=== PATIENT | female | born 1945 | race Caucasian/White ===

== ENCOUNTER 2023-07-06 17:01 | Emergency (ER) | payer MEDICARE, SELFPAY ==
[2023-07-06 17:06] VITALS: BP 182/101; PULSE 67; RESP 18; TEMP 36.8; O2SAT 97; BMI 26.5
--- NOTE | 2023-07-06 17:17 | XR_ITS ---
[address] [address] Patient Name: RADHA MILNER MRN: [id number] date: 1945 Sex: F Assigned Patient Location: ER Current Patient Location: ER Accession/Order Number: [id number] Exam Date: 07/06/2023 17:28 Report Date: 07/06/2023 18:30 At the request of: ELLEN PLUNKETT Procedure: XR sacrum coccyx min 2V IMAGES REVIEWED: XR sacrum coccyx min 2V COMPARISON: None available. CLINICAL INDICATION: injury FINDINGS/IMPRESSION: No radiographic evidence of acute osseous abnormality of the sacrum/coccyx. Degenerative grade 1 anterolisthesis of L3 on L4 due to severe multilevel lumbar facet arthropathy. Severe degenerative disc disease L4-L5. Moderate degenerative disc disease L2-L3. Electronically authenticated by: SKYLER BAKER Date: 07/06/2023 18:30
--- NOTE | 2023-07-06 17:54 | CT_ITS ---
The [address] [address] Patient Name: RADHA MILNER MRN: [id number] date: 1945 Sex: F Assigned Patient Location: ER Current Patient Location: Accession/Order Number: [id number] Exam Date: 07/06/2023 18:07 Report Date: 07/06/2023 18:38 At the request of: ELLEN PLUNKETT Procedure: CT pelvis wo con EXAM: CT pelvis wo con COMPARISON: None available. CLINICAL INDICATION: fall TECHNIQUE: Multiplanar CT images of the pelvis without contrast. Dose reduction techniques were achieved by using automated exposure control and/or adjustment of mA and/or kV according to patient size and/or use of iterative reconstruction technique. FINDINGS: No CT evidence of acute osseous abnormality. Osteopenia. Trace presacral/precoccygeal edema is nonspecific. No significant presacral/precoccygeal hematoma. Severe osteoarthritis left hip and mild osteoarthritis right hip. No acute intrapelvic abnormality. Degenerative trace anterolisthesis of L3 on L4 due to severe facet arthropathy. Severe degenerative disc disease L4-L5 and milder degenerative disc disease at L3-L4. Foraminal narrowing appears most severe on the right L4-L5. Moderate-severe spinal canal narrowing at L3-L4. CT/CT pelvis wo con IMPRESSION: No CT evidence of acute osseous abnormality. Osteopenia. MRI is the optimal modality for evaluating sacral insufficiency fractures. Severe osteoarthritis left hip. Severe degenerative changes lumbar spine. Electronically authenticated by: SKYLER BAKER Date: 07/06/2023 18:38
[2023-07-06] MEDS: ACETAMINOPHEN 500 MG TABLET PO (18:19)
[2023-07-06 19:21] VITALS: BP 204/102; PULSE 80; O2SAT 100
--- NOTE | 2023-07-06 21:08 | ED.GENADUL1 ---
HPI - General Adult General Chief complaint: Extremity Injury, Lower Stated complaint: fall around xmas, tailbone pain Time Seen by Provider: 07/06/23 17:45 Source: patient Mode of arrival: walk-in History of Present Illness HPI narrative: Patient is a 78-year-old female who has slipped and fallen Down 3 steps with a mechanical fall on June 27. Patient's bbeen having tailbone pain since. Patient does not have much body mass, patient alsso takes Eliquis. Patient has no ecchymosis, no palpable hematoma or mass to her tailbone her buttocks. Patient's been having pain since with walking, and relating or sitting. Patient says that her PCP sent her to the Emergency Room to get x-rays. Patient's had no urinary or bowel incontinence. No abdominal pain, nausea or vomiting. No other acute complaints. Patient did not hit her head. She has no headache or neck pain. She has no other acute injuries. . All systems are negative except as noted/marked. All systems reviewed and otherwise negative. . Nurses note and vital signs reviewed and patient is not hypoxic. General: The patient appears well and in no apparent distress. Patient is resting comfortably on cart. Patient is not toxic, lethargic, or listless Skin: Warm, dry, no pallor noted. There is no rash noted. No petechiae, purpura. Head: Normocephalic, atraumatic, Patient has no midline oor paracervical tenderness to palpation. Full range of motion of cervical spinal no difficulty. Eye: Normal conjunctiva, no drainage, EOMI. PERRL Ears, Nose, Mouth, and Throat: oral mucosa is moist. Nares patent. Mouth without vesicles. Cardiovascular: Regular Rate and Rhythm, no murmur, gallop, rub Respiratory: Patient is in no distress, no accessory muscle use, lungs are clear to auscultation, no wheezing, rales or rhonchi Back: Paloma Banegas RN was at bedside dduring exam. Patient has moderate to severe midline lower sacrum and coccyx tenderness to palpation, no step-offs, patient has no ecchymosis along her lower lumbar area, sacrum or coccyx. Patient has no ecchymosis to her buttocks, no palpable hematoma. Patient has no saddle anesthesia or cauda equina. Patient has pinpoint midline pain to her lower coccyx. Otherwise non-tender, no CVA tenderness bilaterally to percussion. No CT LS midline pain Besides mentioned GI: soft, no tenderness to palpation, no masses appreciated. No rebound, guarding, or rigidity noted. No flank pain bilateral, No distention Musculoskeletal: Patient has full range of motion of all of the extremities, no motor, sensory, or focal neurological deficits Neurological: A&O x3, normal speech Psychiatric: Cooperative Related Data Home Medications Medication Instructions Recorded Confirmed apixaban 5 mg tablet (Eliquis) 5 mg PO Q12H 07/06/23 07/06/23 atorvastatin 40 mg tablet 40 mg PO .every night 07/06/23 07/06/23 cyclobenzaprine 10 mg tablet 10 mg PO Q12H 07/06/23 07/06/23 gabapentin 600 mg tablet 600 mg PO Q12H 07/06/23 07/06/23 hydrochlorothiazide 25 mg tablet 25 mg PO .every night 07/06/23 07/06/23 metoprolol tartrate 25 mg tablet 25 mg PO Q12H 07/06/23 07/06/23 tramadol 50 mg tablet 50 mg PO Q12H 07/06/23 07/06/23 valsartan 160 mg tablet 160 mg PO DAILY 07/06/23 07/06/23 Previous Rx's Medication Instructions Recorded tramadol 50 mg tablet 50 mg PO Q8H PRN pain #14 tabs 07/06/23 Allergies Allergy/AdvReac Type Severity Reaction Status Date / Time No Known Drug Allergies Allergy Verified 07/06/23 17:06 Exam Constitutional Vital Signs, click to edit/add: Last Vital Signs Temp 98.2 F 07/06/23 17:06 Pulse 80 07/06/23 19:21 Resp 18 07/06/23 17:06 BP 204/102 H 07/06/23 19:21 Pulse Ox 100 07/06/23 19:21 O2 Del Method Room Air 07/06/23 17:06 Course Vital Signs Vital signs: Vital Signs Temperature 98.2 F 07/06/23 17:06 Pulse Rate 67 07/06/23 17:06 Respiratory Rate 18 07/06/23 17:06 Blood Pressure 182/101 H 07/06/23 17:06 Pulse Oximetry 97 07/06/23 17:06 Oxygen Delivery Method Room Air 07/06/23 17:06 Temperature 98.2 F 07/06/23 17:06 Pulse Rate 80 07/06/23 19:21 Respiratory Rate 18 07/06/23 17:06 Blood Pressure 204/102 H 07/06/23 19:21 Pulse Oximetry 100 07/06/23 19:21 Oxygen Delivery Method Room Air 07/06/23 17:06 Medical Decision Making MDM Narrative Medical decision making narrative: Secondary to patient's age, being on liquids, fall, and continuing to have severe pain a week after injury, initially x-rays weere ordered bbutt then a CT of the pelvis was ordered for further evaluation to make sure there is no small subbtle fractures to patient's sacrum or coccyx that would cause any type of nerve injury. X-rays and CT of the pelvis show arthritic changes, no other acute changes. Patient will continue using ice, Tylenol and tramadol at home. Additional prescription of Tyylenol was given to the patient. Patient was educated using ice, a donut pad or pillow if needed when sitting. Patient will follow-up with Dr. del toro. Patient is given copies of her x-ray and CT reports and is aware of the multiple arthritic changes. No questions at discharge. Discharge Plan Discharge Chief Complaint: Extremity Injury, Lower Clinical Impression: Coccyx contusion Patient Disposition: Home, Self-Care Time of Disposition Decision: 18:51 Condition: Fair Prescriptions / Home Meds: New tramadol 50 mg tablet 50 mg PO Q8H PRN (Reason: pain) Qty: 14 0RF No Action Eliquis 5 mg tablet 5 mg PO Q12H atorvastatin 40 mg tablet 40 mg PO .every night cyclobenzaprine 10 mg tablet 10 mg PO Q12H gabapentin 600 mg tablet 600 mg PO Q12H hydrochlorothiazide 25 mg tablet 25 mg PO .every night metoprolol tartrate 25 mg tablet 25 mg PO Q12H tramadol 50 mg tablet 50 mg PO Q12H valsartan 160 mg tablet 160 mg PO DAILY Instructions: Contusion in Adults (ED), Ice Pack Application (ED) Additional Instructions: Use ice 20 minutes on, 20 minutes off. Use pain medication as needed You can use pain medication With ice and Tylenol. He is a pillow or a donut pad as discussed when sitting Follow-up with PCP in 5-7 days if no improvement. Stand Alone Forms: Portal Instructions Referrals: ANNA DEL TORO [Primary Care Provider] - 1 week Discharge Date/Time: 07/06/23 19:23
== END 2023-07-06 19:23 | disposition home or self-care (01) ==
PROVIDERS: Emergency Provider Emergency Medicine; PCP Family Medicine
DX: S30.0XXA Contusion of lower back and pelvis, initial encounter (principal); W10.9XXA Fall (on) (from) unspecified stairs and steps, initial encounter; Z79.01 Long term (current) use of anticoagulants; Z79.899 Other long term (current) drug therapy
CPT/HCPCS: 72192; 72220; 99284

== ENCOUNTER 2023-08-20 19:56 | Emergency (ER) | payer MEDICARE, SELFPAY ==
[2023-08-20 20:02] VITALS: BP 176/108; PULSE 123; RESP 16; TEMP 37.1; O2SAT 97; BMI 21.5
--- OUTSIDE RECORDS SUMMARY | 2023-08-20 20:05 | XMS_ITS | CCD ---
Author Name Unknown Address [address] [place] [address] Organization [facility] Care Team Providers Care Hand Patcher Name Role Phone UNKNOWN, PROVIDER Attending Unavailable MOI FU Primary Care Unavailable UNKNOWN, PROVIDER Attending Unavailable OMI FU Primary Care Unavailable UNKNOWN, PROVIDER Attending Unavailable MOI FU Primary Care Unavailable UNKNOWN, PROVIDER Attending Unavailable NO FAMILY DOCTOR, NO FAMILY DOCTOR Primary Care Unavailable JOAQUINA BRIONES Admitting Unavailable JOAQUINA BRIONES Attending Unavailable KIP ESPINOZA Primary Care Unavailable LAMONTE NUR Consulting Unavailable JOAQUINA BRIONES Consulting Unavailable KIP ESPINOZA Primary Care Unavailable STRUS, ENEIDA Admitting Unavailable STRUS, ENEIDA Attending Unavailable STRUS, ENEIDA Consulting Unavailable ALEXIS, KIP Primary Care Unavailable ALLA, MISTY Admitting Unavailable ALLA, MISTY Attending Unavailable AMARI CONNORS Consulting Unavailable ALLA, MISTY Consulting Unavailable ALEXIS, KIP Primary Care Unavailable HAY, MISTY Admitting Unavailable ALLA, MISTY Attending Unavailable LAMONTE NUR Consulting Unavailable ALLA, MISTY Consulting Unavailable Kip Espinoza Unavailable Unavailable Unavailable Alli Nicholas Unavailable Maude Trotter Unavailable Marilin Resendez Unavailable DO Kip Espinoza Primary Care Provider [phone] DO Alli Nicholas Attending Provider [phone] DO Moises Alberto Emergency Provider DO Kip Espinoza Primary Care Provider DO Alli Nicholas Attending Provider [phone] Dr. Esau Aceves Attending Aliciama mame Espinoza, Dr. Kip Sullivan Primary Care Gian Aceves, Dr. Esau Gee Referring Gian Espinoza, Dr. Kip Sullivan Primary Care Gian Connors, JAMAICA Cook Referring Unavailable JAMAICA Connors Attending Unavailable DO Kip Espinoza Primary Care Provider [phone] DO Citlalli palumbo Emergency Provider [phone] Unavailable Primary Care Provider UnavailESAU Chavarria Attending Unavailable ESAU ACEVES Referring Unavailable KIP ESPINOZA Primary Care Unavailab EVELIA Batista Emergency Provider [phone] [place] Primary Care Provider [place], DO Lito T Admit Provider [phone] [place], Lito T Attending Provider Citlalli Tenorio Attending Unavailable Kip Espinoza Primary Care Unavailable Citlalli Tenorio Admitting Unavailable KevinLito watkins Attending Unavailable Kip Espinoza [facility] Care Unavailable SweetwaterLito Admitting Unavailable Andrea ARIAS, Jose Douglass Attending Unavailable Andrea ARIAS, Jose Douglass Attending Unavailable Jose Mendez MD Attending Unavailable KIP ESPINOZA Primary Care Unavailable Allergies Allergy Classification Reported Allergen(s) Allergy Type Date of Onset Reaction(s) Facility (1 source) amLODIPine / valsartan Drug Allergy 015 [facility] Repository (1 source) hydroCHLOROthiazide / Lisinopril Drug Allergy 015 [facility] Repository (1 source) irbesartan Drug Allergy 015 [facility] Repository (20 sources) levoFLOXacin Drug Allergy 015 Unknown [facility] Repository (20 sources) Verapamil Drug Allergy 015 Unknown [facility] Repository (14 sources) Angiotensin Converting Enzyme (Deyanira) Inhibitors; Translations: [DEYANIRA Inhibitors] Allergy to drug (finding) 023 [facility] 3 Repository (15 sources) Lisinopril; Translations: [lisinopril] Drug Allergy 023 Other, Cough, Headache -[facility] DO Work Phone: (20 sources) amLODIPine / valsartan Drug Allergy Unknown DIY Other (20 sources) hydroCHLOROthiazide / Lisinopril Drug Allergy Unknown DIY Other (20 sources) irbesartan Drug Allergy Unknown DIY Other (1 source) Angiotensin-convertin g enzyme inhibitor agent Drug Intolerance 023 Other, Cough, Headache [facility] Medications Current Medications Medication Drug Class(es) Dates Sig (Normalized) Sig (Original) ACETAMINOPHEN EXTRA STRENGTH ORAL (1 source) take 2 capsules by mouth four times daily ACETAMINOPHEN EXTRA STRENGTH ORAL Take 2 capsules by mouth 4 times a day. 0 Active apixaban 5 mg oral tablet (20 sources) Factor Xa Inhibitor Start: 04-10-2023 take 1 tablet by mouth twice daily apixaban (Eliquis) 5 mg tablet Indications: Chronic atrial fibrillation (CMS/HCC) Take 1 tablet (5 mg) by mouth 2 times a day. 90 tablet 3 04/10/2023 Active Start: 07-27-2017 take 1 tablet by yao th every twelve hours Apixaban (Eliquis) 5 mg Tablet Active 5 MG PO Q12H July 27, 2017 12:00am Start: 07-25-2017 End: 04-10-2023 take 1 tablet by mouth every twelve hours Eliquis 5 MG 1 tablet Orally bid Jul, Active Aspir-81 81 MG (20 sources) Aspir-81 81 MG O rally Once a day every other day Active aspirin 81 mg delayed release oral tablet (20 sources) Platelet Aggregation Inhibitor, Nonsteroidal Anti-inflammatory Drug Start: 06-08-2021 take 1 tablet by mouth every twelve hours Aspirin 81 MG 1 tablet Orally BID for 35 days do not fill until 1 day prior to surgery Jun, Active Start: 07-10-2017 End: 07-09-2023 take 81 mg by mouth once daily Aspirin Discontinued 81 MG PO Daily July 10, 2017 12:00am July 09, 2023 2:10pm Every other day. atorvastatin 40 mg oral tablet (20 sources) HMG-CoA Reductase Inhibitor Start: 04-10-2023 take 1 tablet by mouth once daily at bedtime atorvastatin (Lipitor) 40 mg tablet Indications: Hyperlipidemia, unspecified hyperlipidemia type Take 1 tablet (40 mg) by mouth once daily at bedtime. 90 tablet 3 04/10/2023 Active Start: 05-27-2021 End: 04-10-2023 take 40 mg by mouth once daily at bedtime Atorvastatin Active 40 MG PO Daily at bedtime May 27, 2021 12:00am Start: 07-10-2017 End: 05-27-2021 take 40 mg by mouth once daily Atorvastatin Discontinu ed 40 MG PO daily July 10, 2017 12:00am May 27, 2021 4:21pm cyclobenzaprine hydrochloride 10 mg oral tablet (20 sources) Muscle Relaxant Start: 07-09-2023 take 10 mg by mouth once daily Cyclobenzaprine Active 10 MG PO Daily July 09, 2023 12:00am Start: 04-04-2022 take 1 tablet by yao th three times daily as needed cyclobenzaprine (Flexeril) 10 mg tablet Take 1 tablet (10 mg) by mouth 3 times a day as needed. 0 04/04/2022 Active Start: 08-02-2021 End: 01-19-2022 take 10 mg by mouth every eight hours Cyclobenzaprine Discontinued 10 MG PO Q8H August 02, 2021 12:00am January 19, 2022 5:06pm Start: 06-08-2021 End: 01-19-2022 take 10 mg by mouth three times daily Cyclobenzaprine Discontinued 10 MG PO Three times daily August 02, 2021 12:00am January 19, 2022 5:06pm Start: 07-10-2017 End: 01-10-2019 take 10 mg by mouth once daily at bedtime Cyclobenzaprine Discontinued 10 MG PO Daily at bedtime July 10, 2017 12:00am January 10, 2019 11:56am docusate sodium 100 mg oral capsule (20 sources) Start: 06-08-2021 take 1 capsule by mouth every twelve hours Colace 100 MG 1 capsule as needed Orally BID for 14 days Jun, Active gabapentin 300 mg oral capsule (20 sources) Anti-epileptic Agent Start: 04-10-2022 gabapentin (Neurontin) 300 mg capsule Take 1 capsule (300 mg) by mouth. 2 - 3 TIMES DAILY NEEDED 0 04/10/2022 Active Start: 07-10-2017 take 1 capsule by [facility] every eight hours Neurontin 300 MG 1 capsule Orally tid PRN Aug, Active hydroCHLOROthiazide 25 mg oral tablet (3 sources) Thiazide Diuretic Start: 07-11-2023 take 37.5 mg by mouth once daily Hydrochlorothiazide Active 37.5 MG PO Daily July 11, 2023 12:00am Start: 04-10-2023 End: 04-09-2024 take 25 mg by mouth once daily Hydrochlorothiazide Discontinued 25 MG PO Daily July 09, 2023 12:00am July 11, 2023 10:26am latanoprost 0.05 mg/ml ophthalmic solution (13 sources) Prostaglandin Analog Start: 03-07-[address] (Xalatan) 0.005 % ophthalmic solution Administer into both eyes once daily at bedtime. 0 03/07/2022 Active Start: 03-07-2022 take 1 drop(s) into the eye(s) at bedtime Latanoprost 0.005 % Ophthalmic Solution INSTILL 1 DROP IN BOTH EYES AT BEDTIME. Quantity: 0 Refills: 0 Ordered: 07-Mar-2022 DO Start : 07-Mar-2022 Active Start: 01-10-2019 take 1 drop(s) into the eye(s) once daily at bedtime Latanoprost (Xalatan) 0.005 % drops Active 1 DROPS EYE-BOTH Bedtime January 09, 2019 11:00pm Instill one drop into affected eye once daily as directed. metoprolol tartrate 25 mg oral tablet (20 sources) beta-Adrenergic [place] Start: 04-10-2023 take 2 tablets by mouth twice daily metoprolol tartrate (Lopressor) 25 mg tablet Indications: Essential hypertension, benign Take 2 tablets (50 mg) by mouth 2 times a day. 90 tablet 3 04/10/2023 Active Start: 11-21-2021 End: 04-10-2023 take 2 tablets by mouth twice daily metoprolol tartrate (Lopressor) 25 mg tablet Take 2 tablets (50 mg) by mouth 2 times a day. 0 11/21/2021 04/10/2023 Discontinued (Reorder) Start: 07-27-2017 take 50 mg by mouth twice darshan y Metoprolol Tartrate Active 50 MG PO Twice daily July 27, 2017 12:00am take 1 tablet by yao th every twelve hours Metoprolol Tartrate 25 MG 1 tablet with food Orally Twice a day Active take 2 tablets by mo uth twice daily Metoprolol Tartrate 25 MG Oral Tablet TAKE 2 TABLET Twice daily Quantity: 0 Refills: 0 Ordered: 12-Apr-2021 DO Active nitroglycerin 0.4 mg sublingual tablet (20 sources) Nitrate Vasodilator Start: 01-10-2019 Nitroglyce rin (Nitrostat) 0.4 mg tablet, sublingual Active 0.4 MG SUBLINGUAL EVERY 3-5 MINUTES January 09, 2019 11:00pm Start: 02-11-2015 Nitrostat 0.4 MG 1 tablet Sublingual q5 min x3 if no relief call 911 prn Jan, Active omeprazole 20 mg delayed release oral capsule (14 sources) Proton Pump Inhibitor End: 04-10-2023 take 1 capsule by mouth once daily before mealtime omeprazole (PriLOSEC) [address] capsule Take 1 capsule (20 mg) by mouth once daily in the morning. Take before meals. 0 04/10/2023 Discontinued (Therapy completed) oxyCODONE hydrochloride 5 mg oral tablet (15 sources) Opioid Agonist Start: 06-08-2021 take 1 tablet by mouth every four hours oxyCODONE HCl 5 MG 1 tablet as needed Orally every 4 hrs for 7 days do not fill until 1 day prior to surgery Jun, Active Start: 07-10-2017 End: 01-10-2019 take 10 mg by mouth every six hours Oxycodone Discontinued 10 MG PO Q6H July 10, 2017 12:00am January 10, 2019 11:56am potassium chloride 10 meq extended release oral tablet (1 source) Start: 04-10-2023 End: 04-09-2024 take 1 tablet by mouth twice daily potassium chloride CR (Klor-Con) 10 mEq ER tablet Indications: Essential hypertension, benign , History of PTCA Take 1 tablet (10 mEq) by mouth 2 times a day. Do not crush, chew, or split. 60 tablet 11 04/10/2023 04/09/2024 Active Timolol Maleate (1 source) beta-Adrenergi c [place] Start: 07-09-2023 take 1 drop(s) into the eye(s) twice daily Timolol Maleate Active 1 DROPS EYE-BOTH Twice daily July 09, 2023 12:00am traMADol hydrochloride 50 mg oral tablet (20 sources) Opioid Agonist Start: 07-09-2023 take 1 mg by mouth once daily Tramadol Active 1 MG PO Daily July 09, 2023 12:00am Start: 05-04-2021 End: 01-19-2022 take 50 mg by mouth every four hours Tramadol Discontinued 50 MG PO Q4H 42 7 August 02, 2021 12:00am January 19, 2022 5:06pm valsartan 320 mg oral tablet (10 sources) Angiotensin 2 Receptor [place] Start: 04-10-2023 End: 04-09-2024 take 320 mg by mouth once daily Valsartan Active 320 MG PO Daily July 09, 2023 12:00am Start: 04-13-2022 End: 04-10-2023 take 1 tablet by mouth once daily valsartan (Diovan) 160 mg tablet Take 1 tablet (160 mg) by mouth once daily. 0 04/13/2022 04/10/2023 Discontinued (Ineffective) Completed/Discontinued Medications Medication Drug Class(es) Dates Sig (Normalized) Sig (Original) acetaminophen 500 mg oral tablet (20 sources) Start: 06-08-2021 End: 01-19-2022 take 2 tablets by mouth every eight hours Acetaminophen (Tylenol Extra Strength) 500 mg tablet Discontinued 1000 MG PO Every 8 hours 60 August 02, 2021 12:00am January 19, 2022 5:06pm Start: 06-08-2021 take 2 tablets by mouth every eight hours Tylenol 1 tab Or al Active Acetaminophen Extra Strength CAPS (13 sources) Acetaminophen Ex tra Strength CAPS TAKE 2 CAPSULES 4 TIMES DAILY. Quantity: 0 Refills: 0 Ordered: 12-Apr-2021 DO Active amiodarone hydrochloride 200 mg oral tablet (2 sources) Antiarrhythmic Start: 2 take 2 tablets by mouth twice daily Amiodarone HCl - 200 MG Oral Tablet TAKE 2 TABLET Twice daily Quantity: 28 Refills: 0 Ordered: 13-Apr-2022 Esau Aceves DO Start : 13-Apr-2022 Active New start- Take 400 MG BID for 1 week ascorbic acid 500 mg oral tablet (5 sources) Vitamin C Start: End: 2 take 1 tablet by mouth once daily Ascorbic Acid (Vitamin C) (Vitamin C) 500 mg Tablet Discontinued 500 MG PO Daily May 27, 2021 12:00am Taylor 21st, 2022 5:06pm [id number] Calcium-B6 (5 sources) Start: 8 End: 9 take 1 tablet by mouth once daily [id number] Calcium-B6 Discontinued 1 TAB PO Daily August 21, 2017 12:00am January 10, 2019 11:56am Start: 08-21-2017 End: 01-10-2019 take 1 tablet by mouth once daily [id number] Calcium-B6 Discontinued 1 TAB PO Daily August 21, 2017 1:00am January 10, 2019 12:56pm busPIRone hydrochloride 15 mg oral tablet (20 sources) Start: 05-27-2021 End: 07-09-2023 take 5 mg by mouth once daily at bedtime Buspirone Discontinued 5 MG PO Daily at bedtime May 27, 2021 12:00am July 09, 2023 2:07pm Start: 03-22-2021 End: 07-09-2023 take 1 tablet by mouth once daily in the morning Buspirone Discontinued 10 MG PO Every morning March 21, 2021 11:00pm July 09, 2023 2:07pm Takes 10mg in AM, 5mg at night. Uses one 15mg tablet and breaks it. Start: 01-10-2019 End: 03-22-2021 take 7.5 mg by mouth twice daily Buspirone Discontinued 7.5 MG PO Twice daily January 09, 2019 11:00pm March 21, 2021 11:50pm Start: 11-15-2017 take 2 tablets by mo ut in the morning, then take 1 tablet by mouth in the evening busPIRone HCl 5 MG 2 tablets in the AM Orally and 1 tablet in the PM October, Active Start: 11-15-2017 End: 04-10-2023 busPIRone (Buspar) 15 mg tab let Take by mouth once daily as needed. 0 04/10/2023 Discontinued (Therapy completed) cholecalciferol 0.05 mg oral capsule (5 sources) Vitamin D Start: 07-27-2017 End: 01-10-2019 take 1 capsule by mouth once Cholecalciferol (Vitamin D3) (Vitamin D3) 2,000 unit Capsule Discontinued 2000 UNIT PO Once July 27, 2017 12:00am January 10, 2019 11:56am clopidogrel 75 mg oral tablet (5 sources) [id number] Platelet Inhibitor Start: 07-10-2017 End: 07-27-2017 take 75 mg by mouth once daily Clopidogrel Discontinued 75 MG PO daily July 10, 2017 12:00am July 27, 2017 9:07am Durolane (20 sources) Start: 02-16-2020 Durolane Jan, 60 mg ferrous sulfate 325 mg oral tablet (5 sources) Start: 06-15-2021 End: 08-02-2021 take 1 tablet by mouth twice daily Ferrous Sulfate (Iron) 325 mg (65 mg iron) tablet Discontinued 325 MG PO Twice daily 60 June 15, 2021 12:00am August 02, 2021 1:32pm Fish Oil & Vitamin D3 (5 sources) Start: 05-27-2021 End: 08-02-2021 take 1 capsule by mouth once daily Fish Oil & Vitamin D3 Discontinued 1 CAP PO Daily May 27, 2021 12:00am August 02, 2021 1:32pm Start: 05-27-2021 End: 08-02-2021 take 1 capsule by mouth once daily Fish Oil & Vitamin D3 Discontinued 1 CAP PO Daily May 27, 2021 1:00am August 02, 2021 2:32pm hydrOXYzine pamoate 50 mg oral capsule (5 sources) Antihistamine Start: 06-16-2021 End: 08-02-2021 take 50 mg by mouth every six hours Hydroxyzine Pamoate Discontinued 50 MG PO Q6H 60 June 16, 2021 12:00am August 02, 2021 1:32pm LORazepam 0.5 mg oral tablet (5 sources) Benzodiazepine Start: 06-16-2021 End: 08-02-2021 take 1 tablet by mouth twice daily Lorazepam (Ativan) 0.5 mg tablet Discontinued 0.5 MG PO Twice daily 14 June 16, 2021 12:00am August 02, 2021 1:33pm losartan potassium 100 mg oral tablet (20 sources) Angiotensin 2 Receptor [place] Start: 07-10-2017 End: 07-09-2023 take 100 mg by mouth once daily in the morning Losartan Discontinued 100 MG PO Every morning July 10, 2017 12:00am July 09, 2023 2:12pm meclizine hydrochloride 25 mg oral tablet (5 sources) Antiemetic Start: 01-10-2019 End: 03-22-2021 take 25 mg by mouth once daily Meclizine Discontinued 25 MG PO Daily January 09, 2019 11:00pm March 21, 2021 11:50pm raNITIdine 150 mg oral tablet (10 sources) Histamine-2 Receptor Antagonist Start: 07-27-2017 End: 01-10-2019 take 150 mg by mouth once daily at bedtime Ranitidine Hcl Discontinued 150 MG PO Daily at bedtime July 27, 2017 12:00am January 10, 2019 11:56am Start: 07-10-2017 End: 01-10-2019 take 150 mg by mouth once daily at bedtime Ranitidine Hcl Discontinued 150 MG PO Daily at bedtime July 27, 2017 12:00am January 10, 2019 11:56am triamcinolone acetonide 40 mg/ml injectable suspension (20 sources) Corticosteroid Start: 01-11-2022 Kenalog-40 Nov, 20 mg Start: 02-09-2021 Kenalog -40 mg Jan, 40 mg Start: 02-04-2020 Kenalog -40 mg Jan, 40 mg Start: 02-04-2020 KENALOG - 10 m g Jan, 40 mg Start: 03-11-2019 Kenalog -40 mg Mar, 40 mg Start: 11-14-2017 Kenalog -40 mg October, 10 mg Start: 08-09-2016 Kenalog -40 mg Aug, 40 mg Start: 03-07-2012 KENALOG - 10 m g Mar, 1.5 cc Problems Active Problems Problem Classification Problem Date Documented Da te Episodic/Chronic Acute myocardial infarction (5 sources) Acute non-ST segment elevation myocardial infarction; Translations: [Non-ST elevation (NSTEMI) myocardial infarction] 03-21-2021 Chronic Anxiety disorders (20 sources) Anxiety; Translations: [Anxiety disorder, unspecified] Chronic Cardiac dysrhythmias (20 sources) Chronic atrial fibrillation; Translations: [Unspecified atrial fibrillation] Onset: 07-09-2018 03-22-2021 Chronic Cardiac dysrhythmias (14 sources) Palpitations; Translations: [Palpitations] Onset: 03-05-2023 03-05-2023 Episodic Complication of device; implant or graft (5 sources) Arthropathy of knee joint; Translations: [Fibrosis due to internal orthopedic prosthetic devices, implants and grafts, initial encounter] 08-02-2021 Episodic Coronary atherosclerosis and other heart disease (20 sources) Ischemic cardiomyopathy; Translations: [Atherosclerotic heart disease of [place] coronary artery without angina pectoris] Onset: 07-09-2018 05-27-2021 Chronic Coronary atherosclerosis and other heart disease (2 sources) Coronary angioplasty status; Translations: [Coronary angioplasty status] Onset: 03-05-2023 Episodic Deficiency and other anemia (20 sources) Thalassemia; Translations: [Thalassemia, unspecified] 09-12-2017 Chronic Deficiency and other anemia (1 source) Thalassemia, unspecified; Translations: [Thalassemia] Chronic Deficiency and other anemia (5 sources) Anemia; Translations: [Anemia, unspecified] 09-12-2017 Episodic Diabetes mellitus without complication (20 sources) Hyperglycemia; Translations: [Hyperglycemia, unspecified] Episodic Diseases of mouth; excluding dental (1 source) Cellulitis and abscess of mouth; Translations: [CELLULITIS AND ABSCESS OF MOUTH] Onset: 08-20-2018 Diseases of white blood cells (20 sources) Leukopenia; Translations: [Decreased white blood cell count, unspecified] Chronic Disorders of lipid metabolism (20 sources) Hyperlipidemia, unspecified; Translations: [Hyperlipidemia] Onset: 07-09-2018 04-10-2023 Chronic Essential hypertension (20 sources) Essential (primary) hypertension; Translations: [Benign essential hypertension] Onset: 09-17-2017 04-10-2023 Chronic External cause codes: Struck by; against (1 source) Walked into furniture, initial encounter; Translations: [WALKED INTO FURNITURE INITIAL ENC] Onset: 05-19-2019 Fluid and electrolyte disorders (20 sources) Hypokalemia; Translations: [Hypokalemia] Episodic Genitourinary symptoms and ill-defined conditions (20 sources) Blood in urine; Translations: [Hematuria] Episodic Headache; including migraine (1 source) Headache; Translations: [HEADACHE] Onset: 05-02-2019 Episodic Hypertension with complications and secondary hypertension (3 sources) Hypertensive urgency ; Translations: [Hypertensive urgency] Onset: 07-09-2023 07-09-2023 Chronic Malaise and fatigue (5 sources) Fatigue; Translations: [Other fatigue] 09-12-2017 Episodic Menopausal disorders (20 sources) Menopause present; Translations: [Menopausal and female climacteric states] Chronic Nonspecific chest pain (6 sources) Chest pain, unspecified; Translations: [Chest pain, unspecified] Onset: 01-01-2018 Episodic Nutritional deficiencies (20 sources) Vitamin D deficiency; Translations: [Vitamin D deficiency, unspecified] Chronic Osteoarthritis (20 sources) Osteoarthritis of knee; Translations: [Osteoarthritis of knee, unspecified] Onset: 05-04-2021 Resolved: 03-16-2022 Chronic Osteoporosis (20 sources) Osteoporosis; Translations: [Osteoporosis] Chronic Other aftercare (1 source) detention (current) use of anticoagulants; Translations: [HALFWAY CURRNT USE ANTICOAGULANTS] Onset: 05-19-2019 Episodic Other aftercare (20 sources) Drug therapy finding; Translations: [Long-term (current) use of anticoagulants] Onset: 03-05-2023 03-05-2023 Episodic Other aftercare (2 sources) Taking high risk medication; Translations: [Other nursing home (current) drug therapy] Onset: 03-05-2023 04-10-2023 Episodic Other aftercare (2 sources) Other supervisor intermediates (current) drug therapy; Translations: [Other supervisor intermediates (current) drug therapy] Onset: 03-05-2023 Episodic Other connective tissue disease (20 sources) History of total knee arthroplasty; Translations: [Presence of left artificial knee joint] 06-15-2021 Chronic Other connective tissue disease (7 sources) Presence of left artificial knee joint Onset: 06-27-2021 Resolved: 12-14-2021 Chronic Other connective tissue disease (3 sources) Trigger finger, right middle finger Onset: 01-11-2022 Resolved: 01-11-2022 Episodic Other connective tissue disease (3 sources) Pain in right hand Onset: 01-11-2022 Resolved: 01-11-2022 Episodic Other connective tissue disease (2 sources) Trigger finger, right index finger Episodic Other lower respiratory disease (15 sources) Dyspnea on exertion; Translations: [Shortness of breath] Onset: 03-05-2023 04-10-2023 Episodic Other lower respiratory disease (5 sources) Dyspnea; Translations: [Dyspnea, unspecified] 09-12-2017 Episodic Other lower respiratory disease (2 sources) Other forms of dyspnea; Translations: [Other forms of dyspnea] Onset: 04-10-2023 Episodic Other non-traumatic joint disorders (20 sources) Arthralgia of the lower leg; Translations: [Knee pain, right] Episodic Other non-traumatic joint disorders (4 sources) Stiffness of left knee, not elsewhere classified Onset: 07-25-2021 Resolved: 12-14-2021 Episodic Other screening for suspected conditions (not mental disorders or infectious disease) (2 sources) Raised cardiac enzyme or marker; Translations: [Other specified abnormal findings of blood chemistry] 07-09-2023 Episodic Other upper respiratory infections (5 sources) Upper respiratory infection; Translations: [Acute upper respiratory infection, unspecified] 01-19-2022 Episodic Residual codes; unclassified (13 sources) Body mass index 20-24 - normal; Translations: [Body Mass Index between 19-24, adult] Episodic Residual codes; unclassified (5 sources) Other specified postprocedural states Episodic Superficial injury; contusion (1 source) Contusion of left front wall of thorax, initial encounter; Translations: [CONTUS LT FRONT WALL THORAX INITIAL] Onset: 05-19-2019 Episodic Syncope (3 sources) Near syncope; Translations: [Syncope and collapse] Onset: 07-09-2023 07-09-2023 Episodic Unclassified (1 source) Other nursing home (current) drug therapy Onset: 07-09-2018 Unclassified (2 sources) Chronic atrial fibrillation, unspecified; Translations: [Chronic atrial fibrillation, unspecified] Onset: 03-05-2023 Viral infection (5 sources) Viral disease; Translations: [Viral infection, unspecified] 01-19-2022 Episodic Past or Other Problems Problem Classification Problem Date Documented Da te Episodic/Chronic Conditions associated with dizziness or vertigo (5 sources) Dizziness and giddiness; Translations: [Dizziness and giddiness] Onset: 07-30-2018 Episodic Disorders of teeth and jaw (1 source) Dental caries, unspecified; Translations: [DENTAL CARIES UNSPECIFIED] Onset: 08-20-2018 Episodic Other non-traumatic joint disorders (4 sources) Pain in left knee Onset: 05-04-2021 Resolved: 07-25-2021 Episodic Other skin disorders (3 sources) Localized swelling, mass and lump, head; Translations: [LOCALIZED SWELLING MASS AND LUMP HEAD] Onset: 08-18-2018 Episodic Unclassified (13 sources) Never smoked tobacco; Translations: [Never a smoker] Unclassified (1 source) Onset: 04-10-2023 04-10-2023 Results Test Name Value Interpretation Reference Range Facility Patient Letteron 07-17-2023 Patient Letter [id number] IFF Normal [facility] Outside Recordson 07-12-2023 Outside Records [id number] IFF Normal [facility] Acanthocytes [Presence] in B lood by Light microscopyOrdered By: Kristyn Morrison on 07-10-2023 Acanthocytes LM Ql (Bld) Moderate [facility] Anisocytosis LM Ql (Bld)Orde red By: Kristyn Morrison on 07-10-2023 Anisocytosis Ql (Bld) Moderate [facility] Basic Metabolic Panelon Anion gap [Moles/Vol] 10.5 mmol/L Normal 6.0-15.0 [facility] Comment on above: Performed By: #### C MP, MG #### [facility] [address] Calcium [Mass/Vol] 9.0 mg/dL Normal 8.6-10.3 [facility] Comment on above: Performed By: #### C MP, MG #### [facility] [address] [place] [address] Chloride [Moles/Vol] 106 mmol/L Normal 98-107 [facility] Comment on above: Performed By: #### C MP, MG #### [facility] [address] [place] [id number] [facility] CO2 [Moles/Vol] 26.1 mmol/L Normal 21.0-31.0 [facility] Comment on above: Performed By: #### C MP, MG #### [facility] [address] [place] [id number] [place] Creatinine [Mass/Vol] 0.94 mg/dL Normal 0.60-1.20 [facility] Comment on above: Performed By: #### C MP, MG #### [facility] [address] [place] [id number] [place] Creatinine Clr Calc Pharmacy 43.67 [facility] Comment on above: Result Comment: PERF ORMED BY: [place] [address] PATHOLOGIST [employer] ACCOUNTANT STACY ROJAS M.D. Performed By: #### C MP, MG #### [place] [address] [place] GFR/1.73 sq M.predicted MDRD (S/P/Bld) [Vol rate/Area] mL/min/{1.73_m2} [facility] Comment on above: Performed By: #### C MP, MG #### [address] Glucose [Mass/Vol] 90 mg/dL Normal 70-100 [facility] Comment on above: Result Comment: [place] Glucose Reference Range is dependent on time and content of last meal. Glucose of more than 200 mg/dL in a nonstressed, ambulatory subject supports the diagnosis of Diabetes Mellitus. ADA recommended reference range Performed By: #### C MP, MG #### [address] Potassium [Moles/Vol] 3.6 mmol/L Normal 3.5-5.1 [facility] Comment on above: Performed By: #### C MP, MG #### [address] Sodium [Moles/Vol] 139 mmol/L Normal 136-145 [facility] Comment on above: Performed By: #### C MP, MG #### [place] [address] [place] Urea nitrogen [Mass/Vol] 11 mg/dL Normal 7-25 [facility] Comment on above: Performed By: #### C MP, MG #### [place] [address] [place] Basophils Auto (Bld) [#/Vol] Ordered By: Kristyn Morrison on 07-10-2023 Basophils (Bld) [#/Vol] 0.1 10*3/uL 0.0-0.2 [facility] Basophils/100 WBC Auto (Bld) Ordered By: Kristyn Morrison on 07-10-2023 Basophils/100 WBC (Bld) 0.9 % . [facility] [place] cells [Presence] in Blo od by Light microscopyOrdered By: Kristyn Morrison on 07-10-2023 [place] cells LM Ql (Bld) Moderate Fi [facility] Calcium [Mass/volume] in Ser um or PlasmaOrdered By: Kristyn Morrison on 07-10-2023 Calcium [Mass/Vol] 9.0 mg/dL 8.6-10.3 [facility] Carbon dioxide, total [Moles /volume] in Serum or PlasmaOrdered By: Kristyn Morrison on 07-10-2023 CO2 [Moles/Vol] 26.1 mmol/L 21.0-31.0 [facility] Chloride [Moles/volume] in S amador or PlasmaOrdered By: Kristyn Morrison on 07-10-2023 Chloride [Moles/Vol] 106 mmol/L 98-107 [facility] Creatinine [Mass/volume] in Serum or PlasmaOrdered By: Kristyn Morrison on 07-10-2023 Creatinine [Mass/Vol] 0.94 mg/dL 0.60-1.20 [facility] ECH echo transthoracicon ECH echo transthoracic [facility] [place] [address] Echocardiogram Signed Patient: Radha Butt MR#: [id number] : 1945 Acct:[id number] Age/Sex: 78 / F ADM Date: 07/09/23 Loc: Room: [address] [place] [address] Type: ADM INOo Attending Dr: Lito Kevin DO Ordering Provider: Kristyn Morrison APRN Date of Service: 07/10/2303/25/1130 ECH/ECH echo transthoracic: Presyncope-will discharge today Copies to: MD Kristyn Crespo, E[employer]MENT [employer] TECH BSA: 1.7 m2 BP: 172/104 mmHg HR: 65 Reason For Study: Presyncope History: A-Fib., CAD, HLD, HTN, Stents Interpretation Summary Left ventricular systolic function is normal. Ejection Fraction = 55-60%. Mild concentric left ventricular hypertrophy. The left ventricular wall motion is normal. The left atrium appears severely dilated. There is mild tricuspid regurgitation. There is trace mitral regurgitation. Procedure/Quality: A two-dimensional transthoracic echocardiogram with color flow and Doppler was performed. The study was technically good in quality. Left Ventricle: Mild concentric left ventricular hypertrophy. Left ventricular systolic function is normal. Ejection Fraction = 55-60%. A variety of Doppler measurements indicate normal left ventricular diastolic function. The left ventricular wall motion is normal. Left Atrium: The left atrium appears severely dilated. Right Atrium: The right atrium appears normal in size. Right Ventricle: The right ventricular size, thickness and function are normal. Aortic Valve: The aortic valve is mildly sclerotic. The aortic valve is trileaflet. No hemodynamically significant valvular aortic stenosis. No aortic regurgitation is present. Mitral Valve: The mitral valve is mildly sclerotic. There is no mitral valve stenosis. There is trace mitral regurgitation. Tricuspid Valve: The tricuspid valve is normal. There is mild tricuspid regurgitation. Pulmonic Valve: The pulmonic valve is not well seen, but is grossly normal. Mild pulmonic valvular regurgitation. Arteries: The aortic root is normal size. Pericardium/Pleura: No pericardial effusion seen. IVC/Hepatic Viens: The inferior vena cava is normal in size, with a normal collapsibility index. Miscellaneous: No thrombus, vegetation or mass is seen. Measurements with Normals IVSd: 1.2 cm (0.7-1.1 cm)LVIDd: 4.5 cm (3.7-5.4 cm) LVPWd: 1.2 cm (0.7-1.1 cm)LVIDs: 2.9 cm (2.3-3.6 cm) LA dimension: 4.8 cm (2.3-4.0 cm)Ao root diam: 3.3 cm(2.0-3.6 cm) asc Aorta Diam: 4.0 cm(2.1-3.4cm) Doppler with Normals RVSP(TR): 38.8 mmHg (18-35mmHg) LV V1 max: 109.1 cm/sec(0.7-1.7m/s)MV E max diana: 114.0 cm/sec(0.8-1.3m/s) MMode/2D Measurements Calculations RVDd: 3.5 cm FS: 36.2 % Ao root area: LVOT diam: 2.1 cm TAPSE: 2.2 cm EDV(Teich): 91.1 ml 8.8 cm2 LVOT area: 3.4 cm2 RV S Diana: ESV(Teich): 30.9 ml 12.1 cm/sec EF(Teich): 66.0 % __ LVLd ap4: 7.0 cm SV(MOD-sp4): 44.6 ml LAV(MOD-sp4): LA A2 area: EDV(MOD-sp4): 106.0 ml 29.0 cm2 80.7 ml LAV(MOD-sp2): LA A4 area: LVLs ap4: 5.6 cm 93.5 ml ESV(MOD-sp4): 31.6 cm2 36.1 ml LA length (vol): EF(MOD-sp4): 7.5 cm 55.3 % LA vol: 104.1 ml LA vol index: 62.0 ml/m2 __ RA Volume: 45.4 mlRA Volume Index: 27.0 ml/m2 Doppler Measurements Calculations MV dec time: E/E' lat: 11.8 MV dec slope: Ao V2 max: 0.21 sec E/E' med: 15.0 154.2 cm/sec 544.1 cm/sec2 Ao max P.5 mmHg Ao mean P.9 mmHg Ao V2 mean: 117.5 cm/sec Ao V2 VTI: 31.3 cm BRENDON(I,D): 2.3 cm2 BRENDON(V,D): 2.4 cm2 __ LV V1 max PG: TV max PG: TR max diana: 4.8 mmHg 34.0 mmHg 290.5 cm/sec LV V1 mean PG: TR max P.8 mmHg 2.6 mmHg RAP systole: 5.0 mmHg LV V1 mean: 77.6 cm/sec LV V1 VTI: 21.7 cm ___ Transcribed By: REBECCA Performed At: 07/10/23 1255 Signed By: José Manuel Coon MD 07/10/23 1804 Normal [facility] Eosinophils Auto (Bld) [#/Vo l]Ordered By: Kristyn Morrison on 07-10-2023 Eosinophils (Bld) [#/Vol] 0.0 10*3/uL 0.0-0.45 [facility] Eosinophils/100 WBC Auto (Bl d)Ordered By: Kristyn Morrison on 07-10-2023 Eosinophils/100 WBC (Bld) 0.3 % . [facility] Erythrocyte distribution wid th Auto (RBC) [Ratio]Ordered By: Kristyn Morrison on 07-10-2023 Erythrocyte distribution width (RBC) [Ratio] 16.3 % 11.9-15.3 [facility] Glucose [Mass/volume] in Ser um or PlasmaOrdered By: Kristyn Morrison on 07-10-2023 Glucose [Mass/Vol] 90 mg/dL 70-100 [facility] Comment on above: ADA recommended refe rence rangeRandom Glucose Reference Range is dependent on time and content of last meal. Glucose of more than 200 mg/dL in a nonstressed, ambulatory subject supports the diagnosis of Diabetes Mellitus. Hematocrit Auto (Bld) [Volum e fraction]Ordered By: Kristyn Morrison on 07-10-2023 Hematocrit (Bld) [Volume fraction] 29.4 % 34.0-46.4 [facility] Hemoglobin [Mass/volume] in BloodOrdered By: Kristyn Morrison on 07-10-2023 Hemoglobin (Bld) [Mass/Vol] 9.3 g/dL 11.8-15.4 [facility] Hypochromia LM Ql (Bld)Order ed By: Kristyn Morrison on 07-10-2023 Hypochromia Ql (Bld) Moderate [facility] INR in Platelet poor plasma by Coagulation assayOrdered By: Kristyn Morrison on 07-10-2023 INR Coag (PPP) [Relative time] 1.7 {INR} [facility] Comment on above: INR Therapeutic Rang e A) Pre- and Peroperative OAT started two weeks before surgery. NOT HIP SURGERY: 1.5 - 2.5 HIP SURGERY: 2 - 3B) Primary and secondary prevention of venous THROMBOSIS: 2 - 3C) Active venous thrombosis, pulmonary embolismand prevention of recurrent venous thrombosis: 2 - 3D) Prevention of arterial thromboembolismincluding patients with mechanical heart valves: 3 - 4.5 Hernandez 07-10-2023 L ----- Specimen: [id number] Received: 07/10/23 Status: MANNY Ulloa Num: [id number] Spec Type: Impression Subm Dr: Lito Kevin DO Tissues: PATHPER Procedures: PATHREVIEW Age/ Patient Sex Location Account Attending Physician Radha Butt 78/F 3T [id number] Lito Kevin DO SPEC NUM: [id number] RECD: 07/10/23 STATUS: MANNY KWABENA NUM: [id number] JOSE DE JESUS: 07/10/23-3 [facility] DR: Lito Kevin DO ENTERED: 07/10/[address]: SPEC TYPE: Impression DEPT: CO ORDERED: PATHREVIEW ORDERED: PATHREVIEW Pathologist Review Abnormal CBC for peripheral blood smear review per clinician's request: - Mild anemia with severe microcytic type, including mild anisocytosis and poikilocytosis with moderate hypochromasia, moderate microcytosis, few ovalocytes, occasional target cells, occasional crenated and spur cells and the related schistocytes, and rare teardrop cells and at least rare polychromatophils - No obvious morphological abnormality of the leukocyte population - Occasional large platelets Comment -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 -There is interval mild drop of the hemoglobin level since last path review at P20?125 -Continuous routine laboratory follow-up is also suggested CPT: 13417 Specimen: [id number] Received: 07/10/23 Status: MANNY Ulloa Num: [id number] Spec Type: Impression Subm Dr: Lito Kevin DO Tissues: PATHPER Procedures: PATHREVIEW Patient: Radha Butt [id number] (Continued) Signed (signature on file) Sonido Aguilar MD 07/11/23 0859 Normal [facility] Leukocytes [#/volume] correc berny for nucleated erythrocytes in Blood by Automated counOrdered By: Kristyn Morrison on 07-10-2023 WBC corrected for nucl RBC Auto (Bld) [#/Vol] 6.5 10*3/uL 3.8-11.6 [facility] Lymphocytes Auto (Bld) [#/Vo l]Ordered By: Kristyn Morrison on 07-10-2023 Lymphocytes (Bld) [#/Vol] 1.5 10*3/uL 1.00-4.8 [facility] Lymphocytes/100 WBC Auto (Bl d)Ordered By: Kristyn Morrison on 07-10-2023 Lymphocytes/100 WBC (Bld) 23.1 % . [facility] MCH Auto (RBC) [Entitic mass ]Ordered By: Kristyn Morrison on 07-10-2023 MCH (RBC) [Entitic mass] 20.9 pg 24.7-34.3 [facility] MCHC Auto (RBC) [Mass/Vol]Or dered By: Kristyn Morrison on 07-10-2023 MCHC (RBC) [Mass/Vol] 31.7 g/dL 32.0-35.0 [facility] MCV Auto (RBC) [Entitic vol] Ordered By: Kristyn Morrison on 07-10-2023 MCV (RBC) [Entitic vol] 66.1 fL 80-100 [facility] Microcytes LM Ql (Bld)Ordere d By: Kristyn Morrison on 07-10-2023 Microcytes Ql (Bld) Marked [facility] [place] [facility] Monocytes Auto (Bld) [#/Vol] Ordered By: Kristyn Morrison on 07-10-2023 Monocytes (Bld) [#/Vol] 0.5 10*3/uL 0.0-0.8 [facility] Monocytes/100 WBC Auto (Bld) Ordered By: Kristyn Morrison on 07-10-2023 Monocytes/100 WBC (Bld) 7.6 % . [facility] Neutrophils Auto (Bld) [#/Vo l]Ordered By: Kristyn Morrison on 07-10-2023 Neutrophils (Bld) [#/Vol] 4.4 10*3/uL 1.8-7.7 [facility] Neutrophils/100 WBC Auto (Bl d)Ordered By: Kristyn Morrison on 07-10-2023 Neutrophils/100 WBC (Bld) 68.1 % . [facility] No Panel InformationOrdered By: Kristyn Morrison on 07-10-2023 Estimated GFR (CKD-EPI) > 60.0 mL/Min [facility] Creatinine Clearance (Chem 43.67 [facility] Slides for Pathologist Review N/A [facility] Nucleated erythrocytes [Pres ence] in Blood by Automated countOrdered By: Kristyn Morrison on 07-10-2023 Nucleated RBC Auto Ql (Bld) 0.1 /100{WBC} 0-0.5 [facility] Ovalocyte detectionOrdered B y: Kristyn Morrison on 07-10-2023 Ovalocytes LM Ql (Bld) Moderate Fi [facility] Platelet adequacy [Presence] in Blood by Light microscopyOrdered By: Kristyn Morrison on 07-10-2023 Platelets LM Ql (Bld) Normal Normal [facility] Platelet mean volume Auto (B ld) [Entitic vol]Ordered By: Kristyn Morrison on 07-10-2023 Platelet mean volume (Bld) [Entitic vol] 7.9 fL 6.3-10.7 [facility] Platelet morphology finding [Identifier] in BloodOrdered By: Kristyn Morrison on 07-10-2023 Platelet morphology finding Nom (Bld) Normal Normal [facility] Platelets Auto (Bld) [#/Vol] Ordered By: Kristyn Morrison on 07-10-2023 Platelets (Bld) [#/Vol] 291 10*3/uL 150-450 [facility] Poikilocytosis [Presence] in Blood by Light microscopyOrdered By: Kristyn Morrison on 07-10-2023 Poikilocytosis LM Ql (Bld) Moderate [facility] Polychromasia [Presence] in Blood by Light microscopyOrdered By: Kristyn Morrison on 07-10-2023 Polychromasia LM Ql (Bld) Marked [facility] Potassium [Moles/volume] in Serum or PlasmaOrdered By: Kristyn Morrison on 07-10-2023 Potassium [Moles/Vol] 3.6 mmol/L 3.5-5.1 [facility] Prothrombin Time INRon 07-10 INR Coag (PPP) [Relative time] 1.7 {INR} Normal [facility] Comment on above: Result Comment: INR Therapeutic Range A) Pre- and Peroperative OAT started two weeks before surgery. NOT HIP SURGERY: 1.5 - 2.5 HIP SURGERY: 2 - 3 B) Primary and secondary prevention of venous THROMBOSIS: 2 - 3 C) Active venous thrombosis, pulmonary embolism and prevention of recurrent venous thrombosis: 2 - 3 D) Prevention of arterial thromboembolism including patients with mechanical heart valves: 3 - 4.5 PERFORMED BY: [place] [address] PATHOLOGIST [employer] ACCOUNTANT STACY ROJAS M.D. Performed By: #### C MP, MG #### [address] PT Coag (PPP) [Time] 19.5 s High 9.0-12.9 [facility] Comment on above: Result Comment: A he matocrit value greater than 55% may lead to inaccurate results in coagulation testing. Patients having hematocrit values >55% require a special collection tube for coagulation studies. Please contact the laboratory at [phone] for redraw instructions. Performed By: #### C MP, MG #### [facility] [address] Prothrombin time (PT)Ordered By: Kristyn Morrison on 07-10-2023 PT Coag (PPP) [Time] 19.5 s 9.0-12.9 [facility] Comment on above: A hematocrit value g reater than 55% may lead to inaccurate results in coagulation testing. Patients having hematocrit values >55% require a special collection tube for coagulation studies. Please contact the laboratory at [phone] for redraw instructions. RBC Auto (Bld) [#/Vol]Ordere d By: Kristyn Morrison on 07-10-2023 RBC (Bld) [#/Vol] 4.45 10*6/uL 3.60-5.00 [facility] [place] [facility] RBC morphologyOrdered By: Ellie Morrison on 07-10-2023 RBC morphology finding Nom (Bld) N/A [facility] Scan and CBCon 07-10-2023 Acanthocytes Moderate Normal [facility] Comment on above: Performed By: #### C MP, MG #### [facility] [address] Anisocytosis Ql (Bld) Moderate Normal [facility] Comment on above: Performed By: #### C MP, MG #### [facility] [address] [place] [id number] [place] Basophils (Bld) [#/Vol] 0.1 10*3/uL Normal 0.0-0.2 [facility] Comment on above: Performed By: #### C MP, MG #### [facility] [address] [place] [id number] [place] Basophils/100 WBC (Bld) 0.9 % Normal . [facility] Comment on above: Performed By: #### C MP, MG #### [address] Crenated RBC Moderate Normal [facility] Comment on above: Performed By: #### C MP, MG #### [address] Eosinophils (Bld) [#/Vol] 0.0 10*3/uL Normal 0.0-0.45 [facility] Comment on above: Performed By: #### C MP, MG #### [address] Eosinophils/100 WBC (Bld) 0.3 % Normal . [facility] Comment on above: Performed By: #### C MP, MG #### [address] Erythrocyte distribution width (RBC) [Ratio] 16.3 % High 11.9-15.3 [facility] Comment on above: Performed By: #### C MP, MG #### [address] Hematocrit (Bld) [Volume fraction] 29.4 % Low 34.0-46.4 [facility] Comment on above: Performed By: #### C MP, MG #### [address] Hemoglobin (Bld) [Mass/Vol] 9.3 g/dL Low 11.8-15.4 [facility] Comment on above: Performed By: #### C MP, MG #### [address] Hypochromasia Moderate Normal [facility] Comment on above: Performed By: #### C MP, MG #### [address] Lymphocytes (Bld) [#/Vol] 1.5 10*3/uL Normal 1.00-4.8 [facility] Comment on above: Performed By: #### C MP, MG #### [address] Lymphocytes/100 WBC (Bld) 23.1 % Normal . [facility] Comment on above: Performed By: #### C MP, MG #### [address] MCH (RBC) [Entitic mass] 20.9 pg Low 24.7-34.3 [facility] Comment on above: Performed By: #### C MP, MG #### [facility] [address] [place] [address] MCV (RBC) [Entitic vol] 66.1 fL Low 80-100 [facility] Comment on above: Performed By: #### C MP, MG #### [address] Mean Corpuscular HGB Conc 31.7 g/dL Low 32.0-35.0 [facility] Comment on above: Performed By: #### C MP, MG #### [address] Microcytosis Marked Normal [facility] Comment on above: Performed By: #### C MP, MG #### [address] Monocytes (Bld) [#/Vol] 0.5 10*3/uL Normal 0.0-0.8 [facility] Comment on above: Performed By: #### C MP, MG #### [address] Monocytes/100 WBC (Bld) 7.6 % Normal . [facility] Comment on above: Performed By: #### C MP, MG #### [address] Neutrophils (Bld) [#/Vol] 4.4 10*3/uL Normal 1.8-7.7 [facility] Comment on above: Performed By: #### C MP, MG #### [address] Neutrophils/100 WBC (Bld) 68.1 % Normal . [facility] Comment on above: Performed By: #### C MP, MG #### [address] NRBC% 0.1 /100{WBC} Normal 0-0.5 [facility] Comment on above: Performed By: #### C MP, MG #### [address] Ovalocytes Moderate Normal [facility] Comment on above: Performed By: #### C MP, MG #### [address] Platelet Estimate Normal Normal Normal [facility] Comment on above: Performed By: #### C MP, MG #### [address] Platelet mean volume (Bld) [Entitic vol] 7.9 fL Normal 6.3-10.7 [facility] Comment on above: Performed By: #### C MP, MG #### [address] Platelet Morphology Normal Normal Normal [facility] [place] [facility] Comment on above: Result Comment: PERF ORMED BY: [place] [address] PATHOLOGIST [employer] ACCOUNTANT STACY ROJAS M.D. Performed By: #### C MP, MG #### [address] Platelets (Bld) [#/Vol] 291 10*3/uL Normal 150-450 [facility] Comment on above: Performed By: #### C MP, MG #### [address] Poikilocytosis Moderate Normal [facility] Comment on above: Performed By: #### C MP, MG #### [address] Polychromasia Marked Normal [facility] Comment on above: Performed By: #### C MP, MG #### [address] RBC (Bld) [#/Vol] 4.45 10*6/uL Normal 3.60-5.00 [facility] Comment on above: Performed By: #### C MP, MG #### [facility] [address] [place] [address] [place] Schistocytes Slight Normal [facility] Comment on above: Performed By: #### C MP, MG #### [facility] [address] [place] [address] Target Cells Slight Normal [facility] Comment on above: Performed By: #### C MP, MG #### [facility] [address] [place] [address] WBC (Bld) [#/Vol] 6.5 10*3/uL Normal 3.8-11.6 [facility] Comment on above: Performed By: #### C MP, MG #### [address] Schistocytes [Presence] in B lood by Light microscopyOrdered By: Kristyn Morrison on 07-10-2023 Schistocytes LM Ql (Bld) [facility] Serum or plasma anion gap de terminationOrdered By: Kristyn Morrison on 07-10-2023 Anion gap [Moles/Vol] 10.5 mmol/L 6.0-15.0 [facility] Sodium [Moles/volume] in Ser um or PlasmaOrdered By: Kristyn Morrison on 07-10-2023 Sodium [Moles/Vol] 139 mmol/L 136-145 [facility] Target cellsOrdered By: Hansel Morrison on 07-10-2023 Target cells LM Ql (Bld) [facility] Troponin I High Sensitivityo n 07-10-2023 Troponin I High Sensitivity 29.2 pg/mL High 0.0-15.0 [facility] Comment on above: Order Comment: Comme nt Add on Result Comment: PERF ORMED BY: [place] [address] PATHOLOGIST [employer] ACCOUNTANT STACY ROJAS M.D. Performed By: #### C MP, MG #### [address] Troponin I.cardiac [Mass/vol ume] in Serum or Plasma by Detection limit <= 0.01 ng/Ordered By: Kristyn Morrison on 07-10-2023 Troponin I.cardiac DL <= 0.01 ng/mL [Mass/Vol] 29.2 pg/mL 0.0-15.0 [facility] Urea nitrogen [Mass/volume] in Serum or PlasmaOrdered By: Kristyn Morrison on 07-10-2023 Urea nitrogen [Mass/Vol] 11 mg/dL 7-25 [facility] WBC Auto (Bld) [#/Vol]Ordere d By: Kristyn Morrison on 07-10-2023 WBC (Bld) [#/Vol] 6.5 10*3/uL 3.8-11.6 [facility] Activated partial thrombopla stin time (aPTT) in platelet poor plasma by coagulation aOrdered By: Maya Wynn on 07-09-2023 aPTT Coag (PPP) [Time] 29.3 s 25.1-36.5 [facility] Comment on above: A hematocrit value g reater than 55% may lead to inaccurate results in coagulation testing. Patients having hematocrit values >55% require a special collection tube for coagulation studies. Please contact the laboratory at [phone] for redraw instructions. Alanine aminotransferase [En zymatic activity/volume] in Serum or PlasmaOrdered By: Maya Wynn on 07-09-2023 ALT [Catalytic activity/Vol] 17 U/L 7-52 [facility] Albumin [Mass/volume] in Ser um or Plasma by Bromocresol green (BCG) dye binding methoOrdered By: Maya Wynn on 07-09-2023 Albumin BCG dye [Mass/Vol] 4.2 g/dL 3.5-5.7 [facility] Alkaline phosphatase [Enzyma tic activity/volume] in Serum or PlasmaOrdered By: Maya Wynn on 07-09-2023 ALP [Catalytic activity/Vol] 58 U/L 34-104 [facility] Aspartate aminotransferase [ Enzymatic activity/volume] in Serum or PlasmaOrdered By: Maya Wynn on 07-09-2023 AST [Catalytic activity/Vol] 23 U/L 13-39 [facility] Automated erythrocytes count in urine sediment (number/area)Ordered By: Maya Wynn on 07-09-2023 RBC Auto (Urine sed) [#/Area] 0-1 [HPF] 0-4 [facility] Automated leukocytes count i n urine sediment (number/area)Ordered By: Maya Wynn on 07-09-2023 WBC Auto (Urine sed) [#/Area] 0-1 [HPF] 0-4 [facility] B-Type Natriuretic Peptideon 07-09-2023 Natriuretic peptide B (Bld) [Mass/Vol] 353.0 pg/mL High 5-100 [facility] Comment on above: Result Comment: PERF ORMED BY: [place] [address] PATHOLOGIST [employer] ACCOUNTANT STACY ROJAS M.D. Performed By: #### P TT, BNP, SCAN CBC, HS TROP, PT #### [facility] [address] Bilirubin Test strip Ql (U)O rdered By: Maya Wynn on 07-09-2023 Bilirubin Ql (U) Negative Negative [facility] Bilirubin.total [Mass/volume ] in Serum or PlasmaOrdered By: Maya Wynn on 07-09-2023 Bilirubin [Mass/Vol] 1.0 mg/dL 0.3-1.0 [facility] CT head/brain wo conon 07-09 CT head/brain wo con [facility] [place] [address] [place] [address] CT Scan Report Signed Patient: Radha Butt MR#: [id number] 839 : 1945 Acct:[id number] Age/Sex: 78 / F ADM Date: 07/09/23 Loc: ER Room: Type: [facility] ER Attending Dr: Copies to: Maya Wynn APRN Ordering Provider: Maya Wynn APRN Date of Service: 07/09/23 CT/CT head/brain wo con: lightheaded CT BRAIN WITHOUT CONTRAST: CLINICAL HISTORY: Dizziness lightheadedness dry heaves COMPARISON: None TECHNIQUE: Contiguous axial unenhanced images were obtained through the brain. This CT exam was performed using one or more following dose reduction techniques: Automated exposure control, adjustment of the mA and/or kV according to patient size, or use of iterative reconstruction technique. FINDINGS: There is no evidence of midline shift, intra or extra-axial fluid collection, hemorrhage or CT evidence of stroke. Cortical atrophy with chronic microvascular ischemic changes. 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 Visualized intraorbital contents demonstrate no acute findings. Visualized paranasal sinuses are clear. The surrounding soft tissues are normal. CT/CT head/brain wo con IMPRESSION: NO ACUTE INTRACRANIAL ABNORMALITY. Impression dictated by: Kelvin Murray Jr., D.O.07/09/2023 2:13 PM Dictation Location: [place] [address] Transcribed By: [facility] 07/09/23 1413 Dictated By: Kelvin Murray Jr, DO 07/09/23 1409 Signed By: 07/09/23 1413 Normal [facility] Color Auto (U)Ordered By: Boris Wynn on 07-09-2023 Color (U) Yellow Yellow [facility] Comprehensive Metabolic Pane hernandez 07-09-2023 Albumin [Mass/Vol] 4.2 g/dL Normal 3.5-5.7 [facility] Comment on above: Performed By: #### C LIMA, MG #### [facility] [address] [place] [address] Albumin/Globulin [Mass ratio] 1.8 {ratio} Normal [facility] Comment on above: Performed By: #### C MP, MG #### [facility] [address] [place] [id number] [place] ALP [Catalytic activity/Vol] 58 U/L Normal 34-104 [facility] Comment on above: Performed By: #### C MP, MG #### [facility] [address] [place] [id number] [place] ALT [Catalytic activity/Vol] 17 U/L Normal 7-52 [facility] Comment on above: Performed By: #### C MP, MG #### [facility] [address] [place] [address] [place] Anion gap [Moles/Vol] 9.8 mmol/L Normal 6.0-15.0 [facility] Comment on above: Performed By: #### C MP, MG #### [address] AST [Catalytic activity/Vol] 23 U/L Normal 13-39 [facility] Comment on above: Performed By: #### C MP, MG #### [facility] [address] [place] [address] Bilirubin [Mass/Vol] 1.0 mg/dL Normal 0.3-1.0 [facility] Comment on above: Performed By: #### C MP, MG #### [address] Calcium [Mass/Vol] 9.0 mg/dL Normal 8.6-10.3 [facility] Comment on above: Performed By: #### C MP, MG #### [address] Chloride [Moles/Vol] 106 mmol/L Normal 98-107 [facility] Comment on above: Performed By: #### C MP, MG #### [facility] [address] [place] [address] CO2 [Moles/Vol] 28.0 mmol/L Normal 21.0-31.0 [facility] Comment on above: Performed By: #### C MP, MG #### [facility] [address] [place] [address] Creatinine [Mass/Vol] 1.01 mg/dL Normal 0.60-1.20 [facility] Comment on above: Performed By: #### C MP, MG #### [facility] [address] [place] [address] [place] Creatinine Clr Calc Pharmacy 40.64 Normal [facility] Comment on above: Performed By: #### C MP, MG #### [place] [address] [place] GFR/1.73 sq M.predicted MDRD (S/P/Bld) [Vol rate/Area] 56.627 mL/min/{1.73_m2} Normal [facility] Comment on above: Performed By: #### C MP, MG #### [facility] [address] Globulin (S) [Mass/Vol] 2.4 g/dL [facility] Comment on above: Performed By: #### C MP, MG #### [facility] [address] Glucose [Mass/Vol] 108 mg/dL High 70-100 [facility] Comment on above: Result Comment: [facility] Glucose Reference Range is dependent on time and content of last meal. Glucose of more than 200 mg/dL in a nonstressed, ambulatory subject supports the diagnosis of Diabetes Mellitus. ADA recommended reference range Performed By: #### C MP, MG #### [facility] [address] Potassium [Moles/Vol] 3.8 mmol/L Normal 3.5-5.1 [facility] Comment on above: Performed By: #### C MP, MG #### [facility] [address] [place] [address] [place] Protein [Mass/Vol] 6.6 g/dL Normal 6.4-8.9 [facility] Comment on above: Performed By: #### C MP, MG #### [place] [address] [place] Sodium [Moles/Vol] 140 mmol/L Normal 136-145 [facility] Comment on above: Performed By: #### C MP, MG #### [place] [address] [place] Urea nitrogen [Mass/Vol] 13 mg/dL Normal 7-25 [facility] Comment on above: Performed By: #### C MP, MG #### [place] [address] [place] Dipstick and Microscopicon 0 07-09-2023 Bacteria,Urine None Seen Normal None Seen [facility] Comment on above: Order Comment: Name Collection Type:: Clean-Voided Midstream Performed By: #### C MP, MG #### [address] Hyaline Casts,Urine None Seen Normal 0-8 [facility] [place] [facility] Comment on above: Order Comment: Name Collection Type:: Clean-Voided Midstream Result Comment: PERF ORMED BY: [place] [address] PATHOLOGIST [employer] ACC[employer]ANT STACY ROJAS M.D. Performed By: #### C MP, MG #### [address] RBC LM.HPF (Urine sed) [#/Area] 0 /[HPF] Normal 0-4 [facility] Comment on above: Order Comment: Name Collection Type:: Clean-Voided Midstream Performed By: #### C MP, MG #### [address] Squamous Epithelial Cell,Urine None Seen Normal 0-2 [facility] Comment on above: Order Comment: Name Collection Type:: Clean-Voided Midstream Performed By: #### C MP, MG #### [address] WBC LM.HPF (Urine sed) [#/Area] 0 /[HPF] Normal 0-4 [facility] Comment on above: Order Comment: Name Collection Type:: Clean-Voided Midstream Performed By: #### C MP, MG #### [address] ECG 12 lead ECGon 07-09-2023 ECG 12 lead ECG [facility] Main [place] [address] [place] [address] Electrocardiograph Report Signed Patient: Radha Butt MR#: [id number] 839 : 1945 Acct:[id number] Age/Sex: 78 / F ADM Date: 07/09/23 Loc: Room: [address] [place] [address] Type: ADM INOo Attending Dr: Lito Kevin DO Ordering Provider: Maya Wynn APRN Date of Service: 0102/22/1105 ECG/ECG 12 lead ECG: Dizziness Copies to: Test Reason : Blood Pressure : 174/084 mmHG Vent. Rate : 059 BPM Atrial Rate : 187 BPM P-R Int : 000 ms QRS Dur : 074 ms QT Int : 440 ms P-R-T Axes : 000 055 040 degrees QTc Int : 435 ms Atrial fibrillation with slow ventricular response with a competing junctional pacemaker Septal infarct (cited on or before 22-MAR-2021) Abnormal ECG When compared with ECG of 29-DEC-2022 18:20, Nonspecific T wave abnormality no longer evident in Lateral leads Confirmed by Ezra Thomas DO ([id number]) on 07/09/2023 3:57:01 PM Referred By: Electronically Signed By:Ezra Thomas DO Transcribed By: MUS Signed By Ezra Thomas DO 4 1557 Normal [facility] Globulin Calc (S) [Mass/Vol] Ordered By: Maya Wynn on 07-09-2023 Globulin (S) [Mass/Vol] 2.4 g/dL [facility] Ketones Auto test strip (U) [Mass/Vol]Ordered By: Maya Wynn on 07-09-2023 Ketones (U) [Mass/Vol] Negative Negative [facility] - UrinalysisOrder ed By: Maya Wynn on 07-09-2023 Hyaline casts LM Ql (Urine sed) None seen [LPF] 0-8 [facility] Magnesiumon 07-09-2023 Magnesium [Mass/Vol] 2.0 mg/dL Normal 1.9-2.7 [facility] Comment on above: Result Comment: PERF ORMED BY: [place] [address] PATHOLOGIST [employer] ACCOUNTANT STACY ROJAS M.D. Performed By: #### C MP MG #### [address] Magnesium [Mass/volume] in S amador or PlasmaOrdered By: Maya Wynn on 07-09-2023 Magnesium [Mass/Vol] 2.0 mg/dL 1.9-2.7 [facility] Monocyte distribution width [Entitic volume] in Blood by AutomatedOrdered By: Maya Wynn on 07-09-2023 Monocyte distribution width Auto (Bld) [Entitic vol] 18.46 % 0.00-20.00 [facility] Natriuretic peptide B [Mass/ Vol]Ordered By: Maya Wynn on 07-09-2023 Natriuretic peptide B (Bld) [Mass/Vol] 353.0 pg/mL 5-100 [facility] Nitrite Test strip Ql (U)Ord ered By: Maya Wynn on 07-09-2023 Nitrite Ql (U) Negative Negative [facility] Partial Thromboplastin Timeo n 07-09-2023 aPTT Coag (Bld) [Time] 29.3 s Normal 25.1-36.5 [facility] Comment on above: Result Comment: A he matocrit value greater than 55% may lead to inaccurate results in coagulation testing. Patients having hematocrit values >55% require a special collection tube for coagulation studies. Please contact the laboratory at [phone] for redraw instructions. PERFORMED BY: [place] [address] PATHOLOGIST [employer] ACCOUNTANT STACY ROJAS M.D. Performed By: #### P TT, BNP, SCAN CBC, HS TROP, PT #### [address] Protein Auto test strip (U) [Mass/Vol]Ordered By: Maya Wynn on 07-09-2023 Protein (U) [Mass/Vol] Trace mg/dL Negative F [facility] Protein [Mass/volume] in Ser um or PlasmaOrdered By: Maya Wynn on 07-09-2023 Protein [Mass/Vol] 6.6 g/dL 6.4-8.9 [facility] Prothrombin Time INRon 07-09 INR Coag (PPP) [Relative time] 1.1 {INR} Normal [facility] Comment on above: Result Comment: INR Therapeutic Range A) Pre- and Peroperative OAT started two weeks before surgery. NOT HIP SURGERY: 1.5 - 2.5 HIP SURGERY: 2 - 3 B) Primary and secondary prevention of venous THROMBOSIS: 2 - 3 C) Active venous thrombosis, pulmonary embolism and prevention of recurrent venous thrombosis: 2 - 3 D) Prevention of arterial thromboembolism including patients with mechanical heart valves: 3 - 4.5 Performed By: #### P TT, BNP, SCAN CBC, HS TROP, PT #### [facility] [address] PT Coag (PPP) [Time] 12.3 s Normal 9.0-12.9 [facility] Comment on above: Result Comment: A he matocrit value greater than 55% may lead to inaccurate results in coagulation testing. Patients having hematocrit values >55% require a special collection tube for coagulation studies. Please contact the laboratory at [phone] for redraw instructions. Performed By: #### P TT, BNP, SCAN CBC, HS TROP, PT #### [address] Scan and CBCon 07-09-2023 Anisocytosis Ql (Bld) Slight Normal [facility] Comment on above: Performed By: #### P TT, BNP, SCAN CBC, HS TROP, PT #### [facility] [address] Basophils (Bld) [#/Vol] 0.1 10*3/uL Normal 0.0-0.2 [facility] Comment on above: Performed By: #### P TT, BNP, SCAN CBC, HS TROP, PT #### [address] Basophils/100 WBC (Bld) 1.2 % Normal . [facility] Comment on above: Performed By: #### P TT, BNP, SCAN CBC, HS TROP, PT #### [facility] [address] [place] [address] [place] Eosinophils (Bld) [#/Vol] 0.1 10*3/uL Normal 0.0-0.45 [facility] Comment on above: Performed By: #### P TT, BNP, SCAN CBC, HS TROP, PT #### [place] [address] [place] Eosinophils/100 WBC (Bld) 2.0 % Normal . [facility] Comment on above: Performed By: #### P TT, BNP, SCAN CBC, HS TROP, PT #### [address] Erythrocyte distribution width (RBC) [Ratio] 16.4 % High 11.9-15.3 [facility] Comment on above: Performed By: #### P TT, BNP, SCAN CBC, HS TROP, PT #### [address] Hematocrit (Bld) [Volume fraction] 29.0 % Low 34.0-46.4 [facility] Comment on above: Performed By: #### P TT, BNP, SCAN CBC, HS TROP, PT #### [address] Hemoglobin (Bld) [Mass/Vol] 9.1 g/dL Low 11.8-15.4 [facility] Comment on above: Performed By: #### P TT, BNP, SCAN CBC, HS TROP, PT #### [address] Hypochromasia Moderate Normal [facility] Comment on above: Performed By: #### P TT, BNP, SCAN CBC, HS TROP, PT #### [address] Lymphocytes (Bld) [#/Vol] 1.0 10*3/uL Normal 1.00-4.8 [facility] Comment on above: Performed By: #### P TT, BNP, SCAN CBC, HS TROP, PT #### [address] Lymphocytes/100 WBC (Bld) 23.1 % Normal . [facility] Comment on above: Performed By: #### P TT, BNP, SCAN CBC, HS TROP, PT #### [address] MCH (RBC) [Entitic mass] 20.8 pg Low 24.7-34.3 [facility] Comment on above: Performed By: #### P TT, BNP, SCAN CBC, HS TROP, PT #### [facility] [address] [place] [address] MCV (RBC) [Entitic vol] 66.5 fL Low 80-100 [facility] Comment on above: Performed By: #### P TT, BNP, SCAN CBC, HS TROP, PT #### [address] Mean Corpuscular HGB Conc 31.3 g/dL Low 32.0-35.0 [facility] Comment on above: Performed By: #### P TT, BNP, SCAN CBC, HS TROP, PT #### [address] Microcytosis Moderate Normal [facility] Comment on above: Performed By: #### P TT, BNP, SCAN CBC, HS TROP, PT #### [address] Monocytes (Bld) [#/Vol] 0.3 10*3/uL Normal 0.0-0.8 [facility] Comment on above: Performed By: #### P TT, BNP, SCAN CBC, HS TROP, PT #### [place] [address] [place] Monocytes/100 WBC (Bld) 18.46 % Normal 0.00-20.00 [facility] Comment on above: Performed By: #### P TT, BNP, SCAN CBC, HS TROP, PT #### [place] [address] [place] Monocytes/100 WBC (Bld) 7.5 % Normal . [facility] Comment on above: Performed By: #### P TT, BNP, SCAN CBC, HS TROP, PT #### [place] [address] [place] Neutrophils (Bld) [#/Vol] 3.0 10*3/uL Normal 1.8-7.7 [facility] Comment on above: Performed By: #### P TT, BNP, SCAN CBC, HS TROP, PT #### [place] [address] [place] Neutrophils/100 WBC (Bld) 66.2 % Normal . [facility] Comment on above: Performed By: #### P TT, BNP, SCAN CBC, HS TROP, PT #### [address] NRBC% 0.1 /100{WBC} Normal 0-0.5 [facility] Comment on above: Performed By: #### P TT, BNP, SCAN CBC, HS TROP, PT #### [address] Ovalocytes Moderate Normal [facility] Comment on above: Performed By: #### P TT, BNP, SCAN CBC, HS TROP, PT #### [address] Platelet Estimate Normal Normal Normal [facility] Comment on above: Performed By: #### P TT, BNP, SCAN CBC, HS TROP, PT #### [address] Platelet mean volume (Bld) [Entitic vol] 7.7 fL Normal 6.3-10.7 [facility] Comment on above: Performed By: #### P TT, BNP, SCAN CBC, HS TROP, PT #### [address] Platelet Morphology Normal Normal Normal [facility] Comment on above: Result Comment: PERF ORMED BY: [place] [address] PATHOLOGIST [employer] ACCOUNTANT STACY ROJAS M.D. Performed By: #### P TT, BNP, SCAN CBC, HS TROP, PT #### [address] Platelets (Bld) [#/Vol] 299 10*3/uL Normal 150-450 [facility] Comment on above: Performed By: #### P TT, BNP, SCAN CBC, HS TROP, PT #### [address] Polychromasia Slight Normal [facility] Comment on above: Performed By: #### P TT, BNP, SCAN CBC, HS TROP, PT #### [facility] [address] RBC (Bld) [#/Vol] 4.37 10*6/uL Normal 3.60-5.00 [facility] Comment on above: Performed By: #### P TT, BNP, SCAN CBC, HS TROP, PT #### [facility] [address] Schistocytes Moderate Normal [facility] Comment on above: Performed By: #### P TT, BNP, SCAN CBC, HS TROP, PT #### [facility] [address] WBC (Bld) [#/Vol] 4.5 10*3/uL Normal 3.8-11.6 [facility] Comment on above: Performed By: #### P TT, BNP, SCAN CBC, HS TROP, PT #### [address] Serum or plasma albumin/glob ulin mass ratioOrdered By: Maya Wynn on 07-09-2023 Albumin/Globulin [Mass ratio] 1.8 {ratio} [facility] Specific gravity Auto test s trip (U) [Rel density]Ordered By: Maya Wynn on 07-09-2023 Specific gravity (U) [Rel density] 1.007 1.001-1.03 0 [facility] Squamous epithelial cells de tection in urine sediment by light microscopyOrdered By: Maya Wynn on 07-09-2023 Epithelial cells.squamous LM Ql (Urine sed) None seen [HPF] 0-2 [facility] Troponin I High Sensitivityo n 07-09-2023 Troponin I High Sensitivity 30.7 pg/mL High 0.0-15.0 [facility] Comment on above: Order Comment: GETTI NG READY TO MOVE TO FLOOR 1559 PSW Result Comment: PERF ORMED BY: [place] [address] PATHOLOGIST [employer] ACCOUNTANT STACY ROJAS M.D. Performed By: #### H S TROP #### [address] Troponin I High Sensitivity 29.3 pg/mL High 0.0-15.0 [facility] Comment on above: Result Comment: PERF ORMED BY: [place] [address] PATHOLOGIST [employer] ACCOUNTANT STACY ROJAS M.D. Performed By: #### P TT, BNP, SCAN CBC, HS TROP, PT #### [address] Urinalysison 07-09-2023 Appearance (U) Clear Normal Clear [facility] Comment on above: Order Comment: Name Collection Type:: Clean-Voided Midstream Performed By: #### C MP, MG #### [address] Bilirubin,Urine Negative Normal Negative [facility] Comment on above: Order Comment: Name Collection Type:: Clean-Voided Midstream Performed By: #### C MP, MG #### [address] Color (U) Yellow Normal Yellow [facility] Comment on above: Order Comment: Name Collection Type:: Clean-Voided Midstream Performed By: #### C MP, MG #### [address] Glucose Ql (U) Normal Normal Normal [facility] Comment on above: Order Comment: Name Collection Type:: Clean-Voided Midstream Performed By: #### C MP, MG #### [address] Ketones Ql (U) Negative Normal Negative [facility] Comment on above: Order Comment: Name Collection Type:: Clean-Voided Midstream Performed By: #### C MP, MG #### [address] Leukocyte esterase Test strip Ql (U) 1+ High Negative [facility] Comment on above: Order Comment: Name Collection Type:: Clean-Voided Midstream Performed By: #### C MP, MG #### [facility] [address] [place] [address] [place] Nitrite,Urine Negative Normal Negative [facility] Comment on above: Order Comment: Name Collection Type:: Clean-Voided Midstream Performed By: #### C MP, MG #### [address] Occult Blood,Urine Negative Normal Negative [facility] Comment on above: Order Comment: Name Collection Type:: Clean-Voided Midstream Result Comment: PERF ORMED BY: [place] [address] PATHOLOGIST [employer] ACCOUNTANT STACY ROJAS M.D. Performed By: #### C MP, MG #### [address] pH (U) 7.0 [pH] Normal 5.0-9.0 [facility] Comment on above: Order Comment: Name Collection Type:: Clean-Voided Midstream Performed By: #### C MP, MG #### [place] [address] [place] Protein,Urine Trace High Negative [facility] Comment on above: Order Comment: Name Collection Type:: Clean-Voided Midstream Performed By: #### C MP, MG #### [address] Specificy Penrose,Urine 1.007 Normal 1.001-1.03 0 [facility] Comment on above: Order Comment: Name Collection Type:: Clean-Voided Midstream Performed By: #### C MP, MG #### [place] [address] [place] Urobilinogen,Urine Normal Normal Normal [facility] Comment on above: Order Comment: Name Collection Type:: Clean-Voided Midstream Performed By: #### C MP, MG #### [address] Urine bacteria detection by automated methodOrdered By: Maya Wynn on 07-09-2023 Bacteria Auto Ql (U) None seen None Seen [facility] Urine clarity by refractomet ry automatedOrdered By: Maya Wynn on 07-09-2023 Clarity Refractometry automated (U) Clear Clear [facility] Urine glucose measurement by automated test strip (mass/volume)Ordered By: Maya Wynn on 07-09-2023 Glucose Auto test strip (U) [Mass/Vol] Normal mg/dL Normal [facility] Urine hemoglobin detection b y automated test stripOrdered By: Maya Wynn on 07-09-2023 Hemoglobin Auto test strip Ql (U) Negative Negative [facility] Urine leukocyte esterase det ection by automated test stripOrdered By: Maya Wynn on 07-09-2023 Leukocyte esterase Auto test strip Ql (U) 1+ Negative [facility] Urobilinogen Auto test strip (U) [Mass/Vol]Ordered By: Maya Wynn on 07-09-2023 Urobilinogen (U) [Mass/Vol] Normal mg/dL Normal [facility] XR chest 2V*on 07-09-2023 XR chest 2V* [facility] [place] [address] XRay Report Signed Patient: Radha Butt MR#: [id number] 839 : 1945 Acct:[id number] Age/Sex: 78 / F ADM Date: 07/09/23 Loc: ER Room: Type: [facility] ER Attending Dr: Copies to: Maya Wynn APRN Ordering Provider: Maya Wynn APRN Date of Service: 07/09/23 XR/XR chest 2V*: Dizziness XR chest 2V* 07/09/2023 11:05 AM SIGNS AND SYMPTOMS: Dizziness, dry heaves, sweats PROTOCOL: Frontal and lateral radiographs of the chest COMPARISON: 01/19/2022 FINDINGS: The trachea is midline. The heart and mediastinal structures are within normal limits. The lung parenchyma is clear. The bony thorax is intact.. Degenerative changes are noted in the thoracic spine and shoulders. XR/XR chest 2V* IMPRESSION: No acute cardiopulmonary pathology. Impression dictated by: Amari Beckett M.D.07/09/2023 12:07 PM Dictation Location: [place] [address] Transcribed By: PWS 07/09/231206 Dictated By: Amari Beckett II, MD 07/09/231205 Signed By: 07/09/231206 [facility] pH Auto test strip (U)Ordere d By: Maya Wynn on 07-09-2023 pH (U) 7.0 [pH] 5.0-9.0 [facility] Patient Provided Health Data on 06-19-2023 Patient Provided Health Data [id number] IFF [facility] Patient Handouton 06-12-2023 Patient Handout [id number]#[id number] TIFF [facility] ECG 12 lead ECGon 12-29-2022 ECG 12 lead ECG [facility] [place] [address] Electrocardiograph Report Signed Patient: Radha Butt MR#: [id number] 839 : 1945 Acct:[id number] Age/Sex: 77 / F ADM Date: 12/29/22 Loc: ER Room: Type: [facility] ER Attending Dr: Ordering Provider: Citlalli Tenorio DO Date of Service: 12/29/22 ECG/ECG 12 lead ECG: Headache Copies to: Test Reason : Blood Pressure : 184/109 mmHG Vent. Rate : 068 BPM Atrial Rate : 076 BPM P-R Int : 000 ms QRS Dur : 080 ms QT Int : 406 ms P-R-T Axes : 000 062 004 degrees QTc Int : 431 ms Atrial fibrillation Septal infarct (cited on or before 22-MAR-2021) Abnormal ECG When compared with ECG of 19-JAN-2022 17:03, Vent. rate has decreased BY 48 BPM Confirmed by CITLALLI TENORIO DO ([id number]) on 12/30/2022 7:23:19 PM Referred By: Electronically Signed By:CITLALLI TENORIO DO Transcribed By: MUS Signed By Citlalli Tenorio DO 1922 [facility] XR knee LT 2Von 06-14-2022 XR knee LT 2V [facility] [employer] Other XR knee LT 2V [facility] [employer] Other XR knee LT 2V [address] [facility] [employer] Other XR knee [place] 2[place] [address] [facility] [employer] Other XR knee LT 2V [facility] Other X[facility] knee LT 2V Signed [employer] Other XR knee LT 2V Patient: Ta Butt MR#: [id number] [facility] [employer] Other XR knee LT 2V 839 [employer] Other XR knee LT 2V : 1945 Acct:[id number] [facility] [employer] Other XR knee LT 2V Age/Sex: 77 / F ADM Date: 06/14/22 [place] [employer] Other XR knee LT 2V Loc: SOXD Room: Type : [facility] [place] [facility] [employer] Other XR knee LT 2V Attending Dr: Alli Nicholas DO [employer] Other XR knee LT 2V Copies to: Alli Nicholas, DO [employer] Other XR knee LT 2V Ordering Provider: George Nicholas DO [employer] Other XR knee LT 2V Date of Service: 06/14/22 [employer] Other XR knee LT 2V XR/XR knee LT 2V: Primary osteoarthritis of left knee [employer] Other XR knee LT 2V LEFT KNEE - 2 views No rt [employer] Other XR knee LT 2V COMPARISON: 12/12/2021 [employer] Other XR knee LT 2V CLINICAL DATA: Follo w-up knee replacement. Decreased mobility. [employer] Other XR knee LT 2V AP and lateral weightbearing views were obtained. A knee prosthesis is again visualized. The [employer] Other XR knee LT 2V hardware appears int act and unchanged from prior. There is no developing fracture or dislocation. A DIY Other XR knee LT 2V large amount of join t fluid is again noted. DIY Other XR knee LT 2V X R/XR knee LT 2V DIY Other XR knee LT 2V IMPRESSION: [employer] Other XR knee LT 2V STABLE KNEE REPLACEMENT. DIY Other XR knee LT 2V PERSISTENT KNEE EFFUSION. DIY Other XR knee LT 2V Impression dictated by: Silvia Garcia M.D.06/14/2022 4:12 PM DIY Other XR knee LT 2V Dictation Location: [place] [address] DIY Other XR knee LT 2V Transcribed By: BARBRA 06/14/22 [facility] DIY Other XR knee LT 2V Dictated By: Silvia Garcia MD 06/14/22 [facility] DIY Other XR knee LT 2V Signed By: DIY Other XR knee LT 2V 06/14/22 [facility] [employer] Other Office Visit (Cardiology)on 05-17-2022 Follow-up visit Diagnoses/Problems Assessed Essential hypertension, benign (401.1) (I10) Chronic atrial fibrillation (427.31) (I48.20) Anticoagulated (V58.61) (Z79.01) Patient Instructions Please bring all medicines, vitamins, and herbal supplements with you when you come to the office. Prescriptions will not be filled unless you are compliant with your follow up appointments or have a follow up appointment scheduled as per instruction of your physician. Refills should be requested at the time of your visit. Fall Prevention Education Given PLAN: Through informed decision making process incorporating patients unique circumstances, the following treatment plan will be initiated: 1. Prescription drug management of cardiovascular medication for efficacy, adherence to treatment, side effect assessment and polypharmacy. Current treatment clinically warranted and to continue with following modifications: - Stop amiodarone 2. Please check your blood pressure daily 2 hours after medications and call me with average. Goal is top number below 140. 3. Return for follow-up; in the interim, contact the office if new symptoms arise. Dr. Aceves as scheduled Chief Complaint Medication changes: 'doing fine' RADHA BUTT is being seen for a 4 week follow-up of atrial fibrillation and hypertension. Patient presents to the office today ambulatory with steady gait. Last evaluated Dr. Aceves April 2022. At that time antihypertensives were changed to valsartan and she was initiated on amiodarone 400 mg twice daily. She was unable to tolerate that dosing and has been taking 200 mg daily. I believe plans were for cardioversion to attempt yarsanism of normal sinus rhythm. On record review, in 2018 patient was tried on amiodarone but was discontinued due to GI distress. At that time treatment strategy was changed to rate control and she had been maintained chronic atrial fibrillation with controlled ventricular rate on metoprolol. In atrial fibrillation, she denies palpitations, no dyspnea on exertion, no change in exercise capacity or functional tolerance. Today we discussed purpose of amiodarone and eventual need for cardioversion. She is very reluctant to proceed. In light of intolerance to amiodarone, reluctance to proceed with cardioversion and asymptomatic atrial fibrillation with optimal rate control feel in her best interest to continue with treatment strategy of rate control and anticoagulation. Patient is in agreement. Daily activity includes ADLs, housework, she is able to go to the grocery store. She ambulated in from the parking lot without any symptoms. There have been no utilization of nitroglycerin. 2019 LVEF 60 to 65%, mild LVH, left atrium severely dilated. Currently does not exhibit any symptoms concerning for decompensated heart failure. Otherwise, blood pressure remains suboptimal here in the office. She did not take her blood pressure medications prior to coming into the office today. Otherwise, she denies any change in overall cardiovascular status since last evaluation with Dr. Aceves. History of Present Illness The patient presents with permanent atrial fibrillation. The treatment strategy for this patient is rate control. She states her atrial fibrillation has been well controlled since the last visit. Symptoms: denies palpitations, denies chest pain, denies exercise intolerance, denies dyspnea on exertion and denies dizziness. Associated symptoms include no syncope. Risks: no increased risk for falling. Medications: the patient is adherent with her medication regimen. She denies medication side effects. Surgical History Problems History of Complete colonoscopy Managed By: Moi Fish DO History of Eye surgery lower pressure History of Knee replacement History of Percutaneous transluminal coronary angioplasty Current Meds Medication NameInstruction Acetaminophen Extra Strength CAPSTAKE 2 CAPSULES 4 TIMES DAILY. Amiodarone HCl - 200 MG Oral TabletTAKE 2 TABLET Daily Aspirin EC 81 MG Oral Tablet Delayed ReleaseTAKE 1 TABLET DAILY DIRECTED. Atorvastatin Calcium 40 MG Oral Tablettake 1 tablet by mouth at bedtime BuSpar 15 MG TABSTAKE 1 TABLET Daily prn Cyclobenzaprine HCl - 10 MG Oral TabletTAKE 1 TABLET BY MOUTH NEEDED THREE TIMES DAILY Eliquis 5 MG Oral TabletTAKE 1 TABLET BY MOUTH TWICE DAILY Gabapentin 300 MG Oral CapsuleTAKE 1 CAPSULE 2 - 3 TIMES DAILY NEEDED Latanoprost 0.005 % Ophthalmic SolutionINSTILL 1 DROP IN BOTH EYES AT BEDTIME. Metoprolol Tartrate 25 MG Oral Tablettake 2 tablets by mouth twice daily Omeprazole 20 MG Oral Capsule Delayed ReleaseTAKE 1 CAPSULE DAILY EVERY MORNING BEFORE BREAKFAST. Valsartan 160 MG Oral TabletTAKE 1 TABLET BY MOUTH EVERY DAY Allergies Medication lisinopril Adverse Reaction; Chest Pain; Cough; Headache; Recorded By: Janell Gambino; 03/15/2021 2:48:50 PM DEYANIRA Inhibitors Adverse Reaction; Cough; Recorded By: Janell Gambino; 03/15/2021 2:48:50 PM (more content not included)... Normal [employer] Tobacco Screening.on 022 Fall risk assessment b) One or more fall s in the last year [facility] [employer] DO Work Phone: Tobacco use status [facility] b) No [facility] 600 DO Work Phone: Office Visit (Cardiology)on 04-13-2022 Follow-up visit Diagnoses/Problems Assessed Chronic atrial fibrillation (427.31) (I48.20) Atherosclerosis of [place] coronary artery of [place] heart without angina pectoris (414.01) (I25.10) Essential hypertension, benign (401.1) (I10) History of acute inferior wall CA (412) (I25.2) History of PTCA (V45.82) (Z98.61) Hyperlipidemia (272.4) (E78.5) Ischemic cardiomyopathy (414.8) (I25.5) Non-sustained ventricular tachycardia (427.1) (I47.29) High risk medication use (V58.69) (Z79.899) Body mass index (BMI) of 21.0 to 21.9 in adult (V85.1) (Z68.21) Never a smoker Anticoagulated (V58.61) (Z79.01) *Orders Chronic atrial fibrillation Start: Amiodarone HCl - 200 MG Oral Tablet; TAKE 2 TABLET Daily IO EKG Electrocardiogram- 12 Lead; Status:Complete; Done: 13Apr2022 Start: Amiodarone HCl - 200 MG Oral Tablet; TAKE 2 TABLET Twice daily IO EKG Electrocardiogram- 12 Lead; Status:Complete; Done: 13Apr2022 Essential hypertension, benign Start: Valsartan 160 MG Oral Tablet; TAKE 1 TABLET BY MOUTH EVERY DAY SocHx: Never a smoker Tobacco Use Screening; Status:Complete; Done: 13Apr2022 Aspirin EC 81 MG Oral Tablet Delayed Release; TAKE 1 TABLET DAILY DIRECTED; Last Rx:13Apr2022; Status: ACTIVE Ordered Rx By: Esau Aceves; Dispense: 90 Days ; #:90 Tablet; Refill: 3; For: Atherosclerosis of [place] coronary artery of [place] heart without angina pectoris, Hyperlipidemia; RASHAWN = N; Print Rx; Last Updated By: Joyce Silva; 04/13/2022 4:09:58 PM Atorvastatin Calcium 40 MG Oral Tablet; take 1 tablet by mouth at bedtime; Therapy: 21Dec2021 to (Evaluate:08Apr2023) Requested for: 13Apr2022; Last Rx:13Apr2022; Status: ACTIVE Ordered Rx By: Esau Aceves; Dispense: 90 Days ; #:90 Tablet; Refill: 3; For: Hyperlipidemia; RASHAWN = N; Print Rx; Last Updated By: Joyce Silva; 04/13/2022 4:09:58 PM Patient Instructions Please bring all medicines, vitamins, and herbal supplements with you when you come to the office. Prescriptions will not be filled unless you are compliant with your follow up appointments or have a follow up appointment scheduled as per instruction of your physician. Refills should be requested at the time of your visit. Follow up in 1 year. Bp check with Joyce Zeng NP in 4 weeks EKG in 4 weeks Chief Complaint RADHA BUTT is being seen for an annual follow-up of. 77-year-old female who returns for follow-up and she is doing well she denies any cardiovascular complaints or shortness of breath or angina recurrent nitrate usage or hospitalizations. She has a known history of previous inferior CA with revascularization of the RCA in 2014. In 2019 she underwent repeat catheterization for angina pectoris that revealed normal coronary arteries and widely patent RCA stent and normal left ventricular function. She developed paroxysmal atrial fibrillation afterwards, she has been on Eliquis and metoprolol. Today she presents with an irregularly irregular rhythm and confirmed with atrial fibrillation with good rate control. She is also hypertensive today on current therapies Recommendations: Discontinue losartan initiate valsartan 160, initiate amiodarone 400 twice daily for 7 days then 400 daily with follow-up ECG in 4 weeks with possible cardioversion thereafterwards. Risk benefits alternatives and informed decision-making process discussed with patient extensively in regards to amiodarone therapy, routine laboratory and chest x-ray and pulmonary function test surveillance, and consideration for possible atrial ablation in the future if this does not work. Surgical History Problems History of Complete colonoscopy Managed By: Moi Fish DO History of Knee replacement History of Percutaneous transluminal coronary angioplasty Current Meds Medication NameInstruction Acetaminophen Extra Strength CAPSTAKE 2 CAPSULES 4 TIMES DAILY. Aspirin EC 81 MG Oral Tablet Delayed ReleaseTAKE 1 TABLET DAILY DIRECTED. Atorvastatin Calcium 40 MG Oral Tablettake 1 tablet by mouth at bedtime BuSpar 15 MG TABSTAKE 1 TABLET Daily prn Cyclobenzaprine HCl - 10 MG Oral TabletTAKE 1 TABLET BY MOUTH NEEDED THREE TIMES DAILY Eliquis 5 MG Oral TabletTAKE 1 TABLET BY MOUTH TWICE DAILY Gabapentin 300 MG Oral CapsuleTAKE 1 CAPSULE 2 - 3 TIMES DAILY NEEDED Latanoprost 0.005 % Ophthalmic SolutionINSTILL 1 DROP IN BOTH EYES AT BEDTIME. Losartan Potassium 100 MG Oral Tablettake 1 tablet by mouth once daily Metoprolol Tartrate 25 MG Oral Tablettake 2 tablets by mouth twice daily Omeprazole 20 MG Oral Capsule Delayed ReleaseTAKE 1 CAPSULE DAILY EVERY MORNING BEFORE BREAKFAST. Allergies Medication lisinopril Adverse Reaction; Chest Pain; Cough; Headache; Recorded By: Janell Gambino; 03/15/2021 2:48:50 PM DEYANIRA Inhibitors Adverse Reaction; Cough; Recorded By: Janell Gambino; 03/15/2021 2:48:50 PM Social History Problems Caffeine use (V49.89) (Z78.9) 1-2 cups coffee daily, not too much soda Consumes alcohol (V49 (more content not included)... Normal [facility] Tobacco Screening.on 022 Adult depression screening assessment No [facility] DO Work Phone: Fall risk assessment a) No falls within the last year [facility] DO Work Phone: Tobacco use status [facility] b) No [facility] DO Work Phone: Activated partial thrombopla stin time (aPTT) in platelet poor plasma by coagulation aOrdered By: Moises Alberto on 01-19-2022 aPTT Coag (PPP) [Time] 30.0 s 25.1-36.5 [facility] Albumin [Mass/volume] in Ser um or PlasmaOrdered By: Moises Alberto on 01-19-2022 Albumin [Mass/Vol] 3.8 g/dL 3.2-5.5 [facility] Basophils Auto (Bld) [#/Vol] Ordered By: Moises Alberto on 01-19-2022 Basophils (Bld) [#/Vol] 0.0 10*3/uL 0.0-0.2 [facility] Basophils/100 WBC Auto (Bld) Ordered By: Moises Alberto on 01-19-2022 Basophils/100 WBC (Bld) 0.5 % . [facility] Blood anisocytosis detection Ordered By: Moises Alberto on 01-19-2022 Anisocytosis Ql (Bld) Moderate [facility] Blood hemoglobin measurement (mass/volume)Ordered By: Moises Alberto on 01-19-2022 Hemoglobin (Bld) [Mass/Vol] 10.2 g/dL 11.8-15.4 [facility] Blood leukocytes automated c ount (number/volume)Ordered By: Moises Alberto on 01-19-2022 WBC (Bld) [#/Vol] 7.3 10*3/uL 4.5-11.0 [facility] COVID-19 SOFIAOrdered By: Abraham Alberto on 01-19-2022 SARS-CoV+SARS-CoV-2 (COVID-19) Ag IA.rapid Ql (Resp) Negative Negative [facility] Comment on above: This is a duplicate Larissa SARS Antigen (SHAMEKA) result to be used for statistical tracking purpose only. Creatinine and Glomerular fi ltration rate.predicted panel (S/P/Bld)Ordered By: Moises Alberto on 01-19-2022 Creatinine [Mass/Vol] 0.91 mg/dL 0.44-1.03 [facility] Direct bilirubin measurement Ordered By: Moises Alberto on 01-19-2022 Bilirubin.direct [Mass/Vol] 0.3 mg/dL 0.0-0.4 [facility] Eosinophils Auto (Bld) [#/Vo l]Ordered By: Moises Alberto on 01-19-2022 Eosinophils (Bld) [#/Vol] 0.0 10*3/uL 0.0-0.45 [facility] Eosinophils/100 WBC Auto (Bl d)Ordered By: Moises Alberto on 01-19-2022 Eosinophils/100 WBC (Bld) 0.3 % . [facility] Erythrocyte distribution wid th Auto (RBC) [Ratio]Ordered By: Moises Alberto on 01-19-2022 Erythrocyte distribution width (RBC) [Ratio] 15.8 % 11.9-15.3 [facility] Estimated glomerular filtrat ion rate (GFR) non- AmericanOrdered By: Moises Alberto on 01-19-2022 GFR/1.73 sq M.predicted among non-blacks MDRD (S/P/Bld) [Vol rate/Area] 60 mL/Min [facility] Globulin Calc (S) [Mass/Vol] Ordered By: Moises Alberto on 01-19-2022 Globulin (S) [Mass/Vol] 2.8 g/dL [facility] Helmet cell detectionOrdered By: Moises Alberto on 01-19-2022 Helmet cells LM Ql (Bld) Slight [facility] Hematocrit Auto (Bld) [Volum e fraction]Ordered By: Moises Alberto on 01-19-2022 Hematocrit (Bld) [Volume fraction] 32.8 % 34.0-46.4 [facility] Laboratory - Chemistry and C hemistry - challengeOrdered By: Moises Alberto on 01-19-2022 Lipase [Catalytic activity/Vol] 26.0 U/L 22-51 [facility] Natriuretic peptide B (Bld) [Mass/Vol] 577.0 pg/mL 5-100 [facility] Laboratory - CoagulationOrde red By: Moises Alberto on 01-19-2022 PT Coag (PPP) [Time] 15.4 s 9.0-12.9 [facility] Laboratory - Hematology and Cell countsOrdered By: Moises Alberto on 01-19-2022 Nucleated RBC/100 WBC (Bld) [Ratio] 0.0 % 0-0.5 [facility] Lymphocytes Auto (Bld) [#/Vo l]Ordered By: Moises Alberto on 01-19-2022 Lymphocytes (Bld) [#/Vol] 0.4 10*3/uL 1.00-4.8 [facility] Lymphocytes/100 WBC Auto (Bl d)Ordered By: Moises Alberto on 01-19-2022 Lymphocytes/100 WBC (Bld) 5.7 % . [facility] MCH Auto (RBC) [Entitic mass ]Ordered By: Moises Alberto on 01-19-2022 MCH (RBC) [Entitic mass] 20.9 pg 24.7-34.3 [facility] MCHC Auto (RBC) [Mass/Vol]Or dered By: Moises Alberto on 01-19-2022 MCHC (RBC) [Mass/Vol] 31.3 g/dL 32.0-35.0 [facility] MCV Auto (RBC) [Entitic vol] Ordered By: Moises Alberto on 01-19-2022 MCV (RBC) [Entitic vol] 66.7 fL 80-100 [facility] Monocytes Auto (Bld) [#/Vol] Ordered By: Moises Alberto on 01-19-2022 Monocytes (Bld) [#/Vol] 0.6 10*3/uL 0.0-0.8 [facility] Monocytes/100 WBC Auto (Bld) Ordered By: Moises Alberto on 01-19-2022 Monocytes/100 WBC (Bld) 7.9 % . [facility] Neutrophils Auto (Bld) [#/Vo l]Ordered By: Moises Alberto on 01-19-2022 Neutrophils (Bld) [#/Vol] 6.3 10*3/uL 1.8-7.7 [facility] Neutrophils/100 WBC Auto (Bl d)Ordered By: Moises Alberto on 01-19-2022 Neutrophils/100 WBC (Bld) 85.6 % . [facility] No Panel InformationOrdered By: Moises Alberto on 01-19-2022 Estimated GFR () > 60 mL/Min [facility] Comment on above: GFR estimated refere nce range: According to KDOQI guidelines, <60 ml/min/1.73m2 is sufficient to diagnose a patient with chronic kidney disease. Large Platelets Slight [facility] Creatinine Clearance (Chem 43.43 [facility] Platelet Estimate Normal Normal [facility] Platelet Morphology Comment N/A [facility] Poikilocytosis Moderate [facility] Schistocytes Slight [facility] SARS Antigen (LFIA) [facility] Platelet mean volume Auto (B ld) [Entitic vol]Ordered By: Moises Alberto on 01-19-2022 Platelet mean volume (Bld) [Entitic vol] 8.2 fL 6.3-10.7 [facility] Platelet poor plasma interna tional normalized ratio (INR) by coagulation assay (relatOrdered By: Moises Alberto on 01-19-2022 INR Coag (PPP) [Relative time] 1.4 {INR} [facility] Comment on above: INR Therapeutic Rang e A) Pre- and Peroperative OAT started two weeks before surgery. NOT HIP SURGERY: 1.5 - 2.5 HIP SURGERY: 2 - 3 B) Primary and secondary prevention of venous THROMBOSIS: 2 - 3 C) Active venous thrombosis, pulmonary embolism and prevention of recurrent venous thrombosis: 2 - 3 D) Prevention of arterial thromboembolism including patients with mechanical heart valves: 3 - 4.5 Platelets Auto (Bld) [#/Vol] Ordered By: Moises Alberto on 01-19-2022 Platelets (Bld) [#/Vol] 230 10*3/uL 150-450 [facility] Protein [Mass/volume] in Ser um or PlasmaOrdered By: Moises Alberto on 01-19-2022 Protein [Mass/Vol] 6.6 g/dL 6.1-7.9 [facility] RBC Auto (Bld) [#/Vol]Ordere d By: Moises Alberto on 01-19-2022 RBC (Bld) [#/Vol] 4.91 10*6/uL 3.60-5.00 [facility] RBC morphologyOrdered By: Abraham Alberto on 01-19-2022 RBC morphology finding Nom (Bld) N/A [facility] Serum or plasma alanine valenzuela otransferase measurement without P-5'-P (enzymatic activiOrdered By: Moises Alberto on 01-19-2022 ALT No additional P-5'-P [Catalytic activity/Vol] 23 U/L 10-60 [facility] Serum or plasma albumin/glob ulin mass ratioOrdered By: Moises Alberto on 01-19-2022 Albumin/Globulin [Mass ratio] 1.4 {ratio} [facility] Serum or plasma alkaline sallie sphatase measurement (enzymatic activity/volume)Ordered By: Moises Alberto on 01-19-2022 ALP [Catalytic activity/Vol] 50 U/L 32-92 [facility] Serum or plasma aspartate am inotransferase measurement (enzymatic activity/volume)Ordered By: Moises Alberto on 01-19-2022 AST [Catalytic activity/Vol] 24 U/L 10-42 [facility] Serum or plasma calcium leo urement (mass/volume)Ordered By: Moises Alberto on 01-19-2022 Calcium [Mass/Vol] 9.0 mg/dL 8.2-10.2 [facility] Serum or plasma chloride sandro surement (moles/volume)Ordered By: Moises Alberto on 01-19-2022 Chloride [Moles/Vol] 101 mmol/L 95-114 [facility] Serum or plasma glucose leo urement (mass/volume)Ordered By: Moises Alberto on 01-19-2022 Glucose [Mass/Vol] 113 mg/dL 70-100 [facility] Comment on above: ADA recommended refe rence range Random Glucose Reference Range is dependent on time and content of last meal. Glucose of more than 200 mg/dL in a nonstressed, ambulatory subject supports the diagnosis of Diabetes Mellitus. Serum or plasma non-glucuron idated bilirubin measurement (mass/volume)Ordered By: Moises lAberto on 01-19-2022 Bilirubin.indirect [Mass/Vol] 1.0 mg/dL [facility] Serum or plasma potassium me asurement (moles/volume)Ordered By: Moises Alberto on 01-19-2022 Potassium [Moles/Vol] 3.8 mmol/L 3.5-5.1 [facility] Serum or plasma sodium measu rement (moles/volume)Ordered By: Moises Alberto on 01-19-2022 Sodium [Moles/Vol] 135 mmol/L 136-146 [facility] Serum or plasma total biliru bin measurement (mass/volume)Ordered By: Moises Alberto on 01-19-2022 Bilirubin [Mass/Vol] 1.3 mg/dL 0.3-1.2 [facility] Comment on above: Samples from patient s who have taken Naproxen have shown spurious elevation in Total Bilirubin levels. A metabolite of Naproxen, O-desmethylnaproxen, has been shown to interfere with the Pallavi method for measuring Total Bilirubin. Serum or plasma total carbon dioxide measurement (moles/volume)Ordered By: Moises Alberto on 01-19-2022 CO2 [Moles/Vol] 24.1 mmol/L 22.0-30.0 [facility] Serum or plasma urea nitroge n measurement (mass/volume)Ordered By: Moises Alberto on 01-19-2022 Urea nitrogen [Mass/Vol] 11 mg/dL 9- [facility] Teardrop cell detectionOrder ed By: Moises Alberto on 01-19-2022 Dacrocytes LM Ql (Bld) Slight [facility] Troponin I.cardiac [Mass/vol ume] in Serum or Plasma by High sensitivity methodOrdered By: Moises Alberto on 01-19-2022 Troponin I.cardiac High sensitivity method [Mass/Vol] 10 pg/mL 0- [facility] XR knee LT 2Von 12-14-2021 XR knee LT 2V [facility] [employer] Other XR knee LT 2V [facility] Main [facility] [employer] Other XR knee LT 2V [address] [place] [address] [employer] Other XR knee LT 2V [place] [id number] [facility] [employer] Other XR knee LT 2V XRay Report [place] [employer] Other XR knee LT 2V Signed [employer] Other XR knee LT 2V Patient: Ta Butt MR#: [id number] [employer] Other XR knee LT 2V 839 DIY Other XR knee LT 2V : 1945 Acct:[id number] [employer] Other XR knee LT 2V Age/Sex: 76 / F ADM Date: 12/14/21 DIY Other XR knee LT 2V Loc: SOXD Room: Type : REG CLI [employer] Other XR knee LT 2V Attending Dr: Alli Nicholas DO DIY Other XR knee LT 2V Copies to: Alli Nicholas, DO [employer] Other XR knee LT 2V Ordering Provider: George Nicholas DO DIY Other XR knee LT 2V Date of Service: 12/14/21 DIY Other XR knee LT 2V XR/XR knee LT 2V: Primary osteoarthritis of left knee DIY Other XR knee LT 2V LEFT KNEE - 2 views No rt [employer] Other XR knee LT 2V CLINICAL HISTORY: St atus post manipulation left total knee arthroplasty. DIY Other XR knee LT 2V COMPARISON: Left kne e series 07/25/2021 DIY Other XR knee LT 2V FINDINGS: DIY Other XR knee LT 2V Moderate size joint effusion is noted. No acute bony process. No evidence of hardware DIY Other XR knee LT 2V complication. [facility] [employer] Other XR knee LT 2V X R/XR knee LT 2V DIY Other XR knee LT 2V IMPRESSION: [employer] [facility] [employer] Other XR knee LT 2V MODERATE JOINT EFFUS ION. NO RADIOGRAPHIC HARDWARE COMPLICATION. DIY Other XR knee LT 2V Impression dictated by: Kelvin Murray Jr., D.OДмитрий12/14/2021 3:56 PM DIY Other XR knee LT 2V Dictation Location: [place] [address] DIY Other XR knee LT 2V Transcribed By: BARBRA 12/14/21 [facility] DIY Other XR knee LT 2V Dictated By: Kelvin Murray Jr, DO 12/14/21 [facility] DIY Other XR knee LT 2V Signed By: DIY Other XR knee LT 2V 12/14/21 1556 [facility] [employer] Other XR knee LT 3Von 05-04-2021 XR knee LT 3V [facility] [employer] Other XR knee LT 3V [facility] Main [facility] [employer] Other XR knee LT 3V [address] [facility] [employer] Other XR knee LT [address] [address] [facility] [employer] Other XR knee LT 3V [facility] Other XR knee LT 3V Signed DIY Other XR knee LT 3V Patient: Ta Butt MR#: [id number] [place] [employer] Other XR knee LT 3V 839 DIY Other XR knee LT 3V : 1945 Acct:[id number] DIY Other XR knee LT 3V Age/Sex: 76 / F ADM Date: 05/04/21 DIY Other XR knee LT 3V Loc: SOXD Room: Type : [facility] DIY Other XR knee LT 3V Attending Dr: Alli Nicholas DO DIY Other XR knee LT 3V Ordering Provider: George Nicholas DO DIY Other XR knee LT 3V Date of Service: 05/04/21 DIY Other XR knee LT 3V XR/XR knee LT 3V - NOT FOR ER USE: Pain in left knee DIY Other XR knee LT 3V Copies to: Alli Nicholas DO DIY Other XR knee LT 3V Left knee 05/04/2021. N [employer] Other XR knee LT 3V CLINICAL DATA: Long history of left knee pain. DIY Other XR knee LT 3V FINDINGS: Standing frontal and lateral views of the left knee were obtained along with a sunrise DIY Other XR knee LT 3V view of both patellas. DIY Other XR knee LT 3V Osteopenia is noted. No acute fracture or dislocation is identified. There is joint space narrowing DIY Other XR knee LT 3V in the medial femorotibial compartment. Marginal osteophyte formation is seen in this location and DIY Other XR knee LT 3V in the patellofemora l compartment. No bony erosion or destruction is visualized. There is a small DIY Other XR knee LT 3V suprapatellar effusion. DIY Other XR knee LT 3V X R/XR knee LT 3V - NOT FOR ER USE DIY Other XR knee LT 3V IMPRESSION: Osteopen ia. Degenerative changes and small effusion. DIY Other XR knee LT 3V Impression dictated by: Sergio Mccarty Jr., M.D.05/04/2021 3:05 PM DIY Other XR knee LT 3V Dictation Location: [place] [address] DIY Other XR knee LT 3V Transcribed By: BARBRA 05/04/21 1505 DIY Other XR knee LT 3V Dictated By: Sergio Mccarty Jr, MD 05/04/21 1502 DIY Other XR knee LT 3V Signed By: DIY Other XR knee LT 3V 05/04/21 1500 [employer] Other Tobacco Screening.on 021 Fall risk assessment b) One or more fall s in the last year [facility] DO Work Phone: Tobacco use status CPHS b) No -[facility] 250 DO Work Phone: CNPNon 01-17-2021 CNPN Telephone (OPHTLN) ----- RADHA BUTT ([id number]) 1945 F Date Time Provider Department 01/17/21 SERENA FUNES During your visit today, we recorded the following information about you: Héctor Rob [facility] 01/17/2021 11:16 AM Signed Called patient to reschedule her appointment with Dr. Funes, for glaucoma. Héctor Rob [facility] 01/18/2021 2:19 PM Signed Called patient to schedule with Dr. Funes, since per Dr. Nation he doesn't do MIGS. Héctor Rob [facility] 01/18/2021 2:33 PM Signed Patient is rescheduled. Allergies As of Date: 01/17/2021 (No Known Allergies) Date Reviewed: 02/16/2015 Reviewed by: Roxy Bell - Fully Assessed Reason for Visit: Appointment [186] Prescriptions as of 01/18/2021 - amiodarone (PACERONE) 200 mg tablet - atorvastatin (LIPITOR) 80 mg tablet - carvedilol (COREG) 6.25 mg tablet - clopidogrel (PLAVIX) 75 mg tablet - latanoprost (XALATAN) 0.005 % ophthalmic solution - lisinopril (ZESTRIL, PRINIVIL) 5 mg tablet - NITROSTAT 0.4 mg SL tablet - spironolactone (ALDACTONE) 25 mg tablet - warfarin (COUMADIN) 2 mg tablet - warfarin (JANTOVEN) 4 mg tablet Take 4 mg by mouth daily as directed. - aspirin, enteric coated (ASPIRIN, ENTERIC COATED) 81 mg EC tablet Take 81 mg by mouth once daily. - cyclobenzaprine (FLEXERIL) 10 mg tablet Take 10 mg by mouth twice daily as needed. - lansoprazole (PREVACID) 15 mg capsule Take 15 mg by mouth once daily. - metoprolol succinate ER (TOPROL XL) 100 mg Tb24 Take 100 mg by mouth. - gabapentin (NEURONTIN) 300 mg capsule Take 300 mg by mouth three times daily. - Hydrochlorothiazide 12.5 mg capsule Take 12.5 mg by mouth once daily. - famotidine (PEPCID) 20 mg tablet Take 20 mg by mouth once daily. - CALCIUM CARBONATE/VITAMIN D3 (CALCIUM 500 + D ORAL) Take by mouth. Problem List As Of Date 01/17/2021 Noted Resolved Primary osteoarthritis of both knees [M17.0] 02/16/2015 Encounter Status:Closed by HÉCTOR MOREAU on 01/18/21 Normal [facility] XR RIBS LT PA Shane 9 XR RIBS LT PA Patient: OZZIE BUTT Exam Date: 05/04/2019 : 1945 Gender:F Ordering : DR MISTY GOLD . Admission #: [id number] Family : Order #: [id number] CLICK HERE TO VIEW EXAM RADIOLOGY REPORT PROCEDURE: RADIOGRAPH RIBS LEFT PA CHEST COMPARISON: XR CHEST 2 V, 12/17/2014. INDICATIONS: Acute left anterior chest pain after injury FINDINGS: LUNGS: No significant pulmonary parenchymal abnormalities. PLEURA: No pneumothorax, effusion, or pleural thickening. MEDIASTINUM: No visible mass or adenopathy. CARDIAC: No cardiomegaly or cardiac silhouette abnormality. RIBS: No fracture or visible bone lesion. OTHER: Moderate scoliosis of the thoracic spine. CONCLUSION: 1. No acute cardiopulmonary process. 2. No visible rib fracture. Dictated by: Lamonte Nur M.D. on 05/04/2019 at 13:32 Approved by: Lamonte Nur M.D. on 05/04/2019 at 13:36 Normal [facility] CBC AUTO DIFFon 10-30-2019 Basophils (Bld) [#/Vol] 0.0 103/ul Normal 0.0-0.1 [facility] [place] [facility] Comment on above: Performed By: #### C BC #### [facility] [address] [place], [place] [id number] Michael Silvia Basophils/100 WBC (Bld) 0.5 % Normal 0.2-2.0 [facility] [place] [facility] Comment on above: Performed By: #### C BC #### [facility] [address] [place] [address] Michael Silvia Eosinophils (Bld) [#/Vol] 0.3 103/ul Normal 0.0-0.7 [facility] [place] [facility] Comment on above: Performed By: #### C BC #### [facility] [address] [place] [address] Michael Silvia Eosinophils/100 WBC (Bld) 5.0 % Normal 0.9-7.0 [facility] [place] [facility] Comment on above: Performed By: #### C BC #### [facility] [address] [place] [address] Michael Silvia Erythrocyte distribution width (RBC) [Ratio] 15.9 % Critically high 11.0-15.0 [facility] [place] [facility] Comment on above: Performed By: #### C BC #### [facility] [address] [place] [address] Michael Silvia Hematocrit (Bld) [Volume fraction] 37.3 % Normal 36.0-48.0 [facility] [place] [facility] Comment on above: Performed By: #### C BC #### [facility] [address] [place] [address] Michael Silvia Hemoglobin (Bld) [Mass/Vol] 11.4 g/dL Critically low 12.0-16.0 [facility] [place] [facility] Comment on above: Performed By: #### C BC #### [facility] [address] [place] [address] Michael Silvia IG # 0.02 10e3/ul Normal 0.00-0.03 [facility] [place] [facility] Comment on above: Performed By: #### C BC #### [facility] [address] [id number] Michael Silvia IG % 0.3 % Normal 0.0-0.5 [facility] Comment on above: Performed By: #### C BC #### [facility] [address] [id number] Michael Silvia Lymphocytes (Bld) [#/Vol] 1.3 103/ul Normal 1.2-3.8 [facility] Comment on above: Performed By: #### C BC #### [facility] [address] [id number] Michael Silvia Lymphocytes/100 WBC (Bld) 22.3 % Normal 20.5-60.0 [facility] Comment on above: Performed By: #### C BC #### [place] [facility] [address] [place], [place] [address] Michael Silvia MANUAL DIFF REQ NO Normal [facility] Comment on above: Performed By: #### C BC #### [facility] [address] [place], [place] [address] Michael Silvia MCH (RBC) [Entitic mass] 21.2 pg Critically low 26.7-34.0 [facility] Comment on above: Performed By: #### C BC #### [facility] [address] [place], [place] [address] Michael Silvia MCHC (RBC) [Mass/Vol] 30.6 g/dL Normal 29.9-35.2 [facility] [place] [facility] Comment on above: Performed By: #### C BC #### [facility] [address] [place], [place] [address] Michael Silvia MCV (RBC) [Entitic vol] 69.2 fL Critically low 81.0-99.0 [facility] Comment on above: Performed By: #### C BC #### [facility] [address] [place], [place] [address] Michael Silvia Monocytes (Bld) [#/Vol] 0.6 103/ul Normal 0.3-0.8 [facility] [place] [facility] Comment on above: Performed By: #### C BC #### [facility] [address] [place] [address] Michael Silvia Monocytes/100 WBC (Bld) 9.5 % Normal 1.7-12.0 [facility] Comment on above: Performed By: #### C BC #### [facility] [address] [place], [place] [address] Michael Silvia Neutrophils (Bld) [#/Vol] 3.7 103/ul Normal 1.4-6.5 [facility] Comment on above: Performed By: #### C BC #### [facility] [address] [place], [place] [address] Michael Silvia Neutrophils/100 WBC (Bld) 62.4 % Normal 43.0-75.0 [facility] Comment on above: Performed By: #### C BC #### [facility] [address] [place] [address] Michael Silvia Platelet mean volume (Bld) [Entitic vol] 10.0 fL Normal 9.5-13.5 [facility] Comment on above: Performed By: #### C BC #### [facility] [address] [place], [place] [address] Michael Silvia Platelets (Bld) [#/Vol] 244 103/ul Normal 150-450 [facility] Comment on above: Performed By: #### C BC #### [facility] [address] [place], [place] [address] Michael Silvia RBC (Bld) [#/Vol] 5.39 106/ul Normal 4.20-5.40 [facility] Comment on above: Performed By: #### C BC #### [facility] [address] [place], [place] [address] Michael Silvia WBC (Bld) [#/Vol] 6.0 103/ul Normal 4.0-11.0 [facility] Comment on above: Performed By: #### C BC #### [facility] [address] [place], [place] [address] Michaelmaci Morelosen PROF CHEM 8 (BAS METB)on Anion gap [Moles/Vol] 8.7 mmol/L Normal [facility] Comment on above: Performed By: #### B MP ####[facility] [address] [place], [place] [address]Rqulin Silvia Calcium [Mass/Vol] 9.1 mg/dL Normal 8.4-10.2 [facility] Comment on above: Performed By: #### B MP ####[facility] [address] [place], [place] [address]Omuwgy Silvia Chloride [Moles/Vol] 104 mmol/L Normal 98-107 [facility] [place] [facility] Comment on above: Performed By: #### B MP ####[facility] [address] [place], [place] [address]Nicllz Silvia CO2 [Moles/Vol] 30.8 mmol/L Critically high 22.0-30.0 [facility] Comment on above: Performed By: #### B MP ####[facility] [address] [place], [place] [address]Hezeyf Silvia Creatinine [Mass/Vol] 1.03 mg/dL Normal 0.52-1.04 [facility] Comment on above: Performed By: #### B MP ####[facility] [address] [place], [place] [address]Kgqixf Silvia EGFR-AF KAZAKH >60 Normal >=60 [facility] Comment on above: Performed By: #### B MP ####[facility] [address] [place], [place] [address]Lklhbh Silvia EGFR-NON AF KAZAKH 52 mL/min/1.73m2 Critically low >=60 [facility] [place] [facility] Comment on above: Performed By: #### B MP ####[facility] [address] [place], [place] [address]Cavuip Silvia Glucose [Mass/Vol] 118 mg/dL Critically high 74-106 [facility] Comment on above: Performed By: #### B MP ####[facility] [address] [place], [place] [address]Yabghn Silvia Potassium [Moles/Vol] 3.5 mmol/L Normal 3.4-5.0 [facility] [place] [facility] Comment on above: Performed By: #### B MP ####[facility] [address] [place], [place] [address]Hvuepo Silvia Sodium [Moles/Vol] 140 mmol/L Normal 137-145 [facility] Comment on above: Performed By: #### B MP ####[facility] [address] [place], [place] [address]Lfwznf Silvia Urea nitrogen [Mass/Vol] 14.0 mg/dL Normal 7.0-17.0 [facility] Comment on above: Performed By: #### B MP ####[facility] [address] [place], [place] [address]Mxznsb Silvia Urea nitrogen/Creatinine [Mass ratio] 13.6 mg/mg Normal [facility] Comment on above: Performed By: #### B MP ####[facility] [address] [place], [place] [address]Ogrrwz Silvia CBC AUTO DIFFon 08-18-2018 Basophils (Bld) [#/Vol] 0.0 103/ul Normal 0.0-0.1 [facility] Comment on above: Performed By: #### C BC #### [facility] [address] [place], [place] [address] Michael Silvia Basophils/100 WBC (Bld) 0.6 % Normal 0.2-2.0 [facility] Comment on above: Performed By: #### C BC #### [facility] [address] [place], [place] [address] Michael Silvia Eosinophils (Bld) [#/Vol] 0.2 103/ul Normal 0.0-0.7 [facility] Comment on above: Performed By: #### C BC #### [facility] [address] [place], [place] [address] Michael Silvia Eosinophils/100 WBC (Bld) 2.5 % Normal 0.9-7.0 [facility] Comment on above: Performed By: #### C BC #### [facility] [address] [place], [place] [address] Michael Silvia Erythrocyte distribution width (RBC) [Ratio] 15.9 % Critically high 11.0-15.0 [facility] Comment on above: Performed By: #### C BC #### [facility] [address] [address] Michael Silvia Hematocrit (Bld) [Volume fraction] 33.4 % Critically low 36.0-48.0 [facility] Comment on above: Performed By: #### C BC #### [facility] [address] [address] Michael Silvia Hemoglobin (Bld) [Mass/Vol] 10.1 g/dL Critically low 12.0-16.0 [facility] Comment on above: Performed By: #### C BC #### [facility] [address] [address] Michael Silvia IG # 0.01 10e3/ul Normal 0.00-0.03 [facility] Comment on above: Performed By: #### C BC #### [facility] [address] [place] [address] Michael Silvia IG % 0.1 % Normal 0.0-0.5 [facility] Comment on above: Performed By: #### C BC #### [facility] [address] [place] [address] Michael Silvia Lymphocytes (Bld) [#/Vol] 1.3 103/ul Normal 1.2-3.8 [facility] Comment on above: Performed By: #### C BC #### [facility] [address] [place], [place] [address] Michael Silvia Lymphocytes/100 WBC (Bld) 18.1 % Critically low 20.5-60.0 [facility] Comment on above: Performed By: #### C BC #### [facility] [address] [place], [place] [address] Michael Silvia MANUAL DIFF REQ NO Normal [facility] Comment on above: Performed By: #### C BC #### [facility] [address] [place], [place] [address] Michael Silvia MCH (RBC) [Entitic mass] 20.6 pg Critically low 26.7-34.0 [facility] Comment on above: Performed By: #### C BC #### [facility] [address] [place], [place] [address] Michael Silvia MCHC (RBC) [Mass/Vol] 30.2 g/dL Normal 29.9-35.2 [facility] Comment on above: Performed By: #### C BC #### [facility] [address] [place], [place] [address] Michael Silvia MCV (RBC) [Entitic vol] 68.0 fL Critically low 81.0-99.0 [facility] Comment on above: Performed By: #### C BC #### [facility] [address] [place] [address] Michael Silvia Monocytes (Bld) [#/Vol] 0.6 103/ul Normal 0.3-0.8 [facility] Comment on above: Performed By: #### C BC #### [facility] [address] [place], [place] [address] Michael Silvia Monocytes/100 WBC (Bld) 8.3 % Normal 1.7-12.0 [facility] Comment on above: Performed By: #### C BC #### [facility] [address] [place] [address] Michael Silvia Neutrophils (Bld) [#/Vol] 5.1 103/ul Normal 1.4-6.5 [facility] Comment on above: Performed By: #### C BC #### [facility] [address] [place] [address] Michael Silvia Neutrophils/100 WBC (Bld) 70.4 % Normal 43.0-75.0 [facility] Comment on above: Performed By: #### C BC #### [facility] [address] [place] [address] Michael Silvia Platelet mean volume (Bld) [Entitic vol] 10.4 fL Normal 9.5-13.5 [facility] Comment on above: Performed By: #### C BC #### [facility] [address] [place] [address] Michael Silvia Platelets (Bld) [#/Vol] 279 103/ul Normal 150-450 [facility] Comment on above: Performed By: #### C BC #### [facility] [address] [place], [place] [address] Michael Vega RBC (Bld) [#/Vol] 4.91 106/ul Normal 4.20-5.40 [facility] Comment on above: Performed By: #### C BC #### [facility] [address] [place], [place] [address] Michael Vega WBC (Bld) [#/Vol] 7.2 103/ul Normal 4.0-11.0 [facility] Comment on above: Performed By: #### C BC #### [facility] [address] [place], [place] [address] FACIAL BONES W CONon 08-02 CT FACIAL BONES W CON [address] [place] [id number] Patient: RADHA BUTT Exam Date: 08/18/2018 : 1945 Gender:F Ordering : DR. ENEIDA COWAN M.D. Admission #: [id number] Family : Order #: [id number] CLICK HERE TO VIEW EXAM RADIOLOGY REPORT CT OF THE FACIAL BONES WITH IV CONTRAST 08-18-18: Sagittal and coronal reconstruction images performed. HISTORY: Acute left side facial pain and swelling for three days. FINDINGS: Mild to moderate stranding identified in the mid to lower left anterolateral face on the left side most consistent with edema and/or cellulitis. No abscess seen. No hematoma. Minimal mucosal thickening in the ethmoid air cells. No fracture or foreign body. No air in the soft tissues. IMPRESSION: 1. MILD TO MODERATE STRANDING AND SOFT TISSUE SWELLING NOTED ALONG THE MID TO LOWER LEFT ANTEROLATERAL FACE MOST CONSISTENT WITH EDEMA AND/OR CELLULITIS. 2. NO ABSCESS OR HEMATOMA. 3. NO ACUTE SINUSITIS. 4. NO FRACTURE OR FOREIGN BODY. Dictated by: Rose Tejeda BN on 08/18/2018 at 05:36 Transcribed by: Trevon on 08/27/2018 at 12:54 Approved by: David Frank M.D. on 08/28/2018 at 04:09 Normal [facility] PROF CHEM 8 (BAS METB)on Anion gap [Moles/Vol] 12.2 mmol/L Normal [facility] Comment on above: Performed By: #### B MP #### [facility] [address] [address] Michael Silvia Calcium [Mass/Vol] 9.3 mg/dL Normal 8.4-10.2 [facility] Comment on above: Performed By: #### B MP #### [facility] [address] [address] Michael Silvia Chloride [Moles/Vol] 106 mmol/L Normal 98-107 [facility] Comment on above: Performed By: #### B MP #### [facility] [address] [place] [address] Michael Silvia CO2 [Moles/Vol] 25.7 mmol/L Normal 22.0-30.0 [facility] Comment on above: Performed By: #### B MP #### [facility] [address] [address] Michael Silvia Creatinine [Mass/Vol] 1.01 mg/dL Normal 0.52-1.04 [facility] Comment on above: Performed By: #### B MP #### [facility] [address] [place] [address] Michael Silvia EGFR-AF KAZAKH >60 Normal >=60 [facility] Comment on above: Performed By: #### B MP #### [facility] [address] [address] Michael Silvia EGFR-NON AF KAZAKH 54 mL/min/1.73m2 Critically low >=60 [facility] Comment on above: Performed By: #### B MP #### [facility] [address] [address] Michael Silvia Glucose [Mass/Vol] 105 mg/dL Normal 74-106 [facility] Comment on above: Performed By: #### B MP #### [facility] [address] [place] [address] Michael Silvia Potassium [Moles/Vol] 3.9 mmol/L Normal 3.4-5.0 [facility] Comment on above: Performed By: #### B LIMA #### [facility] [address] [place], [place] [address] Michael Silvia Sodium [Moles/Vol] 140 mmol/L Normal 137-145 [facility] Comment on above: Performed By: #### B LIMA #### [facility] [address] [place], [place] [address] Michael Silvia Urea nitrogen [Mass/Vol] 11.0 mg/dL Normal 7.0-17.0 [facility] Comment on above: Performed By: #### B LIMA #### [facility] [address] [id number] Michael Silvia Urea nitrogen/Creatinine [Mass ratio] 10.9 mg/mg Normal [facility] Comment on above: Performed By: #### B LIMA #### [facility] [address] [place], [place] [address] Michael Silvia CARDIAC AMARI ADMITon 019 CK [Catalytic activity/Vol] 99 U/L Normal 30-135 [facility] Comment on above: Performed By: #### B THANH AMATO #### [facility] [address] [id number] Michael Silvia CK.MB [Mass/Vol] 1.29 ng/mL Normal <=2.37 [facility] Comment on above: Performed By: #### B LIMA, THANH #### [facility] [address] [id number] Michael Silvia INR Coag (Bld) [Relative time] SEE BELOW Normal [facility] Comment on above: Result Comment: <0.0 34 ng/ml NEGATIVE 0.034-0.119 INDETERMINATE 0.120 AMI CUT OFF Performed By: #### B THANH AMATO #### [facility] [address] [place], [place] [address] Michael Silvia GUY 65.0 ng/mL Critically high <=61.5 [facility] Comment on above: Performed By: #### B LIMA, THANH #### [facility] [address] [id number] Michael Silvia TROP <0.017 Normal <=0.034 [facility] Comment on above: Performed By: #### B MP, CMADM #### [facility] [address] [place], [place] [address] Michael Silvia CBC AUTO DIFFon 07-30-2018 Basophils (Bld) [#/Vol] 0.0 103/ul Normal 0.0-0.1 [facility] Comment on above: Performed By: #### C BC #### [facility] [address] [place] [address] Michael Silvia Basophils/100 WBC (Bld) 1.0 % Normal 0.2-2.0 [facility] Comment on above: Performed By: #### C BC #### [facility] [address] [place] [address] Michael Silvia Eosinophils (Bld) [#/Vol] 0.1 103/ul Normal 0.0-0.7 [facility] Comment on above: Performed By: #### C BC #### [facility] [address] [place] [address] Michael Silvia Eosinophils/100 WBC (Bld) 3.4 % Normal 0.9-7.0 [facility] Comment on above: Performed By: #### C BC #### [facility] [address] [place] [address] Michael Silvia Erythrocyte distribution width (RBC) [Ratio] 15.2 % Critically high 11.0-15.0 [facility] Comment on above: Performed By: #### C BC #### [facility] [address] [place] [address] Michael Silvia Hematocrit (Bld) [Volume fraction] 33.2 % Critically low 36.0-48.0 [facility] Comment on above: Performed By: #### C BC #### [facility] [address] [place], [place] [address] Michael Silvia Hemoglobin (Bld) [Mass/Vol] 10.1 g/dL Critically low 12.0-16.0 [facility] Comment on above: Performed By: #### C BC #### [facility] [address] [place] [address] Michael Silvia IG # 0.00 10e3/ul Normal 0.00-0.03 [facility] Comment on above: Performed By: #### C BC #### [facility] [address] [place], [place] [address] Michael Silvia IG % 0.0 % Normal 0.0-0.5 [facility] Comment on above: Performed By: #### C BC #### [facility] [address] [place] [address] Michael Silvia Lymphocytes (Bld) [#/Vol] 1.1 103/ul Critically low 1.2-3.8 [facility] Comment on above: Performed By: #### C BC #### [facility] [address] [place] [address] Michael Silvia Lymphocytes/100 WBC (Bld) 29.1 % Normal 20.5-60.0 [facility] Comment on above: Performed By: #### C BC #### [facility] [address] [place] [address] Michael Silvia MANUAL DIFF REQ NO Normal [facility] Comment on above: Performed By: #### C BC #### [facility] [address] [place], [place] [address] Michael Silvia MCH (RBC) [Entitic mass] 20.7 pg Critically low 26.7-34.0 [facility] Comment on above: Performed By: #### C BC #### [facility] [address] [place] [address] Michael Silvia MCHC (RBC) [Mass/Vol] 30.4 g/dL Normal 29.9-35.2 [facility] Comment on above: Performed By: #### C BC #### [facility] [address] [place], [place] [address] Michael Silvia MCV (RBC) [Entitic vol] 68.0 fL Critically low 81.0-99.0 [facility] Comment on above: Performed By: #### C BC #### [facility] [address] [place], [place] [address] Michael Silvia Monocytes (Bld) [#/Vol] 0.4 103/ul Normal 0.3-0.8 [facility] Comment on above: Performed By: #### C BC #### [facility] [address] [place], [place] [id number] Michael Silvia Monocytes/100 WBC (Bld) 10.8 % Normal 1.7-12.0 [facility] Comment on above: Performed By: #### C BC #### [facility] [address] [place], [place] [id number] Michael Silvia Neutrophils (Bld) [#/Vol] 2.1 103/ul Normal 1.4-6.5 [facility] Comment on above: Performed By: #### C BC #### [facility] [address] [place] [address] Michael Silvia Neutrophils/100 WBC (Bld) 55.7 % Normal 43.0-75.0 [facility] Comment on above: Performed By: #### C BC #### [facility] [address] [place] [address] Michael Silvia Platelet mean volume (Bld) [Entitic vol] 10.3 fL Normal 9.5-13.5 [facility] Comment on above: Performed By: #### C BC #### [facility] [address] [place], [place] [id number] Michael Silvia Platelets (Bld) [#/Vol] 225 103/ul Normal 150-450 [facility] Comment on above: Performed By: #### C BC #### [facility] [address] [place], [place] [id number] Michael Silvia RBC (Bld) [#/Vol] 4.88 106/ul Normal 4.20-5.40 [facility] Comment on above: Performed By: #### C BC #### [facility] [address] [place], [place] [id number] Michael Silvia WBC (Bld) [#/Vol] 3.8 103/ul Critically low 4.0-11.0 [facility] Comment on above: Performed By: #### C BC #### [facility] [address] HEAD WO CONon 07-30-2018 CT HEAD WO CON [address] [place] [address] Patient: RADHA BUTT Exam Date: 07/30/2018 : 1945 Gender:F Ordering : JOAQUINA BRIONES Admission #: [id number] Family : DR KIP Rai ALEXIS Order #: [id number] CLICK HERE TO VIEW EXAM RADIOLOGY REPORT PROCEDURE: CT HEAD WITHOUT CONTRAST COMPARISON: None. INDICATIONS: Ear infection and vertigo for past two weeks TECHNIQUE: Axial CT images were obtained without IV contrast. DOSE: 941mGycm FINDINGS: BRAIN: No edema, hemorrhage, mass, acute infarction, or inappropriate atrophy. CSF SPACES: No hydrocephalus, subarachnoid hemorrhage, or mass. Appropriate for age. SKULL: No fracture, mass, or other significant visible lesion. SINUSES: No significant mucosal thickening or fluid on the limited views. ORBITS: No appreciable abnormality on the limited views. OTHER: No fluid within the middle year or mastoid air cells bilaterally. No soft tissue mass within the external auditory canal or abnormal widening of the internal auditory canal. CONCLUSION: 1. Normal examination. No suspicious findings to account for the patient's symptoms. Dictated by: Lamonte Nur M.D. on 07/30/2018 at 12:01 Approved by: Lamonte Nur M.D. on 07/30/2018 at 12:07 Normal [facility] PROF CHEM 8 (BAS METB)on Anion gap [Moles/Vol] 12.7 mmol/L Normal [facility] Comment on above: Performed By: #### B THANH AMATO #### [facility] [address] [place], [place] [address] Michael Silvia Calcium [Mass/Vol] 8.9 mg/dL Normal 8.4-10.2 [facility] Comment on above: Performed By: #### B THANH AMATO #### [facility] [address] [place], [place] [address] Michael Vega Chloride [Moles/Vol] 108 mmol/L Critically high 98-107 [facility] Comment on above: Performed By: #### B LIMA, CMADM #### [facility] [address] [id number] Michael Silvia CO2 [Moles/Vol] 26.1 mmol/L Normal 22.0-30.0 [facility] Comment on above: Performed By: #### B LIMA, CMADM #### [facility] [address] [address] Michael Silvia Creatinine [Mass/Vol] 1.07 mg/dL Critically high 0.52-1.04 [facility] Comment on above: Performed By: #### B LIMA, CMADM #### [facility] [address] [id number] Michael Silvia EGFR-AF KAZAKH >60 Normal >=60 [facility] Comment on above: Performed By: #### B LIMA, CMADM #### [facility] [address] [address] Michael Silvia EGFR-NON AF KAZAKH 50 mL/min/1.73m2 Critically low >=60 [facility] Comment on above: Performed By: #### B LIMA, CMADM #### [facility] [address] [id number] Michael Silvia Glucose [Mass/Vol] 92 mg/dL Normal 74-106 [facility] Comment on above: Performed By: #### B LIMA, CMADM #### [facility] [address] [address] Michael Silvia Potassium [Moles/Vol] 3.8 mmol/L Normal 3.4-5.0 [facility] Comment on above: Performed By: #### B LIMA, CMADM #### [facility] [address] [id number] Michael Silvia Sodium [Moles/Vol] 143 mmol/L Normal 137-145 [facility] Comment on above: Performed By: #### B LIMA, CMADM #### [facility] [address] [id number] Michael Silvia Urea nitrogen [Mass/Vol] 14.0 mg/dL Normal 7.0-17.0 [facility] Comment on above: Performed By: #### B THANH AMATO #### [facility] [address] [place], [place] [address] Michael Vega Urea nitrogen/Creatinine [Mass ratio] 13.1 mg/mg Normal [facility] Comment on above: Performed By: #### B THANH AMATO #### [facility] [address] [place], [place] [address] Michael Vega ALT (SGPT)on 07-09-2018 ALT enzyme act/vol 18 U/L Normal 7-45 [facility] Comment on above: Performed By: #### 1 [id number] #### [facility] [address] [place] [address] AST (SGOT)on 07-09-2018 AST enzyme act/vol 23 U/L Normal 13-39 [facility] Comment on above: Performed By: #### 1 [id number] #### [facility] [address] [place] [address] Creatinineon 07-09-2018 Creatinine mass conc 1.03 mg/dL Normal 0.50-1.05 [facility] Comment on above: Performed By: #### 1 [id number] #### [facility] [address] [place] [address] GFR/1.73 sq M.predicted MDRD vol rate/area 52 mL/min/{1.73_m2} Normal [facility] Comment on above: Result Comment: Inte rpretation for Chronic Kidney Disease: Stages 1&2 >60 Healthy or potential kidney damage. Mild decrease of GFR. Stage 3 30-59 Moderate decrease of GFR. Stage 4 15-29 Severe decrease of GFR. Stage 5 <15 Kidney failure or on dialysis. Performed By: #### 1 [id number] #### [facility] [address] [place] [address] Electrolyte Panelon 07-09-19 19 Anion gap molar conc 13 mmol/L Normal 10-20 [facility] Comment on above: Performed By: #### 1 [id number] #### [facility] [address] [place] [address] Chloride molar conc 104 mmol/L Normal 98-107 [facility] Comment on above: Performed By: #### 1 [id number] #### [facility] [address] [place] [address] HCO3 molar conc (Bld) 27 mmol/L Normal 21-32 [facility] Comment on above: Performed By: #### 1 [id number] #### [facility] [address] [place] [address] Potassium molar conc 3.8 mmol/L Normal 3.5-5.1 [facility] Comment on above: Performed By: #### 1 [id number] #### [facility] [address] [place] [address] Sodium molar conc 140 mmol/L Normal 136-145 [facility] Comment on above: Performed By: #### 1 [id number] #### [facility] [address] [place] [address] Lipid Panelon 07-09-2018 Cholesterol in HDL mass conc 50 mg/dL Normal [facility] Comment on above: Result Comment: Age Normal Mod Risk High Risk 5-9 >46 38-46 <38 10-14 >44 40-44 <40 15-19 >42 38-42 <38 Adult >49 Performed By: #### 1 [id number] #### [facility] [address] [place] [address] Cholesterol in LDL mass conc 60 mg/dL Normal <130 [facility] Comment on above: Performed By: #### 1 [id number] #### [facility] [address] [place] [address] Cholesterol in VLDL mass conc 15 mg/dL Normal <30 [facility] Comment on above: Performed By: #### 1 [id number] #### [facility] [address] [place] [address] Cholesterol mass conc 125 mg/dL Normal <200 [facility] Comment on above: Performed By: #### 1 [id number] #### [facility] [address] [place] [address] Cholesterol.total/Chol esterol in HDL mass ratio 2.5 {ratio} Normal [facility] Comment on above: Performed By: #### 1 [id number] #### [facility] [address] [place] [address] Triglyceride mass conc 77 mg/dL Normal <150 [facility] Comment on above: Result Comment: 150- 199 Borderline High 200-499 High >500 Very High Performed By: #### 1 [id number] #### [facility] [address] [place] [address] Urea Nitrogenon 07-09-2018 Urea nitrogen mass conc 17 mg/dL Normal 6-23 [facility] Comment on above: Performed By: #### 1 [id number] #### [facility] [address] [place] [address] Creatinineon 09-17-2017 Creatinine mass conc 0.88 mg/dL Normal 0.50-1.05 [facility] Comment on above: Performed By: #### 1 [id number] #### [facility] [address] [place] [address] GFR/1.73 sq M.predicted MDRD vol rate/area mL/min/{1.73_m2} Normal [facility] Comment on above: Result Comment: Inte rpretation for Chronic Kidney Disease: Stages 1&2 >60 Healthy or potential kidney damage. Mild decrease of GFR. Stage 3 30-59 Moderate decrease of GFR. Stage 4 15-29 Severe decrease of GFR. Stage 5 <15 Kidney failure or on dialysis. Performed By: #### 1 [id number] #### [facility] [address] [place] [address] Electrolyte Panelon 09-18-19 18 Anion gap molar conc 12 mmol/L Normal 10-20 [facility] Comment on above: Performed By: #### 1 [id number] #### [facility] [address] [place] [address] Chloride molar conc 104 mmol/L Normal 98-107 [facility] Comment on above: Performed By: #### 1 [id number] #### [facility] [address] [place] [address] HCO3 molar conc (Bld) 28 mmol/L Normal 21-32 [facility] Comment on above: Performed By: #### 1 [id number] #### [facility] [address] [place] [address] Potassium molar conc 3.8 mmol/L Normal 3.5-5.1 [facility] Comment on above: Performed By: #### 1 [id number] #### [facility] [address] [place] [address] Sodium molar conc 140 mmol/L Normal 136-145 [facility] Comment on above: Performed By: #### 1 [id number] #### [facility] [address] [place] [address] Urea Nitrogenon 09-17-2017 Urea nitrogen mass conc 13 mg/dL Normal 6-23 [facility] Comment on above: Performed By: #### 1 [id number] #### [facility] [address] [place] [address] Vital Signs Date Time Vital Sign Value Performing Clinician Facility 07-11-2023 08:00-0500 Body temperature 97.9 [degF] EQUIPMENT MAINT TECH Maya independenceITfle Work Phone: [facility] 07-11-2023 08:00-0500 Diastolic blood pressure 70 mm[Hg] EQUIPMENT MAINT TECH Maya [employer] Work Phone: [facility] 07-11-2023 08:00-0500 Heart rate 66 /min EQUIPMENT MAINT TECH Maya Saffle Work Phone: [facility] 07-11-2023 08:00-0500 Respiratory rate 16 /min EQUIPMENT MAINT TECH Maya Saffle Work Phone: [facility] 07-11-2023 08:00-0500 SaO2% (BldA) [Mass fraction] 99 % EQUIPMENT MAINT TECH Maya Saffle Work Phone: [facility] 07-11-2023 08:00-0500 Systolic blood pressure 166 mm[Hg] EQUIPMENT MAINT TECH Maya Saffle Work Phone: [facility] 07-11-2023 06:00-0500 Body weight 56.8 kg EQUIPMENT MAINT TECH Maya Saffle Work Phone: [facility] 07-09-2023 15:44-0500 Body height 165.1 cm EVELIA Wynn Work Phone: [facility] 04-10-2023 11:00-0400 Diastolic blood pressure 100 mm[Hg] Esau Aceves DO Work Phone: [facility] 04-10-2023 11:00-0400 Systolic blood pressure 200 mm[Hg] Esau Aceves DO Work Phone: [facility] 04-10-2023 10:31-0400 Body height 165.1 cm Esau Aceves DO Work Phone: [facility] 04-10-2023 10:31-0400 Body mass index (BMI) [Ratio] 20.47 kg/m2 Esau Aecves DO Work Phone: [facility] 04-10-2023 10:31-0400 Body weight 55.79 kg Esau Aceves DO Work Phone: [facility] 04-10-2023 10:31-0400 Heart rate 66 /min Esau Aceves DO Work Phone: [facility] 12-29-2022 18:41-0400 Heart rate 68 /min DO Kip House Work Phone: [facility] 12-29-2022 18:17-0400 Body height 165.1 cm DO Kip House Work Phone: [facility] 12-29-2022 18:17-0400 Body temperature 97.4 [degF] DO Kip House Work Phone: [facility] 12-29-2022 18:17-0400 Body weight 55.6 kg DO Kip House Work Phone: [facility] 12-29-2022 18:17-0400 Diastolic blood pressure 106 mm[Hg] DO Kip House Work Phone: [facility] 12-29-2022 18:17-0400 Respiratory rate 14 /min DO Kip House Work Phone: [facility] 12-29-2022 18:17-0400 SaO2% (BldA) [Mass fraction] 99 % DO Kip House Work Phone: [facility] 12-29-2022 18:17-0400 Systolic blood pressure 184 mm[Hg] DO Kip House Work Phone: [facility] 06-14-2022 13:15-0500 Body height 162.56 cm Alli Yu Other [employer] [facility] [employer] Other 06-14-2022 13:15-0500 Body mass index (BMI) [Ratio] 21.45 kg/m2 Alli Yu Other [employer] Other 06-14-2022 13:15-0500 Body weight 56.7 kg Alli Yu Other [facility] Other 05-17-2022 11:12-0500 Diastolic blood pressure 80 mm[Hg] Kip P [employer] Work Phone: [employer] [facility] [employer] 600 DO Work Phone: 05-17-2022 11:12-0500 Systolic blood pressure 140 mm[Hg] Kip P House Work Phone: [facility] 600 DO Work Phone: 05-17-2022 10:57-0500 Body height 162.56 cm Kip P House Work Phone: [facility] 600 DO Work Phone: 05-17-2022 10:57-0500 Body mass index (BMI) [Ratio] 21.28 kg/m2 Kip P House Work Phone: [facility] 600 DO Work Phone: 05-17-2022 10:57-0500 Body surface area Derived from formula 1.6 m2 Kip P House Work Phone: [facility] 600 DO Work Phone: 05-17-2022 10:57-0500 Body weight 56.25 kg Kip P House Work Phone: [facility] 600 DO Work Phone: 05-17-2022 10:57-0500 Diastolic blood pressure 96 mm[Hg] Kip P House Work Phone: [facility] 600 DO Work Phone: 05-17-2022 10:57-0500 Heart rate 75 /min Kip P House Work Phone: [facility] 600 DO Work Phone: 05-17-2022 10:57-0500 Systolic blood pressure 152 mm[Hg] Kip P House Work Phone: [facility] 600 DO Work Phone: 04-13-2022 11:07-0400 Body height 162.56 cm Kip P House Work Phone: [facility] 250 DO Work Phone: 04-13-2022 11:07-0400 Body mass index (BMI) [Ratio] 21.46 kg/m2 Kip P House Work Phone: [facility] 250 DO Work Phone: 04-13-2022 11:07-0400 Body surface area Derived from formula 1.6 m2 Kip P House Work Phone: [facility] 250 DO Work Phone: 04-13-2022 11:07-0400 Body weight 56.7 kg Kip P House Work Phone: [facility] 250 DO Work Phone: 04-13-2022 11:07-0400 Diastolic blood pressure 104 mm[Hg] Kip P House Work Phone: [facility] 250 DO Work Phone: 04-13-2022 11:07-0400 Heart rate 98 /min Kip P House Work Phone: [facility] 250 DO Work Phone: 04-13-2022 11:07-0400 Systolic blood pressure 168 mm[Hg] Kip P House Work Phone: [facility] 250 DO Work Phone: 01-19-2022 20:31-0400 Diastolic blood pressure 96 mm[Hg] DO Kip House Work Phone: [facility] 01-19-2022 20:31-0400 Heart rate 82 /min DO Kip House Work Phone: [facility] 01-19-2022 20:31-0400 Respiratory rate 18 /min DO Kip House Work Phone: [facility] 01-19-2022 20:31-0400 SaO2% (BldA) [Mass fraction] 100 % DO Kip House Work Phone: [facility] 01-19-2022 20:31-0400 Systolic blood pressure 197 mm[Hg] DO Kip House Work Phone: [facility] 01-19-2022 16:43-0400 Body height 162.56 cm DO Kip House Work Phone: [facility] 01-19-2022 16:43-0400 Body temperature 98.6 [degF] DO Kip House Work Phone: [facility] 01-19-2022 16:43-0400 Body weight 54 kg DO Kip House Work Phone: [facility] 12-14-2021 12:00-0400 Body height 162.56 cm Alli Nicholas Other [employer] Other 12-14-2021 12:00-0400 Body mass index (BMI) [Ratio] 18.88 kg/m2 Alli Yu Other [facility] Other 12-14-2021 12:00-0400 Body weight 49.9 kg Alli Yu Other [facility] Other 09-28-2021 12:00-0400 Body height 162.56 cm Alli Yu Other [facility] Other 09-28-2021 12:00-0400 Body mass index (BMI) [Ratio] 18.88 kg/m2 Alli Yu Other [facility] Other 09-28-2021 12:00-0400 Body weight 49.9 kg Alli Yu Other [facility] Other 07-25-2021 11:00-0500 Body height 162.56 cm Alli Yu Other [facility] Other 07-25-2021 11:00-0500 Body mass index (BMI) [Ratio] 19.39 kg/m2 Alli Yu Other [facility] Other 07-25-2021 11:00-0500 Body weight 51.26 kg Alli Yu Other [facility] Other 06-27-2021 15:45-0500 Body height 162.56 cm Alli Yu Other [facility] Other 06-27-2021 15:45-0500 Body mass index (BMI) [Ratio] 20.94 kg/m2 Alli Yu Other [facility] Other 06-27-2021 15:45-0500 Body weight 55.34 kg Alli Nicholas Other [facility] Other 05-04-2021 12:30-0400 Body height 162.56 cm Alli Nicholas Other [facility] Other 05-04-2021 12:30-0400 Body mass index (BMI) [Ratio] 21.45 kg/m2 Alli Nicholas Other [facility] Other 05-04-2021 12:30-0400 Body weight 56.7 kg Alli Nicholas Other [facility] Other 04-12-2021 11:38-0400 Body height 165.1 cm [email or web address] Work Phone: [facility] [employer] 250 DO Work Phone: 04-12-2021 11:38-0400 Body mass index (BMI) [Ratio] 21.63 kg/m2 Kip P [employer] Work Phone: [facility] [employer] 250 DO Work Phone: 04-12-2021 11:38-0400 Body surface area Derived from formula 1.65 m2 Kip P House Work Phone: [facility] 250 DO Work Phone: 04-12-2021 11:38-0400 Body weight 58.97 kg Kip P House Work Phone: [facility] 250 DO Work Phone: 04-12-2021 11:38-0400 Diastolic blood pressure 70 mm[Hg] Kip P House Work Phone: [facility] 250 DO Work Phone: 04-12-2021 11:38-0400 Heart rate 56 /min Kip P House Work Phone: [facility] 250 DO Work Phone: 04-12-2021 11:38-0400 Systolic blood pressure 122 mm[Hg] Kip P House Work Phone: [facility] 250 DO Work Phone: 03-21-2021 00:00-0400 65 1 Kip P House Work Phone: [facility] 250 DO Work Phone: Comment on above: [id number] Encounters Encounter Date Encounter Type Care Provider Facility Start: 08-13-2023 End: 08-13-2023 ambulatory Alli Nicholas Other [facility] Other Start: 08-13-2023 Telephone encounter [facility] Start: 07-23-2023 End: 07-23-2023 ambulatory Alli Nicholas Other [facility] Other Start: 07-23-2023 Telephone encounter [facility] Start: 07-16-2023 End: 07-17-2023 ambulatory Jose Mendez MD Facility:[facility] Start: 07-09-2023 End: 07-11-2023 ambulatory Lito Kevin Facility:[facility] Start: 07-09-2023 End: 07-11-2023 Evaluation and management of inpatient EQUIPMENT MAINT TECHNick Karimie Work Phone: [facility] Work Phone: Start: 07-09-2023 End: 07-11-2023 observation encounter EVELIA Wynn Work Phone: [facility] Work Phone: Start: 07-03-2023 End: 07-03-2023 ambulatory Alli Nicholas Other [facility] Other Start: 07-03-2023 Telephone encounter Alli [facility] Start: 06-18-2023 End: 06-19-2023 ambulatory Jose Mendez MD Facility:[facility] Start: 06-12-2023 ambulatory Jose Mendez MD Fac ility:[facility] Start: 06-05-2023 End: 06-05-2023 ambulatory [facility] Start: 05-31-2023 End: 05-31-2023 ambulatory Alli Nicholas Other [facility] Other Start: 05-31-2023 Telephone encounter Alli [facility] Start: 05-02-2023 End: 05-02-2023 ambulatory Alli Nicholas Other [facility] Other Start: 05-02-2023 Telephone encounter Alli Douglass [facility] Start: 04-10-2023 End: 04-10-2023 ambulatory [facility] Start: 04-10-2023 End: 04-10-2023 Office outpatient visit 25 minutes [facility] DO Work Phone: [facility] Comment on above: Atherosclerosis of n ative coronary artery of [place] heart without angina pectoris; Chronic atrial fibrillation (CMS/HCC); Essential hypertension, benign; GARCIA (dyspnea on exertion); History of PTCA; High risk medication use; Hyperlipidemia, unspecified hyperlipidemia type Start: 03-30-2023 End: 03-30-2023 ambulatory Alli Nicholas Other [facility] Other Start: 03-30-2023 Telephone encounter Alli [facility] Start: 02-05-2023 Rx Renewal Kip P H[employer] Work Phone: [facility] DO Work Phone: Start: 01-30-2023 Rx Renewal [facility] [employer] Work Phone: [facility] DO Work Phone: Start: 01-24-2023 End: 01-24-2023 ambulatory Marilin Floresvita Other [facility] Other Start: 01-24-2023 Office outpatient vi sit 10 minutes Marilin Mal [facility] Start: 01-19-2023 End: 01-19-2023 ambulatory Alli Nicholas Other [facility] Other Start: 01-19-2023 Telephone encounter Alli PEGUERO [facility] Start: 12-29-2022 End: 12-29-2022 Emergency department patient visit Citlalli Trinidad Tenorio Facility:[facility] Start: 12-29-2022 End: 12-29-2022 Emergency department patient visit DO Kip House Work Phone: [facility] Work Phone: Start: 12-29-2022 End: 12-29-2022 ambulatory Alli Nicholas Other [facility] Other Start: 12-29-2022 Telephone encounter Alli PEGUERO [facility] Start: 12-29-2022 Rx Renewal K[employer] P [employer] Work Phone: [facility] DO Work Phone: Start: 12-12-2022 End: 12-12-2022 ambulatory Alli Nicholas Other [facility] Other Start: 12-12-2022 Telephone encounter Alli PEGUERO [facility] Start: 12-01-2022 End: 12-01-2022 ambulatory Marilin Resendez Other [facility] Other Start: 12-01-2022 Office outpatient vi sit 15 minutes Marilin Floresvita CONTR[facility] Start: 11-10-2022 End: 11-10-2022 ambulatory Alli Nicholas Other [facility] Other Start: 11-10-2022 Telephone encounter Alli Nicholas SUDHIR [facility] Start: 10-30-2022 End: 10-30-2022 ambulatory Alli Nicholas Other [facility] Other Start: 10-30-2022 Telephone encounter Alli Nicholas SUDHIR [facility] Start: 10-26-2022 End: 10-26-2022 ambulatory Alli Nicholas Other [facility] Other Start: 10-26-2022 Telephone encounter Alli Nicholas SUDHIR [facility] Start: 10-17-2022 End: 10-17-2022 ambulatory Alli Nicholas Other [facility] Other Start: 10-17-2022 Telephone encounter Alli Nicholas SUDHIR [facility] Start: 10-06-2022 End: 10-06-2022 ambulatory Alli Nicholas Other [facility] Other Start: 10-06-2022 Telephone encounter Alli Nicholas SUDHIR [facility] Start: 09-20-2022 End: 09-20-2022 ambulatory Alli Nicholas Other [facility] Other Start: 09-20-2022 Telephone encounter Alli Nicholas SUDHIR [facility] Start: 09-07-2022 End: 09-07-2022 ambulatory Alli Nicholas Other [facility] Other Start: 09-07-2022 Telephone encounter Alli Nicholas SUDHIR [facility] Start: 08-11-2022 End: 08-11-2022 ambulatory Alli Nicholas Other [facility] Other Start: 08-11-2022 Telephone encounter Alli PEGUERO [facility] Start: 07-13-2022 End: 07-13-2022 ambulatory Alli Nicholas Other [facility] Other Start: 07-13-2022 Telephone encounter Alli PEGUERO [facility] Start: 07-06-2022 End: 07-06-2022 ambulatory Alli Nicholas Other [facility] Other Start: 07-06-2022 Telephone encounter Alli PEGUERO [facility] Start: 06-20-2022 End: 06-20-2022 ambulatory Alli Nicholas Other [facility] Other Start: 06-20-2022 Telephone encounter Alli PEGUERO [facility] Start: 06-14-2022 Office outpatient vi sit 15 minutes Alli Nicholas [facility] Start: 06-14-2022 End: 06-14-2022 ambulatory DO Kip House Work Phone: [facility] Work Phone: Start: 06-14-2022 End: 06-14-2022 Patient encounter procedure DO Kip House Work Phone: [facility] Start: 06-08-2022 End: 06-08-2022 ambulatory Alli Nicholas Other DIY Other Start: 06-08-2022 Telephone encounter Alli PEGUERO [facility] Start: 05-24-2022 End: 05-24-2022 ambulatory Alli Nicholas Other DIY Other Start: 05-24-2022 Telephone encounter Alli PEGUERO [facility] Start: 05-17-2022 Office outpatient vi sit 25 minutes Kip P [facility] Work Phone: [facility] 600 DO Work Phone: Start: 05-17-[address] Kip Espinoza Facility: Start: 05-16-2022 End: 05-16-2022 ambulatory Alli Nicholas Other DIY Other Start: 05-16-2022 Telephone encounter Alli Nicholas SUDHIR [facility] Start: 05-10-2022 End: 05-10-2022 ambulatory Alli Nicholas Other DIY Other Start: 05-10-2022 Telephone encounter Alli Nicholas SUDHIR [facility] Start: 05-02-2022 End: 05-02-2022 ambulatory lAli Nicholas Other DIY Other Start: 05-02-2022 Telephone encounter Alli Nicholas SUDHIR [facility] Start: 04-25-2022 End: 04-25-2022 ambulatory Alli Nicholas Other DIY Other Start: 04-25-2022 Telephone encounter Alli Nicholas SUDHIR [facility] Start: 04-17-2022 End: 04-17-2022 ambulatory Alli Nicholas Other DIY Other Start: 04-17-2022 Telephone encounter Alli Nicholas SUDHIR [facility] Start: 04-13-2022 Office outpatient vi sit 40 minutes Kip [facility] Work Phone: [facility] 250 DO Work Phone: Start: 04-13-[address] Esau Aceves Facility: Start: 03-27-2022 End: 03-27-2022 ambulatory Alli Nicholas Other DIY Other Start: 03-27-2022 Telephone encounter Alli PEGUERO [facility] Start: 03-16-2022 End: 03-16-2022 ambulatory Alli Nicholas Other DIY Other Start: 03-16-2022 Telephone encounter Alli PEGUERO [facility] Start: 02-28-2022 End: 02-28-2022 ambulatory Alli Nicholas Other DIY Other Start: 02-28-2022 Telephone encounter Alli PEGUERO [facility] Start: 02-13-2022 End: 02-13-2022 ambulatory Alli Nicholas Other DIY Other Start: 02-13-2022 Telephone encounter Alli PEGUERO [facility] Start: 02-08-2022 End: 02-08-2022 ambulatory Alli Nicholas Other DIY Other Start: 02-08-2022 Telephone encounter Alli PEGUERO [facility] Start: 02-02-2022 Rx Renewal Kip P [facility] Work Phone: [facility] 250 DO Work Phone: Start: 01-30-2022 End: 01-30-2022 ambulatory Alli Nicholas Other [facility] Other Start: 01-30-2022 Telephone encounter Alli PEGUERO [facility] Start: 01-19-2022 End: 01-19-2022 Emergency department patient visit DO Kip House Work Phone: [facility] Start: 01-19-2022 End: 01-19-2022 ambulatory Alli Nicholas Other [facility] Other Start: 01-19-2022 Telephone encounter Alli PEGUERO [facility] Start: 01-12-2022 End: 01-12-2022 ambulatory Alli Nicholas Other DIY Other Start: 01-12-2022 Telephone encounter Alli PEGUERO [facility] Start: 01-12-2022 End: 01-12-2022 Discharged Recurring DO Kip House Work Phone: [facility] [place] Start: 01-11-2022 End: 01-11-2022 ambulatory Marilin Resendez Other DIY Other Start: 01-11-2022 Office outpatient vi sit 15 minutes Marilin Resendez [facility] Start: 01-05-2022 End: 01-05-2022 ambulatory Alli Nicholas Other DIY Other Start: 01-05-2022 Telephone encounter Alli PEGUERO [facility] Start: 12-30-2021 End: 12-30-2021 ambulatory Maude Trotter Other DIY Other Start: 12-30-2021 Telephone encounter Maude Trotter [facility] Start: 12-28-2021 End: 12-28-2021 ambulatory Maude Trotter Other DIY Other Start: 12-28-2021 Telephone encounter Maude Trotter [facility] Start: 12-21-2021 End: 12-21-2021 ambulatory Alli Nicholas Other DIY Other Start: 12-21-2021 Telephone encounter Alli PEGUERO [facility] Start: 12-21-2021 Rx Renewal Kip guthrie Work Phone: [facility] DO Work Phone: Start: 12-14-2021 End: 12-14-2021 ambulatory Alli Nicholas Other DIY Other Start: 12-14-2021 Office outpatient vi sit 15 minutes Alli Nicholas [facility] Start: 12-14-2021 End: 12-14-2021 Patient encounter procedure DO Kip House Work Phone: [facility] Start: 12-07-2021 End: 12-07-2021 ambulatory Alli Nicholas Other DIY Other Start: 12-07-2021 Telephone encounter Alli PEGUERO [facility] Start: 11-29-2021 End: 11-29-2021 ambulatory Alli Nicholas Other DIY Other Start: 11-29-2021 Telephone encounter Alli PEGUERO [facility] Start: 11-25-2021 End: 11-25-2021 ambulatory Alli Nicholas Other DIY Other Start: 11-25-2021 Telephone encounter Alli PEGUERO [facility] Start: 11-21-2021 Rx Renewal Kip P [facility] Work Phone: [facility] 250 DO Work Phone: Start: 11-14-2021 End: 11-14-2021 ambulatory Alli Nicholas Other DIY Other Start: 11-14-2021 Telephone encounter Alli PEGUERO [facility] Start: 10-27-2021 End: 10-27-2021 ambulatory Alli Nicholas Other DIY Other Start: 10-27-2021 Telephone encounter Alli Nicholas SUDHIR [facility] Start: 10-20-2021 End: 10-20-2021 ambulatory Alli Nicholas Other DIY Other Start: 10-20-2021 Telephone encounter Alli Yu SUDHIR [facility] Start: 10-13-2021 End: 10-13-2021 ambulatory Alli Nicholas Other DIY Other Start: 10-13-2021 Telephone encounter Alli Nicholas SUDHIR [facility] Start: 09-28-2021 End: 09-28-2021 ambulatory Alli Nicholas Other DIY Other Start: 09-28-2021 Office outpatient ne w 30 minutes Alli Nicholas [facility] Start: 09-26-2021 End: 09-26-2021 ambulatory Alli Nicholas Other DIY Other Start: 09-26-2021 Telephone encounter Alli Nicholas SUDHIR [facility] Start: 08-15-2021 End: 08-15-2021 ambulatory Maude Trotter Other DIY Other Start: 08-15-2021 Telephone encounter Maude Trotter [facility] Start: 08-01-2021 End: 08-01-2021 ambulatory Alli Nicholas Other DIY Other Start: 08-01-2021 Telephone encounter Alli Nicholas [facility] Start: 07-25-2021 End: 07-25-2021 ambulatory Alli Nicholas Other DIY Other Start: 07-25-2021 Encounter for other preprocedural examination Alli Nicholas [facility] Start: 07-25-2021 Postop follow up vis it related to original px Alli Nicholas [facility] Start: 07-21-2021 End: 07-21-2021 ambulatory Alli Nicholas Other DIY Other Start: 07-21-2021 Telephone encounter Alli Nicholas SUD[facility]IR [facility] Start: 07-20-2021 End: 07-20-2021 ambulatory Alli Nicholas Other DIY Other Start: 07-20-2021 Telephone encounter Alli Nicholas FP [facility] Start: 07-04-2021 End: 07-04-2021 ambulatory Alli Nicholas Other DIY Other Start: 07-04-2021 Telephone encounter Alli Nicholas FP [facility] Start: 06-28-2021 End: 06-28-2021 ambulatory Alli Nicholas Other DIY Other Start: 06-28-2021 Telephone encounter Alli Nicholas SUDHIR [facility] Start: 06-27-2021 End: 06-27-2021 ambulatory Alli Nicholas Other DIY Other Start: 06-27-2021 Postop follow up vis it related to original px Alli Nicholas [facility] Start: 06-08-2021 End: 06-08-2021 ambulatory Alli Nicholas Other DIY Other Start: 06-08-2021 Office outpatient vi sit 25 minutes Alli Nicholas [facility] Start: 05-16-2021 End: 05-16-2021 ambulatory Alli Nicholas Other DIY Other Start: 05-16-2021 Telephone encounter Alli Nicholas FP [facility] Start: 05-04-2021 End: 05-04-2021 ambulatory Alli Nicholas Other [facility] [employer] Other Start: 05-04-2021 Office outpatient ne w 45 minutes Alli Nicholas [facility] Start: 04-12-2021 Office outpatient vi sit 15 minutes Kip [facility] Work Phone: [facility] 250 DO Work Phone: Start: 05-04-2019 End: 05-04-2019 Patient encounter procedure KIP HAMILTON Facility:[facility] Start: 04-30-2019 End: 04-30-2019 Patient encounter procedure KIP HAMILTON Facility:[facility] Start: 08-18-2018 End: 08-18-2018 Patient encounter procedure KIP HAMILTON Facility:[facility] Start: 07-30-2018 End: 07-30-2018 Patient encounter procedure JOAQUINA BRIONES Facility:[facility]1 Start: 07-09-2018 Patient encounter procedure PROVIDER UNKNOWN Facility:[id number] Start: 01-01-2018 Patient encounter procedure PROVIDER UNKNOWN Facility:[id number] Start: 09-17-2017 Patient encounter procedure PROVIDER UNKNOWN Facility:[id number] Start: 09-10-2017 Patient encounter procedure PROVIDER UNKNOWN Facility:[id number] Procedures Date Procedure Procedure Detail Performing Clinician Start: 07-09-2023 CT of head without contrast [employer]MENT [employer] TECHNick Wynn Work Phone: Start: 07-09-2023 Plain chest X-ray EVELIA Wynn Work Phone: Start: 06-05-2023 FOLLOW UP IN CARDIOLOGY ESAU ACEVES Start: 03-05-2023 History of percutane ous transluminal coronary angioplasty History of PTCA Esau Aceves DO Work Phone: Start: 06-14-2022 X-ray of left knee DO C harles House Work Phone: Start: 01-19-2022 Plain chest X-ray DO Ch emre House Work Phone: Start: 12-14-2021 X-ray of left knee DO C [facility] Work Phone: Start: 01-13-2020 Lipid 1996 panel - S amador or Plasma Esau Aceves DO Work Phone: Start: 08-18-2018 End: 08-18-2018 Microscopic examination of blood, culture JOAQUINA BRIONES Comment on above: Performed By: #### B LDCX2 #### [facility] [address], [place] [address] Michael Vega Performed By: #### B LDCX1 #### [facility] [address], [place] [address] Michael Vega Start: 12-21-2015 Total colonoscopy Charl es [facility] Work Phone: Arthroplasty of knee Kip [facility] Work Phone: History of percutane ous transluminal coronary angioplasty History of PTCA [facility]ip [facility] Work Phone: History of percutane ous transluminal coronary angioplasty History of PTCA Esau Aceves DO Work Phone: Percutaneous translu nickie coronary angioplasty [facility] Work Phone: SARS Antigen (LFIA) DO Your Last [facility] Work Phone: Surgical procedure o n eye proper [facility]ip [facility] Work Phone: Comment on above: lower pressure; Plan of Treatment Date Care Activity Detail Author Start: 01-12-2025 Lipid panel Lipid Panel [facility] Start: 07-11-2023 [facility] Start: 07-09-2023 Hospital admission [facility] Start: 07-09-2023 [facility] Start: 06-05-2023 End: 06-05-2023 Clinical Support 06/05/2023 9:30 AM EST Clinical Support [facility] [address] [address] [facility] Start: 04-10-2023 FUV, Provider: Esau Aceves, Status: Pen, Time: 10:10 AM FUV, Provider: Esau Aceves, Status: Pen, Time: 10:10 AM [facility] Work Phone: Start: 03-02-2023 Influenza vaccination Influenza Vaccine (#1) [facility] Start: 05-17-2022 FUV, Provider: Joyce Silva, Status: Pen, Time: 11:00 AM FUV, Provider: Joyce Silva, Status: Pen, Time: 11:00 AM [facility] 250 DO Work Phone: Start: 04-13-2022 FUV, Provider: Esau Aceves, Status: Pen, Time: 10:40 AM FUV, Provider: Esau Aceves, Status: Pen, Time: 10:40 AM [facility] 250 [facility] Work Phone: Start: 01-05-1994 Zoster Vaccines (1 of 2) Zoster Vaccines (1 of 2) [facility] Start: 01-05-1966 DTaP/Tdap/Td Vaccines (1 - Tdap) DTaP/Tdap/Td Vaccines (1 - Tdap) [facility] Start: 01-05-1962 Diabetes mellitus screening Diabetes Screening [facility] Start: 01-05-1962 Hepatitis C screening Hepatitis C Screening [facility] Start: 01-05-1950 Pneumococcal Vaccine: 65+ Years (1 - PCV) Pneumococcal Vaccine: 65+ Years (1 - PCV) [facility] Start: 1945 COVID-19 Vaccine (#1) COVID-19 Vaccine (#1) [facility] Start: 1945 Medicare Annual Wellness Visit Medicare Annual Wellness Visit (AWV) [facility] Start: 1945 Screening for osteoporosis Bone Density Scan [facility] Patient Education [facility] Work Phone: Patient referral [facility] Work Phone: Payers Date Payer Category Payer Self-pay [id number] 2022 Medicare [id number] 2018 Private Health Insurance [id number] 1959 Private Health Insurance [id number] 1944 Unknown [id number] 1944 Unknown [id number] [id number] 1944 Unknown [id number] 2.16.840.1.268562.3.579.2.355 1944 Unknown [id number] [id number] 1944 Unknown [id number] 2.16.840.1.652870.3.579.2.593 1944 Unknown [id number] 2.16.840.1.573598.3.579.2.593 1944 Unknown [id number] 2.16.840.1.992258.3.579.2.593 1944 Unknown [id number] 2.16.840.1.738606.3.579.2.593 1944 Unknown [id number] 2.16.840.1.412740.3.579.2.356 1944 Unknown [id number] 2.16.840.1.905295.3.579.2.356 1944 Unknown [id number] 2.16.840.1.379983.3.579.2.1244 1944 Unknown [id number] 2.16.840.1.994608.3.579.2.1244 1944 Unknown [id number] 2.16.840.1.068870.3.579.2.718 1944 Unknown [id number] 2.16.840.1.573750.3.579.2.718 1944 Unknown [id number] 2.16.840.1.199023.3.579.2.718 Medicare [id number] Private Health Insurance [id number] Private Health Insurance [facility] [id number] Unknown Unknown [id number] [id number] Unknown [id number] [id number] Social History Date Type Detail Facility Start: 04-10-2023 No alcohol use No alcohol use [facility] 250 DO Work Phone: Comment on above: Coffee 2 cups daily Pop every other day; 1-2 cups coffee darshan y, not too much soda; a little in the soda for flavor once in awhile; Maybe once weekly wi th a little soda for flavor; Start: 04-10-2023 Sex Assigned At N [employer] Other Start: 01-19-2022 End: 07-09-2023 Tobacco smoking status NHIS Never smoked tobacco (finding) [facility] Start: 1945 Sex Assigned At Female F [facility] Start: 04-10-2023 Tobacco use and exposure Smokeless tobacco non-user [facility] Work Phone: Start: 04-10-2023 Alcohol intake Current drinke r of alcohol (finding) [facility] Work Phone: Start: 04-10-20[address] Comment [address] [facility] Work Phone: Start: 1945 Sex Assigned At Not on file [facility] Work Phone: Start: 03-31-2023 End: 04-10-2023 Exposure to SARS-CoV-2 (event) Not sure [facility] Medical Equipment Procedure Code Equipment Code Equipment Origin al Text Equipment Identifier Dates Arthroplasty, knee, total, minimally invasive Orthopaedic cement, non-medicated [id number] FDA Start: 06-14-2021 Arthroplasty, knee, total, minimally invasive Uncoated knee femur prosthesis [id number] FDA Start: 06-14-2021 Arthroplasty, knee, total, minimally invasive Tibial insert [id number] FDA Start: 06-14-2021 Arthroplasty, knee, total, minimally invasive Uncoated knee tibia prosthesis, metallic ()[id number] FDA Start: 06-14-2021 Arthroplasty, knee, total, minimally invasive Polyethylene patella prosthesis ()[id number] FDA Start: 06-14-2021 Goals Date Patient Goal Desired Activity /State Functional Status Date Assessment Result Facility 07-11-2023 Functional status Patient at Baseline [facility] Work Phone: 07-09-2023 Functional status Disability Sta tus Patient is Progressing Toward Baseline [facility] Work Phone: Mental Status Date Assessment Result Facility 07-11-2023 Cognitive function Cognitive Sta tus Patient at Baseline [facility] Work Phone: Clinical Notes 12-21-2011 to 08-13-2023 Note Date & Type Note Facility 08-13-2023 Evaluation note Encounter Date Diagnosis Assessment Notes Aug, Other specified postprocedural states (ICD-10 - Z98.890) DIY Other 02-12-2024 Note From: KIP ESPINOZA DO To: [facility] Clinical Pool ([facility]); Sent: 08/13/2023 07:56:51 EST Subject: FW: Medication Management Due Date/Time: 08/13/2023 17:19:00 EST Caller Name: ALF RADHA Knott; Caller Number: H From: Margaret [facility] To: KIP ESPINOZA DO Sent: August 12, 2023 4:19:56 PM READING ASSISTANT Subject: Medication Management Due: August 13, 2023 12:32:35 AM READING ASSISTANT On Hold Pending Signature Dispensed Drug: gabapentin (gabapentin 600 mg oral tablet), TAKE 1 TABLET BY MOUTH THREE TIMES DAILY Quantity: 90 tab(s) Days Supply: 30 Refills: 0 Substitutions Allowed Notes from Pharmacy: From: Kierra Marin To: [place] [address] Sent: 08/13/2023 11:17:42 EST Subject: FW: Medication Management Not Approved: sent gabapentin (Gabapentin 600 MG Oral Tablet) TAKE 1 TABLET BY MOUTH THREE TIMES DAILY Qty: 90 tab(s) Days Supply: 30 Refills: 0 Substitutions Allowed Route To Pharmacy - [place] [id number] [facility] Evaluation note* Encounter Date Diagnosis Assessment Notes Treatment Notes Treatment Clinical Notes Jul, Other specified postprocedural states (ICD-10 - Z98.890) DIY Other 01-15-2024 Note From: KIP ESPINOZA DO To: [facility] Clinical Pool ([facility]); Sent: 07/16/2023 07:46:23 EST Subject: FW: Medication Management Due Date/Time: 07/16/2023 14:17:00 EST Caller Name: RADHA BUTT; Caller Number: H From: S [place] [facility] To: KIP ESPINOZA DO Sent: July 15, 2023 1:17:50 PM READING ASSISTANT Subject: Medication Management Due: July 16, 2023 12:23:23 AM READING ASSISTANT On Hold Pending Signature Dispensed Drug: gabapentin (gabapentin 600 mg oral tablet), TAKE 1 TABLET BY MOUTH THREE TIMES DAILY Quantity: 90 tab(s) Days Supply: 30 Refills: 0 Substitutions Allowed Notes from Pharmacy: From: JONATHON MONROE To: [facility] Sent: 07/16/2023 08:17:11 EST Subject: FW: Medication Management Not Approved: duplicate gabapentin (Gabapentin 600 MG Oral Tablet) TAKE 1 TABLET BY MOUTH THREE TIMES DAILY Qty: 90 tab(s) Days Supply: 30 Refills: 0 Substitutions Allowed Route To Pharmacy - [facility] Signed by JONATHON MONROE [facility]01-09-2024 Progress note Author Lito Kevin [facility] July 11, 2023 5:43pm Note Date/Time July 10, 2023 7: 14pm [facility] [address] [place] [address] Hospitalist Progress Note Signed Patient: Radha Butt MR#: [id number] : 1945 Acct:[id number] Age/Sex: 78 / F Adm Date: 4 Loc: Room: [address] [place] [address] Type: DIS INOo Attending Dr: Lito Kevin DO Copies to: ~ Date of Service: 07/10/2023 Subjective Subjective Narrative: Patient seen and evaluated at bedside, complain of nausea and dry heaving after getting hydralazine last evening. Denies any dizziness, headache, nausea or vomiting, blood pressure improved. Denies any chest pain, shortness of breath. Discussed plan to discharge patient later today. Exam Physical Exam Vital Signs: Temp Pulse Resp BP Pulse Ox O2 Del Method 98.1 F 64 16 174/98 H 98 Room Air 07/10/23 17:35 07/10/23 17:35 07/10/23 17:35 07/10/23 17:35 07/10/23 17:35 07/10/23 17:35 Narrative: CONST- Appears well -developed and well nourished , resting comfortably in bed CARDIAC-normal rate, regular rhythm, normal S1 & S2. PULM-CTA bilaterally, RA, no accessory muscle use or cough noted ABD - Soft. Bowel sounds are normal. No distention No tenderness EXTREM-no edema BLE calves nontender SKIN- W/D good turgor Objective Lab Results 07/10/23 06:06 07/10/23 06:06 Meds Allergies and Active Meds Allergies No Known Allergies Allergy (Verified 01/19/22 16:44) Active Meds: Active Medications Generic Name Dose Route Start Last Admin Trade Name Freq PRN Reason Stop Dose Admin Acetaminophen 1,000 mg 07/09/23 21:44 07/10/23 17:44 Acetaminophen 500 Mg Tablet PO 07/08/24 21:43 1,000 mg Q6H PRN Administration Fever or Pain Apixaban 5 mg 07/09/23 15:30 07/10/23 08:38 Apixaban 5 Mg Tablet PO 07/08/24 15:29 5 mg BID NATALYA Administration Atorvastatin Calcium 40 mg 07/09/23 22:00 07/09/23 22:16 Atorvastatin 40 Mg Tablet PO 07/08/24 21:59 40 mg QHS NATALYA Administration Hydrochlorothiazide 25 mg 07/10/23 10:10 07/10/23 11:09 Hydrochlorothiazide 25 Mg Tablet PO 07/09/24 10:09 25 mg DAILY NATALYA Administration Latanoprost 1 drops 07/09/23 22:00 07/09/23 22:15 Latanoprost 0.005% Op Soln 50 Drops/2.5 Ml Bottle EYE-BOTH 07/08/24 21:59 1drops HS NATALYA Administration Meclizine HCl 12.5 mg 07/09/23 14:53 Meclizine 12.5 Mg Tablet PO 07/08/24 14:52 BID PRN Vertigo Metoprolol Tartrate 50 mg 07/09/23 21:00 07/10/23 08:38 Metoprolol Tartrate 50 Mg Tablet PO 07/08/24 20:59 50 mg BID NATALYA Administration Ondansetron HCl 4 mg 07/09/23 22:33 Ondansetron 4 Mg/2 Ml Vial IV-PUSH 07/08/24 22:32 Q6H PRN Nausea And Vomiting Prochlorperazine Edisylate 10 mg 07/09/23 22:33 Prochlorperazine Edisylate 10 Mg/2 Ml Vial IV-PUSH 07/08/24 22:32 Q4H PRN Nausea And Vomiting Sodium Chloride 0 ml 07/09/23 11:01 Sodium Chloride 0.9 % 10 Ml Syringe IV-PUSH 07/08/24 11:00 PRN PRN Flush Timolol Maleate 1 drops 07/10/23 21:00 Timolol Mal 0.5% Op Soln 100 Drops/5 Ml Bottle EYE-BOTH 07/09/24 20:59 BID NATALYA Valsartan 320 mg 07/10/23 09:00 07/10/23 08:38 Valsartan 320 Mg Tablet PO 07/09/24 08:59 320 mg DAILY NATALYA Administration A&P - Hospitalist Assessment/Plan (1) Pre-syncope: (2) Hypertensive urgency: Plan Presyncope, unclear etiology, likely due to accelerated blood pressure, noncompliant with medications Hypertensive urgency?improved Denies any dizziness this morning, blood pressure improved however still not controlled. No chest pain or shortness of breath ?Orthostatic vitals negative ?Head CT did not show any acute intracranial pathology ? Troponin flat ?Echocardiogram with EF of 55-50%, mild tricuspid regurgitation, trace mitral regurgitation ?PT/OT to eval and treat ?Meclizine as needed Chronic conditions: Atrial fibrillation/HTN/HLD/chronic pain?resume home medications except for gabapentin and Flexeril CODE STATUS: Full code DVT prophylaxis: On Eliquis Discharge disposition: Medically stable to discharge home when ride is available I personally reviewed the relevant history, the mancilla elements of the physical exam, and discussed and formulated the plan of care with the nurse practitioner,and I confirm the nurse practitioner's documentation as written. Lito Kevin DO Internal Medicine Hospitalist Documented By: Kristyn Morrison APRN 07/10/231907 Signed By: <Electronically signed by EVELIA Morrison> 07/10/231913 <Electronically signed by Lito Kevin DO> 07/11/23 6828 [facility] Work Phone: 1(113) 877-999101-09-2024 History and physical note Author Lito Kevin [facility] July 10, 2023 3:53pm Note Date/Time July 09, 2023 3: 03pm [facility] [address] [place] [address] Hospitalist H&P Signed Patient: Radha Butt MR#: [id number] : 1945 Acct:[id number] Age/Sex: 78 / F Adm Date: 4 Loc: Room: [address] [place] [address] Type: ADM INOo Attending Dr: Lito Kevin DO Copies to: Kip Espinoza, DO Lito Kevin, DO Kristyn Morrison APRN~ HPI DATE OF EXAMINATION: 07/09/23 CHIEF COMPLAINT: Dizziness HISTORY OF PRESENT ILLNESS: Ms. Radha Butt is a 78-year-old female with a past medical history of atrial fibrillation on Eliquis, CAD x 1 stent (2014) hypertension, hyperlipidemia who presented to the emergency room with complaints of dizziness that started yesterday when she got up around 9 AM. She reports associated symptoms of dry heaves and diaphoresis. She states that she spent most of the day laying bed yesterday and when she got up this morning, she felt lightheaded and dizzy with slight confusion. She denies having headaches, earache, fever or chills. Currently laying comfortably in bed, does not have any dizziness at this time. Denies chest pain, shortness of breath, palpitations, abdominal pain, diarrhea, constipation, dysuria, frequency, urgency. Afebrile Upon arrival to the ER, EKG showed atrial fibrillation with slow ventricular response, heart rate [address] was negative for any acute intracranial pathology. Troponin 29.3. She was administered normal saline 500 cc bolus, shewill be admitted by the hospitalist team for further evaluation and management. Review of Systems Review of Systems Review of systems: 10 point review of systems obtained, negative unless noted in the HPI below PMFSH Source: Old Records Reviewed Medical History A-fib Arthritis Coronary artery disease x 1 stent 2014. Depression DJD (degenerative joint disease) Glaucoma Hx of gastroesophageal reflux (GERD) in past Hypercholesteremia Hyperlipidemia Hypertension Losing weight patient states not eating well-to talk to PCP about Thalassemia Surgical History History of cardiac catheterization Hx of cataract surgery both eyes Hx of laparoscopy Family History Mother Myocardial infarction Father COPD (chronic obstructive pulmonary disease) Brother Lung cancer Son Thalassemia Social History Smoking Status: Never smoker Substance Use Type: None Social History Comments: adult son Meds Medications and Allergies Allergies No Known Allergies Allergy (Verified 01/19/22 16:44) Home Medications gabapentin 300 mg capsule 300 mg PO TID 07/10/17 [History Confirmed 07/09/23] apixaban 5 mg tablet (Eliquis) 5 mg PO Q12H a-fib 07/27/17 [History Confirmed 07/09/23] metoprolol tartrate 25 mg tablet 50 mg PO BID 07/27/17 [History Confirmed 07/09/23] latanoprost 0.005 % eye drops (Xalatan) 1 drp Eye-Both HS glaucoma 01/10/19 [History Confirmed 07/09/23] nitroglycerin 0.4 mg sublingual tablet (Nitrostat) 0.4 mg sublingual Q3-5MIN PRNChest Pain 01/10/19 [History Confirmed 07/09/23] atorvastatin 40 mg tablet 40 mg PO QHS hyperlipidemia 05/27/21 [History Confirmed 07/09/23] cyclobenzaprine 10 mg tablet 10 mg PO DAILY PRN Pain 07/09/23 [History Confirmed 07/09/23] tramadol 50 mg tablet 1 mg PO DAILY PRN Pain 07/09/23 [History Confirmed 07/09/23] valsartan 320 mg tablet 320 mg PO DAILY 07/09/23 [History Confirmed 07/09/23] Exam Physical Exam Vital Signs: Temp Pulse Resp BP Pulse Ox O2 Del Method 97 F L 63 18 190/90 H 96 Room Air 07/09/23 11:06 07/09/23 14:16 07/09/23 14:16 07/09/23 14:16 07/09/23 14:16 07/09/23 14:16 Narrative: CONST- Appears well -developed and well nourished , resting comfortably in bed HEAD - Normocephalic and atraumatic EENT-Sclera nonicteric and conjunctive are nonerythemic, moist oral mucosa, pharynx clear NECK-Supple, no cervical lymphadenopathy CARDIAC-normal rate, regular rhythm, normal S1 & S2. PULM-CTA bilaterally, RA, no accessory muscle use or cough noted ABD - Soft. Bowel sounds are normal. No distention No tenderness EXTREM-no edema BLE calves nontender SKIN- W/D good turgor MS- MAEX4 spontaneously with equal with equal strength NEURO- A&Ox3 speech clear and tongue midline, equal facial symmetry no focal motor deficits PSYCH-Mood, affect and behavior appropriate Results Lab Results Labs: Laboratory Last Values Corrected WBC 4.5 X10E3/uL (3.8-11.6) 07/09/23 11:05 Uncorrected WBC Count 4.5 x10E3/uL (3.8-11.6) 07/09/23 11:05 RBC 4.37 X10E6/uL (3.60-5.00) 07/09/23 11:05 Hgb 9.1 g/dL (11.8-15.4) L 07/09/23 11:05 Hct 29.0 % (34.0-46.4) L 07/09/23 11:05 MCV 66.5 fl (80-100) L 07/09/23 11:05 MCH 20.8 pg (24.7-34.3) L 07/09/23 11:05 MCHC 31.3 g/dL (32.0-35.0) L 07/09/23 11:05 RDW 16.4 % (11.9-15.3) H 07/09/23 11:05 Plt Count 299 x10E3/uL (150-450) 07/09/23 11:05 MPV 7.7 fl (6.3-10.7) 07/09/23 11:05 Neut % (Auto) 66.2 % (.) 07/09/23 11:05 Lymph % (Auto) 23.1 % (.) 07/09/23 11:05 [place] % (Auto) 7.5 % (.) 07/09/23 11:05 Eos % (Auto) 2.0 % (.) 07/09/23 11:05 Baso % (Auto) 1.2 % (.) 07/09/23 11:05 Nucleat RBC Rel Count 0.1 /100 WBC (0-0.5) 07/09/23 11:05 Neut # (Auto) 3.0 x10E3/uL (1.8-7.7) 07/09/23 11:05 Lymph # (Auto) 1.0 x10E3/uL (1.00-4.8) 07/09/23 11:05 [place] # (Auto) 0.3 x10E3/uL (0.0-0.8) 07/09/23 11:05 Eos # (Auto) 0.1 x10E3/uL (0.0-0.45) 07/09/23 11:05 Baso # (Auto) 0.1 x10E3/uL (0.0-0.2) 07/09/23 11:05 Monocyte Dist Width 18.46 % (0.00-20.00) 07/09/23 11:05 Platelet Estimate Normal (Normal) 07/09/23 11:05 Plt Morphology Comment Normal (Normal) 07/09/23 11:05 RBC Morphology N/A 07/09/23 11:05 Polychromasia Slight 07/09/23 11:05 Hypochromasia Moderate 07/09/23 11:05 Anisocytosis Slight 07/09/23 11:05 Microcytosis Moderate 07/09/23 11:05 Ovalocytes Moderate 07/09/23 11:05 Schistocytes Moderate 07/09/23 11:05 PT 12.3 Seconds (9.0-12.9) 07/09/23 11:07 INR 1.1 07/09/23 11:07 APTT 29.3 Seconds (25.1-36.5) 07/09/23 11:07 PHA Creatinine Clear 40.64 07/09/23 11:04 Sodium 140 mmol/L (136-145) 07/09/23 11:04 Potassium 3.8 mmol/L (3.5-5.1) 07/09/23 11:04 Chloride 106 mmol/L (98-107) 07/09/23 11:04 Carbon Dioxide 28.0 mmol/L (21.0-31.0) 07/09/23 11:04 Anion Gap 9.8 mEq/L (6.0-15.0) 07/09/23 11:04 BUN 13 mg/dL (7-25) 07/09/23 11:04 Creatinine 1.01 mg/dL (0.60-1.20) 07/09/23 11:04 Est GFR (CKD-EPI) 56.627 mL/Min 07/09/23 11:04 Glucose 108 mg/dL (70-100) H 07/09/23 11:04 Calcium 9.0 mg/dL (8.6-10.3) 07/09/23 11:04 Magnesium 2.0 mg/dL (1.9-2.7) 07/09/23 11:04 Total Bilirubin 1.0 mg/dl (0.3-1.0) 07/09/23 11:04 AST 23 U/L (13-39) 07/09/23 11:04 ALT 17 U/L (7-52) 07/09/23 11:04 Alkaline Phosphatase 58 U/L (34-104) 07/09/23 11:04 Troponin I High Sens 29.3 pg/mL (0.0-15.0) H 07/09/23 11:05 B-Natriuretic Peptide 353.0 pg/mL (5-100) H 07/09/23 11:05 Total Protein 6.6 gm/dL (6.4-8.9) 07/09/23 11:04 Albumin 4.2 gm/dL (3.5-5.7) 07/09/23 11:04 Globulin 2.4 gm/dL 07/09/23 11:04 Albumin/Globulin Ratio 1.8 07/09/23 11:04 Urine Color Yellow (Yellow) 07/09/23 12:15 Urine Appearance Clear (Clear) 07/09/23 12:15 Urine pH 7.0 (5.0-9.0) 07/09/23 12:15 Ur Specific [place] 1.007 (1.001-1.030) 07/09/23 12:15 Urine Protein Trace mg/dL (Negative) H 07/09/23 12:15 Urine Glucose (UA) Normal mg/dL (Normal) 07/09/23 12:15 Urine Ketones Negative (Negative) 07/09/23 12:15 Urine Occult Blood Negative (Negative) 07/09/23 12:15 Urine Nitrite Negative (Negative) 07/09/23 12:15 Urine Bilirubin Negative (Negative) 07/09/23 12:15 Urine Urobilinogen Normal mg/dL (Normal) 07/09/23 12:15 Ur Leukocyte Esterase 1+ (Negative) H 07/09/23 12:15 Urine RBC 0-1 /HPF (0-4) 07/09/23 12:15 Urine WBC 0-1 /HPF (0-4) 07/09/23 12:15 Ur Squamous Epith Cells None seen /HPF (0-2) 07/09/23 12:15 Urine Bacteria None seen (None Seen) 07/09/23 12:15 Hyaline Casts None seen /LPF (0-8) 07/09/23 12:15 Slides for Path Review Cancelled 07/09/23 11:05 Assessment & Plan Assessment/Plan (1) Pre-syncope: (2) Hypertensive urgency: Plan Presyncope, unclear etiology Hypertensive urgency P/w with complaints of dizziness and lightheaded that started yesterday with associated symptoms of dry heaves and diaphoresis with slight confusion. Currently denies any dizziness ?Head CT did not show any acute intracranial pathology ?Initial troponin slightly elevated, denies chest pain or shortness of breath, will trend ?Administered 500 cc liters of normal saline, will gently hydrate ?Obtain orthostatic vitals ?PT/OT to eval and treat ?Meclizine as needed Chronic conditions: Atrial fibrillation/HTN/HLD/chronic pain?resume home medications except for gabapentin and Flexeril CODE STATUS: Full code DVT prophylaxis: On Eliquis IP vs OBS Justification Based on differential dx, clinical care plan, and risk of adverse events, if untreated, in my clinical judgement this patient requires an acute care setting as: OBSERVATION because of an expectation of an under 2 midnight stay. Estimated length of stay (# of days): 2 I personally saw this patient on the day of encounter, reviewed the relevant history, performed the [place] elements of the physical exam, and discussed and formulated the plan of care with the nurse practitioner, and I confirm the nursepractitioner's documentation as written. Lito Kevin DO Internal Medicine Hospitalist Documented By: Kristyn Morrison APRN 07/09/23 [id number] Signed By: <Electronically signed by EVELIA Morrison> 07/09/23 1527 <Electronically signed by Lito Kevin DO> 07/10/23 [id number] [facility] Work Phone: 1(926) 399-925201-02-2024 Evaluation note* Encounter Date Diagnosis Assessment Notes Treatment Notes Treatment Clinical Notes Jul, Other specified postprocedural states (ICD-10 - Z98.890) DIY Other 11-30-2023 Evaluation note* Encounter Date Diagnosis Assessment Notes Treatment Notes Treatment Clinical Notes May, Other specified postprocedural states (ICD-10 - Z98.890) DIY Other 11-01-2023 Evaluation note* Encounter Date Diagnosis Assessment Notes Treatment Notes Treatment Clinical Notes May, Other specified postprocedural states (ICD-10 - Z98.890) DIY Other 10-10-2023 History of Present illness Narrative* Esau Aceves, DO - 04/10/2023 10:10 AM EDT Subjective Radha Butt is a 78 y.o. female Chief Complaint Follow-up 78-year-old active female returns for follow-up and is doing well other than dyspnea on exertion which is likely related to chronic atrial fibrillation and a second accelerated hypertension. She has been relegated to rate control therapy at her own request, intolerant to amiodarone. Heart catheterization 2019 revealed normal coronary arteries with widely patent RCA stent and normal left ventricular function. She has had atrial fibrillation ever since 2019. She has accelerated hypertension todayat 200/100 on my exam on current therapies which we reviewed She has no angina or hospitalizations Recommendations: Escalate valsartan 320 daily, initiate hydrochlorothiazide 25 daily potassium 10 mEq daily, follow-up with blood pressure check in approximately 8 to 10 weeks, she can do this with nurse practitioner, I will see her again in 1 year, we counseled her on lifestyle choices, sodium restriction and dietary discretion. Review of Systems All other systems reviewed and are negative. Objective Physical Exam Visit Vitals BP (!) 200/98 (BP Location: Left arm, Patient Position: Sitting) Pulse 66 Ht 1.651 m (5' 5 ) Wt 55.8 kg (123 lb) BMI 20.47 kg/m Smoking Status Never BSA 1.6 m Assessment/Plan No diagnosis found. [facility] Work Phone: 1(597) 238-706610-10-2023 Instructions* Patient Instructions* Berta Martinez LPN - 04/10/2023 10:10 AM EDT Please bring all medicines, vitamins, and herbal supplements with you when you come to the office. Prescriptions will not be filled unless you are compliant with your follow up appointments or have a follow up appointment scheduled as per instruction of your physician. Refills should be requested at the time of your visit. 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 She is to use Voltaren Gel as needed for pain and or inflammation. Patient can f/u PRN. Dec, Trigger finger, righ t middle finger (ICD-10 - M65.331) Dec, Trigger finger, righ t index finger (ICD-10 - M65.321) Dec, Hand pain, right (ICD-10 - M79.641) DIY Other 07-21-2023 Evaluation note* Encounter Date Diagnosis Assessment Notes Treatment Notes Treatment Clinical Notes Dec, Primary osteoarthritis of both knees (ICD-10 - M17.0) Dec, Osteoarthritis of knee (ICD-10 - M17.9) DIY Other 06-30-2023 Evaluation note* Encounter Date Diagnosis Assessment Notes Treatment Notes Treatment Clinical Notes Nov, Osteoarthritis of knee (ICD-10 - M17.9) DIY Other 06-13-2023 Evaluation note* Encounter Date Diagnosis Assessment Notes Treatment Notes Treatment Clinical Notes Nov, Osteoarthritis of knee (ICD-10 - M17.9) Nov, Primary osteoarthritis of both knees (ICD-10 - M17.0) DIY Other 06-02-2023 Evaluation note* Encounter Date Diagnosis Assessment Notes Treatment Notes Treatment Clinical Notes Nov, Primary osteoarthritis of right hand (ICD-10 - M19.041) Nov, Trigger finger, righ t middle finger (ICD-10 - M65.331) We performed a kenalog cortisone injection into the palmar aspect of the right index and right middle fingers at the A1 brooks under sterile technique. The patient tolerated this well without complication. We discussed that the finger may feel numb and tingle for hours after this injection. Nov, Trigger finger, righ t index finger (ICD-10 - M65.321) Nov, Hand pain, right (ICD-10 - M79.641) DIY Other 05-12-2023 Evaluation note* Encounter Date Diagnosis Assessment Notes Treatment Notes Treatment Clinical Notes October, Osteoarthritis of knee (ICD-10 - M17.9) DIY Other 05-01-2023 Evaluation note* Encounter Date Diagnosis Assessment Notes Treatment Notes Treatment Clinical Notes October, Osteoarthritis of knee (ICD-10 - M17.9) DIY Other 04-27-2023 Evaluation note* Encounter Date Diagnosis Assessment Notes Treatment Notes Treatment Clinical Notes Sep, Primary osteoarthritis of both knees (ICD-10 - M17.0) DIY Other 04-18-2023 Evaluation note* Encounter Date Diagnosis Assessment Notes Treatment Notes Treatment Clinical Notes Sep, Osteoarthritis of knee (ICD-10 - M17.9) DIY Other 04-07-2023 Evaluation note* Encounter Date Diagnosis Assessment Notes Treatment Notes Treatment Clinical Notes Sep, Primary osteoarthritis of both knees (ICD-10 - M17.0) Sep, Osteoarthritis of knee (ICD-10 - M17.9) DIY Other 03-22-2023 Evaluation note* Encounter Date Diagnosis Assessment Notes Treatment Notes Treatment Clinical Notes Aug, Osteoarthritis of knee (ICD-10 - M17.9) DIY Other 03-09-2023 Evaluation note* Encounter Date Diagnosis Assessment Notes Treatment Notes Treatment Clinical Notes Aug, Primary osteoarthritis of both knees (ICD-10 - M17.0) DIY Other 02-10-2023 Evaluation note* Encounter Date Diagnosis Assessment Notes Treatment Notes Treatment Clinical Notes Aug, Osteoarthritis of knee (ICD-10 - M17.9) Aug, Primary osteoarthritis of both knees (ICD-10 - M17.0) DIY Other 01-12-2023 Evaluation note* Encounter Date Diagnosis Assessment Notes Treatment Notes Treatment Clinical Notes Jul, Primary osteoarthritis of both knees (ICD-10 - M17.0) DIY Other 01-05-2023 Evaluation note* Encounter Date Diagnosis Assessment Notes Treatment Notes Treatment Clinical Notes Jul, Primary osteoarthritis of both knees (ICD-10 - M17.0) Jul, Osteoarthritis of knee (ICD-10 - M17.9) DIY Other 12-20-2022 Evaluation note* Encounter Date Diagnosis Assessment Notes Treatment Notes Treatment Clinical Notes Jun, Primary osteoarthritis of both knees (ICD-10 - M17.0) Jun, Osteoarthritis of knee (ICD-10 - M17.9) DIY Other 12-14-2022 Evaluation note* Encounter Date Diagnosis Assessment Notes Treatment Notes Treatment Clinical Notes Jun, Primary osteoarthritis of left knee (ICD-10 - M17.12) She hasDOS: 06/14/2021 left TKA; 08/02/2021 DEXTER left TKA Radha is here today about 1 year s/p left TKA. Had issues with her left knee since her surgery. We also had a do a manipulation for her which obtained full flexion and extension intraoperatively but the patient failed to maintain this with therapy. When she initially presented to me she was in a wheelchair unable to ambulate secondary to knee pain and today she is walking although she has limited knee motion. Her exam shows he has more motion passively than what she actively performs. Overall subjectively she is unhappy with her knee although she has had improvement in ambulation objectively since she is no longer using wheelchair. At this point I would tell her to continue to use the knee to her happiness and abilities. She does take tramadol occasionally for pain which I do prescribe. She is having no adverse reaction with this. She tolerates the medication well. I would leave her follow-up open-ended at this point. She can return with any issues. Patient is progressing well. Continue physical therapy exercises and TKA precautions. Instructed patient to call with any questions or concerns. Jun, Status post total left knee replacement (ICD-10 - Z96.652) Jun, Stiffness of left knee (ICD-10 - M25.662) DIY Other 12-08-2022 Evaluation note* Encounter Date Diagnosis Assessment Notes Treatment Notes Treatment Clinical Notes Jun, Primary osteoarthritis of both knees (ICD-10 - M17.0) DIY Other 11-23-2022 Evaluation note* Encounter Date Diagnosis Assessment Notes Treatment Notes Treatment Clinical Notes May, Osteoarthritis of knee (ICD-10 - M17.9) May, Primary osteoarthritis of both knees (ICD-10 - M17.0) DIY Other 11-15-2022 Evaluation note* Encounter Date Diagnosis Assessment Notes Treatment Notes Treatment Clinical Notes May, Osteoarthritis of knee (ICD-10 - M17.9) May, Primary osteoarthritis of both knees (ICD-10 - M17.0) DIY Other 11-09-2022 Evaluation note* Encounter Date Diagnosis Assessment Notes Treatment Notes Treatment Clinical Notes May, Primary osteoarthritis of both knees (ICD-10 - M17.0) DIY Other 11-01-2022 Evaluation note* Encounter Date Diagnosis Assessment Notes Treatment Notes Treatment Clinical Notes May, Osteoarthritis of knee (ICD-10 - M17.9) DIY Other 10-25-2022 Evaluation note* Encounter Date Diagnosis Assessment Notes Treatment Notes Treatment Clinical Notes Apr, Osteoarthritis of knee (ICD-10 - M17.9) DIY Other 10-17-2022 Evaluation note* Encounter Date Diagnosis Assessment Notes Treatment Notes Treatment Clinical Notes Apr, Osteoarthritis of knee (ICD-10 - M17.9) DIY Other 09-26-2022 Evaluation note* Encounter Date Diagnosis Assessment Notes Treatment Notes Treatment Clinical Notes Mar, Osteoarthritis of knee (ICD-10 - M17.9) DIY Other 09-15-2022 Evaluation note* Encounter Date Diagnosis Assessment Notes Treatment Notes Treatment Clinical Notes Mar, Osteoarthritis of knee (ICD-10 - M17.9) DIY Other 08-30-2022 Evaluation note* Encounter Date Diagnosis Assessment Notes Treatment Notes Treatment Clinical Notes Jan, Osteoarthritis of knee (ICD-10 - M17.9) DIY Other 08-15-2022 Evaluation note* Encounter Date Diagnosis Assessment Notes Treatment Notes Treatment Clinical Notes Jan, Osteoarthritis of knee (ICD-10 - M17.9) DIY Other 08-10-2022 Evaluation note* Encounter Date Diagnosis Assessment Notes Treatment Notes Treatment Clinical Notes Jan, Osteoarthritis of knee (ICD-10 - M17.9) DIY Other 08-01-2022 Evaluation note* Encounter Date Diagnosis Assessment Notes Treatment Notes Treatment Clinical Notes Jan, Osteoarthritis of knee (ICD-10 - M17.9) DIY Other 07-21-2022 Evaluation note* Encounter Date Diagnosis Assessment Notes Treatment Notes Treatment Clinical Notes Dec, Primary osteoarthritis of left knee (ICD-10 - M17.12) DIY Other 07-14-2022 Evaluation note* Encounter Date Diagnosis Assessment Notes Treatment Notes Treatment Clinical Notes Dec, Primary osteoarthritis of left knee (ICD-10 - M17.12) DIY Other 07-13-2022 Evaluation note* Encounter Date Diagnosis Assessment Notes Treatment Notes Treatment Clinical Notes Dec, Primary osteoarthritis of right hand (ICD-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 Patient was prepped and cortisone injected into the right long PIP joint under sterile conditions. Patient tolerated well with no adverse reactions. Dec, Trigger finger, righ t middle finger (ICD-10 - M65.331) Based on exam, we will proceed with cortisone injection today to avoid development of obvious triggering. Patient was prepped and cortisone was injected into the right long finger tendon sheath under sterile conditions. Patient tolerated well with no adverse reactions. Activity as tolerated. Dec, Hand pain, right (ICD-10 - M79.641) DIY Other 07-07-2022 Evaluation note* Encounter Date Diagnosis Assessment Notes Treatment Notes Treatment Clinical Notes Dec, Primary osteoarthritis of left knee (ICD-10 - M17.12) DIY Other 07-01-2022 Evaluation note* Encounter Date Diagnosis Assessment Notes Treatment Notes Treatment Clinical Notes Dec, Primary osteoarthritis of left knee (ICD-10 - M17.12) DIY Other 06-29-2022 Evaluation note* Encounter Date Diagnosis Assessment Notes Treatment Notes Treatment Clinical Notes Nov, Primary osteoarthritis of left knee (ICD-10 - M17.12) DIY Other 06-22-2022 Evaluation note* Encounter Date Diagnosis Assessment Notes Treatment Notes Treatment Clinical Notes Nov, Primary osteoarthritis of left knee (ICD-10 - M17.12) DIY Other 06-15-2022 Evaluation note* Encounter Date Diagnosis Assessment Notes Treatment Notes Treatment Clinical Notes Nov, Primary osteoarthritis of left knee (ICD-10 - M17.12) DOS: 06/14/2021 left TKA; 08/02/2021 DEXTER left TKA Radha presents today s/p left total knee arthroplasty and subsequent left knee manipulation under anesthesia. She continues to do poorly and not move her knee. She continues to complain of pain. Overall we have had constant issues since the day of her initial surgery and has had poor effort throughout the process. She has had out of proportion pain throughout. Her therapy has progressed very slowly even after her manipulation got her a significant improvement motion. She isContinuing therapy. Tramadol for pain. Fu at one year Patient is progressing well. Continue physical therapy exercises and TKA precautions. Instructed patient to call with any questions or concerns. Patient given prescription for tramadol, prescription for cyclobenzaprine sent into patients pharmacy Nov, Status post total left knee replacement (ICD-10 - Z96.652) Nov, Stiffness of left knee (ICD-10 - M25.662) DIY Other 06-08-2022 Evaluation note* Encounter Date Diagnosis Assessment Notes Treatment Notes Treatment Clinical Notes Nov, Osteoarthritis of knee (ICD-10 - M17.9) DIY Other 05-31-2022 Evaluation note* Encounter Date Diagnosis Assessment Notes Treatment Notes Treatment Clinical Notes October, Osteoarthritis of knee (ICD-10 - M17.9) DIY Other 05-27-2022 Evaluation note* Encounter Date Diagnosis Assessment Notes Treatment Notes Treatment Clinical Notes October, Osteoarthritis of knee (ICD-10 - M17.9) DIY Other 05-16-2022 Evaluation note* Encounter Date Diagnosis Assessment Notes Treatment Notes Treatment Clinical Notes October, Osteoarthritis of knee (ICD-10 - M17.9) DIY Other 04-28-2022 Evaluation note* Encounter Date Diagnosis Assessment Notes Treatment Notes Treatment Clinical Notes Sep, Osteoarthritis of knee (ICD-10 - M17.9) DIY Other 04-21-2022 Evaluation note* Encounter Date Diagnosis Assessment Notes Treatment Notes Treatment Clinical Notes Sep, Status post total left knee replacement (ICD-10 - Z96.652) Sep, Primary osteoarthritis of left knee (ICD-10 - M17.12) DIY Other 04-14-2022 Evaluation note* Encounter Date Diagnosis Assessment Notes Treatment Notes Treatment Clinical Notes Sep, Status post total left knee replacement (ICD-10 - Z96.652) DIY Other 03-30-2022 Evaluation note* Encounter Date Diagnosis Assessment Notes Treatment Notes Treatment Clinical Notes Aug, Primary osteoarthritis of left knee (ICD-10 - M17.12) DOS: 06/14/2021 left TKA; 08/02/2021 DEXTER left TKA Radha presents today s/p left total knee arthroplasty and subsequent left knee manipulation under anesthesia. She continues to do poorly and not move her knee. She continues to complain of pain. Overall we have had constant issues since the day of her initial surgery. She has had out of proportion pain throughout. Her therapy has progressed very slowly even after her manipulation got her a significant improvement motion. She is only had 1 visit of aquatic therapy since her prior appointment unfortunately. I would continue therapy at this time. Follow-up in 2 months. Aug, Status post total left knee replacement (ICD-10 - Z96.652) Radha presents today 6 weeks s/p left total knee arthroplasty. They are doing well. Physical exam shows well-healed wound with worse range of motion none prior. Would recommend manipulation under anesthesia. We discussed and demonstrated motion exericses as well as quadriceps and hamstring strengthening exerices. Continue physical therapy Aug, Stiffness of left knee (ICD-10 - M25.662) DIY Other 02-14-2022 Evaluation note* Encounter Date Diagnosis Assessment Notes Treatment Notes Treatment Clinical Notes Aug, Primary osteoarthritis of left knee (ICD-10 - M17.12) DIY Other 01-31-2022 Evaluation note* Encounter Date Diagnosis Assessment Notes Treatment Notes Treatment Clinical Notes Jul, Primary osteoarthritis of left knee (ICD-10 - M17.12) [facility] Other 01-24-2022 Evaluation note* Encounter Date Diagnosis Assessment Notes Treatment Notes Treatment Clinical Notes Jul, Primary osteoarthritis of left knee (ICD-10 - M17.12) Radha is here now 6 weeks s/p left TKA. She continues to have issues with this and has not moving it. She now has significant stiffness in the knee. At this point I would recommend a manipulation under anesthesia. Patient agrees to this. At this juncture we have discussed the findings and diagnosis as well as reviewed appropriate imaging and performed interpretation of testing. Surgical intervention is recommended. Prior medical notes and history have been reviewed. Surgical versus non-operative management have been discussed in detail and non-operative management was given as an option. The risks of surgical intervention were given. Pre-operative optimization will be done prior to surgical procedure to limit kalie-operative risks. I have discussed the planned procedure, how and who performs the procedure, and the personnel involved. Cardiovascular, pulmonary, and other life threatening episodes can occur during surgery although there is a low risk of these happening. Surgical risks including bleeding, neurovascular injury, wound closure problems and infection were discussed. Kalie-operative risks including infection, bleeding, wound healing problems, and need for further surgery were discussed. It was discussed that there is a possibility of blood transfusion with any surgical procedure and the risks involved in receiving a blood transfusion. Possibility of, and need for, future bracing or DME use, physical or occupational therapy, mental therapy, rehabilitation, pain management and need for secondary procedures was discussed. I have warned against smoking and the use of tobacco products due to the risks associated with them, in particular, poor healing. I have advised against the nursing home use of narcotic pain medication. I have advised to follow all post-operative instructions in order to obtain the best outcome. Informed consent has been verbally affirmed and signed as indicated. Plan for left TKA manipulation under anesthesia, therapy to start day of or day after procedure Patient is progressing well from surgery. We discussed the importance of continuing to work on range of motion and strength exercise. Patient infored on massaging the leg. We discussed with patient she needs to start moving the knee when at home. Continue working with therapy at this time. Continue with use of cane as needed. Continue with medication regimen. Jul, Pain in left knee (ICD-10 - M25.562) Jul, Status post total left knee replacement (ICD-10 - Z96.652) Radha presents today 6 weeks s/p left total knee arthroplasty. They are doing well. Physical exam shows well-healed wound with worse range of motion none prior. Would recommend manipulation under anesthesia. Jul, Stiffness of left knee (ICD-10 - M25.662) All treatment options as well as risks of the proposed procedure were thoroughly discussed with the patient including bleeding, nerve and vessel injury, infection, persistent pain, stiffness, failure of procedure, mechanical failure, need for further surgery, DVT, as well as risks of anesthesia. Patient has admitted full understanding of these risks and would like to proceed with manipulation under anesthesia, patient voices understanding and agrees Jul, Pre-op examination (ICD-10 - Z01.818) [facility] Other 12-28-2021 Evaluation note* Encounter Date Diagnosis Assessment Notes Treatment Notes Treatment Clinical Notes Jun, Primary osteoarthritis of left knee (ICD-10 - M17.12) [facility] Other 12-27-2021 Evaluation note* Encounter Date Diagnosis Assessment Notes Treatment Notes Treatment Clinical Notes Jun, Pain in left knee (ICD-10 - M25.562) Jun, Primary osteoarthritis of left knee (ICD-10 - M17.12) S/p TKA left Patient is progressing well from surgery. We discussed the importance of continuing to work on range of motion and strength exercise. Patient infored on massaging the leg. We discussed with patient she needs to start moving the knee when at home. Continue working with therapy at this time. Continue with use of cane as needed. Continue with medication regimen. Jun, Status post total left knee replacement (ICD-10 - Z96.652) Radha presents today 2 weeks s/p left total knee arthroplasty. They are doing well. Physical exam is benign with a healthy appearing wound and range of motion of 5-90. They are still taking pain medication but we did discuss the weaning process today. They are anticoagulated appropriately without any signs of deep vein thrombosis. We have given an order for outpatient therapy today. I will see them back at the 6-week anniversary from their surgery for reevaluation. No x-rays are needed at that time. [facility] Other 12-08-2021 Evaluation note* Encounter Date Diagnosis Assessment Notes Treatment Notes Treatment Clinical Notes Jun, Pain in left knee (ICD-10 - M25.562) Jun, Primary osteoarthritis of left knee (ICD-10 - M17.12) Radha presents with end-stage left knee DJD. She is exhausted all conservative treatment options. At this juncture we have discussed the findings and diagnosis as well as personally reviewed appropriate imaging and performed interpretation of related testing and examination with the patient in office today. Prior medical notes from Dr. Hines and history have been reviewed. At this time I would recommend total knee arthroplasty. She has undergone conservative treatments including medications as well as injections with no relief. This limits her ability to perform simple activities of daily living and even walking. Ready to move forward with TKA At this juncture we have discussed the findings and diagnosis. Surgical intervention is recommended. Surgical versus non-operative management have been discussed in detail and non-operative management was given as an option and exhausted. The risks of surgical intervention were given. Pre-operative optimization will be done prior to surgical procedure to limit kalie-operative risks. I have discussed the planned procedure, how and who performs the procedure, and the personnel involved. Cardiovascular, pulmonary, and other life-threatening episodes can occur during surgery although there is a low risk of these happening. Surgical risks including bleeding, neurovascular injury, wound closure problems and infection were discussed. Kalie-operative risks including infection, bleeding, wound healing problems, and need for further surgery were discussed. It was discussed that there is a possibility of blood transfusion with any surgical procedure and the risks involved in receiving a blood transfusion. Possibility of, and need for, future bracing or DME use, physical or occupational therapy, mental therapy, rehabilitation, pain management and need for secondary procedures was discussed. There is possibility of component malfunction or wear and tear requiring future procedures. I have warned against smoking and the use of tobacco products due to the risks associated with them, in particular, poor healing. Obtaining or maintaining a healthy BMI was discussed. I have advised against the supervisor intermediates use of narcotic pain medication. I have advised to follow all post-operative instructions in order to obtain the best outcome. Informed consent has been verbally affirmed and signed as indicated. Today we discussed the process of the patient's left total knee arthroplasty including preoperative plan, the procedure itself and personnel involved, and hospitalization versus outpatient care. Patient will have home health set up and we will try for an outpatient management of this total knee arthroplasty. Patient does take Eliquis which we will resume postoperatively for anticoagulation. The patient has been involved in our cooperative treatment plan and agrees to move forward with treatment at this time. We will proceed with Left Total Knee Arthroplasty. Patient [facility] ben[facility]it from [facility]. [facility] Other 11-15-2021 Evaluation note* Encounter Date Diagnosis Assessment Notes Treatment Notes Treatment Clinical Notes May, Primary osteoarthritis of left knee (ICD-10 - M17.12) [facility] Other 11-03-2021 Evaluation note* Encounter Date Diagnosis Assessment Notes Treatment Notes Treatment Clinical Notes May, Pain in left knee (ICD-10 - M25.562) May, Primary osteoarthritis of left knee (ICD-10 - M17.12) Radha presents with end-stage left knee DJD. She is exhausted all conservative treatment options. At this juncture we have discussed the findings and diagnosis as well as personally reviewed appropriate imaging and performed interpretation of related testing and examination with the patient in office today. Prior medical notes from Dr. Hines and history have been reviewed. At this time I would recommend total knee arthroplasty. She has undergone conservative treatments including medications as well as injections with no relief. This limits her ability to perform simple activities of daily living and even walking. She will need preoperative clearance which we will work on. We will plan for follow-up preop H&P. The patient has been involved in our cooperative treatment plan and agrees to move forward with treatment at this time. We will proceed with Left Total Knee Arthroplasty [facility] Other 08-30-2021 NoteHNO ID: [id number] Author: Serena Funes MD Service: ? Author Type: Physician Type: Progress Notes Filed: 02/28/2021 11:54 AM Note Text: Treated for glaucoma since age 30s Tmax unknown, unknown Pachy 518, 517 +Family Hx: mother, blind in 50s Past Ocular Surgical/Laser History OD: CEIOL ~2003 OS: CEIOL ~2003 Medication Intolerance/Inefficacy/Barriers - Current Medications Xalatan (using >30 years) POAG OU HVF 01/2021 OD: IAD, first field OS: non-specific, full OCT RNFL 01/2021 OD superior, inferior thinning, first OS superior, inferior thinning, first Treated many years with Latan; unclear rate of progression and not previously followed with regular testing; patient to request records Follow up 4-5 months, VATA afternoon appointment Intraocular lens both eyes - Doing well I, Serena Funes MD, have confirmed and edited as necessary the relevant ophthalmic history, ROS, and the neuro exam findings as obtained by others. I have seen and examined Radha Butt. I have discussed the case and the management of this patient's care with the Resident/Fellow, if applicable. I also have reviewed and agree with the assessment and plan as stated above and agree with all of its relevant components. Serena Funes MD [facility] general Narrative - Reported* Type Description Date Medical History Bloodwork 12-21-11; u rinalysis, lipid panel, cmp, cbc, Vitamin d 25 hydroxy Medical History L-spine XR [facility] Medical History Not sure on stress test >23 year s Medical History 05-17-10 Refuses mammogram Medical History 06-21-10 Refused colonoscopy and rectal exam Medical History 06-21-10 Refuses mammogram Medical History MRI left knee 06-22-[address] [facility] Medical History XR right shoulder 01-13-[address] [facility] Medical History CT Scan Brain [facility] (no acute intracranial process) Medical History 06-21-11 Refuses colonoscopy and mammogram Medical History 12-29-11 Refuses colonoscopy, dara mogram, PAP/Pelvic Medical History Bloodwork 06-21-12; cmp, lipid panel with reflex, vitamin d Medical History 06-28-12 refuses colonoscopy, ma mmogram, PAP Medical History Bloodwork 12-24-12; c mp, lipid panel with reflex, cbc Medical History DEXA scan 12-01-10 Medical History Refuses Colonoscopy, PAP/Mammogr am 12-27-12 Medical History Bloodwork 06-18-13; LSCAN, , cmp, cbc, lipid panel with reflex, tsh, Medical History Refuses Colonoscopy 12-25-14 Medical History heart attack 02/08/2015 Medical History Refuses Colonoscopy 09-09-15 Surgical History Left Knee Surgery 20 years ago? Dr. Marie Surgical History stint (heart) 02/08/2015 Surgical History colonoscopy-normal but redundan t colon-Dr. Fish 12/03/2015 Surgical History CXR ER [facility] 07/10/17 Surgical History Holter Monitor - Dr Aceves 07/03 08/19 Surgical History bone marrow 09/12/[address] Resendez inj middle rt hand Surgical History Heart Cath 03/2019 Surgical History left TKA 06/14/2021 Surgical History left TKA with manipulation 07/2021 Hospitalization History chilbirth x2 Hospitalization History kidney stones [facility] Other 06-21-2012 History general Narrative - Reported* Type Description Date Medical History Bloodwork 12-21-11; u rinalysis, lipid panel, cmp, cbc, Vitamin d 25 hydroxy Medical History L-spine XR [facility] Medical History Not sure on stress test >23 year s Medical History 05-17-10 Refuses mammogram Medical History 06-21-10 Refused colonoscopy and rectal exam Medical History 06-21-10 Refuses mammogram Medical History MRI left knee 06-22-[address] [facility] Medical History XR right shoulder 01-13-[address] [facility] Medical History CT Scan Brain [facility] (no acute intracranial process) Medical History 06-21-11 Refuses colonoscopy and mammogram Medical History 12-29-11 Refuses colonoscopy, dara mogram, PAP/Pelvic Medical History Bloodwork 06-21-12; cmp, lipid panel with reflex, vitamin d Medical History 06-28-12 refuses colonoscopy, ma mmogram, PAP Medical History Bloodwork 12-24-12; c mp, lipid panel with reflex, cbc Medical History DEXA scan 12-01-10 Medical History Refuses Colonoscopy, PAP/Mammogr am 12-27-12 Medical History Bloodwork 06-18-13; LSCAN, , cmp, cbc, lipid panel with reflex, tsh, Medical History Refuses Colonoscopy 12-25-14 Medical History heart attack 02/08/2015 Medical History Refuses Colonoscopy 09-09-15 Surgical History Left Knee Surgery 20 years ago? Dr. Marie Surgical History stint (heart) 02/08/2015 Surgical History colonoscopy-normal but redundan t colon-Dr. Fish 12/03/2015 Surgical History CXR ER [facility] 07/10/17 Surgical History Holter Monitor - Dr Aceves 2 08/19 Surgical History bone marrow 09/12/[address] Resendez inj middle rt hand Surgical History Heart Cath 03/2019 Hospitalization History chilbirth x2 Hospitalization History kidney stones [facility] [employer] Other Evaluation noteNo InformationNort Swrve Other Evaluation noteNort Swrve Other Evaluation noteNo assessment information available [facility] Work Phone: Evaluation note* Diagnosis Atherosclerosis of [place] coronary artery of [place] heart without angina pectoris Chronic atrial fibrillation (CMS/HCC) Atrial fibrillation Essential hypertension, benign GARCIA (dyspnea on exertion) Other dyspnea and respiratory abnormality History of PTCA Postsurgical percutaneous transluminal coronary angioplasty status High risk medication use Hyperlipidemia, unspecified hyperlipidemia type documented in this encounter [facility] Work Phone: Evaluation note* Diagnosis Onset Date Resolution Status Elevated troponin acute Hypertensive urgency acute Pre-syncope acute [facility] Work Phone: History general N[facility]ative - [facility] [place] [facility] [employer] Other History of Present illness Narrative* The patient presents with permanent atrial fibrillation. The treatment strategy for this patient israte control. She states her atrial fibrillation has been well controlled since the last visit. * Symptoms: denies palpitations, denies chest pain, denies exercise intolerance, denies dyspnea on exertion and denies dizziness. Associated symptoms include no syncope. * Risks: no increased risk for falling. * Medications: the patient is adherent with her medication regimen. She denies medication side effects. -[facility] 600 DO Work Phone: Reason for referral (narrative)* Consultation (Routine) - Authorized Specialty Diagnoses / Procedures Referred By Contbrandi t Referred To Contact Cardiology Diagnoses Essential hypertension, benign Procedures Follow Up In Cardiology Esau Aceves DO [address] [facility] [address] [place] [address] Referral ID Status Reason Start Date Expiration Date V isits Requested Visits Authorized [id number] Authorized 04/10/2023 10/07/2023 1 1 * Consultation (Routine) - Authorized Specialty Diagnoses / Procedures Referred By Contac t Referred To Contact Cardiology Diagnoses Essential hypertension, benign Procedures Follow Up In Cardiology Esau Aceves DO [address] [facility] [address], [address] [address] Referral ID Status Reason Start Date Expiration Date V isits Requested Visits Authorized [id number] Authorized 04/10/2023 10/07/2023 1 1 [facility] Work Phone: Summary Purpose Family History Unknown Family Member Name Dates Details Family history of myocardial infarction: Mother, Father(V17.3, Z82.49) Status:Active Unknown Family Member Name Dates Details Family history of myocardial infarction: Mother, Father(V17.3, Z82.49) Status:Active Unknown Family Member Name Dates Details Family history of myocardial infarction: Mother, Father(V17.3, Z82.49) Status:Active Unknown Family Member Name Dates Details Family history of myocardial infarction: Mother, Father(V17.3, Z82.49) Status:Active Relationship Condition Age at Onset Recorded Date/T axel Not Specified Myocardial infarction Unknown father Chronic obstructive pulmonary disease Unk nown brother Malignant neoplasm of lung Unknown natural son Thalassemia Unknown Unknown Family Member Name Dates Details Family history of myocardial infarction: Mother, Father(V17.3, Z82.49) Status:Active Unknown Family Member Name Dates Details Family history of myocardial infarction: Mother, Father(V17.3, Z82.49) Status:Active Unknown Family Member Name Dates Details Family history of myocardial infarction: Mother, Father(V17.3, Z82.49) Status:Active Unknown Family Member Name Dates Details Family history of myocardial infarction: Mother, Father(V17.3, Z82.49) Status:Active Unknown Family Member Name Dates Details Family history of myocardial infarction: Mother, Father(V17.3, Z82.49) Status:Active Unknown Family Member Name Dates Details Family history of myocardial infarction: Mother, Father(V17.3, Z82.49) Status:Active Unknown Family Member Name Dates Details Family history of myocardial infarction: Mother, Father(V17.3, Z82.49) Status:Active Unknown Family Member Name Dates Details Family history of myocardial infarction: Mother, Father(V17.3, Z82.49) Status:Active Unknown Family Member Name Dates Details Family history of myocardial infarction: Mother, Father(V17.3, Z82.49) Status:Active Advance Directives Advance Directive Response Recorded Date/ Time Advance Directives No July 10, 2017 1:56pm Advance Directive Response Recorded Date/ Time Advance Directives No July 10, 2017 12:56pm Chief Complaint * RADHA BUTT is being seen for an annual follow-up of. * Patient is a 76-year-old female who returns for follow-up following recent chest pain/anginal eventwith associated palpitations and was hospitalized underwent catheterization, revealing widely patent RCA stents and otherwise normal coronary arteries. He has a history of remote inferior CA with PCIof the RCA in 2014. She has underlying paroxysmal A. fib currently on Eliquis. She has had no bleeding or thromboembolic events. She had no acute coronary syndrome this past hospitalization in March. * She is otherwise quite stable, asymptomatic. She can follow-up in 1 year * RADHA BUTT is being seen for an annual follow-up of. * 77-year-old female who returns for follow-up and she is doing well she denies any cardiovascular complaints or shortness of breath or angina recurrent nitrate usage or hospitalizations. She has a known history of previous inferior CA with revascularization of the RCA in 2014. In 2018 she underwent r epeat catheterization for angina pectoris that revealed normal coronary arteries and widely patent RCA stent and normal left ventricular function. She developed paroxysmal atrial fibrillation afterwards, she has been on Eliquis and metoprolol. * Today she presents with an irregularly irregular rhythm and confirmed with atrial fibrillation withgood rate control. * She is also hypertensive today on current therapies * Recommendations: Discontinue losartan initiate valsartan 160, initiate amiodarone 400 twice daily for 7 days then 400 daily with follow-up ECG in 4 weeks with possible cardioversion thereafterwards. Risk benefits alternatives and informed decision-making process discussed with patient extensively in regards to amiodarone therapy, routine laboratory and chest x-ray and pulmonary function test surveillance, and consideration for possible atrial ablation in the future if this does not work. * Medication changes: 'doing fine' * RADHA BUTT is being seen for a 4 week follow-up of atrial fibrillation and hypertension. * Patient presents to the office today ambulatory with steady gait. * Last evaluated Dr. Aceves April 2022. At that time antihypertensives were changed to valsartan and she was initiated on amiodarone 400 mg twice daily. She was unable to tolerate that dosing and has been taking 200 mg daily. I believe plans were for cardioversion to attempt yarsanism of normal sinus rhythm. * On record review, in 2018 patient was tried on amiodarone but was discontinued due to GI distress. At that time treatment strategy was changed to rate control and she had been maintained chronic atrial fibrillation with controlled ventricular rate on metoprolol. In atrial fibrillation, she denies palpitations, no dyspnea on exertion, no change in exercise capacity or functional tolerance. Today we discussed purpose of amiodarone and eventual need for cardioversion. She is very reluctant to proceed. In light of intolerance to amiodarone, reluctance to proceed with cardioversion and asymptomatic atrial fibrillation with optimal rate control feel in her best interest to continue with treatmentstrategy of rate control and anticoagulation. Patient is in agreement. * Daily activity includes ADLs, housework, she is able to go to the grocery store. She ambulated in from the parking lot without any symptoms. There have been no utilization of nitroglycerin. * 2019 LVEF 60 to 65%, mild LVH, left atrium severely dilated. Currently does not exhibit any symptoms concerning for decompensated heart failure. * Otherwise, blood pressure remains suboptimal here in the office. She did not take her blood pressure medications prior to coming into the office today. * Otherwise, she denies any change in overall cardiovascular status since last evaluation with Dr. Aceves. Chief Complaint and Reason for Visit Chief Complaint M17.12 MEDICARE/left TKA throwing up,cough,N/V Chief Complaint M17.12 Chief Complaint Dizzy Chief Complaint dizzy Reason for Visit Elevated troponin Hypertensive urgency Pre-syncope Additional Source Comments INFORMATION SOURCE (unrecogn ized section and content) DATE CREATED AUTHOR 07/19/2018 [facility] DATE CREATED AUTHOR AUTHOR'S ORGANIZ ATION 05/19/2019 [facility] DATE CREATED AUTHOR AUTHOR'S ORGANIZ ATION 08/22/2021 [facility] DATE CREATED AUTHOR AUTHOR'S ORGANIZ ATION 05/19/2022 [employer] DATE CREATED AUTHOR AUTHOR'S ORGANIZ ATION 06/22/2022 [facility] DATE CREATED AUTHOR AUTHOR'S ORGANIZ ATION 06/07/2023 [facility] DATE CREATED AUTHOR AUTHOR'S ORGANIZ ATION 07/12/2023 [facility] DATE CREATED AUTHOR AUTHOR'S ORGANIZ ATION 08/13/2023 [facility] REASON FOR VISIT (unrecogniz ed section and content) rx refill Reason Comments Follow-up 1 year Care Teams (unrecognized sec tion and content) Team Status: Inactive Member Role Status Dates Kip Espinoza , DO Primary Care Provider Active Alli Nicholas , DO Attending Provider Active Team Status: Inactive Member Role Status Dates Kip Espinoza , DO Primary Care Provider Active Moises Alberto , DO Emergency Provider Active Team Status: Active Member Role Status Dates Kip Espinoza , DO Primary Care Provider Active Team Status: Inactive Member Role Status Dates Kip Espinoza , DO Primary Care Provider Active Citlalli Tenorio , DO Emergency Provider Active Team Status: Inactive Member Role Status Dates Maya Wynn APRN Emergency Provider Active Kip Espinoza , DO Primary Care Provider Active Lito Kevin , DO Admit Provider, Attending Provid er Active Goals (unrecognized section and content) Goals may be documented in a n alternate section FOR RECORDS PERTAINING TO PATIENTS WHO ARE OR HAVE BEEN ENROLLED IN A CHEMICAL DEPENDENCY/SUBSTANCEABUSE PROGRAM, SOME INFORMATION MAY BE OMITTED. This clinical summary was aggregated from multiple sources. Caution should be exercised in using it in the provision of clinical care. This summary normalizes information from multiple sources, and as a consequence, information in this document may materially change the coding, format and clinical context of patient data. In addition, data may be omitted in some cases. CLINICAL DECISIONS SHOULD BE BASED ON THE PRIMARY CLINICAL RECORDS. [employer] provides no warranty or guarantee of the accuracy or completeness of information in this document.
--- NOTE | 2023-08-20 20:10 | ECG_ITS ---
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
--- NOTE | 2023-08-20 20:10 | XR_ITS ---
The [address] [address] Patient Name: RADHA MILNER MRN: [id number] date: 1945 Sex: F Assigned Patient Location: ER Current Patient Location: Accession/Order Number: [id number] Exam Date: 08/20/2023 20:10 Report Date: 08/20/2023 21:00 At the request of: PAWAN ZELAYA Procedure: XR chest 1V EXAM: XR chest 1V HISTORY: Weakness COMPARISON: None. TECHNIQUE: Single frontal view of the chest. Rightward rotation. FINDINGS: Tubes/lines/devices: None. Lungs: Adequate inflation. No evidence of pneumonia or pulmonary edema. Pleura: No pneumothorax. No pleural effusion. Heart and mediastinum: No enlargement of the cardiomediastinal silhouette. Apparent thickening of the right paratracheal stripe, likely artifactual given right rotation. Tortuous aorta. Bones/soft tissues: No acute osseous findings. Unremarkable soft tissues. Abdomen: Unremarkable. XR/XR chest 1V IMPRESSION: No acute pulmonary findings. Electronically authenticated by: JUAN JOSE MUELLER Date: 08/20/2023 21:00
--- NOTE | 2023-08-20 20:16 | ED_ITS ---
Documented by User: ALFONSO Herman 08/20/23 21:03 HPI - General Adult General Chief complaint: Nausea/Vomiting/Diarrhea Stated complaint: nausea Time Seen by Provider: 08/20/23 19:57 Source: patient Source information: States started yesterday not feeling well. Nausea and lightheaded. Overall pain. States B/P was high Mode of arrival: Wheelchair History of Present Illness HPI narrative: Patient is a 78-year-old female who presents to the emergency department for generally not feeling well since yesterday. She has had subjective fever and chills, generalized body aches, cough and nasal congestion. She denies chest pain, shortness of breath, abdominal pain. She has had nausea but no vomiting or diarrhea. Dates her son is also sick with a stuffy nose. She states she was lightheaded and her blood pressure was elevated today. She takes Eliquis for history of A-fib. Related Data Home Medications Medication Instructions Recorded Confirmed apixaban 5 mg tablet (Eliquis) 5 mg PO Q12H 07/06/23 08/20/23 atorvastatin 40 mg tablet 40 mg PO .every night 07/06/23 08/20/23 cyclobenzaprine 10 mg tablet 10 mg PO Q12H 07/06/23 08/20/23 gabapentin 600 mg tablet 600 mg PO Q12H 07/06/23 08/20/23 hydrochlorothiazide 25 mg tablet 25 mg PO .every night 07/06/23 08/20/23 metoprolol tartrate 25 mg tablet 25 mg PO Q12H 07/06/23 08/20/23 tramadol 50 mg tablet 50 mg PO Q12H 07/06/23 07/06/23 valsartan 160 mg tablet 160 mg PO DAILY 07/06/23 08/20/23 brimonidine 0.2 %-timolol 0.5 % 1 drp ophthalmic (eye) Q12H 08/20/23 08/20/23 eye drops (Combigan) latanoprost 0.005 % eye drops 1 drp ophthalmic (eye) DAILY 08/20/23 08/20/23 Previous Rx's Medication Instructions Recorded tramadol 50 mg tablet 50 mg PO Q8H PRN pain #14 tabs 07/06/23 azithromycin 250 mg tablet See Rx Instructions PO .COMPLEX #6 08/20/23 tabs ondansetron 4 mg disintegrating 4 mg PO Q6H PRN nausea and 08/20/23 tablet vomiting #14 tabs Allergies Allergy/AdvReac Type Severity Reaction Status Date / Time No Known Drug Allergies Allergy Verified 08/20/23 20:08 Review of Systems ROS Constitutional Reports: fever and chills Ears, nose, mouth, and throat Reports: nasal congestion; Denies: throat pain Cardiovascular Denies: chest pain Respiratory Reports: cough; Denies: shortness of breath Gastrointestinal Reports: nausea; Denies: abdominal pain, vomiting or diarrhea Musculoskeletal Denies: back pain or neck pain Integumentary/Breast Denies: rash Neurological Reports: dizziness; Denies: headache Hematologic/Lymphatic Reports: easy bruising and easy bleeding PFSH PFS Social History Smoking status: Never smoker Exam Narrative Exam Narrative: Gen.: Awake, alert, in no distress Head: Normocephalic, atraumatic ENT: Moist mucous membranes Respiratory: No respiratory distress, lungs clear bilaterally Cardio: Irregular, tachycardia Gastrointestinal: Abdomen is soft, nondistended and nontender to palpation Extremities: Moves extremities equally, no pedal edema Psych: Normal mood and affect Neuro: No focal neuro deficit Skin: Warm, dry, intact Constitutional Vital Signs, click to edit/add: Last Vital Signs Temp 100.2 F 08/20/23 21:24 Pulse 87 08/20/23 21:24 Resp 20 08/20/23 21:24 BP 170/100 H 08/20/23 21:24 Pulse Ox 98 08/20/23 21:24 O2 Del Method Room Air 08/20/23 21:24 Course Vital Signs Vital signs: Vital Signs Temperature 98.8 F 08/20/23 20:02 Pulse Rate 123 H 08/20/23 20:02 Respiratory Rate 16 08/20/23 20:02 Blood Pressure 176/108 H 08/20/23 20:02 Pulse Oximetry 97 08/20/23 20:02 Oxygen Delivery Method Room Air 08/20/23 20:02 Temperature 100.2 F 08/20/23 21:24 Pulse Rate 87 08/20/23 21:24 Respiratory Rate 20 08/20/23 21:24 Blood Pressure 170/100 H 08/20/23 21:24 Pulse Oximetry 98 08/20/23 21:24 Oxygen Delivery Method Room Air 08/20/23 21:24 Medical Decision Making MDM Narrative Medical decision making narrative: 2101: Patient was ordered to have IV fluids, Tylenol for fever. Septic workup was initiated including respiratory panel, urine specimen, chest x-ray. These results are pending at this time although the patient is noted to have mild leukocytosis. Case is turned over to attending physician, she is stable at time of care transfer. Medical Records Medical records reviewed: Yes I reviewed the patient's medical records Lab Data Lab results reviewed: Yes I reviewed the patient's lab results Labs: Lab Results 08/20/23 08/20/23 08/20/23 Range/Units 20:11 20:18 20:25 WBC 15.9 H (4.0-11.0) 10^3/uL RBC 5.01 (4.20-5.40) 10^6/uL Hgb 10.3 L (12.0-16.0) g/dL Hct 33.4 L (36.0-48.0) % MCV 66.7 L (81.0-99.0) fL MCH 20.6 L (26.7-34.0) pg MCHC 30.8 (29.9-35.2) g/dL RDW 15.4 H (11.0-15.0) % Plt Count 345 (150-450) 10^3/uL MPV 10.8 (9.5-13.5) fL Neut % (Auto) 83.9 H (43.0-75.0) % Lymph % (Auto) 8.1 L (20.5-60.0) % [place] % (Auto) 7.0 (1.7-12.0) % Eos % (Auto) 0.4 L (0.9-7.0) % Baso % (Auto) 0.3 (0.2-2.0) % Neut # (Auto) 13.4 H (1.4-6.5) 10^3/uL Lymph # (Auto) 1.3 (1.2-3.8) 10^3/uL [place] # (Auto) 1.1 H (0.3-0.8) 10^3/uL Eos # (Auto) 0.1 (0.0-0.7) 10^3/uL Baso # (Auto) 0.1 (0.0-0.1) 10^3/uL Abs Immat Gran (auto) 0.04 H (0.00-0.03) 10^3/uL Imm/Tot Granulo (auto) 0.3 (0.0-0.5) % PT 11.0 (9.0-11.6) sec INR 1.04 VBG pH 7.464 H (7.330-7.430) VBG pCO2 38.4 L (40.0-52.0) mmHg Sodium 138 (136-145) mmol/L Potassium 3.6 (3.5-5.1) mmol/L Chloride 100 (98-107) mmol/L Carbon Dioxide 27.6 (21.0-32.0) mmol/L Anion Gap 14.0 BUN 22.0 H (7.0-18.0) mg/dL Creatinine 1.14 H (0.55-1.02) mg/dL Est GFR ( Amer) 56 L (>=60) Est GFR (Non-Af Amer) 46 L (>=60) BUN/Creatinine Ratio 19.3 Glucose 109 H (74-106) mg/dL Lactate 0.9 (0.4-2.0) mmol/L Calcium 8.6 (8.5-10.1) mg/dL Total Bilirubin 1.6 H (0.2-1.0) mg/dL AST 19 (15-37) U/L ALT 16 (14-59) U/L Alkaline Phosphatase 61 (46-116) U/L Troponin I High Sens 15.5 (4.0-51.3) pg/mL NT-Pro-B Natriuret Pep 2329.0 H* (<=1800.0) pg/mL Total Protein 7.0 (6.4-8.2) g/dL Albumin 3.5 (3.4-5.0) g/dL Globulin 3.5 g/dL Albumin/Globulin Ratio 1.0 Procalcitonin <0.05 (0.00-0.50) ng/mL Urine Color (YELLOW) Urine Clarity (CLEAR) Urine pH (5.0-9.0) Ur Specific [place] (1.005-1.025) Urine Protein (NEG/TRACE) mg/dL Urine Glucose (UA) (NEGATIVE) mg/dL Urine Ketones (NEGATIVE) mg/dL Urine Occult Blood (NEGATIVE) Urine Nitrite (NEGATIVE) Urine Bilirubin (NEGATIVE) Urine Urobilinogen (0.2-1.0) EU/dL Ur Leukocyte Esterase (NEGATIVE) Urine RBC (0-2) #/HPF Urine WBC (NONE SEEN) #/HPF Ur Squamous Epith Cells (NONE/RARE) #/LPF Urine Crystals (None Seen) #/HPF Urine Bacteria (NONE SEEN) #/HPF Urine Casts (NONE SEEN) #/LPF Urine Mucus (NONE SEEN) Ur Culture Indicated? Adenovirus (PCR) Not detected (NOT DETECTE) C. pneumoniae DNA (PCR) Not detected (NOT DETECTE) Coronavirus Type OC43 Not detected (NOT DETECTE) Coronavirus Type HKU1 Not detected (NOT DETECTE) Coronavirus Type 229E Not detected (NOT DETECTE) Coronavirus Type NL63 Not detected (NOT DETECTE) Human Metapneumovir PCR Not detected (NOT DETECTE) M. pneumoniae (PCR) Not detected (NOT DETECTE) Parainfluenza PCR Not detected (NOT DETECTE) Parainfluenza 2 (PCR) Not detected (NOT DETECTE) Parainfluenza 3 (PCR) Not detected (NOT DETECTE) Parainfluenza 4 (PCR) Not detected (NOT DETECTE) RSV (RT-PCR) Not detected (NOT DETECTE) Entero/Rhino (PCR) Not detected (NOT DETECTE) SARS-CoV-2 (PCR) Not detected (NOT DETECTE) Bordetella pertussis (PCR) Not detected (NOT DETECTE) B parapertussis DNA PCR Not detected (NOT DETECTE) Influenza Type A (PCR) Not detected (NOT DETECTE) Influenza Type B (PCR) Not detected (NOT DETECTE) 08/20/23 Range/Units 21:36 WBC (4.0-11.0) 10^3/uL RBC (4.20-5.40) 10^6/uL Hgb (12.0-16.0) g/dL Hct (36.0-48.0) % MCV (81.0-99.0) fL MCH (26.7-34.0) pg MCHC (29.9-35.2) g/dL RDW (11.0-15.0) % Plt Count (150-450) 10^3/uL MPV (9.5-13.5) fL Neut % (Auto) (43.0-75.0) % Lymph % (Auto) (20.5-60.0) % [place] % (Auto) (1.7-12.0) % Eos % (Auto) (0.9-7.0) % Baso % (Auto) (0.2-2.0) % Neut # (Auto) (1.4-6.5) 10^3/uL Lymph # (Auto) (1.2-3.8) 10^3/uL [place] # (Auto) (0.3-0.8) 10^3/uL Eos # (Auto) (0.0-0.7) 10^3/uL Baso # (Auto) (0.0-0.1) 10^3/uL Abs Immat Gran (auto) (0.00-0.03) 10^3/uL Imm/Tot Granulo (auto) (0.0-0.5) % PT (9.0-11.6) sec INR VBG pH (7.330-7.430) VBG pCO2 (40.0-52.0) mmHg Sodium (136-145) mmol/L Potassium (3.5-5.1) mmol/L Chloride (98-107) mmol/L Carbon Dioxide (21.0-32.0) mmol/L Anion Gap BUN (7.0-18.0) mg/dL Creatinine (0.55-1.02) mg/dL Est GFR ( Amer) (>=60) Est GFR (Non-Af Amer) (>=60) BUN/Creatinine Ratio Glucose (74-106) mg/dL Lactate (0.4-2.0) mmol/L Calcium (8.5-10.1) mg/dL Total Bilirubin (0.2-1.0) mg/dL AST (15-37) U/L ALT (14-59) U/L Alkaline Phosphatase (46-116) U/L Troponin I High Sens (4.0-51.3) pg/mL NT-Pro-B Natriuret Pep (<=1800.0) pg/mL Total Protein (6.4-8.2) g/dL Albumin (3.4-5.0) g/dL Globulin g/dL Albumin/Globulin Ratio Procalcitonin (0.00-0.50) ng/mL Urine Color Lt. yellow (YELLOW) Urine Clarity Clear (CLEAR) Urine pH 7.0 (5.0-9.0) Ur Specific [place] 1.020 (1.005-1.025) Urine Protein 30 A (NEG/TRACE) mg/dL Urine Glucose (UA) Negative (NEGATIVE) mg/dL Urine Ketones Negative (NEGATIVE) mg/dL Urine Occult Blood Trace-i (NEGATIVE) Urine Nitrite Negative (NEGATIVE) Urine Bilirubin Negative (NEGATIVE) Urine Urobilinogen 4.0 A (0.2-1.0) EU/dL Ur Leukocyte Esterase Trace A (NEGATIVE) Urine RBC 0-2 (0-2) #/HPF Urine WBC 0-2 A (NONE SEEN) #/HPF Ur Squamous Epith Cells Rare (NONE/RARE) #/LPF Urine Crystals None seen (None Seen) #/HPF Urine Bacteria None seen (NONE SEEN) #/HPF Urine Casts None seen (NONE SEEN) #/LPF Urine Mucus None seen (NONE SEEN) Ur Culture Indicated? No Adenovirus (PCR) (NOT DETECTE) C. pneumoniae DNA (PCR) (NOT DETECTE) Coronavirus Type OC43 (NOT DETECTE) Coronavirus Type HKU1 (NOT DETECTE) Coronavirus Type 229E (NOT DETECTE) Coronavirus Type NL63 (NOT DETECTE) Human Metapneumovir PCR (NOT DETECTE) M. pneumoniae (PCR) (NOT DETECTE) Parainfluenza PCR (NOT DETECTE) Parainfluenza 2 (PCR) (NOT DETECTE) Parainfluenza 3 (PCR) (NOT DETECTE) Parainfluenza 4 (PCR) (NOT DETECTE) RSV (RT-PCR) (NOT DETECTE) Entero/Rhino (PCR) (NOT DETECTE) SARS-CoV-2 (PCR) (NOT DETECTE) Bordetella pertussis (PCR) (NOT DETECTE) B parapertussis DNA PCR (NOT DETECTE) Influenza Type A (PCR) (NOT DETECTE) Influenza Type B (PCR) (NOT DETECTE) Imaging Data Chest x-ray: Attestation: I have reviewed the pertinent imaging results. Radiologist's impression: ITS Impressions Chest X-Ray 08/20/23 20:10 IMPRESSION: No acute pulmonary findings. Electronically authenticated by: JUAN JOSE MUELLER Date: 08/20/2023 21:00 Procedure: XR chest 1V EXAM: XR chest 1V HISTORY: Weakness COMPARISON: None. TECHNIQUE: Single frontal view of the chest. Rightward rotation. FINDINGS: Tubes/lines/devices: None. Lungs: Adequate inflation. No evidence of pneumonia or pulmonary edema. Pleura: No pneumothorax. No pleural effusion. Heart and mediastinum: No enlargement of the cardiomediastinal silhouette. Apparent thickening of the right paratracheal stripe, likely artifactual given right rotation. Tortuous aorta. Bones/soft tissues: No acute osseous findings. Unremarkable soft tissues. Abdomen: Unremarkable. IMPRESSION: No acute pulmonary findings. ECG Data Attestation: I personally reviewed and interpreted this ECG as follows: (Atrial fibrillation with rapid ventricular response at a rate of 105, no acute ST elevation or ectopy. EKG reviewed by attending physician) Discharge Plan Discharge Chief Complaint: Nausea/Vomiting/Diarrhea Clinical Impression: Upper respiratory infection, Fever, HTN (hypertension) Patient Disposition: Home, Self-Care Time of Disposition Decision: 22:07 Prescriptions / Home Meds: New azithromycin 250 mg tablet See Rx Instructions .ROUTE .COMPLEX Qty: 6 0RF Rx Instructions: For 250 mg dose pack: take 500 mg today (day 1), then 250 mg for 4 days (days 2-5) ondansetron 4 mg tablet,disintegrating 4 mg PO Q6H PRN (Reason: nausea and vomiting) Qty: 14 0RF No Action Eliquis 5 mg tablet 5 mg PO Q12H atorvastatin 40 mg tablet 40 mg PO .every night cyclobenzaprine 10 mg tablet 10 mg PO Q12H gabapentin 600 mg tablet 600 mg PO Q12H hydrochlorothiazide 25 mg tablet 25 mg PO .every night metoprolol tartrate 25 mg tablet 25 mg PO Q12H tramadol 50 mg tablet 50 mg PO Q12H valsartan 160 mg tablet 160 mg PO DAILY tramadol 50 mg tablet 50 mg PO Q8H PRN (Reason: pain) Qty: 14 0RF brimonidine-timolol [Combigan] 0.2-0.5 % drops 1 drp OPHTHALMIC (EYE) Q12H Rx Instructions: Both eyes latanoprost 0.005 % drops 1 drp OPHTHALMIC (EYE) DAILY Rx Instructions: PM Instructions: Fever in Adults (ED), Upper Respiratory Infection (ED), Hypertension (ED) Stand Alone Forms: Portal Instructions Referrals: ANNA ESPINOZA [Primary Care Provider] - 1 week Documented by User: Bayron Azam 08/20/23 22:10 HPI - General Adult General Chief complaint: Nausea/Vomiting/Diarrhea Stated complaint: nausea Time Seen by Provider: 08/20/23 19:57 Related Data Home Medications Medication Instructions Recorded Confirmed apixaban 5 mg tablet (Eliquis) 5 mg PO Q12H 07/06/23 08/20/23 atorvastatin 40 mg tablet 40 mg PO .every night 07/06/23 08/20/23 cyclobenzaprine 10 mg tablet 10 mg PO Q12H 07/06/23 08/20/23 gabapentin 600 mg tablet 600 mg PO Q12H 07/06/23 08/20/23 hydrochlorothiazide 25 mg tablet 25 mg PO .every night 07/06/23 08/20/23 metoprolol tartrate 25 mg tablet 25 mg PO Q12H 07/06/23 08/20/23 tramadol 50 mg tablet 50 mg PO Q12H 07/06/23 07/06/23 valsartan 160 mg tablet 160 mg PO DAILY 07/06/23 08/20/23 brimonidine 0.2 %-timolol 0.5 % 1 drp ophthalmic (eye) Q12H 08/20/23 08/20/23 eye drops (Combigan) latanoprost 0.005 % eye drops 1 drp ophthalmic (eye) DAILY 08/20/23 08/20/23 Previous Rx's Medication Instructions Recorded tramadol 50 mg tablet 50 mg PO Q8H PRN pain #14 tabs 07/06/23 azithromycin 250 mg tablet See Rx Instructions PO .COMPLEX #6 08/20/23 tabs ondansetron 4 mg disintegrating 4 mg PO Q6H PRN nausea and 08/20/23 tablet vomiting #14 tabs Allergies Allergy/AdvReac Type Severity Reaction Status Date / Time No Known Drug Allergies Allergy Verified 08/20/23 20:08 [facility] Social History Smoking status: Never smoker Exam Constitutional Vital Signs, click to edit/add: Last Vital Signs Temp 100.2 F 08/20/23 21:24 Pulse 87 08/20/23 21:24 Resp 20 08/20/23 21:24 BP 170/100 H 08/20/23 21:24 Pulse Ox 98 08/20/23 21:24 O2 Del Method Room Air 08/20/23 21:24 Course Vital Signs Vital signs: Vital Signs Temperature 98.8 F 08/20/23 20:02 Pulse Rate 123 H 08/20/23 20:02 Respiratory Rate 16 08/20/23 20:02 Blood Pressure 176/108 H 08/20/23 20:02 Pulse Oximetry 97 08/20/23 20:02 Oxygen Delivery Method Room Air 08/20/23 20:02 Temperature 100.2 F 08/20/23 21:24 Pulse Rate 87 08/20/23 21:24 Respiratory Rate 20 08/20/23 21:24 Blood Pressure 170/100 H 08/20/23 21:24 Pulse Oximetry 98 08/20/23 21:24 Oxygen Delivery Method Room Air 08/20/23 21:24 Medical Decision Making [facility] Narrative Medical decision making narrative: 2101: Patient was ordered to have IV fluids, Tylenol for fever. Septic workup was initiated including respiratory panel, urine specimen, chest x-ray. These results are pending at this time although the patient is noted to have mild leukocytosis. Case is turned over to attending physician, she is stable at time of care transfer. Attending physician note -I saw and examined the patient I talked to her about her complaint. BNP elevated but she has no central or peripheral sign of failu re on examination. Her nausea is resolved after ED treatment and she feels better overall after receiving normal saline IV fluid. WBC elevated at 15k but normal lactate, negative UA, negative CXR and negative respiratory panel. Her blood pressure is still elevated here in the emergency department - 170/100. I ordered her to receive IV Labetalol before discharge. She said that she will take her BP meds as prescribed, which included metoprolol. This should help with rate control for her Afib. For this patient encounter I reviewed the mid-level provider?s documentation, medical decision-making and treatment plan, and I personally spent time with this patient. Shared APC visit, physician attestation: [id number]: This visit was performed by both a physician and an APC. I personally evaluated and examined the patient. I performed all aspects of MDM as documented. - DO Eusebia Lab Data Labs: Lab Results 08/20/23 08/20/23 08/20/23 Range/Units 20:11 20:18 20:25 WBC 15.9 H (4.0-11.0) 10^3/uL RBC 5.01 (4.20-5.40) 10^6/uL Hgb 10.3 L (12.0-16.0) g/dL Hct 33.4 L (36.0-48.0) % MCV 66.7 L (81.0-99.0) fL MCH 20.6 L (26.7-34.0) pg MCHC 30.8 (29.9-35.2) g/dL RDW 15.4 H (11.0-15.0) % Plt Count 345 (150-450) 10^3/uL MPV 10.8 (9.5-13.5) fL Neut % (Auto) 83.9 H (43.0-75.0) % Lymph % (Auto) 8.1 L (20.5-60.0) % [place] % (Auto) 7.0 (1.7-12.0) % Eos % (Auto) 0.4 L (0.9-7.0) % Baso % (Auto) 0.3 (0.2-2.0) % Neut # (Auto) 13.4 H (1.4-6.5) 10^3/uL Lymph # (Auto) 1.3 (1.2-3.8) 10^3/uL [place] # (Auto) 1.1 H (0.3-0.8) 10^3/uL Eos # (Auto) 0.1 (0.0-0.7) 10^3/uL Baso # (Auto) 0.1 (0.0-0.1) 10^3/uL Abs Immat Gran (auto) 0.04 H (0.00-0.03) 10^3/uL Imm/Tot Granulo (auto) 0.3 (0.0-0.5) % PT 11.0 (9.0-11.6) sec INR 1.04 VBG pH 7.464 H (7.330-7.430) VBG pCO2 38.4 L (40.0-52.0) mmHg Sodium 138 (136-145) mmol/L Potassium 3.6 (3.5-5.1) mmol/L Chloride 100 (98-107) mmol/L Carbon Dioxide 27.6 (21.0-32.0) mmol/L Anion Gap 14.0 BUN 22.0 H (7.0-18.0) mg/dL Creatinine 1.14 H (0.55-1.02) mg/dL Est GFR ( Amer) 56 L (>=60) Est GFR (Non-Af Amer) 46 L (>=60) BUN/Creatinine Ratio 19.3 Glucose 109 H (74-106) mg/dL Lactate 0.9 (0.4-2.0) mmol/L Calcium 8.6 (8.5-10.1) mg/dL Total Bilirubin 1.6 H (0.2-1.0) mg/dL AST 19 (15-37) U/L ALT 16 (14-59) U/L Alkaline Phosphatase 61 (46-116) U/L Troponin I High Sens 15.5 (4.0-51.3) pg/mL NT-Pro-B Natriuret Pep 2329.0 H* (<=1800.0) pg/mL Total Protein 7.0 (6.4-8.2) g/dL Albumin 3.5 (3.4-5.0) g/dL Globulin 3.5 g/dL Albumin/Globulin Ratio 1.0 Procalcitonin <0.05 (0.00-0.50) ng/mL Urine Color (YELLOW) Urine Clarity (CLEAR) Urine pH (5.0-9.0) Ur Specific [place] (1.005-1.025) Urine Protein (NEG/TRACE) mg/dL Urine Glucose (UA) (NEGATIVE) mg/dL Urine Ketones (NEGATIVE) mg/dL Urine Occult Blood (NEGATIVE) Urine Nitrite (NEGATIVE) Urine Bilirubin (NEGATIVE) Urine Urobilinogen (0.2-1.0) EU/dL Ur Leukocyte Esterase (NEGATIVE) Urine RBC (0-2) #/HPF Urine WBC (NONE SEEN) #/HPF Ur Squamous Epith Cells (NONE/RARE) #/LPF Urine Crystals (None Seen) #/HPF Urine Bacteria (NONE SEEN) #/HPF Urine Casts (NONE SEEN) #/LPF Urine Mucus (NONE SEEN) Ur Culture Indicated? Adenovirus (PCR) Not detected (NOT DETECTE) C. pneumoniae DNA (PCR) Not detected (NOT DETECTE) Coronavirus Type OC43 Not detected (NOT DETECTE) Coronavirus Type HKU1 Not detected (NOT DETECTE) Coronavirus Type 229E Not detected (NOT DETECTE) Coronavirus Type NL63 Not detected (NOT DETECTE) Human Metapneumovir PCR Not detected (NOT DETECTE) M. pneumoniae (PCR) Not detected (NOT DETECTE) Parainfluenza PCR Not detected (NOT DETECTE) Parainfluenza 2 (PCR) Not detected (NOT DETECTE) Parainfluenza 3 (PCR) Not detected (NOT DETECTE) Parainfluenza 4 (PCR) Not detected (NOT DETECTE) RSV (RT-PCR) Not detected (NOT DETECTE) Entero/Rhino (PCR) Not detected (NOT DETECTE) SARS-CoV-2 (PCR) Not detected (NOT DETECTE) Bordetella pertussis (PCR) Not detected (NOT DETECTE) B parapertussis DNA PCR Not detected (NOT DETECTE) Influenza Type A (PCR) Not detected (NOT DETECTE) Influenza Type B (PCR) Not detected (NOT DETECTE) 08/20/23 Range/Units 21:36 WBC (4.0-11.0) 10^3/uL RBC (4.20-5.40) 10^6/uL Hgb (12.0-16.0) g/dL Hct (36.0-48.0) % MCV (81.0-99.0) fL MCH (26.7-34.0) pg MCHC (29.9-35.2) g/dL RDW (11.0-15.0) % Plt Count (150-450) 10^3/uL MPV (9.5-13.5) fL Neut % (Auto) (43.0-75.0) % Lymph % (Auto) (20.5-60.0) % [place] % (Auto) (1.7-12.0) % Eos % (Auto) (0.9-7.0) % Baso % (Auto) (0.2-2.0) % Neut # (Auto) (1.4-6.5) 10^3/uL Lymph # (Auto) (1.2-3.8) 10^3/uL [place] # (Auto) (0.3-0.8) 10^3/uL Eos # (Auto) (0.0-0.7) 10^3/uL Baso # (Auto) (0.0-0.1) 10^3/uL Abs Immat Gran (auto) (0.00-0.03) 10^3/uL Imm/Tot Granulo (auto) (0.0-0.5) % PT (9.0-11.6) sec INR VBG pH (7.330-7.430) VBG pCO2 (40.0-52.0) mmHg Sodium (136-145) mmol/L Potassium (3.5-5.1) mmol/L Chloride (98-107) mmol/L Carbon Dioxide (21.0-32.0) mmol/L Anion Gap BUN (7.0-18.0) mg/dL Creatinine (0.55-1.02) mg/dL Est GFR ( Amer) (>=60) Est GFR (Non-Af Amer) (>=60) BUN/Creatinine Ratio Glucose (74-106) mg/dL Lactate (0.4-2.0) mmol/L Calcium (8.5-10.1) mg/dL Total Bilirubin (0.2-1.0) mg/dL AST (15-37) U/L ALT (14-59) U/L Alkaline Phosphatase (46-116) U/L Troponin I High Sens (4.0-51.3) pg/mL NT-Pro-B Natriuret Pep (<=1800.0) pg/mL Total Protein (6.4-8.2) g/dL Albumin (3.4-5.0) g/dL Globulin g/dL Albumin/Globulin Ratio Procalcitonin (0.00-0.50) ng/mL Urine Color Lt. yellow (YELLOW) Urine Clarity Clear (CLEAR) Urine pH 7.0 (5.0-9.0) Ur Specific [place] 1.020 (1.005-1.025) Urine Protein 30 A (NEG/TRACE) mg/dL Urine Glucose (UA) Negative (NEGATIVE) mg/dL Urine Ketones Negative (NEGATIVE) mg/dL Urine Occult Blood Trace-i (NEGATIVE) Urine Nitrite Negative (NEGATIVE) Urine Bilirubin Negative (NEGATIVE) Urine Urobilinogen 4.0 A (0.2-1.0) EU/dL Ur Leukocyte Esterase Trace A (NEGATIVE) Urine RBC 0-2 (0-2) #/HPF Urine WBC 0-2 A (NONE SEEN) #/HPF Ur Squamous Epith Cells Rare (NONE/RARE) #/LPF Urine Crystals None seen (None Seen) #/HPF Urine Bacteria None seen (NONE SEEN) #/HPF Urine Casts None seen (NONE SEEN) #/LPF Urine Mucus None seen (NONE SEEN) Ur Culture Indicated? No Adenovirus (PCR) (NOT DETECTE) C. pneumoniae DNA (PCR) (NOT DETECTE) Coronavirus Type OC43 (NOT DETECTE) Coronavirus Type HKU1 (NOT DETECTE) Coronavirus Type 229E (NOT DETECTE) Coronavirus Type NL63 (NOT DETECTE) Human Metapneumovir PCR (NOT DETECTE) M. pneumoniae (PCR) (NOT DETECTE) Parainfluenza PCR (NOT DETECTE) Parainfluenza 2 (PCR) (NOT DETECTE) Parainfluenza 3 (PCR) (NOT DETECTE) Parainfluenza 4 (PCR) (NOT DETECTE) RSV (RT-PCR) (NOT DETECTE) Entero/Rhino (PCR) (NOT DETECTE) SARS-CoV-2 (PCR) (NOT DETECTE) Bordetella pertussis (PCR) (NOT DETECTE) B parapertussis DNA PCR (NOT DETECTE) Influenza Type A (PCR) (NOT DETECTE) Influenza Type B (PCR) (NOT DETECTE) Imaging Data Chest x-ray: Radiologist's impression: ITS Impressions Chest X-Ray 08/20/23 20:10 IMPRESSION: No acute pulmonary findings. Electronically authenticated by: JUAN JOSE MUELLER Date: 08/20/2023 21:00 Discharge Plan Discharge Chief Complaint: Nausea/Vomiting/Diarrhea Clinical Impression: Upper respiratory infection, Fever, HTN (hypertension) Patient Disposition: Home, Self-Care Time of Disposition Decision: 22:07 Prescriptions / Home Meds: New azithromycin 250 mg tablet See Rx Instructions .ROUTE .COMPLEX Qty: 6 0RF Rx Instructions: For 250 mg dose pack: take 500 mg today (day 1), then 250 mg for 4 days (days 2-5) ondansetron 4 mg tablet,disintegrating 4 mg PO Q6H PRN (Reason: nausea and vomiting) Qty: 14 0RF No Action Eliquis 5 mg tablet 5 mg PO Q12H atorvastatin 40 mg tablet 40 mg PO .every night cyclobenzaprine 10 mg tablet 10 mg PO Q12H gabapentin 600 mg tablet 600 mg PO Q12H hydrochlorothiazide 25 mg tablet 25 mg PO .every night metoprolol tartrate 25 mg tablet 25 mg PO Q12H tramadol 50 mg tablet 50 mg PO Q12H valsartan 160 mg tablet 160 mg PO DAILY tramadol 50 mg tablet 50 mg PO Q8H PRN (Reason: pain) Qty: 14 0RF brimonidine-timolol [Combigan] 0.2-0.5 % drops 1 drp OPHTHALMIC (EYE) Q12H Rx Instructions: Both eyes latanoprost 0.005 % drops 1 drp OPHTHALMIC (EYE) DAILY Rx Instructions: PM Instructions: Fever in Adults (ED), Upper Respiratory Infection (ED), Hypertension (ED) Stand Alone Forms: Portal Instructions Referrals: ANNA ESPINOZA [Primary Care Provider] - 1 week
[2023-08-20 20:22] VITALS: BP 162/86; TEMP 39.3
[2023-08-20 20:23] VITALS: PULSE 105
[2023-08-20 20:33] LABS: Adenovirus NOT DETECTED (NOT DETECTE); Bordetella parapertussis NOT DETECTED (NOT DETECTE); Coronavirus 229E NOT DETECTED (NOT DETECTE); Coronavirus HKU1 NOT DETECTED (NOT DETECTE); Coronavirus NL63 NOT DETECTED (NOT DETECTE); Coronavirus OC43 NOT DETECTED (NOT DETECTE); Human Metapneumovirus NOT DETECTED (NOT DETECTE); Human Rhinovirus/Enterovirus NOT DETECTED (NOT DETECTE); Influenza A NOT DETECTED (NOT DETECTE); Influenza B NOT DETECTED (NOT DETECTE); Mycoplasma pneumoniae NOT DETECTED (NOT DETECTE); Parainfluenza Virus 1 NOT DETECTED (NOT DETECTE); Parainfluenza Virus 2 NOT DETECTED (NOT DETECTE); Parainfluenza Virus 3 NOT DETECTED (NOT DETECTE); Parainfluenza Virus 4 NOT DETECTED (NOT DETECTE); Respiratory Syncytial Virus NOT DETECTED (NOT DETECTE); SARS-CoV-2 NOT DETECTED (NOT DETECTE)
[2023-08-20 20:36] LABS: Basophils Absolute Auto 0.1 10^3/uL (0.0-0.1); Basophils Percent Auto 0.3 % (0.2-2.0); Eosinophils Absolute Auto 0.1 10^3/uL (0.0-0.7); Eosinophils Percent Auto 0.4 % (0.9-7.0); Hematocrit 33.4 % (36.0-48.0); Hemoglobin 10.3 g/dL (12.0-16.0); Immature Granulocytes Abs Auto 0.04 10^3/uL (0.00-0.03); Immature Granulocytes Pct Auto 0.3 % (0.0-0.5); Lymphocytes Absolute Auto 1.3 10^3/uL (1.2-3.8); Lymphocytes Percent Auto 8.1 % (20.5-60.0); Mean Corpuscular HGB Conc 30.8 g/dL (29.9-35.2); Mean Corpuscular Hemoglobin 20.6 pg (26.7-34.0); Mean Corpuscular Volume 66.7 fL (81.0-99.0); Mean Platelet Volume 10.8 fL (9.5-13.5); Monocytes Absolute Auto 1.1 10^3/uL (0.3-0.8); Neutrophils Absolute Auto 13.4 10^3/uL (1.4-6.5); Neutrophils Percent Auto 83.9 % (43.0-75.0); Platelet Count 345 10^3/uL (150-450); Red Blood Count 5.01 10^6/uL (4.20-5.40); Red Cell Distribution Width 15.4 % (11.0-15.0); White Blood Count 15.9 10^3/uL (4.0-11.0)
[2023-08-20 20:36] LABS: PCO2 VBG 38.4 mmHg (40.0-52.0); pH VBG 7.464 (7.330-7.430)
[2023-08-20] MEDS: 0.9 % SODIUM CHLORIDE 1,000 ML 999 ML IV (20:41)
[2023-08-20] MEDS: ONDANSETRON PF 4 MG/2 ML VIAL IV (20:41)
[2023-08-20] MEDS: ACETAMINOPHEN 325 MG TABLET 650 MG PO (20:41)
[2023-08-20 21:01] LABS: Lactate/Lactic Acid 0.9 mmol/L (0.4-2.0)
[2023-08-20 21:02] LABS: INR 1.04
[2023-08-20 21:08] LABS: PROCALCITONIN <0.05 ng/mL (0.00-0.50)
[2023-08-20 21:22] LABS: Alanine Aminotransferase 16 U/L (14-59); Albumin Level 3.5 g/dL (3.4-5.0); Alkaline Phosphatase 61 U/L (46-116); Aspartate Amino Transferase 19 U/L (15-37); BUN Creatinine Ratio 19.3; Bilirubin Total 1.6 mg/dL (0.2-1.0); Calcium 8.6 mg/dL (8.5-10.1); Carbon Dioxide 27.6 mmol/L (21.0-32.0); Chloride 100 mmol/L (98-107); Estimated GFR (African America 56 (>=60); Estimated GFR (Non-African Ame 46 (>=60); Globulin 3.5 g/dL; Glucose 109 mg/dL (74-106); Potassium 3.6 mmol/L (3.5-5.1); Sodium 138 mmol/L (136-145)
[2023-08-20 21:24] VITALS: BP 170/100; PULSE 87; RESP 20; TEMP 37.9; O2SAT 98
[2023-08-20 21:28] LABS: Troponin I High Sensitivity 15.5 pg/mL (4.0-51.3)
[2023-08-20 21:44] LABS: Bilirubin Urine NEGATIVE (NEGATIVE); Blood Urine TRACE-I (NEGATIVE); Clarity Urine CLEAR (CLEAR); Color Urine LT. YELLOW (YELLOW); Glucose Urine UA NEGATIVE (NEGATIVE); Ketones Urine NEGATIVE (NEGATIVE); Leukocyte Esterase Urine TRACE (NEGATIVE); Nitrite Urine NEGATIVE (NEGATIVE); Protein Urine 30 mg/dL (NEG/TRACE)
[2023-08-20 21:47] LABS: Urine Microscopic Indicated YES
[2023-08-20 21:51] LABS: Bacteria Urine NONE SEEN #/HPF (NONE SEEN); Cast Seen? NONE SEEN #/LPF (NONE SEEN); Crystals Seen? None Seen #/HPF (None Seen); Mucus Urine NONE SEEN (NONE SEEN); RBC Urine 0-2 #/HPF (0-2); Squamous Epithelial Cell Urine RARE #/LPF (NONE/RARE); Urine Culture Indicated NO; WBC Urine 0-2 #/HPF (NONE SEEN)
[2023-08-20] MEDS: LABETALOL HCL 20 MG/4 ML SYRINGE IVP (22:12)
[2023-08-20 22:54] VITALS: BP 100/68; PULSE 101; RESP 16; TEMP 36.7; O2SAT 97
== END 2023-08-20 22:57 | disposition home or self-care (01) ==
PROVIDERS: Physician Assistant; Emergency Provider Emergency Medicine; PCP Family Medicine
DX: J06.9 Acute upper respiratory infection, unspecified (principal); R50.9 Fever, unspecified; I10 Essential (primary) hypertension; I48.91 Unspecified atrial fibrillation; Z79.01 Long term (current) use of anticoagulants; Z20.822 Contact with and (suspected) exposure to COVID-19
CPT/HCPCS: 0202U; 36415; 71045; 80053; 81001; 82800; 83605; 83880; 84145; 84484; 85025; 85610; 87040; 93005; 96374; 96375; 99285

== ENCOUNTER 2024-03-24 20:03 | Emergency (ER) | payer MEDICARE, SELFPAY ==
[2024-03-24 20:11] VITALS: PULSE 83; O2SAT 98; BMI 21.5
--- OUTSIDE RECORDS SUMMARY | 2024-03-24 20:13 | XMS_ITS | CCD ---
Author Organization [facility] Care Team Providers Care Rug Setter Velvet Name Role Phone UNKNOWN, PROVIDER Attending Unavailable MOI FU Primary Care Unavailable UNKNOWN, PROVIDER Attending Unavailable MOI FU Primary Care Unavailable UNKNOWN, PROVIDER Attending Unavailable MIO FU Primary Care Unavailable UNKNOWN, PROVIDER Attending [...] Primary Care Unavailable HAY, MISTY Admitting Unavailable HAY, MISTY Attending Unavailable LAMONTE NUR R Consulting Unavailable ALLA, MISTY Consulting Unavailable Kip Espinoza Unavailable Unavailable Unavailable Alli Nicholas Unavailable Maude Trotter Unavailable Marilin Resendez Unavailable DO Kip Espinoza Primary Care Provider [phone] DO Alli Nicholas Attending Provider [phone] DO Moises Alberto Emergency Provider [phone] DO Kip Espinoza Primary Care Provider DO Alli Nicholas Attending Provider Dr. Esau Aceves Attending Gian Espinoza, Dr. Kip Sullivan Primary Care Dr. Esau Andujar Referring Gian Espinoza, Dr. Kip Sullivan Primary Care Unava ilable Connors, LOG RAFTER Joyce Referring Unavailable JAMAICA Connorsna Attending Unavailable House, Kip Primary Care Provider [facility], DO Citlalli Abdi Emergency Provider Unavailable Primary Care Provider Unavailabl ESAU Almonte Attending Unavailable ESAU ACEVES Referring Unavailable ALEXIS, KIP SULLIVAN Primary Care Unavailab EVELIA Batista Emergency Provider [phone] House, Kip Primary Care Provider [place], DO Lito T Admit Provider [place], DO Lito T Attending Provider [phone] Citlalli Tenorio Attending Unavailable Alexis, Kip Primary Care Unavailable Citlalli Tenorio Admitting Unavailable Kevin, Lito T Attending Unavailable House, Kip Primary Care Unavailable [place], Lito T Admitting Unavailable Andrea ARIAS, Jose Douglass Attending Unavailable HOUSE, KIP Aguilar Primary Care Unavailable Jose Mendez MD Attending Unavailable HOUSE, KIP Aguilar Primary Care Unavailable HOUSE, KIP Aguilar Attending Unavailable HOUSE, KIP P Primary Care Unavailable HOUSE, KIP Aguilar Attending Unavailable Jose Mendez MD Attending Unavailable Allergies Allergy Classification Reported Allergen(s) Allergy Type Date of Onset Reaction(s) Facility (1 source) amLODIPine / valsartan Drug Allergy 015 [facility] Repository (1 source) hydroCHLOROthiazide / Lisinopril Drug Allergy 015 [facility] Repository (1 source) irbesartan Drug Allergy 015 [facility] Repository (20 sources) levoFLOXacin Drug Allergy 015 Unknown [facility] Repository (20 sources) Verapamil Drug Allergy 015 Unknown [facility] Repository (14 sources) Angiotensin Converting Enzyme (Deyanira) Inhibitors; Translations: [DEYANIRA Inhibitors] Allergy to drug (finding) 023 [facility] 3 Repository (16 sources) Lisinopril; Translations: [lisinopril] Drug Allergy 023 Other, Cough, Headache [facility] 250 DO Work Phone: (20 sources) amLODIPine / valsartan Drug Allergy Unknown [facility] Other (20 sources) hydroCHLOROthiazide / Lisinopril Drug Allergy Unknown [facility] Other (20 sources) irbesartan Drug Allergy 024 Unknown, Unknown Reaction [facility] (1 source) Angiotensin-convertin g enzyme inhibitor agent Drug Intolerance 023 Other, Cough, Headache [facility] (1 source) amLODIPine Drug Allergy Unknown Reaction [facility] (1 source) hydrALAZINE Drug Allergy 024 Numbness [facility] (1 source) hydroCHLOROthiazide Drug Allergy 024 Unknown Reaction [facility] (1 source) levoFLOXacin Drug Allergy 024 Unknown Reaction [facility] (1 source) valsartan Drug Allergy 024 Unknown Reaction [facility] (1 source) Verapamil Drug Allergy 024 Unknown Reaction [facility] Medications Current Medications Medication Drug Class(es) [...] Start: 07-27-2017 take 1 tablet by yao every twelve hours Apixaban (Eliquis) 5 mg Tablet Active 5 MG PO Q12H July 27, 2017 1:00am Start: 07-25-2017 End: 04-10-2023 take 1 tablet [...] 81 MG PO Daily July 10, 2017 1:00am July 09, 2023 3:10pm Every other day. atorvastatin 40 mg oral [...] PO Daily at bedtime May 27, 2021 1:00am Start: 07-10-2017 End: 05-27-2021 take 40 mg by mouth once daily Atorvastatin Discontinu ed 40 MG PO daily July 10, 2017 1:00am May 27, 2021 5:21pm cyclobenzaprine hydrochloride 10 mg oral tablet (20 sources) Muscle Relaxant Start: 10-09-2023 End: 10-31-2023 take 5-10 mg by mouth every eight hours Cyclobenzaprine Active 5 - 10 MG PO Q8H 30 October 31, 2023 9:42am Start: 09-10-2023 End: 10-09-2023 take 10 mg by mouth three times daily Cyclobenzaprine Discontinued 10 MG PO Three times daily 30 September 10, 2023 10:45am October 09, 2023 6:23am Start: 07-09-2023 End: 09-10-2023 take 10 mg by mouth once daily Cyclobenzaprine Discont inued 10 MG PO Daily July 09, 2023 1:00am September 10, 2023 10:47am Start: 04-04-2022 take 1 tablet by yao th three times daily as needed cyclobenzaprine (Flexeril) 10 mg tablet Take 1 tablet (10 mg) by mouth 3 times a day as needed. 0 04/04/2022 Active Start: 08-02-2021 End: 01-19-2022 take 10 mg by mouth every eight hours Cyclobenzaprine Discontinued 10 MG PO Q8H August 02, 2021 1:00am January 19, 2022 6:06pm Start: 06-08-2021 End: 01-19-2022 take 10 mg by mouth three times daily Cyclobenzaprine Discontinued 10 MG PO Three times daily August 02, 2021 1:00am January 19, 2022 6:06pm Start: 07-10-2017 End: 01-10-2019 take 10 mg by mouth once daily at bedtime Cyclobenzaprine Discontinued 10 MG PO Daily at bedtime July 10, 2017 1:00am January 10, 2019 12:56pm docusate sodium 100 mg oral capsule (20 [...] NEEDED 0 04/10/2022 Active Start: 07-10-2017 take 300 mg by mouth three times daily Gabapentin Active 300 MG PO Three times daily July 10, 2017 1:00am hydroCHLOROthiazide 25 mg oral tablet (5 sources) Thiazide Diuretic Start: 07-11-2023 take 37.5 mg by mouth once daily Hydrochlorothiazide Active 37.5 MG PO Daily July 11, 2023 1:00am Start: 04-10-2023 End: 04-09-2024 take 25 mg by mouth once daily Hydrochlorothiazide Discontinued 25 MG PO Daily July 09, 2023 1:00am July 11, 2023 11:26am latanoprost 0.05 mg/ml ophthalmic solution (14 sources) Prostaglandin Analog Start: 03-07-[address] [...] drops Active 1 DROPS EYE-BOTH Bedtime January 10, 2019 12:00am Instill one drop into affected eye once [...] MG PO Twice daily July 27, 2017 1:00am take 1 tablet by yao th every twelve hours Metoprolol Tartrate 25 MG 1 tablet with food Orally Twice a day Active take 2 tablets by mo [facility] twice daily Metoprolol Tartrate 25 MG Oral Tablet TAKE 2 TABLET Twice daily Quantity: 0 Refills: 0 Ordered: 12-Apr-2021 DO Active nitroglycerin 0.4 mg sublingual tablet (20 sources) Nitrate Vasodilator Start: 01-10-2019 Nitroglyce rin (Nitrostat) 0.4 mg tablet, sublingual Active 0.4 MG SUBLINGUAL EVERY 3-5 MINUTES January 10, 2019 12:00am Start: 02-11-2015 Nitrostat 0.4 MG 1 tablet Sublingual q5 min x3 if no relief call 911 prn 13 Jan, 2015 Active omeprazole 20 mg delayed release oral capsule (14 sources) Proton Pump Inhibitor End: 04-10-2023 take 1 capsule by mouth once daily before mealtime omeprazole (PriLOSEC) [address] capsule Take 1 capsule (20 mg) by mouth once daily in the morning. Take before meals. 0 04/10/2023 Discontinued (Therapy completed) oxyCODONE hydrochloride 5 mg oral tablet (16 sources) Opioid Agonist Start: 06-08-2021 take 1 tablet by mouth every four hours oxyCODONE HCl 5 MG 1 tablet as needed Orally every 4 hrs for 7 days do not fill until 1 day prior to surgery Jun, Active Start: 07-10-2017 End: 01-10-2019 take 10 mg by mouth every six hours Oxycodone Discontinued 10 MG PO Q6H July 10, 2017 1:00am January 10, 2019 12:56pm potassium chloride 10 meq extended release oral tablet (1 source) Start: 04-10-2023 End: 04-09-2024 take 1 tablet by mouth twice daily potassium chloride CR (Klor-Con) 10 mEq ER tablet Indications: Essential hypertension, benign , History of PTCA Take 1 tablet (10 mEq) by mouth 2 times a day. Do not crush, chew, or split. 60 tablet 11 04/10/2023 04/09/2024 Active Timolol Maleate (2 sources) beta-Adrenergic [place] Start: 07-09-2023 take 1 drop(s) into the eye(s) twice daily Timolol Maleate Active 1 DROPS EYE-BOTH Twice daily July 09, 2023 1:00am Start: 07-09-2023 take 1 drop(s) into the eye(s) twice daily Timolol Maleate Active 1 DROPS EYE-BOTH Twice daily July 09, 2023 12:00am traMADol hydrochloride 50 mg oral tablet (20 sources) Opioid Agonist Start: 09-10-2023 End: 10-31-2023 Tramadol Active 50 MG PO every 6 to 8 hours 50 14 October 31, 2023 9:42am fifty tablets left knee osteoarthritis M17.12 Start: 07-09-2023 End: 10-31-2023 take 1 mg by mouth once daily Tramadol Discontinued 1 MG PO Daily July 09, 2023 1:00am October 31, 2023 9:43am Start: 05-04-2021 End: 01-19-2022 take 50 mg by mouth every four hours Tramadol Discontinued 50 MG PO Q4H 42 7 August 02, 2021 1:00am January 19, 2022 6:06pm valsartan 320 mg oral tablet (11 sources) Angiotensin 2 Receptor [place] Start: 04-10-2023 End: 04-09-2024 take 320 mg by mouth once daily Valsartan Active 320 MG PO Daily July 09, 2023 1:00am Start: 04-13-2022 End: 04-10-2023 take 1 tablet [...] Discontinued 1000 MG PO Every 8 hours August 02, 2021 1:00am January 19, 2022 6:06pm Start: 06-08-2021 take 2 tablets by mouth [...] week ascorbic acid 500 mg oral tablet (6 sources) Vitamin C Start: 1 End: 2 take 1 tablet by mouth once daily Ascorbic Acid (Vitamin C) (Vitamin C) 500 mg Tablet Discontinued 500 MG PO Daily May 27, 2021 1:00am January 19, 2022 6:06pm [id number] Calcium-B6 (6 sources) Start: 8 End: 9 take 1 tablet by mouth once daily [id number] Calcium-B6 Discontinued 1 TAB PO Daily August 21, 2017 12:00am January 10, 2019 11:56am Start: 08-21-2017 End: 01-10-2019 take 1 tablet by mouth once daily [id number] Calcium-B6 Discontinued 1 TAB PO Daily August 21, 2017 1:00am January 10, 2019 12:56pm busPIRone hydrochloride 15 mg oral tablet (20 sources) Start: 05-27-2021 End: 07-09-2023 take 5 mg by mouth once daily at bedtime Buspirone Discontinued 5 MG PO Daily at bedtime May 27, 2021 1:00am July 09, 2023 3:07pm Start: 03-22-2021 End: 07-09-2023 take 1 tablet by mouth once daily in the morning Buspirone Discontinued 10 MG PO Every morning March 22, 2021 12:00am July 09, 2023 3:07pm Takes 10mg in AM, 5mg at night. Uses one 15mg tablet and breaks it. Start: 01-10-2019 End: 03-22-2021 take 7.5 mg by mouth twice daily Buspirone Discontinued 7.5 MG PO Twice daily January 10, 2019 12:00am March 22, 2021 12:50am Start: 11-15-2017 take 2 tablets by mo uth in the morning, then take 1 tablet by mouth in the evening busPIRone HCl 5 MG 2 tablets in the AM Orally and 1 tablet in the PM October, Active Start: 11-15-2017 End: 04-10-2023 busPIRone (Buspar) 15 mg tab let Take by mouth once daily as needed. 0 04/10/2023 Discontinued (Therapy completed) cholecalciferol 0.05 mg oral capsule (6 sources) Vitamin D Start: 07-27-2017 End: 01-10-2019 take 1 capsule by mouth once Cholecalciferol (Vitamin D3) (Vitamin D3) 2,000 unit Capsule Discontinued 2000 UNIT PO Once July 27, 2017 1:00am January 10, 2019 12:56pm clopidogrel 75 mg oral tablet (6 sources) P2Y12 Platelet Inhibitor Start: 07-10-2017 End: 07-27-2017 take 75 mg by mouth once daily Clopidogrel Discontinued 75 MG PO daily July 10, 2017 1:00am July 27, 2017 10:07am Durolane (20 sources) Start: 02-16-2020 Durolane Jan, 60 mg ferrous sulfate 325 mg oral tablet (6 sources) Start: 06-15-2021 End: 08-02-2021 take 1 tablet by mouth twice daily Ferrous Sulfate (Iron) 325 mg (65 mg iron) tablet Discontinued 325 MG PO Twice daily 60 June 15, 2021 1:00am August 02, 2021 2:32pm Fish Oil & Vitamin D3 (6 sources) Start: 05-27-2021 End: 08-02-2021 take 1 capsule by mouth once daily Fish Oil & Vitamin D3 Discontinued 1 CAP PO Daily May 27, 2021 12:00am August 02, 2021 1:32pm Start: 05-27-2021 End: 08-02-2021 take 1 capsule by mouth once daily Fish Oil & Vitamin D3 Discontinued 1 CAP PO Daily May 27, 2021 1:00am August 02, 2021 2:32pm handicap placard (1 source) Start: 08-20-2023 End: 11-19-2023 handicap placard Discontinued 0 .Route .MEDSUPPLY August 20, 2023 1:00am November 19, 2023 12:02am As directed. 3 month duration hydrOXYzine pamoate 50 mg oral capsule (6 sources) Antihistamine Start: 06-16-2021 End: 08-02-2021 take 50 mg by mouth every six hours Hydroxyzine Pamoate Discontinued 50 MG PO Q6H 60 June 16, 2021 1:00am August 02, 2021 2:32pm LORazepam 0.5 mg oral tablet (6 sources) Benzodiazepine Start: 06-16-2021 End: 08-02-2021 take 1 tablet by mouth twice daily Lorazepam (Ativan) 0.5 mg tablet Discontinued 0.5 MG PO Twice daily 14 June 16, 2021 1:00am August 02, 2021 2:33pm losartan potassium 100 mg oral tablet (20 sources) Angiotensin 2 Receptor [place] Start: 07-10-2017 End: 07-09-2023 take 100 mg by mouth once daily in the morning Losartan Discontinued 100 MG PO Every morning July 10, 2017 1:00am July 09, 2023 3:12pm meclizine hydrochloride 25 mg oral tablet (6 sources) Antiemetic Start: 01-10-2019 End: 03-22-2021 take 25 mg by mouth once daily Meclizine Discontinued 25 MG PO Daily January 10, 2019 12:00am March 22, 2021 12:50am raNITIdine 150 mg oral tablet (12 sources) Histamine-2 Receptor Antagonist Start: 07-27-2017 End: 01-10-2019 take 150 mg by mouth once daily at bedtime Ranitidine Hcl Discontinued 150 MG PO Daily at bedtime July 27, 2017 12:00am January 10, 2019 11:56am Start: 07-10-2017 End: 01-10-2019 take 150 mg by mouth once daily at bedtime Ranitidine Hcl Discontinued 150 MG PO Daily at bedtime July 27, 2017 1:00am January 10, 2019 12:56pm triamcinolone acetonide 40 mg/ml injectable suspension (20 [...] Documented Da te Episodic/Chronic Acute myocardial infarction (6 sources) Acute non-ST segment elevation myocardial infarction; Translations: [Non-ST elevation (NSTEMI) myocardial infarction] 03-21-2021 Chronic Anxiety disorders (20 sources) Anxiety; Translations: [Anxiety disorder, unspecified] Chronic Cardiac dysrhythmias (20 sources) Chronic atrial fibrillation; Translations: [Unspecified atrial fibrillation] Onset: 07-09-2018 03-22-2021 Chronic Cardiac dysrhythmias (14 sources) Palpitations; Translations: [Palpitations] Onset: 03-05-2023 03-05-2023 Episodic Complication of device; implant or graft (6 sources) Arthropathy of knee joint; Translations: [Fibrosis due to internal orthopedic prosthetic devices, implants and grafts, initial encounter] 08-02-2021 Episodic Coronary atherosclerosis and other heart disease (20 sources) Ischemic cardiomyopathy; Translations: [Atherosclerotic heart disease of [place] coronary artery without angina pectoris] Onset: 07-09-2018 05-27-2021 Chronic Coronary atherosclerosis and other heart disease (2 sources) Coronary angioplasty status; Translations: [Coronary angioplasty status] Onset: 03-05-2023 Episodic Deficiency and other anemia (20 sources) Thalassemia; Translations: [Thalassemia, unspecified] 09-12-2017 Chronic Deficiency and other anemia (1 source) Thalassemia, unspecified; Translations: [Thalassemia] Chronic Deficiency and other anemia (6 sources) Anemia; Translations: [Anemia, unspecified] 09-12-2017 Episodic [...] Episodic Hypertension with complications and secondary hypertension (4 sources) Hypertensive urgency ; Translations: [Hypertensive urgency] Onset: 07-09-2023 07-09-2023 Chronic Malaise and fatigue (6 sources) Fatigue; Translations: [Other fatigue] 09-12-2017 Episodic [...] Translations: [Osteoporosis] Chronic Other aftercare (1 source) [facility] (current) use of anticoagulants; Translations: [JAIL CURRNT USE ANTICOAGULANTS] Onset: 05-19-2019 Episodic Other aftercare (20 sources) Drug therapy finding; Translations: [Long-term (current) use of anticoagulants] Onset: 03-05-2023 03-05-2023 Episodic Other aftercare (2 sources) Taking high risk medication; Translations: [Other assistant terminal manager (current) drug therapy] Onset: 03-05-2023 04-10-2023 Episodic Other aftercare (2 sources) Other assistant terminal manager (current) drug therapy; Translations: [Other nursing home (current) drug therapy] Onset: 03-05-2023 Episodic Other connective tissue disease (20 sources) History of total knee arthroplasty; Translations: [Presence of left artificial knee joint] 06-15-2021 Chronic Other connective tissue disease (7 sources) Presence of left artificial knee joint Onset: 06-27-2021 Resolved: 12-14-2021 Chronic Other connective tissue disease (4 sources) Trigger finger, right middle finger; Translations: [Trigger finger (acquired)] Onset: 01-11-2022 Resolved: 01-11-2022 Episodic Other connective tissue disease (3 sources) Pain in right hand Onset: 01-11-2022 Resolved: 01-11-2022 Episodic Other connective tissue disease (3 sources) Trigger finger, right index finger; Translations: [Trigger finger (acquired)] Episodic Other connective tissue disease (2 sources) Triggering of digit; Translations: [Trigger finger, right middle finger] 11-15-2023 Episodic Other lower respiratory disease (15 sources) Dyspnea on exertion; Translations: [Shortness of breath] Onset: 03-05-2023 04-10-2023 Episodic Other lower respiratory disease (6 sources) Dyspnea; Translations: [Dyspnea, unspecified] 09-12-2017 Episodic [...] conditions (not mental disorders or infectious disease) (3 sources) Raised cardiac enzyme or marker; Translations: [Other specified abnormal findings of blood chemistry] 07-09-2023 Episodic Other upper respiratory infections (6 sources) Upper respiratory infection; Translations: [Acute upper [...] WALL THORAX INITIAL] Onset: 05-19-2019 Episodic Syncope (4 sources) Near syncope; Translations: [Syncope and collapse] Onset: 07-09-2023 07-09-2023 Episodic Unclassified (1 source) Other nursing home (current) drug therapy Onset: 07-09-2018 Unclassified (2 sources) Chronic atrial fibrillation, unspecified; Translations: [Chronic atrial fibrillation, unspecified] Onset: 03-05-2023 Viral infection (6 sources) Viral disease; Translations: [Viral infection, unspecified] [...] Value Interpretation Reference Range Facility Patient Letteron 12-19-2023 Patient Letter [id number]#1.00OTGT[facility] Outside Recordson 12-03-2023 Outside Records [id number]#1.00OTGTI [facility] Controlled Substances Agreem entson 09-19-2023 Controlled Substances Agreements [id number]#1.00OTGT IFF [facility] Patient Letteron 07-17-2023 Patient Letter [id number]#1.00OTGT IFF [facility] Outside Recordson 07-12-2023 Outside Records [id number]#1.00[facility] Acanthocytes [Presence] in B lood by Light microscopyOrdered By: Kristyn Morrison on 07-10-2023 Acanthocytes LM Ql (Bld) Moderate [facility] Anisocytosis LM Ql (Bld)Orde red By: Kristyn Morrison on 07-10-2023 Anisocytosis Ql (Bld) Moderate [facility] Basic Metabolic Panelon Anion gap [Moles/Vol] 10.5 mmol/L Normal 6.0-15.0 [facility] Comment on above: Performed By: #### C MP, MG #### [facility] [address] [place] [address] [place] Calcium [Mass/Vol] 9.0 mg/dL Normal 8.6-10.3 [facility] Comment on above: Performed By: #### C MP, MG #### [facility] [address] [place] [address] [place] Chloride [Moles/Vol] 106 mmol/L Normal 98-107 [facility] Comment on above: Performed By: #### C MP, MG #### [facility] [address] [place] [address] [place] CO2 [Moles/Vol] 26.1 mmol/L Normal 21.0-31.0 [facility] Comment on above: Performed By: #### C MP, MG #### [facility] [address] [place] [address] [place] Creatinine [Mass/Vol] 0.94 mg/dL Normal 0.60-1.20 [facility] Comment on above: Performed By: #### C MP, MG #### [place] [address] [place] Creatinine Clr Calc Pharmacy 43.67 [facility] Comment on above: Result Comment: PERF ORMED BY: [place] [address] PATHOLOGIST SAP BI DEVELOPER STACY ROJAS M.D. Performed By: #### C MP, MG #### [place] [address] [place] GFR/1.73 sq M.predicted MDRD (S/P/Bld) [Vol rate/Area] mL/min/{1.73_m2} Normal [facility] Comment on above: Performed By: #### C MP, MG #### [address] Glucose [Mass/Vol] 90 mg/dL Normal 70-100 [facility] Comment on above: Result Comment: [place] Glucose Reference Range is dependent on time and content of last meal. Glucose of more than 200 mg/dL in a nonstressed, ambulatory subject supports the diagnosis of Diabetes Mellitus. ADA recommended reference range Performed By: #### C MP, MG #### [place] [address] [place] Potassium [Moles/Vol] 3.6 mmol/L Normal 3.5-5.1 [facility] Comment on above: Performed By: #### C MP, MG #### [place] [address] [place] Sodium [Moles/Vol] 139 mmol/L Normal 136-145 [facility] Comment on above: Performed By: #### C MP, MG #### [place] [address] [place] Urea nitrogen [Mass/Vol] 11 mg/dL Normal 7-25 [facility] Comment on above: Performed By: #### C MP, MG #### [facility] [address] [place] [id number] [place] Basophils Auto (Bld) [#/Vol] Ordered By: Kristyn Morrison on 07-10-2023 Basophils (Bld) [#/Vol] 0.1 10*3/uL 0.0-0.2 [facility] Basophils/100 WBC Auto (Bld) Ordered By: Kristyn Morrison on 07-10-2023 Basophils/100 WBC (Bld) 0.9 % . [facility] Anayeli cells [Presence] in Blo od by Light microscopyOrdered By: Kristyn Morrison on 07-10-2023 Anayeli cells LM Ql (Bld) Moderate Fi [facility] Calcium [Mass/volume] in Ser um or PlasmaOrdered By: Kristyn Morrison on 07-10-2023 Calcium [Mass/Vol] 9.0 mg/dL 8.6-10.3 [facility] Carbon dioxide, total [Moles /volume] in Serum or PlasmaOrdered By: Kristyn Morrison on 07-10-2023 CO2 [Moles/Vol] 26.1 mmol/L 21.0-31.0 [facility] Chloride [Moles/volume] in S amador or PlasmaOrdered By: Kristyn Morrison on 07-10-2023 Chloride [Moles/Vol] 106 mmol/L 98-107 [facility] Creatinine [Mass/volume] in Serum or PlasmaOrdered By: Kristyn Morrison on 07-10-2023 Creatinine [Mass/Vol] 0.94 mg/dL 0.60-1.20 [facility] ECH echo transthoracicon [facility] echo transthoracic [facility] [place] [address] [place] [id number] Echocardiogram Signed Patient: Radha Butt MR#: [id number] : 1945 Acct:[id number] Age/Sex: 78 / F ADM Date: 07/09/23 Loc: Room: [address] [place] [address] Type: ADM INOo Attending Dr: Lito Kevin DO Ordering Provider: Kristyn Morrison APRN Date of Service: 07/10/2303/25/1130 [facility] transthoracic: Presyncope-will discharge today Copies to: MD Krsityn Crespo, EVELIA BSA: 1.7 m2 BP: 172/104 mmHg HR: [...] V1 VTI: 21.7 cm ___ Transcribed By: SCV Performed At: 07/10/23 1255 Signed By: José Manuel Coon MD 07/10/23 1804 Normal [facility] Eosinophils Auto (Bld) [#/Vo l]Ordered By: Kristyn Morrison on 07-10-2023 Eosinophils (Bld) [#/Vol] 0.0 10*3/uL 0.0-0.45 [facility] Eosinophils/100 WBC Auto (Bl d)Ordered By: Kristyn Morrison on 07-10-2023 Eosinophils/100 WBC (Bld) 0.3 % . [facility] Erythrocyte distribution wid th Auto (RBC) [Ratio]Ordered By: Kristyn Morrison on 07-10-2023 Erythrocyte distribution width (RBC) [Ratio] 16.3 % 11.9-15.3 [facility] Glucose [Mass/volume] in Ser um or PlasmaOrdered By: Kristyn Morrison on 07-10-2023 Glucose [Mass/Vol] 90 mg/dL 70-100 [facility] Comment on above: ADA recommended refe rence rangeRandom Glucose Reference Range is dependent on time and content of last meal. Glucose of more than 200 mg/dL in a nonstressed, ambulatory subject supports the diagnosis of Diabetes Mellitus. Hematocrit Auto (Bld) [Volum e fraction]Ordered By: Kristyn Morrison on 07-10-2023 Hematocrit (Bld) [Volume fraction] 29.4 % 34.0-46.4 [facility] Hemoglobin [Mass/volume] in BloodOrdered By: Kristyn Morrison on 07-10-2023 Hemoglobin (Bld) [Mass/Vol] 9.3 g/dL 11.8-15.4 [facility] Hypochromia LM Ql (Bld)Order ed By: Kristyn Morrison on 07-10-2023 Hypochromia Ql (Bld) Moderate [facility] INR in Platelet poor plasma by Coagulation assayOrdered By: Kristyn Morrison on 07-10-2023 INR Coag (PPP) [Relative time] 1.7 {INR} [facility] Comment on above: INR Therapeutic Rang [...] [id number] Received: 07/10/23 Status: MANNY Ulloa Num: [id number] Spec Type: Impression Subm Dr: Lito Kevin DO Tissues: PATHPER Procedures: PATHREVIEW Age/ Patient Sex Location Account Attending Physician FilomenaRadha Nikos 78/F 3T [id number] Lito Kevin, DO SPEC NUM: [id number] RECD: 07/10/23 STATUS: MANNY KWABENA NUM: [id number] JOSE DE JESUS: 07/10/[address]: Lito Kevin DO ENTERED: 07/10/[address]: SPEC TYPE: Impression DEPT: [place] ORDERED: PATHREVIEW ORDERED: PATHREVIEW Pathologist Review Abnormal [...] routine laboratory follow-up is also suggested CPT: 03895 Specimen: [id number] Received: 07/10/23-1215 Status: MANNY Ulloa Num: [id number] Spec Type: Impression Subm Dr: Lito Kevin DO Tissues: PATHPER Procedures: PATHREVIEW Patient: Radha Butt [id number] (Continued) Signed (signature on file) Sonido Aguilar MD 07/11/23 0859 Normal [facility] Leukocytes [#/volume] correc berny for nucleated erythrocytes in Blood by Automated counOrdered By: Kristyn Morrison on 07-10-2023 WBC corrected for nucl RBC Auto (Bld) [#/Vol] 6.5 10*3/uL 3.8-11.6 [facility] Lymphocytes Auto (Bld) [#/Vo l]Ordered By: Kristyn Morrison on 07-10-2023 Lymphocytes (Bld) [#/Vol] 1.5 10*3/uL 1.00-4.8 [facility] Lymphocytes/100 WBC Auto (Bl d)Ordered By: Kristyn Morrison on 07-10-2023 Lymphocytes/100 WBC (Bld) 23.1 % . [facility] MCH Auto (RBC) [Entitic mass ]Ordered By: Kristyn Morrison on 07-10-2023 MCH (RBC) [Entitic mass] 20.9 pg 24.7-34.3 [facility] MCHC Auto (RBC) [Mass/Vol]Or dered By: Kristyn Morrison on 07-10-2023 MCHC (RBC) [Mass/Vol] 31.7 g/dL 32.0-35.0 [facility] MCV Auto (RBC) [Entitic vol] Ordered By: Kristyn Morrison on 07-10-2023 MCV (RBC) [Entitic vol] 66.1 fL 80-100 [facility] Microcytes LM Ql (Bld)Ordere d By: Kristyn Morrison on 07-10-2023 Microcytes Ql (Bld) Marked [facility] Monocytes Auto (Bld) [#/Vol] Ordered By: Kristyn Morrison on 07-10-2023 Monocytes (Bld) [#/Vol] 0.5 10*3/uL 0.0-0.8 [facility] Monocytes/100 WBC Auto (Bld) Ordered By: Kristyn Morrison on 07-10-2023 Monocytes/100 WBC (Bld) 7.6 % . [facility] Neutrophils Auto (Bld) [#/Vo l]Ordered By: Kristyn Morrison on 07-10-2023 Neutrophils (Bld) [#/Vol] 4.4 10*3/uL 1.8-7.7 [facility] Neutrophils/100 WBC Auto (Bl d)Ordered By: Kristyn Morrison on 07-10-2023 Neutrophils/100 WBC (Bld) 68.1 % . [facility] No Panel InformationOrdered By: Kristyn Morrison on 07-10-2023 Estimated GFR (CKD-EPI) > 60.0 mL/Min [facility] Creatinine Clearance (Chem 43.67 [facility] Slides for Pathologist Review N/A [facility] Nucleated erythrocytes [Pres ence] in Blood by Automated countOrdered By: Kristyn Morrison on 07-10-2023 Nucleated RBC Auto Ql (Bld) 0.1 /100{WBC} 0-0.5 [facility] Ovalocyte detectionOrdered B y: Kristyn Morrison on 07-10-2023 Ovalocytes LM Ql (Bld) [facility] Platelet adequacy [Presence] in Blood by Light microscopyOrdered By: Kristyn Morrison on 07-10-2023 Platelets LM Ql (Bld) Normal Normal [facility] Platelet mean volume Auto (B ld) [Entitic vol]Ordered By: Kristyn Morrison on 07-10-2023 Platelet mean volume (Bld) [Entitic vol] 7.9 fL 6.3-10.7 [facility] Platelet morphology finding [Identifier] in BloodOrdered By: Kristyn Morrison on 07-10-2023 Platelet morphology finding Nom (Bld) Normal Normal [facility] Platelets Auto (Bld) [#/Vol] Ordered By: Kristyn Morrison on 07-10-2023 Platelets (Bld) [#/Vol] 291 10*3/uL 150-450 [facility] Poikilocytosis [Presence] in Blood by Light microscopyOrdered By: Kristyn Morrison on 07-10-2023 Poikilocytosis LM Ql (Bld) Moderate [facility] Polychromasia [Presence] in Blood by Light microscopyOrdered By: Kristyn Morrison on 07-10-2023 Polychromasia LM Ql (Bld) Marked [facility] Potassium [Moles/volume] in Serum or PlasmaOrdered By: Kristyn Morrison on 07-10-2023 Potassium [Moles/Vol] 3.6 mmol/L 3.5-5.1 [facility] Prothrombin Time INRon 07-10 INR Coag (PPP) [Relative time] 1.7 {INR} Normal [facility] Comment on above: Result Comment: INR [...] heart valves: 3 - 4.5 PERFORMED BY: [place] [address] PATHOLOGIST SAP BI DEVELOPER STACY ROJAS M.D. Performed By: #### C MP, MG #### [address] PT Coag (PPP) [Time] 19.5 s High 9.0-12.9 [facility] Comment on above: Result Comment: A he matocrit value greater than 55% may lead to inaccurate results in coagulation testing. Patients having hematocrit values >55% require a special collection tube for coagulation studies. Please contact the laboratory at [phone] for redraw instructions. Performed By: #### C MP, MG #### [address] Prothrombin time (PT)Ordered By: Kristyn Morrison on 07-10-2023 PT Coag (PPP) [Time] 19.5 s 9.0-12.9 [facility] Comment on above: A hematocrit value g reater than 55% may lead to inaccurate results in coagulation testing. Patients having hematocrit values >55% require a special collection tube for coagulation studies. Please contact the laboratory at [phone] for redraw instructions. RBC Auto (Bld) [#/Vol]Ordere d By: Kristyn Morrison on 07-10-2023 RBC (Bld) [#/Vol] 4.45 10*6/uL 3.60-5.00 [facility] RBC morphologyOrdered By: Ellie Morrison on 07-10-2023 RBC morphology finding Nom (Bld) N/A [facility] Scan and CBCon 07-10-2023 Acanthocytes Moderate Normal [facility] Comment on above: Performed By: #### C MP, MG #### [address] Anisocytosis Ql (Bld) Moderate Normal [facility] Comment on above: Performed By: #### C MP, MG #### [place] [address] [place] Basophils (Bld) [#/Vol] 0.1 10*3/uL Normal 0.0-0.2 [facility] Comment on above: Performed By: #### C MP, MG #### [address] Basophils/100 WBC (Bld) 0.9 % Normal . [facility] Comment on above: Performed By: #### C MP, MG #### [address] Crenated RBC Moderate Normal [facility] Comment on above: Performed By: #### C MP, MG #### [address] Eosinophils (Bld) [#/Vol] 0.0 10*3/uL Normal 0.0-0.45 [facility] Comment on above: Performed By: #### C MP, MG #### [address] Eosinophils/100 WBC (Bld) 0.3 % Normal . [facility] Comment on above: Performed By: #### C MP, MG #### [address] Erythrocyte distribution width (RBC) [Ratio] 16.3 % High 11.9-15.3 [facility] Comment on above: Performed By: #### C MP, MG #### [address] Hematocrit (Bld) [Volume fraction] 29.4 % Low 34.0-46.4 [facility] Comment on above: Performed By: #### C MP, MG #### [address] Hemoglobin (Bld) [Mass/Vol] 9.3 g/dL Low 11.8-15.4 [facility] Comment on above: Performed By: #### C MP, MG #### [address] Hypochromasia Moderate Normal [facility] Comment on above: Performed By: #### C MP, MG #### [address] Lymphocytes (Bld) [#/Vol] 1.5 10*3/uL Normal 1.00-4.8 [facility] Comment on above: Performed By: #### C MP, MG #### [address] Lymphocytes/100 WBC (Bld) 23.1 % Normal . [facility] Comment on above: Performed By: #### C MP, MG #### [address] MCH (RBC) [Entitic mass] 20.9 pg Low 24.7-34.3 [facility] Comment on above: Performed By: #### C MP, MG #### [address] MCV (RBC) [Entitic vol] 66.1 fL Low 80-100 [facility] Comment on above: Performed By: #### C MP, MG #### [address] Mean Corpuscular HGB Conc 31.7 g/dL Low 32.0-35.0 [facility] Comment on above: Performed By: #### C MP, MG #### [address] Microcytosis Marked Normal [facility] Comment on above: Performed By: #### C MP, MG #### [address] Monocytes (Bld) [#/Vol] 0.5 10*3/uL Normal 0.0-0.8 [facility] Comment on above: Performed By: #### C MP, MG #### [place] [address] [place] Monocytes/100 WBC (Bld) 7.6 % Normal . [facility] Comment on above: Performed By: #### C MP, MG #### [place] [address] [place] Neutrophils (Bld) [#/Vol] 4.4 10*3/uL Normal 1.8-7.7 [facility] Comment on above: Performed By: #### C MP, MG #### [address] Neutrophils/100 WBC (Bld) 68.1 % Normal . [facility] Comment on above: Performed By: #### C MP, MG #### [address] NRBC% 0.1 /100{WBC} Normal 0-0.5 [facility] Comment on above: Performed By: #### C MP, MG #### [address] Ovalocytes Moderate Normal [facility] Comment on above: Performed By: #### C MP, MG #### [address] Platelet Estimate Normal Normal Normal [facility] Comment on above: Performed By: #### C MP, MG #### [address] Platelet mean volume (Bld) [Entitic vol] 7.9 fL Normal 6.3-10.7 [facility] Comment on above: Performed By: #### C MP, MG #### [address] Platelet Morphology Normal Normal Normal [facility] Comment on above: Result Comment: PERF ORMED BY: [place] [address] PATHOLOGIST SAP BI DEVELOPER STACY ROJAS M.D. Performed By: #### C MP, MG #### [address] Platelets (Bld) [#/Vol] 291 10*3/uL Normal 150-450 [facility] Comment on above: Performed By: #### C MP, MG #### [address] Poikilocytosis Moderate Normal [facility] Comment on above: Performed By: #### C MP, MG #### [address] Polychromasia Marked Normal [facility] Comment on above: Performed By: #### C MP, MG #### [address] RBC (Bld) [#/Vol] 4.45 10*6/uL Normal 3.60-5.00 [facility] Comment on above: Performed By: #### C MP, MG #### [address] Schistocytes Slight [facility] Comment on above: Performed By: #### C MP, MG #### [address] Target Cells Slight [facility] Comment on above: Performed By: #### C MP, MG #### [address] WBC (Bld) [#/Vol] 6.5 10*3/uL Normal 3.8-11.6 [facility] Comment on above: Performed By: #### C MP, MG #### [address] Schistocytes [Presence] in B lood by Light microscopyOrdered By: Kristyn Morrison on 07-10-2023 Schistocytes LM Ql (Bld) [facility] Serum or plasma anion gap de terminationOrdered By: Kristyn Morrison on 07-10-2023 Anion gap [Moles/Vol] 10.5 mmol/L 6.0-15.0 [facility] Sodium [Moles/volume] in Ser um or PlasmaOrdered By: Kristyn Morrison on 07-10-2023 Sodium [Moles/Vol] 139 mmol/L 136-145 [facility] Target cellsOrdered By: Hansel Morrison on 07-10-2023 Target cells LM Ql (Bld) [facility] Troponin I High Sensitivityo n 07-10-2023 Troponin I High Sensitivity 29.2 pg/mL High 0.0-15.0 [facility] Comment on above: Order Comment: Comme nt Add on Result Comment: PERF ORMED BY: [facility] [address] [place] [address] PATHOLOGIST SAP BI DEVELOPER STACY ROJAS M.D. Performed By: #### C MP, MG #### [facility] [address] Troponin I.cardiac [Mass/vol ume] in Serum or Plasma by Detection limit <= 0.01 ng/Ordered By: Kristyn Morrison on 07-10-2023 Troponin I.cardiac DL <= 0.01 ng/mL [Mass/Vol] 29.2 pg/mL 0.0-15.0 [facility] Urea nitrogen [Mass/volume] in Serum or PlasmaOrdered By: Kristyn Morrison on 07-10-2023 Urea nitrogen [Mass/Vol] 11 mg/dL 01-23 [facility] WBC Auto (Bld) [#/Vol]Ordere d By: Kristyn Morrison on 07-10-2023 WBC (Bld) [#/Vol] 6.5 10*3/uL 3.8-11.6 [facility] Activated partial thrombopla stin time (aPTT) in platelet poor plasma by coagulation aOrdered By: Maya Wynn on 07-09-2023 aPTT Coag (PPP) [Time] 29.3 s 25.1-36.5 [facility] Comment on above: A hematocrit value g reater than 55% may lead to inaccurate results in coagulation testing. Patients having hematocrit values >55% require a special collection tube for coagulation studies. Please contact the laboratory at [phone] for redraw instructions. Alanine aminotransferase [En zymatic activity/volume] in Serum or PlasmaOrdered By: Maya Wynn on 07-09-2023 ALT [Catalytic activity/Vol] 17 U/L [facility] Albumin [Mass/volume] in Ser um or Plasma by Bromocresol green (BCG) dye binding methoOrdered By: Maya Wynn on 07-09-2023 Albumin BCG dye [Mass/Vol] 4.2 g/dL 3.5-5.7 [facility] Alkaline phosphatase [Enzyma tic activity/volume] in Serum or PlasmaOrdered By: Maya [facility] on 07-09-2023 ALP [Catalytic activity/Vol] 58 U/L 34-104 [facility] Aspartate aminotransferase [ Enzymatic activity/volume] in Serum or PlasmaOrdered By: [facility] on 07-09-2023 AST [Catalytic activity/Vol] 23 U/L 13-39 [facility] Automated erythrocytes count in urine sediment (number/area)Ordered By: [facility] on 07-09-2023 RBC Auto (Urine sed) [#/Area] 0-1 [HPF] 0-4 [facility] Automated leukocytes count i n urine sediment (number/area)Ordered By: [facility] on 07-09-2023 WBC Auto (Urine sed) [#/Area] 0-1 [HPF] 0-4 [facility] B-Type Natriuretic Peptideon 07-09-2023 Natriuretic peptide B (Bld) [Mass/Vol] 353.0 pg/mL High 5-100 [facility] Comment on above: Result Comment: PERF ORMED BY: [place] [address] PATHOLOGIST SAP BI DEVELOPER STACY ROJAS M.D. Performed By: #### P TT, BNP, SCAN CBC, HS TROP, PT #### [facility] [address] Bilirubin Test strip Ql (U)O rdered By: [facility] 07-09-[facility]23 Bilirubin Ql (U) Negative Negative [facility] Bilirubin.total [Mass/volume ] in Serum or PlasmaOrdered By: Maya [facility] on 07-09-2023 Bilirubin [Mass/Vol] 1.0 mg/dL 0.3-1.0 [facility] CT head/brain wo conon 07-09 CT head/brain wo con [facility] [address] [place] [address] [place] [address] CT Scan Report Signed Patient: Radha Butt MR#: [id number] : 1945 Acct:[id number] Age/Sex: 78 / F ADM Date: 07/09/23 Loc: ER Room: Type: [facility] ER Attending Dr: Copies to: Maya Wynn [...] Murray Jr., D.O.07/09/2023 2:13 PM Dictation Location: [place] [address] Transcribed By: [facility] 07/09/23 1413 Dictated By: Kelvin Murray Jr, DO 07/09/23 1409 Signed By: 07/09/23 1413 Normal [facility] Color Auto (U)Ordered By: Boris Wynn on 07-09-2023 Color (U) Yellow Yellow [facility] Comprehensive Metabolic Pane hernandez 07-09-2023 Albumin [Mass/Vol] 4.2 g/dL Normal 3.5-5.7 [facility] Comment on above: Performed By: #### C MP, MG #### [facility] [address] [place] [address] Albumin/Globulin [Mass ratio] 1.8 {ratio} Normal [facility] Comment on above: Performed By: #### C MP, MG #### [facility] [address] [place] [id number] [facility] ALP [Catalytic activity/Vol] 58 U/L Normal 34-104 [facility] Comment on above: Performed By: #### C MP, MG #### [facility] [address] [place] [address] [place] ALT [Catalytic activity/Vol] 17 U/L Normal 7-52 [facility] Comment on above: Performed By: #### C MP, MG #### [facility] [address] Anion gap [Moles/Vol] 9.8 mmol/L Normal 6.0-15.0 [facility] Comment on above: Performed By: #### C MP, MG #### [facility] [address] AST [Catalytic activity/Vol] 23 U/L Normal 13-39 [facility] Comment on above: Performed By: #### C MP, MG #### [facility] [address] Bilirubin [Mass/Vol] 1.0 mg/dL Normal 0.3-1.0 [facility] Comment on above: Performed By: #### C MP, MG #### [facility] [address] [place] [address] [place] Calcium [Mass/Vol] 9.0 mg/dL Normal 8.6-10.3 [facility] Comment on above: Performed By: #### C MP, MG #### [facility] [address] [place] [address] [place] Chloride [Moles/Vol] 106 mmol/L Normal 98-107 [facility] Comment on above: Performed By: #### C MP, MG #### [facility] [address] [place] [id number] [place] CO2 [Moles/Vol] 28.0 mmol/L Normal 21.0-31.0 [facility] Comment on above: Performed By: #### C MP, MG #### [facility] [address] Creatinine [Mass/Vol] 1.01 mg/dL Normal 0.60-1.20 [facility] Comment on above: Performed By: #### C MP, MG #### [address] Creatinine Clr Calc Pharmacy 40.64 [facility] Comment on above: Performed By: #### C MP, MG #### [place] [address] [place] GFR/1.73 sq M.predicted MDRD (S/P/Bld) [Vol rate/Area] 56.627 mL/min/{1.73_m2} [facility] Comment on above: Performed By: #### C MP, MG #### [address] Globulin (S) [Mass/Vol] 2.4 g/dL [facility] Comment on above: Performed By: #### C MP, MG #### [address] Glucose [Mass/Vol] 108 mg/dL High 70-100 [facility] Comment on above: Result Comment: [facility] Glucose Reference Range is dependent on time and content of last meal. Glucose of more than 200 mg/dL in a nonstressed, ambulatory subject supports the diagnosis of Diabetes Mellitus. ADA recommended reference range Performed By: #### C MP, MG #### [address] Potassium [Moles/Vol] 3.8 mmol/L Normal 3.5-5.1 [facility] Comment on above: Performed By: #### C MP, MG #### [address] Protein [Mass/Vol] 6.6 g/dL Normal 6.4-8.9 [facility] Comment on above: Performed By: #### C MP, MG #### [address] Sodium [Moles/Vol] 140 mmol/L Normal 136-145 [facility] Comment on above: Performed By: #### C MP, MG #### [place] [address] [place] Urea nitrogen [Mass/Vol] 13 mg/dL Normal 7-25 [facility] Comment on above: Performed By: #### C MP, MG #### [address] Dipstick and Microscopicon 0 07-09-2023 Bacteria,Urine None Seen Normal None Seen [facility] Comment on above: Order Comment: Name Collection Type:: Clean-Voided Midstream Performed By: #### C MP, MG #### [address] Hyaline Casts,Urine None Seen Normal 0-8 [facility] Comment on above: Order Comment: Name Collection Type:: Clean-Voided Midstream Result Comment: PERF ORMED BY: [place] [address] PATHOLOGIST SAP BI DEVELOPER STACY ROJAS M.D. Performed By: #### C MP, MG #### [address] RBC LM.HPF (Urine sed) [#/Area] 0 /[HPF] Normal 0-4 [facility] Comment on above: Order Comment: Name Collection Type:: Clean-Voided Midstream Performed By: #### C MP, MG #### [address] Squamous Epithelial Cell,Urine None Seen Normal 0-2 [facility] Comment on above: Order Comment: Name Collection Type:: Clean-Voided Midstream Performed By: #### C MP, MG #### [address] WBC LM.HPF (Urine sed) [#/Area] 0 /[HPF] Normal 0-4 [facility] Comment on above: Order Comment: Name Collection Type:: Clean-Voided Midstream Performed By: #### C MP, MG #### [address] ECG 12 lead ECGon 07-09-2023 ECG 12 lead ECG [facility] [place] [address] [place] [address] Electrocardiograph Report Signed Patient: Radha Butt MR#: [id number] : 1945 Acct:[id number] Age/Sex: 78 / F ADM Date: 07/09/23 Loc: 3T Room: [address] [place] [address] Type: ADM INOo Attending Dr: Lito Kevin DO Ordering Provider: Maya Wynn APRN Date of Service: 07/09/2302/22/1105 ECG/ECG 12 lead ECG: Dizziness Copies to: [...] Lateral leads Confirmed by Ezra Thomas DO ([id number]) on 07/09/2023 3:57:01 PM Referred By: Electronically Signed By:Ezra Thomas DO Transcribed By: MUS Signed By Ezra Thomas DO 4 1557 Normal [facility] Globulin Calc (S) [Mass/Vol] Ordered By: Maya Wynn on 07-09-2023 Globulin (S) [Mass/Vol] 2.4 g/dL [facility] Ketones Auto test strip (U) [Mass/Vol]Ordered By: Maya Wynn on 07-09-2023 Ketones (U) [Mass/Vol] Negative Negative [facility] Laboratory - UrinalysisOrder ed By: Maya Wynn on 07-09-2023 Hyaline casts LM Ql (Urine sed) None seen [LPF] 0-8 [facility] Magnesiumon 07-09-2023 Magnesium [Mass/Vol] 2.0 mg/dL Normal 1.9-2.7 [facility] Comment on above: Result Comment: PERF ORMED BY: [facility] [address] [place] [address] PATHOLOGIST SAP BI DEVELOPER STACY ROJAS M.D. Performed By: #### C MP, MG #### [facility] [address] [place], [place] [id number] [facility] Magnesium [Mass/volume] in S amador or PlasmaOrdered By: Maya Wynn on 07-09-2023 Magnesium [Mass/Vol] 2.0 mg/dL 1.9-2.7 [facility] Monocyte distribution width [Entitic volume] in Blood by AutomatedOrdered By: Maya Wynn on 07-09-2023 Monocyte distribution width Auto (Bld) [Entitic vol] 18.46 % 0.00-20.00 [facility] Natriuretic peptide B [Mass/ Vol]Ordered By: Maya Wynn on 07-09-2023 Natriuretic peptide B (Bld) [Mass/Vol] 353.0 pg/mL 5-100 [facility] Nitrite Test strip Ql (U)Ord ered By: Maya [facility] on 07-09-2023 Nitrite Ql (U) Negative Negative [facility] Partial Thromboplastin Timeo n 07-09-2023 aPTT Coag (Bld) [Time] 29.3 s Normal 25.1-36.5 [facility] Comment on above: Result Comment: A he matocrit value greater than 55% may lead to inaccurate results in coagulation testing. Patients having hematocrit values >55% require a special collection tube for coagulation studies. Please contact the laboratory at [phone] for redraw instructions. PERFORMED BY: [place] [address] PATHOLOGIST SAP BI DEVELOPER STACY ROJAS M.D. Performed By: #### P TT, BNP, SCAN CBC, HS TROP, PT #### [facility] [address] [place], [place] [id number] [facility] Protein Auto test strip (U) [Mass/Vol]Ordered By: Maya Wynn on 07-09-2023 Protein (U) [Mass/Vol] Trace mg/dL Negative [facility] Protein [Mass/volume] in Ser um or PlasmaOrdered By: Maya Wynn on 07-09-2023 Protein [Mass/Vol] 6.6 g/dL 6.4-8.9 [facility] Prothrombin Time INRon 07-09 INR Coag (PPP) [Relative time] 1.1 {INR} Normal [facility] Comment on above: Result Comment: INR [...] BNP, SCAN CBC, HS TROP, PT #### [address] PT Coag (PPP) [Time] 12.3 s Normal 9.0-12.9 [facility] Comment on above: Result Comment: A he matocrit value greater than 55% may lead to inaccurate results in coagulation testing. Patients having hematocrit values >55% require a special collection tube for coagulation studies. Please contact the laboratory at [phone] for redraw instructions. Performed By: #### P TT, BNP, SCAN CBC, HS TROP, PT #### [facility] [address] [place] [address] Scan and CBCon 07-09-2023 Anisocytosis Ql (Bld) Slight Normal [facility] Comment on above: Performed By: #### P TT, BNP, SCAN CBC, HS TROP, PT #### [facility] [address] [place] [address] Basophils (Bld) [#/Vol] 0.1 10*3/uL Normal 0.0-0.2 [facility] Comment on above: Performed By: #### P TT, BNP, SCAN CBC, HS TROP, PT #### [address] Basophils/100 WBC (Bld) 1.2 % Normal . [facility] Comment on above: Performed By: #### P TT, BNP, SCAN CBC, HS TROP, PT #### [address] Eosinophils (Bld) [#/Vol] 0.1 10*3/uL Normal 0.0-0.45 [facility] Comment on above: Performed By: #### P TT, BNP, SCAN CBC, HS TROP, PT #### [address] Eosinophils/100 WBC (Bld) 2.0 % Normal . [facility] Comment on above: Performed By: #### P TT, BNP, SCAN CBC, HS TROP, PT #### [address] Erythrocyte distribution width (RBC) [Ratio] 16.4 % High 11.9-15.3 [facility] Comment on above: Performed By: #### P TT, BNP, SCAN CBC, HS TROP, PT #### [address] Hematocrit (Bld) [Volume fraction] 29.0 % Low 34.0-46.4 [facility] Comment on above: Performed By: #### P TT, BNP, SCAN CBC, HS TROP, PT #### [address] Hemoglobin (Bld) [Mass/Vol] 9.1 g/dL Low 11.8-15.4 [facility] Comment on above: Performed By: #### P TT, BNP, SCAN CBC, HS TROP, PT #### [address] Hypochromasia Moderate Normal [facility] Comment on above: Performed By: #### P TT, BNP, SCAN CBC, HS TROP, PT #### [address] Lymphocytes (Bld) [#/Vol] 1.0 10*3/uL Normal 1.00-4.8 [facility] Comment on above: Performed By: #### P TT, BNP, SCAN CBC, HS TROP, PT #### [address] Lymphocytes/100 WBC (Bld) 23.1 % Normal . [facility] Comment on above: Performed By: #### P TT, BNP, SCAN CBC, HS TROP, PT #### [address] MCH (RBC) [Entitic mass] 20.8 pg Low 24.7-34.3 [facility] Comment on above: Performed By: #### P TT, BNP, SCAN CBC, HS TROP, PT #### [address] MCV (RBC) [Entitic vol] 66.5 fL Low 80-100 [facility] Comment on above: Performed By: #### P TT, BNP, SCAN CBC, HS TROP, PT #### [address] Mean Corpuscular HGB Conc 31.3 g/dL Low 32.0-35.0 [facility] Comment on above: Performed By: #### P TT, BNP, SCAN CBC, HS TROP, PT #### [address] Microcytosis Moderate Normal [facility] Comment on above: Performed By: #### P TT, BNP, SCAN CBC, HS TROP, PT #### [address] Monocytes (Bld) [#/Vol] 0.3 10*3/uL Normal 0.0-0.8 [facility] Comment on above: Performed By: #### P TT, BNP, SCAN CBC, HS TROP, PT #### [address] Monocytes/100 WBC (Bld) 18.46 % Normal 0.00-20.00 [facility] Comment on above: Performed By: #### P TT, BNP, SCAN CBC, HS TROP, PT #### [address] Monocytes/100 WBC (Bld) 7.5 % Normal . [facility] Comment on above: Performed By: #### P TT, BNP, SCAN CBC, HS TROP, PT #### [facility] [address] [place] [address] Neutrophils (Bld) [#/Vol] 3.0 10*3/uL Normal 1.8-7.7 [facility] Comment on above: Performed By: #### P TT, BNP, SCAN CBC, HS TROP, PT #### [address] Neutrophils/100 WBC (Bld) 66.2 % Normal . [facility] Comment on above: Performed By: #### P TT, BNP, SCAN CBC, HS TROP, PT #### [address] NRBC% 0.1 /100{WBC} Normal 0-0.5 [facility] Comment on above: Performed By: #### P TT, BNP, SCAN CBC, HS TROP, PT #### [address] Ovalocytes Moderate Normal [facility] Comment on above: Performed By: #### P TT, BNP, SCAN CBC, HS TROP, PT #### [address] Platelet Estimate Normal Normal Normal [facility] Comment on above: Performed By: #### P TT, BNP, SCAN CBC, HS TROP, PT #### [address] Platelet mean volume (Bld) [Entitic vol] 7.7 fL Normal 6.3-10.7 [facility] Comment on above: Performed By: #### P TT, BNP, SCAN CBC, HS TROP, PT #### [address] Platelet Morphology Normal Normal Normal [facility] Comment on above: Result Comment: PERF ORMED BY: [place] [address] PATHOLOGIST [employer] DEVELOPER STACY ROJAS M.D. Performed By: #### P TT, BNP, SCAN CBC, HS TROP, PT #### [address] [place] [address] [place] Platelets (Bld) [#/Vol] 299 10*3/uL Normal 150-450 [facility] Comment on above: Performed By: #### P TT, BNP, SCAN CBC, HS TROP, PT #### [facility] [address] Polychromasia Slight Normal [facility] Comment on above: Performed By: #### P TT, BNP, SCAN CBC, HS TROP, PT #### [facility] [address] RBC (Bld) [#/Vol] 4.37 10*6/uL Normal 3.60-5.00 [facility] Comment on above: Performed By: #### P TT, BNP, SCAN CBC, HS TROP, PT #### [facility] [address] Schistocytes Moderate Normal [facility] Comment on above: Performed By: #### P TT, BNP, SCAN CBC, HS TROP, PT #### [facility] [address] WBC (Bld) [#/Vol] 4.5 10*3/uL Normal 3.8-11.6 [facility] Comment on above: Performed By: #### P TT, BNP, SCAN CBC, HS TROP, PT #### [address] Serum or plasma albumin/glob ulin mass ratioOrdered By: Maya Wynn on 07-09-2023 Albumin/Globulin [Mass ratio] 1.8 {ratio} [facility] Specific gravity Auto test s trip (U) [Rel density]Ordered By: Maya Wynn on 07-09-2023 Specific gravity (U) [Rel density] 1.007 1.001-1.03 0 [facility] Squamous epithelial cells de tection in urine sediment by light microscopyOrdered By: Maya Wynn on 07-09-2023 Epithelial cells.squamous LM Ql (Urine sed) None seen [HPF] 0-2 [facility] Troponin I High Sensitivityo n 07-09-2023 Troponin I High Sensitivity 30.7 pg/mL High 0.0-15.0 [facility] Comment on above: Order Comment: MAGDA BENAVIDES READY TO MOVE TO FLOOR 1559 PSW Result Comment: PERF ORMED BY: [place] [address] PATHOLOGIST [employer] BI DEVELOPER STACY ROJAS M.D. Performed By: #### H S TROP #### [address] Troponin I High Sensitivity 29.3 pg/mL High 0.0-15.0 [facility] Comment on above: Result Comment: PERF ORMED BY: [place] [address] PATHOLOGIST [employer] DEVELOPER STACY ROJAS M.D. Performed By: #### P TT, BNP, SCAN CBC, HS TROP, PT #### [facility] [address] [place] [address] [place] Urinalysison 07-09-2023 Appearance (U) Clear Normal Clear [facility] Comment on above: Order Comment: Name Collection Type:: Clean-Voided Midstream Performed By: #### C MP, MG #### [place] [address] [place] Bilirubin,Urine Negative Normal Negative [facility] Comment on above: Order Comment: Name Collection Type:: Clean-Voided Midstream Performed By: #### C MP, MG #### [place] [address] [place] Color (U) Yellow Normal Yellow [facility] Comment on above: Order Comment: Name Collection Type:: Clean-Voided Midstream Performed By: #### C MP, MG #### [facility] [address] [place] [address] [place] Glucose Ql (U) Normal Normal Normal [facility] Comment on above: Order Comment: Name Collection Type:: Clean-Voided Midstream Performed By: #### C MP, MG #### [facility] [address] [place] [address] [place] Ketones Ql (U) Negative Normal Negative [facility] Comment on above: Order Comment: Name Collection Type:: Clean-Voided Midstream Performed By: #### C MP, MG #### [address] Leukocyte esterase Test strip Ql (U) 1+ High Negative [facility] Comment on above: Order Comment: Name Collection Type:: Clean-Voided Midstream Performed By: #### C MP, MG #### [address] Nitrite,Urine Negative Normal Negative [facility] Comment on above: Order Comment: Name Collection Type:: Clean-Voided Midstream Performed By: #### C MP, MG #### [address] Occult Blood,Urine Negative Normal Negative [facility] Comment on above: Order Comment: Name Collection Type:: Clean-Voided Midstream Result Comment: PERF ORMED BY: [place] [address] PATHOLOGIST [employer] BI DEVELOPER STACY ROJAS M.D. Performed By: #### C MP, MG #### [address] pH (U) 7.0 [pH] Normal 5.0-9.0 [facility] Comment on above: Order Comment: Name Collection Type:: Clean-Voided Midstream Performed By: #### C MP, MG #### [address] Protein,Urine Trace High Negative [facility] Comment on above: Order Comment: Name Collection Type:: Clean-Voided Midstream Performed By: #### C MP, MG #### [address] Specificy [place],Urine 1.007 Normal 1.001-1.03 0 [facility] Comment on above: Order Comment: Name Collection Type:: Clean-Voided Midstream Performed By: #### C MP, MG #### [address] Urobilinogen,Urine Normal Normal Normal [facility] Comment on above: Order Comment: Name Collection Type:: Clean-Voided Midstream Performed By: #### C MP, MG #### [facility] [address] [place] [id number] [facility] Urine bacteria detection by automated methodOrdered By: Maya Wynn on 07-09-2023 Bacteria Auto Ql (U) None seen None Seen [facility] Urine clarity by refractomet ry automatedOrdered By: Maya Wynn on 07-09-2023 Clarity Refractometry automated (U) Clear Clear [facility] Urine glucose measurement by automated test strip (mass/volume)Ordered By: Maya Wynn on 07-09-2023 Glucose Auto test strip (U) [Mass/Vol] Normal mg/dL Normal [facility] Urine hemoglobin detection b y automated test stripOrdered By: Maya Wynn on 07-09-2023 Hemoglobin Auto test strip Ql (U) Negative Negative [facility] Urine leukocyte esterase det ection by automated test stripOrdered By: Maya Wynn on 07-09-2023 Leukocyte esterase Auto test strip Ql (U) 1+ Negative [facility] Urobilinogen Auto test strip (U) [Mass/Vol]Ordered By: Maya Wynn on 07-09-2023 Urobilinogen (U) [Mass/Vol] Normal mg/dL Normal [facility] XR chest 2V*on 07-09-2023 XR chest 2V* [facility] [place] [address] [place], [place] [id number] XRay Report Signed Patient: Radha Butt MR#: [id number] : 1945 Acct:[id number] Age/Sex: 78 / F ADM Date: 07/09/23 Loc: ER Room: Type: [facility] ER Attending Dr: Copies to: Maya Wynn [...] Amari Beckett M.D.07/09/2023 12:07 PM Dictation Location: [facility] Transcribed By: BARBRA 07/09/231206 Dictated By: Amari Beckett II, MD 07/09/231205 Signed By: 07/09/231206 [facility] pH Auto test strip (U)Ordere d By: Maya Wynn on 07-09-2023 pH (U) 7.0 [pH] 5.0-9.0 [facility] Patient Provided Health Data on 06-19-2023 Patient Provided Health Data [id number]#[id number] IFF [facility] Patient Handouton 06-12-2023 Patient Handout [id number]#1.00OTG TIFF [facility] ECG 12 lead ECGon 12-29-2022 ECG 12 lead ECG [facility] [place] [address] Electrocardiograph Report Signed Patient: Radha Butt MR#: [id number] : 1945 Acct:[id number] Age/Sex: 77 / F ADM Date: 12/29/22 Loc: ER Room: Type: [facility] ER Attending Dr: Ordering Provider: Citlalli Tenorio [...] MUS Signed By Citlalli Tenorio DO 1922 Normal [facility] XR knee LT 2Von 06-14-2022 XR knee LT 2V [facility] [employer] Other XR knee LT 2V [facility] [employer] Other XR knee LT 2V [address] [place] [address] [employer] Other XR knee LT 2[place] [address] [facility] [employer] Other XR knee LT 2V XRay Report Monitor [employer] Other XR knee LT 2V Signed [employer] Other XR knee LT 2V Patient: Ta Butt MR#: [id number] [employer] Other XR knee LT 2V 839 [employer] Other XR knee LT 2V : 1945 Acct:[id number] [employer] Other XR knee LT 2V Age/Sex: 77 / F ADM Date: 06/14/22 [employer] Other XR knee LT 2V Loc: SOXD Room: Type : [facility] [employer] Other XR knee LT 2V Attending Dr: Alli Nicholas DO [employer] Other XR knee LT 2V Copies to: Alli Nicholas DO [employer] Other XR knee LT 2V Ordering Provider: George Nicholas DO [employer] Other XR knee LT 2V Date of Service: 06/14/22 [employer] Other XR knee LT 2V XR/XR knee LT 2V: Primary osteoarthritis of left knee [employer] Other XR knee LT 2V LEFT KNEE - 2 views No rt [employer] Other XR knee LT 2V COMPARISON: 12/12/2021 [employer] Other XR knee LT 2V CLINICAL DATA: Follo w-up knee replacement. Decreased mobility. [employer] Other XR knee LT 2V AP and lateral weightbearing views were obtained. A knee prosthesis is again visualized. The [employer] Other XR knee LT 2V hardware appears int act and unchanged from prior. There is no developing fracture or dislocation. A [employer] Other XR knee LT 2V large amount of join t fluid is again noted. [employer] Other XR knee LT 2V X R/XR knee LT 2V [employer] Other XR knee LT 2V IMPRESSION: [employer] Other XR knee LT 2V STABLE KNEE REPLACEMENT. [employer] Other XR knee LT 2V PERSISTENT KNEE EFFUSION. [employer] Other XR knee LT 2V Impression dictated by: Silvia Garcia M.D.06/14/2022 4:12 PM [employer] Other XR knee LT 2V Dictation Location: [place] [address] [employer] Other XR knee LT 2V Transcribed By: BARBRA 06/14/22 [facility] [employer] Other XR knee LT 2V Dictated By: Silvia Garcia MD 06/14/22 [facility] [employer] Other XR knee LT 2V Signed By: [employer] Other XR knee LT 2V 06/14/22 1612 [facility] [employer] Other Office Visit (Cardiology)on 05-17-2022 Follow-up visit [...] believe plans were for cardioversion to attempt alevism of normal sinus rhythm. On record review, [...] 2:48:50 PM (more content not included)... Normal [place] Tobacco Screening.on 022 Fall risk assessment b) One or more fall s in the last year [facility] [employer] 600 DO Work Phone: Tobacco use status [facility] b) No [facility] [employer] 600 DO Work Phone: Office Visit (Cardiology)on 04-13-2022 Follow-up visit Diagnoses/Problems Assessed Chronic atrial fibrillation (427.31) (I48.20) Atherosclerosis of [place] coronary artery of [place] heart without angina pectoris (414.01) (I25.10) Essential hypertension, benign (401.1) (I10) History of acute inferior wall [place] (412) (I25.2) History of PTCA (V45.82) (Z98.61) [...] #:90 Tablet; Refill: 3; For: Atherosclerosis of [place] coronary artery of [place] heart without angina pectoris, Hyperlipidemia; RASHAWN = [...] has a known history of previous inferior [place] with revascularization of the RCA in 2014. [...] alcohol (V49 (more content not included)... Normal [place] Tobacco Screening.on 022 Adult depression screening assessment No [facility] [employer] DO Work Phone: Fall risk assessment a) No falls within the last year [facility] [employer] 250 DO Work Phone: Tobacco use status [facility] b) No [facility] [employer] 250 DO Work Phone: Activated partial thrombopla stin time (aPTT) in platelet poor plasma by coagulation aOrdered By: Moises Alberto on 01-19-2022 aPTT Coag (PPP) [Time] 30.0 s 25.1-36.5 [facility] Albumin [Mass/volume] in Ser um or PlasmaOrdered By: Moises Alberto on 01-19-2022 Albumin [Mass/Vol] 3.8 g/dL 3.2-5.5 [facility] Basophils Auto (Bld) [#/Vol] Ordered By: Moises Alberto on 01-19-2022 Basophils (Bld) [#/Vol] 0.0 10*3/uL 0.0-0.2 [facility] Basophils/100 WBC Auto (Bld) Ordered By: Moises Alberto on 01-19-2022 Basophils/100 WBC (Bld) 0.5 % . [facility] Blood anisocytosis detection Ordered By: Moiess Alberto on 01-19-2022 Anisocytosis Ql (Bld) Moderate [facility] Blood hemoglobin measurement (mass/volume)Ordered By: Moises Alberto on 01-19-2022 Hemoglobin (Bld) [Mass/Vol] 10.2 g/dL 11.8-15.4 [facility] Blood leukocytes automated c ount (number/volume)Ordered By: Moises Alberto on 01-19-2022 WBC (Bld) [#/Vol] 7.3 10*3/uL 4.5-11.0 [facility] COVID-19 SOFIAOrdered By: Abraham Alberto on 01-19-2022 SARS-CoV+SARS-CoV-2 (COVID-19) Ag IA.rapid Ql (Resp) Negative Negative [facility] Comment on above: This is a duplicate Larissa SARS Antigen (SHAMEKA) result to be used for statistical tracking purpose only. Creatinine and Glomerular fi ltration rate.predicted panel (S/P/Bld)Ordered By: Moises Alberto on 01-19-2022 Creatinine [Mass/Vol] 0.91 mg/dL 0.44-1.03 [facility] Direct bilirubin measurement Ordered By: Moises Alberto on 01-19-2022 Bilirubin.direct [Mass/Vol] 0.3 mg/dL 0.0-0.4 [facility] Eosinophils Auto (Bld) [#/Vo l]Ordered By: Moises Alberto on 01-19-2022 Eosinophils (Bld) [#/Vol] 0.0 10*3/uL 0.0-0.45 [facility] Eosinophils/100 WBC Auto (Bl d)Ordered By: Moises Alberto on 01-19-2022 Eosinophils/100 WBC (Bld) 0.3 % . [facility] Erythrocyte distribution wid th Auto (RBC) [Ratio]Ordered By: Moises Alberto on 01-19-2022 Erythrocyte distribution width (RBC) [Ratio] 15.8 % 11.9-15.3 [facility] Estimated glomerular filtrat ion rate (GFR) non- AmericanOrdered By: Moises Alberto on 01-19-2022 GFR/1.73 sq M.predicted among non-blacks MDRD (S/P/Bld) [Vol rate/Area] 60 mL/Min [facility] Globulin Calc (S) [Mass/Vol] Ordered By: Moises Alberto on 01-19-2022 Globulin (S) [Mass/Vol] 2.8 g/dL [facility] Helmet cell detectionOrdered By: Moises Alberto on 01-19-2022 Helmet cells LM Ql (Bld) Slight [facility] Hematocrit Auto (Bld) [Volum e fraction]Ordered By: Moises Alberto on 01-19-2022 Hematocrit (Bld) [Volume fraction] 32.8 % 34.0-46.4 [facility] Laboratory - Chemistry and C hemistry - challengeOrdered By: Moises Alberto on 01-19-2022 Lipase [Catalytic activity/Vol] 26.0 U/L 22-51 [facility] Natriuretic peptide B (Bld) [Mass/Vol] 577.0 pg/mL 5-100 [facility] Laboratory - CoagulationOrde red By: Moises Alberto on 01-19-2022 PT Coag (PPP) [Time] 15.4 s 9.0-12.9 [facility] Laboratory - Hematology and Cell countsOrdered By: Moises Alberto on 01-19-2022 Nucleated RBC/100 WBC (Bld) [Ratio] 0.0 % 0-0.5 [facility] Lymphocytes Auto (Bld) [#/Vo l]Ordered By: Moises Alberto on 01-19-2022 Lymphocytes (Bld) [#/Vol] 0.4 10*3/uL 1.00-4.8 [facility] Lymphocytes/100 WBC Auto (Bl d)Ordered By: Moises Alberto on 01-19-2022 Lymphocytes/100 WBC (Bld) 5.7 % . [facility] MCH Auto (RBC) [Entitic mass ]Ordered By: Moises Alberto on 01-19-2022 MCH (RBC) [Entitic mass] 20.9 pg 24.7-34.3 [facility] MCHC Auto (RBC) [Mass/Vol]Or dered By: Moises Alberto on 01-19-2022 MCHC (RBC) [Mass/Vol] 31.3 g/dL 32.0-35.0 [facility] MCV Auto (RBC) [Entitic vol] Ordered By: Moises Alberto on 01-19-2022 MCV (RBC) [Entitic vol] 66.7 fL 80-100 [facility] Monocytes Auto (Bld) [#/Vol] Ordered By: Moises Alberto on 01-19-2022 Monocytes (Bld) [#/Vol] 0.6 10*3/uL 0.0-0.8 [facility] Monocytes/100 WBC Auto (Bld) Ordered By: Moises Alberto on 01-19-2022 Monocytes/100 WBC (Bld) 7.9 % . [facility] Neutrophils Auto (Bld) [#/Vo l]Ordered By: Moises Alberto on 01-19-2022 Neutrophils (Bld) [#/Vol] 6.3 10*3/uL 1.8-7.7 [facility] Neutrophils/100 WBC Auto (Bl d)Ordered By: Moises Alberto on 01-19-2022 Neutrophils/100 WBC (Bld) 85.6 % . [facility] No Panel InformationOrdered By: Moises Alberto on 01-19-2022 Estimated GFR () > 60 mL/Min [facility] Comment on above: GFR estimated refere nce range: According to KDOQI guidelines, <60 ml/min/1.73m2 is sufficient to diagnose a patient with chronic kidney disease. Large Platelets Slight [facility] Creatinine Clearance (Chem 43.43 [facility] Platelet Estimate Normal Normal [facility] Platelet Morphology Comment N/A [facility] Poikilocytosis Moderate [facility] Schistocytes Slight [facility] SARS Antigen (LFIA) [facility] Platelet mean volume Auto (B ld) [Entitic vol]Ordered By: Moises Alberto on 01-19-2022 Platelet mean volume (Bld) [Entitic vol] 8.2 fL 6.3-10.7 [facility] Platelet poor plasma interna tional normalized ratio (INR) by coagulation assay (relatOrdered By: Moises Alberto on 01-19-2022 INR Coag (PPP) [Relative time] 1.4 {INR} [facility] Comment on above: INR Therapeutic Rang [...] 01-19-2022 Platelets (Bld) [#/Vol] 230 10*3/uL 150-450 [facility] Protein [Mass/volume] in Ser um or PlasmaOrdered By: Moises Alberto on 01-19-2022 Protein [Mass/Vol] 6.6 g/dL 6.1-7.9 [facility] RBC Auto (Bld) [#/Vol]Ordere d By: Moises Alberto on 01-19-2022 RBC (Bld) [#/Vol] 4.91 10*6/uL 3.60-5.00 [facility] RBC morphologyOrdered By: Abraham Alberto on 01-19-2022 RBC morphology finding Nom (Bld) N/A [facility] Serum or plasma alanine valenzuela otransferase measurement without P-5'-P (enzymatic activiOrdered By: Moises Alberto on 01-19-2022 ALT No additional P-5'-P [Catalytic activity/Vol] 23 U/L 10-60 [facility] Serum or plasma albumin/glob ulin mass ratioOrdered By: Moises Alberto on 01-19-2022 Albumin/Globulin [Mass ratio] 1.4 {ratio} [facility] Serum or plasma alkaline sallie sphatase measurement (enzymatic activity/volume)Ordered By: Moises Alberto on 01-19-2022 ALP [Catalytic activity/Vol] 50 U/L 32-92 [facility] Serum or plasma aspartate am inotransferase measurement (enzymatic activity/volume)Ordered By: Moises Alberto on 01-19-2022 AST [Catalytic activity/Vol] 24 U/L 10-42 [facility] Serum or plasma calcium leo urement (mass/volume)Ordered By: Moises Alberto on 01-19-2022 Calcium [Mass/Vol] 9.0 mg/dL 8.2-10.2 [facility] Serum or plasma chloride sandro surement (moles/volume)Ordered By: Moises Alberto on 01-19-2022 Chloride [Moles/Vol] 101 mmol/L 95-114 [facility] Serum or plasma glucose leo urement (mass/volume)Ordered By: Moises Alberto on 01-19-2022 Glucose [Mass/Vol] 113 mg/dL 70-100 [facility] Comment on above: ADA recommended refe rence range Random Glucose Reference Range is dependent on time and content of last meal. Glucose of more than 200 mg/dL in a nonstressed, ambulatory subject supports the diagnosis of Diabetes Mellitus. Serum or plasma non-glucuron idated bilirubin measurement (mass/volume)Ordered By: Moises Alberto on 01-19-2022 Bilirubin.indirect [Mass/Vol] 1.0 mg/dL [facility] Serum or plasma potassium me asurement (moles/volume)Ordered By: Moises Alberto on 01-19-2022 Potassium [Moles/Vol] 3.8 mmol/L 3.5-5.1 [facility] Serum or plasma sodium measu rement (moles/volume)Ordered By: Moises Alberto on 01-19-2022 Sodium [Moles/Vol] 135 mmol/L 136-146 [facility] Serum or plasma total biliru bin measurement (mass/volume)Ordered By: Moises Alberto on 01-19-2022 Bilirubin [Mass/Vol] 1.3 mg/dL 0.3-1.2 [facility] Comment on above: Samples from patient s who have taken Naproxen have shown spurious elevation in Total Bilirubin levels. A metabolite of Naproxen, O-desmethylnaproxen, has been shown to interfere with the Jendrstephik-Grof method for measuring Total Bilirubin. Serum or plasma total carbon dioxide measurement (moles/volume)Ordered By: Moises Alberto on 01-19-2022 CO2 [Moles/Vol] 24.1 mmol/L 22.0-30.0 [facility] Serum or plasma urea nitroge n measurement (mass/volume)Ordered By: Moises Alberto on 01-19-2022 Urea nitrogen [Mass/Vol] 11 mg/dL 03-24 [facility] Teardrop cell detectionOrder ed By: Moises Alberto on 01-19-2022 Dacrocytes LM Ql (Bld) Slight [facility] Troponin I.cardiac [Mass/vol ume] in Serum or Plasma by High sensitivity methodOrdered By: Moises Alberto on 01-19-2022 Troponin I.cardiac High sensitivity method [Mass/Vol] 10 pg/mL 0- [facility] XR knee LT 2Von 12-14-2021 XR knee LT 2V [facility] [employer] Other XR knee LT 2V [facility] Main [facility] [employer] Other XR knee LT 2V [address] [place] [address] [employer] Other XR knee LT 2V [address] [employer] Other XR knee LT 2V XRay Report Monitor [employer] Other XR knee LT 2V Signed Monitor [employer] Other XR knee LT 2V Patient: Ta Butt MR#: [id number] [facility] [employer] Other XR knee LT 2V 839 X2IMPACT [facility] [employer] Other XR knee LT 2V : 1945 Acct:[id number] [employer] Other XR knee LT 2V Age/Sex: 76 / F ADM Date: 12/14/21 [facility] [employer] Other XR knee LT 2V Loc: SOXD Room: Type : REG CLI [employer] Other XR knee LT 2V Attending Dr: Alli Nicholas DO [employer] Other XR knee LT 2V Copies to: Alli Nicholas, [employer] Other XR knee LT 2V Ordering Provider: George Nicholas DO [employer] Other XR knee LT 2V Date of Service: 12/14/21 [employer] Other XR knee LT 2V XR/XR knee LT 2V: Primary osteoarthritis of left knee [employer] Other XR knee LT 2V LEFT KNEE - 2 views No rt [employer] Other XR knee LT 2V CLINICAL HISTORY: St atus post manipulation left total knee arthroplasty. [employer] Other XR knee LT 2V COMPARISON: Left kne e series 07/25/2021 [employer] Other XR knee LT 2V FINDINGS: [employer] Other XR knee LT 2V Moderate size joint effusion is noted. No acute bony process. No evidence of hardware [employer] Other XR knee LT 2V complication. [employer] Other XR knee LT 2V X R/XR knee LT 2V [employer] Other XR knee LT 2V IMPRESSION: [employer] Other XR knee LT 2V MODERATE JOINT EFFUS ION. NO RADIOGRAPHIC HARDWARE COMPLICATION. [employer] Other XR knee LT 2V Impression dictated by: Kelvin Murray Jr., D.OДмитрий12/14/2021 3:56 PM [employer] Other XR knee LT 2V Dictation Location: [place] [address] [employer] Other XR knee LT 2V Transcribed By: PWS 12/14/21 [facility] [employer] Other XR knee LT 2V Dictated By: Kelvin Murray Jr, DO 12/14/[address] [place] [address] [employer] Other XR knee LT 2V Signed By: [employer] Other XR knee LT 2V 12/14/21 1556 [facility] [employer] Other XR knee LT 3Von 05-04-2021 XR knee LT 3V [facility] [employer] Other XR knee LT 3V [facility] [employer] Other XR knee LT 3V [address] [place] [address] [employer] Other XR knee LT 3V [address] [employer] Other XR knee LT 3V XRay Report [facility] Other [facility] 3V Signed [employer] Other XR knee LT 3V Patient: Ta Butt Nikos MR#: [id number] Monitor [employer] Other XR knee LT 3V 839 [employer] Other XR knee LT 3V : 1945 Acct:[id number] Monitor [employer] Other XR knee LT 3V Age/Sex: 76 / F ADM Date: 05/04/21 [employer] Other XR knee LT 3V Loc: SOXD [facility]: [facility] [employer] Other XR knee LT 3V Attending Dr: Alli Nicholas DO [employer] Other XR knee LT 3V Ordering Provider: George Nicholas DO [employer] Other XR knee LT 3V Date of Service: 05/04/21 [employer] Other XR knee LT 3V XR/XR knee LT 3V - NOT FOR ER USE: Pain in left knee [employer] Other XR knee LT 3V Copies to: Alli Nicholas, [employer] Other XR knee LT 3V Left knee 05/04/2021. N [employer] Other XR knee LT 3V CLINICAL DATA: Long history of left knee pain. [employer] Other XR knee LT 3V FINDINGS: Standing frontal and lateral views of the left knee were obtained along with a sunrise [employer] Other XR knee LT 3V view of both patellas. [employer] Other XR knee LT 3V Osteopenia is noted. No acute fracture or dislocation is identified. There is joint space narrowing [employer] Other XR knee LT 3V in the medial femorotibial compartment. Marginal osteophyte formation is seen in this location and [employer] Other XR knee LT 3V in the patellofemora l compartment. No bony erosion or destruction is visualized. There is a small [employer] Other XR knee LT 3V suprapatellar effusion. [employer] Other XR knee LT 3V X R/XR knee LT 3V - NOT FOR ER USE [employer] Other XR knee LT 3V IMPRESSION: Osteopen ia. Degenerative changes and small effusion. [employer] Other XR knee LT 3V Impression dictated by: Segrio Mccarty Jr., M.D.05/04/2021 3:05 PM [employer] Other XR knee LT 3V Dictation Location: [place] [address] [employer] Other XR knee LT 3V Transcribed By: PWS 05/04/21 8994 [employer] Other XR knee LT 3V Dictated By: Sergio Mccarty Jr, MD 05/04/21 1506 [employer] Other XR knee LT 3V Signed By: [employer] Other XR knee LT 3V 05/04/21 1508 X2IMPACT [facility] [employer] Other Tobacco Screening.on 021 Fall risk assessment b) One or more fall s in the last year [facility] 250 DO Work Phone: Tobacco use status CPHS b) No [facility] 250 DO Work Phone: CNPNon 01-17-2021 CNPN Telephone (OPHTLN) ----- RADHA BUTT ([id number]) 1945 F Date Time Provider Department 01/17/21 SERENA FUNES During your visit today, we recorded the following information about you: Héctor Rob [facility] 01/17/2021 11:16 AM Signed Called patient to reschedule her appointment with Dr. Funes, for glaucoma. Héctor Rob [facility] 01/18/2021 2:19 PM Signed Called patient to schedule with Dr. Funes, since per Dr. Nation he doesn't do MIGS. Héctor Rob [facility] 01/18/2021 2:33 PM Signed Patient is rescheduled. [...] Encounter Status:Closed by HÉCTOR MOREAU on 01/18/21 [facility] XR RIBS LT PA Shane 9 XR RIBS LT PA Patient: OZZIE BUTT Exam Date: 05/04/2019 : 1945 Gender:F Ordering : DR MISTY GOLD . Admission #: [id number] Family : Order #: [id number] CLICK HERE TO VIEW EXAM RADIOLOGY REPORT [...] Nur M.D. on 05/04/2019 at 13:36 Normal [facility] CBC AUTO DIFFon 04-30-2019 Basophils (Bld) [#/Vol] 0.0 103/ul Normal 0.0-0.1 [facility] Comment on above: Performed By: #### C BC #### [facility] [address] [place] [address] Michael Silvia Basophils/100 WBC (Bld) 0.5 % Normal 0.2-2.0 [facility] [place] Comment on above: Performed By: #### C BC #### [facility] [address] [place] [address] Michael Silvia Eosinophils (Bld) [#/Vol] 0.3 103/ul Normal 0.0-0.7 [facility] Comment on above: Performed By: #### C BC #### [facility] [address] [place] [address] Michael Silvia Eosinophils/100 WBC (Bld) 5.0 % Normal 0.9-7.0 [facility] [place] Comment on above: Performed By: #### C BC #### [facility] [address] [place] [address] Michael Silvia Erythrocyte distribution width (RBC) [Ratio] 15.9 % Critically high 11.0-15.0 [facility] Comment on above: Performed By: #### C BC #### [facility] [address] [place], [place] [id number] Michael Silvia Hematocrit (Bld) [Volume fraction] 37.3 % Normal 36.0-48.0 [facility] [place] Comment on above: Performed By: #### C BC #### [facility] [address] [place], [place] [phone] Michael Silvia Hemoglobin (Bld) [Mass/Vol] 11.4 g/dL Critically low 12.0-16.0 [facility] [place] Comment on above: Performed By: #### C BC #### [facility] [address] [place] [address] Michaelmaci Morelosen IG # 0.02 10e3/ul Normal 0.00-0.03 [facility] [place] Comment on above: Performed By: #### C BC #### [facility] [address] [place] [address] Michael Silvia IG % 0.3 % Normal 0.0-0.5 [facility] [place] Comment on above: Performed By: #### C BC #### [facility] [address] [place] [address] Michael Silvia Lymphocytes (Bld) [#/Vol] 1.3 103/ul Normal 1.2-3.8 [facility] Comment on above: Performed By: #### C BC #### [facility] [address] [place] [address] Michael Silvia Lymphocytes/100 WBC (Bld) 22.3 % Normal 20.5-60.0 [facility] [place] Comment on above: Performed By: #### C BC #### [facility] [address] [place] [address] Michaelmaci Vega MANUAL DIFF REQ NO Normal [facility] Comment on above: Performed By: #### C BC #### [facility] [address] [place] [address] Michaelmaci Morelosen MCH (RBC) [Entitic mass] 21.2 pg Critically low 26.7-34.0 [facility] [place] Comment on above: Performed By: #### C BC #### [facility] [address] [place], [place] [phone] Michael Silvia MCHC (RBC) [Mass/Vol] 30.6 g/dL Normal 29.9-35.2 [facility] Comment on above: Performed By: #### C BC #### [facility] [address] [place] [address] Michael Silvia MCV (RBC) [Entitic vol] 69.2 fL Critically low 81.0-99.0 [facility] Comment on above: Performed By: #### C BC #### [facility] [address] [place], [place] [address] Michael Silvia Monocytes (Bld) [#/Vol] 0.6 103/ul Normal 0.3-0.8 [facility] [place] Comment on above: Performed By: #### C BC #### [facility] [address] [place] [id number] Michael Silvia Monocytes/100 WBC (Bld) 9.5 % Normal 1.7-12.0 [facility] [place] Comment on above: Performed By: #### C BC #### [facility] [address] [place], [place] [phone] Michael Silvia Neutrophils (Bld) [#/Vol] 3.7 103/ul Normal 1.4-6.5 [facility] [place] Comment on above: Performed By: #### C BC #### [facility] [address] [place], [place] [phone] Michael Silvia Neutrophils/100 WBC (Bld) 62.4 % Normal 43.0-75.0 [facility] [place] Comment on above: Performed By: #### C BC #### [facility] [address] [place], [place] [phone] Michael Silvia Platelet mean volume (Bld) [Entitic vol] 10.0 fL Normal 9.5-13.5 [facility] [place] Comment on above: Performed By: #### C BC #### [facility] [address] [place], [place] [address] Michael Silvia Platelets (Bld) [#/Vol] 244 103/ul Normal 150-450 [facility] Comment on above: Performed By: #### C BC #### [facility] [address] [place], [place] [address] Michael Silvia RBC (Bld) [#/Vol] 5.39 106/ul Normal 4.20-5.40 [facility] Comment on above: Performed By: #### C BC #### [facility] [address] [place], [place] [address] Michael Silvia WBC (Bld) [#/Vol] 6.0 103/ul Normal 4.0-11.0 [facility] Comment on above: Performed By: #### C BC #### [facility] [address] [place], [place] [address] Michael Vega PROF CHEM 8 (BAS METB)on Anion gap [Moles/Vol] 8.7 mmol/L Normal [facility] [place] Comment on above: Performed By: #### B MP ####[facility] [address] [place] [phone] Silvia Calcium [Mass/Vol] 9.1 mg/dL Normal 8.4-10.2 [facility] Comment on above: Performed By: #### B MP ####[facility] [address] [place] [phone] Silvia Chloride [Moles/Vol] 104 mmol/L Normal 98-107 [facility] Comment on above: Performed By: #### B MP ####[facility] [address] [place] [phone] Silvia CO2 [Moles/Vol] 30.8 mmol/L Critically high 22.0-30.0 [facility] Comment on above: Performed By: #### B MP ####[facility] [address] [place] [phone] Silvia Creatinine [Mass/Vol] 1.03 mg/dL Normal 0.52-1.04 [facility] Comment on above: Performed By: #### B MP ####[facility] [address] [place], [place] [address]Pesfum Silvia EGFR-AF SAMOAN >60 Normal >=60 [facility] Comment on above: Performed By: #### B MP ####[facility] [address] [place], [place] [address]Gerken Silvia EGFR-NON AF SAMOAN 52 mL/min/1.73m2 Critically low >=60 [facility] Comment on above: Performed By: #### B MP ####[facility] [address] [place], [place] [address]Gerken Silvia Glucose [Mass/Vol] 118 mg/dL Critically high 74-[address] [facility] Comment on above: Performed By: #### B MP ####[facility] [address] [place] [phone] Silvia Potassium [Moles/Vol] 3.5 mmol/L Normal 3.4-5.0 [facility] [place] Comment on above: Performed By: #### B MP ####[facility] [address] [place] [phone] Silvia Sodium [Moles/Vol] 140 mmol/L Normal 137-145 [facility] Comment on above: Performed By: #### B MP ####[facility] [address] [place] [phone] Silvia Urea nitrogen [Mass/Vol] 14.0 mg/dL Normal 7.0-17.0 [facility] [place] Comment on above: Performed By: #### B MP ####[facility] [address] [place] [phone] Silvia Urea nitrogen/Creatinine [Mass ratio] 13.6 mg/mg Normal [facility] [place] Comment on above: Performed By: #### B MP ####[facility] [address] [place], [place] [address]Gerken Silvia CBC AUTO DIFFon 08-18-2018 Basophils (Bld) [#/Vol] 0.0 103/ul Normal 0.0-0.1 [facility] [place] Comment on above: Performed By: #### C BC #### [facility] [address] [place], [place] [address] Michael Silvia Basophils/100 WBC (Bld) 0.6 % Normal 0.2-2.0 [facility] [place] Comment on above: Performed By: #### C BC #### [facility] [address] [place] [address] Michael Silvia Eosinophils (Bld) [#/Vol] 0.2 103/ul Normal 0.0-0.7 [facility] [place] Comment on above: Performed By: #### C BC #### [facility] [address] [place] [address] Michael Silvia Eosinophils/100 WBC (Bld) 2.5 % Normal 0.9-7.0 [facility] [place] Comment on above: Performed By: #### C BC #### [facility] [address] [place] [address] Michaelmaci Vega Erythrocyte distribution width (RBC) [Ratio] 15.9 % Critically high 11.0-15.0 [facility] [place] Comment on above: Performed By: #### C BC #### [facility] [address] [place] [address] Michael Silvia Hematocrit (Bld) [Volume fraction] 33.4 % Critically low 36.0-48.0 [facility] [place] Comment on above: Performed By: #### C BC #### [facility] [address] [place] [address] Michael Silvia Hemoglobin (Bld) [Mass/Vol] 10.1 g/dL Critically low 12.0-16.0 [facility] [place] Comment on above: Performed By: #### C BC #### [facility] [address] [place] [address] Michael Silvia IG # 0.01 10e3/ul Normal 0.00-0.03 [facility] [place] Comment on above: Performed By: #### C BC #### [facility] [address] [place] [address] Michael Silvia IG % 0.1 % Normal 0.0-0.5 [facility] [place] Comment on above: Performed By: #### C BC #### [facility] [address] [place] [address] Michael Silvia Lymphocytes (Bld) [#/Vol] 1.3 103/ul Normal 1.2-3.8 [facility] Comment on above: Performed By: #### C BC #### [facility] [address] [place] [address] Michael Silvia Lymphocytes/100 WBC (Bld) 18.1 % Critically low 20.5-60.0 [facility] [place] Comment on above: Performed By: #### C BC #### [facility] [address] [place] [address] Michael Vega MANUAL DIFF REQ NO Normal [facility] Comment on above: Performed By: #### C BC #### [facility] [address] [place], [place] [address] Michaelmaci Vega MCH (RBC) [Entitic mass] 20.6 pg Critically low 26.7-34.0 [facility] [place] Comment on above: Performed By: #### C BC #### [facility] [address] [place], [place] [address] Michaelmaci Vega MCHC (RBC) [Mass/Vol] 30.2 g/dL Normal 29.9-35.2 [facility] Comment on above: Performed By: #### C BC #### [facility] [address] [place] [address] Michaelmaci Vega MCV (RBC) [Entitic vol] 68.0 fL Critically low 81.0-99.0 [facility] [place] Comment on above: Performed By: #### C BC #### [facility] [address] [place] [address] Michael Silvia Monocytes (Bld) [#/Vol] 0.6 103/ul Normal 0.3-0.8 [facility] Comment on above: Performed By: #### C BC #### [facility] [address] [place] [address] Michael Silvia Monocytes/100 WBC (Bld) 8.3 % Normal 1.7-12.0 [facility] [place] Comment on above: Performed By: #### C BC #### [facility] [address] [place] [address] Michael Silvia Neutrophils (Bld) [#/Vol] 5.1 103/ul Normal 1.4-6.5 [facility] Comment on above: Performed By: #### C BC #### [facility] [address] [place], [place] [address] Michael Silvia Neutrophils/100 WBC (Bld) 70.4 % Normal 43.0-75.0 [facility] [place] Comment on above: Performed By: #### C BC #### [facility] [address] [place], [place] [address] Michael Vega Platelet mean volume (Bld) [Entitic vol] 10.4 fL Normal 9.5-13.5 [facility] Comment on above: Performed By: #### C BC #### [facility] [address] [place] [address] Michael Vega Platelets (Bld) [#/Vol] 279 103/ul Normal 150-450 [facility] Comment on above: Performed By: #### C BC #### [facility] [address] [place] [address] Michael Vega RBC (Bld) [#/Vol] 4.91 106/ul Normal 4.20-5.40 [facility] Comment on above: Performed By: #### C BC #### [facility] [address] [place], [place] [address] Michael Vega WBC (Bld) [#/Vol] 7.2 103/ul Normal 4.0-11.0 [facility] Comment on above: Performed By: #### C BC #### [facility] [address] [place] [address] FACIAL BONES W CONon 08-02 CT FACIAL BONES W CON [address] [place] [phone] Patient: RADHA BUTT Exam Date: 08/18/2018 : 1945 Gender:F Ordering : DR. ENEIDA COWAN M.D. Admission #: [id number] Family : Order #: [id number] CLICK HERE TO VIEW EXAM RADIOLOGY REPORT [...] Frank M.D. on 08/28/2018 at 04:09 Normal [facility] [place] PROF CHEM 8 (BAS METB)on Anion gap [Moles/Vol] 12.2 mmol/L Normal [facility] Comment on above: Performed By: #### B MP #### [facility] [address] [place] [address] Michael Silvia Calcium [Mass/Vol] 9.3 mg/dL Normal 8.4-10.2 [facility] Comment on above: Performed By: #### B MP #### [facility] [address] [place] [address] Michael Silvia Chloride [Moles/Vol] 106 mmol/L Normal 98-107 [facility] [place] Comment on above: Performed By: #### B MP #### [facility] [address] [place] [address] Michael Silvia CO2 [Moles/Vol] 25.7 mmol/L Normal 22.0-30.0 [facility] Comment on above: Performed By: #### B MP #### [facility] [address] [place] [address] Michael Silvia Creatinine [Mass/Vol] 1.01 mg/dL Normal 0.52-1.04 [facility] [place] Comment on above: Performed By: #### B MP #### [facility] [address] [place] [id number] Michael Silvia EGFR-AF SAMOAN >60 Normal >=60 [facility] Comment on above: Performed By: #### B MP #### [facility] [address] [place] [phone] Michael Silvia EGFR-NON AF SAMOAN 54 mL/min/1.73m2 Critically low >=60 [facility] Comment on above: Performed By: #### B MP #### [facility] [address] [place], [place] [address] Michael Silvia Glucose [Mass/Vol] 105 mg/dL Normal 74-106 [facility] Comment on above: Performed By: #### B MP #### [facility] [address] [place] [phone] Michael Silvia Potassium [Moles/Vol] 3.9 mmol/L Normal 3.4-5.0 [facility] Comment on above: Performed By: #### B MP #### [facility] [address] [place] [phone] Michael Silvia Sodium [Moles/Vol] 140 mmol/L Normal 137-145 [facility] Comment on above: Performed By: #### B LIMA #### [facility] [address] [place] [id number] Michael Silvia Urea nitrogen [Mass/Vol] 11.0 mg/dL Normal 7.0-17.0 [facility] [place] Comment on above: Performed By: #### B LIMA #### [facility] [address] [place] [phone] Michael Silvia Urea nitrogen/Creatinine [Mass ratio] 10.9 mg/mg Normal [facility] [place] Comment on above: Performed By: #### B LIMA #### [facility] [address] [place] [phone] Michael Silvia CARDIAC AMARI ADMITon 019 CK [Catalytic activity/Vol] 99 U/L Normal 30-135 [facility] Comment on above: Performed By: #### B THANH AMATO #### [facility] [address] [place] [id number] Michael Silvia CK.MB [Mass/Vol] 1.29 ng/mL Normal <=2.37 [facility] Comment on above: Performed By: #### B THANH AMATO #### [facility] [address] [place] [phone] Michael Silvia INR Coag (Bld) [Relative time] SEE BELOW Normal [facility] Comment on above: Result Comment: <0.0 34 ng/ml NEGATIVE 0.034-0.119 INDETERMINATE 0.120 AMI CUT OFF Performed By: #### B THANH AMATO #### [facility] [address] [place] [address] Michael Silvia GUY 65.0 ng/mL Critically high <=61.5 [facility] Comment on above: Performed By: #### B THANH AMATO #### [facility] [address] [place], [place] [address] Michael Silvia TROP <0.017 Normal <=0.034 [facility] Comment on above: Performed By: #### B THANH AMATO #### [facility] [address] [place], [place] [address] Michael Silvia CBC AUTO DIFFon 07-30-2018 Basophils (Bld) [#/Vol] 0.0 103/ul Normal 0.0-0.1 [facility] [place] Comment on above: Performed By: #### C BC #### [facility] [address] [place], [place] [address] Michael Silvia Basophils/100 WBC (Bld) 1.0 % Normal 0.2-2.0 [facility] [place] Comment on above: Performed By: #### C BC #### [facility] [address] [place], [place] [address] Michael Silvia Eosinophils (Bld) [#/Vol] 0.1 103/ul Normal 0.0-0.7 [facility] [place] Comment on above: Performed By: #### C BC #### [facility] [address] [place], [place] [address] Michael Silvia Eosinophils/100 WBC (Bld) 3.4 % Normal 0.9-7.0 [facility] [place] Comment on above: Performed By: #### C BC #### [facility] [address] [place], [place] [address] Michael Silvia Erythrocyte distribution width (RBC) [Ratio] 15.2 % Critically high 11.0-15.0 [facility] [place] Comment on above: Performed By: #### C BC #### [facility] [address] [place], [place] [address] Michael Silvia Hematocrit (Bld) [Volume fraction] 33.2 % Critically low 36.0-48.0 [facility] [place] Comment on above: Performed By: #### C BC #### [facility] [address] [place] [address] Michael Silvia Hemoglobin (Bld) [Mass/Vol] 10.1 g/dL Critically low 12.0-16.0 [facility] [place] Comment on above: Performed By: #### C BC #### [facility] [address] [place] [address] Michael Silvia IG # 0.00 10e3/ul Normal 0.00-0.03 [facility] [place] Comment on above: Performed By: #### C BC #### [facility] [address] [place] [address] Michael Silvia IG % 0.0 % Normal 0.0-0.5 [facility] [place] Comment on above: Performed By: #### C BC #### [facility] [address] [place] [address] Michael Silvia Lymphocytes (Bld) [#/Vol] 1.1 103/ul Critically low 1.2-3.8 [facility] [place] Comment on above: Performed By: #### C BC #### [facility] [address] [place] [address] Michael Vega Lymphocytes/100 WBC (Bld) 29.1 % Normal 20.5-60.0 [facility] [place] Comment on above: Performed By: #### C BC #### [facility] [address] [place] [address] Michael Vega MANUAL DIFF REQ NO Normal [facility] Comment on above: Performed By: #### C BC #### [facility] [address] [place], [place] [id number] Michael Silvia MCH (RBC) [Entitic mass] 20.7 pg Critically low 26.7-34.0 [facility] [place] Comment on above: Performed By: #### C BC #### [facility] [address] [place] [address] Michaelmaci Vega MCHC (RBC) [Mass/Vol] 30.4 g/dL Normal 29.9-35.2 [facility] [place] Comment on above: Performed By: #### C BC #### [facility] [address] [place], [place] [address] Michael Silvia MCV (RBC) [Entitic vol] 68.0 fL Critically low 81.0-99.0 [facility] [place] Comment on above: Performed By: #### C BC #### [facility] [address] [place], [place] [address] Michael Silvia Monocytes (Bld) [#/Vol] 0.4 103/ul Normal 0.3-0.8 [facility] [place] Comment on above: Performed By: #### C BC #### [facility] [address] [place], [place] [address] Michael Silvia Monocytes/100 WBC (Bld) 10.8 % Normal 1.7-12.0 [facility] [place] Comment on above: Performed By: #### C BC #### [facility] [address] [place] [address] Michael Silvia Neutrophils (Bld) [#/Vol] 2.1 103/ul Normal 1.4-6.5 [facility] [place] Comment on above: Performed By: #### C BC #### [facility] [address] [place] [address] Michael Silvia Neutrophils/100 WBC (Bld) 55.7 % Normal 43.0-75.0 [facility] [place] Comment on above: Performed By: #### C BC #### [facility] [address] [place] [address] Michael Silvia Platelet mean volume (Bld) [Entitic vol] 10.3 fL Normal 9.5-13.5 [facility] Comment on above: Performed By: #### C BC #### [facility] [address] [place], [place] [address] Michael Silvia Platelets (Bld) [#/Vol] 225 103/ul Normal 150-450 [facility] Comment on above: Performed By: #### C BC #### [facility] [address] [place] [address] Michael Silvia RBC (Bld) [#/Vol] 4.88 106/ul Normal 4.20-5.40 [facility] Comment on above: Performed By: #### C BC #### [facility] [address] [place], [place] [address] Michael Vega WBC (Bld) [#/Vol] 3.8 103/ul Critically low 4.0-11.0 [facility] [place] Comment on above: Performed By: #### C BC #### [facility] [address] [place] [address] HEAD WO CONon 07-30-2018 CT HEAD WO CON [address] [place] [address] Patient: RADHA BUTT Exam Date: 07/30/2018 : 1945 Gender:F Ordering : JOAQUINA BRIONES Admission #: [id number] Family : DR KIP ESPINOZA Order #: [id number] CLICK HERE TO VIEW EXAM RADIOLOGY REPORT [...] Nur M.D. on 07/30/2018 at 12:07 Normal [facility] [place] PROF CHEM 8 (BAS METB)on Anion gap [Moles/Vol] 12.7 mmol/L Normal [facility] Comment on above: Performed By: #### B MP, CMADM #### [facility] [address] [place] [id number] Michael Silvia Calcium [Mass/Vol] 8.9 mg/dL Normal 8.4-10.2 [facility] Comment on above: Performed By: #### B LIMA, DONNIEDM #### [facility] [address] [place] [id number] Michael Silvia Chloride [Moles/Vol] 108 mmol/L Critically high 98-107 [facility] Comment on above: Performed By: #### B LIMA, THANH #### [facility] [address] [place] [address] Michael Silvia CO2 [Moles/Vol] 26.1 mmol/L Normal 22.0-30.0 [facility] Comment on above: Performed By: #### B LIMA, DONNIEDM #### [facility] [address] [place] [address] Michael Silvia Creatinine [Mass/Vol] 1.07 mg/dL Critically high 0.52-1.04 [facility] Comment on above: Performed By: #### B LIMA, THANH #### [facility] [address] [place] [id number] Michael Silvia EGFR-AF SAMOAN >60 Normal >=60 [facility] Comment on above: Performed By: #### B LIMA, THANH #### [facility] [address] [place] [address] Michael Silvia EGFR-NON AF SAMOAN 50 mL/min/1.73m2 Critically low >=60 [facility] Comment on above: Performed By: #### B LIMA, DONNIEDM #### [facility] [address] [place] [address] Michael Silvia Glucose [Mass/Vol] 92 mg/dL Normal 74-106 [facility] Comment on above: Performed By: #### B LIMA, THANH #### [facility] [address] [place] [id number] Michael Silvia Potassium [Moles/Vol] 3.8 mmol/L Normal 3.4-5.0 [facility] Comment on above: Performed By: #### B LIMA, THANH #### [facility] [address] [place], [place] [address] Michael Silvia Sodium [Moles/Vol] 143 mmol/L Normal 137-145 [facility] Comment on above: Performed By: #### B LIMA, THANH #### [facility] [address] [place], [place] [address] Michael Silvia Urea nitrogen [Mass/Vol] 14.0 mg/dL Normal 7.0-17.0 [facility] [place] Comment on above: Performed By: #### B LIMA, DONNIEDM #### [facility] [address] [place], [place] [address] Michael Silvia Urea nitrogen/Creatinine [Mass ratio] 13.1 mg/mg Normal [facility] [place] Comment on above: Performed By: #### B LIMA, THANH #### [facility] [address] [place], [place] [address] Michael Silvia ALT (SGPT)on 07-09-2018 ALT enzyme act/vol 18 U/L Normal 7-45 [facility] Comment on above: Performed By: #### 1 [id number] #### [facility] [address] [place] [address] AST (SGOT)on 07-09-2018 AST enzyme act/vol 23 U/L Normal 13-39 [facility] Comment on above: Performed By: #### 1 [id number] #### [facility] [address] [place] [address] Creatinineon 07-09-2018 Creatinine mass conc 1.03 mg/dL Normal 0.50-1.05 [facility] Comment on above: Performed By: #### 1 [id number] #### [facility] [address] [place] [address] GFR/1.73 sq M.predicted MDRD vol rate/area 52 mL/min/{1.73_m2} Normal [facility] Comment on above: Result Comment: Inte rpretation for Chronic Kidney Disease: Stages 1&2 >60 Healthy or potential kidney damage. Mild decrease of GFR. Stage 3 30-59 Moderate decrease of GFR. Stage 4 15-29 Severe decrease of GFR. Stage 5 <15 Kidney failure or on dialysis. Performed By: #### 1 [id number] #### [facility] [address] [place] [address] Electrolyte Panelon 07-09-19 19 Anion gap molar conc 13 mmol/L Normal 10-20 [facility] Comment on above: Performed By: #### 1 [id number] #### [facility] [address] [place] [address] Chloride molar conc 104 mmol/L Normal 98-107 [facility] Comment on above: Performed By: #### 1 [id number] #### [facility] [address] [place] [address] HCO3 molar conc (Bld) 27 mmol/L Normal 21-32 [facility] Comment on above: Performed By: #### 1 [id number] #### [facility] [address] [place] [address] Potassium molar conc 3.8 mmol/L Normal 3.5-5.1 [facility] Comment on above: Performed By: #### 1 [id number] #### [facility] [address] [place] [address] Sodium molar conc 140 mmol/L Normal 136-145 [facility] Comment on above: Performed By: #### 1 [id number] #### [facility] [address] [place] [address] Lipid Panelon 07-09-2018 Cholesterol in HDL mass conc 50 mg/dL Normal [facility] Comment on above: Result Comment: Age Normal Mod Risk High Risk 5-9 >46 38-46 <38 10-14 >44 40-44 <40 15-19 >42 38-42 <38 Adult >49 Performed By: #### 1 [id number] #### [facility] [address] [place] [address] Cholesterol in LDL mass conc 60 mg/dL Normal <130 [facility] Comment on above: Performed By: #### 1 [id number] #### [facility] [address] [place] [address] Cholesterol in VLDL mass conc 15 mg/dL Normal <30 [facility] Comment on above: Performed By: #### 1 [id number] #### [facility] [address] [place] [address] Cholesterol mass conc 125 mg/dL Normal <200 [facility] Comment on above: Performed By: #### 1 [id number] #### [facility] [address] [place] [address] Cholesterol.total/Chol esterol in HDL mass ratio 2.5 {ratio} Normal [facility] Comment on above: Performed By: #### 1 [id number] #### [facility] [address] [place] [address] Triglyceride mass conc 77 mg/dL Normal <150 [facility] Comment on above: Result Comment: 150- 199 Borderline High 200-499 High >500 Very High Performed By: #### 1 [id number] #### [facility] [address] [place] [address] Urea Nitrogenon 07-09-2018 Urea nitrogen mass conc 17 mg/dL Normal 6-23 [facility] Comment on above: Performed By: #### 1 [id number] #### [facility] [address] [place] [address] Creatinineon 09-17-2017 Creatinine mass conc 0.88 mg/dL Normal 0.50-1.05 [facility] Comment on above: Performed By: #### 1 [id number] #### [facility] [address] [place] [address] GFR/1.73 sq M.predicted MDRD vol rate/area mL/min/{1.73_m2} Normal [facility] Comment on above: Result Comment: Inte rpretation for Chronic Kidney Disease: Stages 1&2 >60 Healthy or potential kidney damage. Mild decrease of GFR. Stage 3 30-59 Moderate decrease of GFR. Stage 4 15-29 Severe decrease of GFR. Stage 5 <15 Kidney failure or on dialysis. Performed By: #### 1 [id number] #### [facility] [address] [place] [address] Electrolyte Panelon 09-18-19 18 Anion gap molar conc 12 mmol/L Normal 10-20 [facility] Comment on above: Performed By: #### 1 [id number] #### [facility] [address] [place] [address] Chloride molar conc 104 mmol/L Normal 98-107 [facility] Comment on above: Performed By: #### 1 [id number] #### [facility] [address] [place] [address] HCO3 molar conc (Bld) 28 mmol/L Normal 21-32 [facility] Comment on above: Performed By: #### 1 [id number] #### [facility] [address] [place] [address] Potassium molar conc 3.8 mmol/L Normal 3.5-5.1 [facility] Comment on above: Performed By: #### 1 [id number] #### [facility] [address] [place] [address] Sodium molar conc 140 mmol/L Normal 136-145 [facility] Comment on above: Performed By: #### 1 [id number] #### [facility] [address] [place] [address] Urea Nitrogenon 09-17-2017 Urea nitrogen mass conc 13 mg/dL Normal 6-23 [facility] Comment on above: Performed By: #### 1 [id number] #### [facility] [address] [place] [address] Vital Signs Date Time Vital Sign Value Performing Clinician Facility 07-11-2023 08:00-0500 Body temperature 97.9 [degF] RETAIL CLERK Kiip Work Phone: [facility] 07-11-2023 08:00-0500 Diastolic blood pressure 70 mm[Hg] RETAIL CLERK Kiip Work Phone: [facility] 07-11-2023 08:00-0500 Heart rate 66 /min RETAIL CLERK Kiip Work Phone: [facility] 07-11-2023 08:00-0500 Respiratory rate 16 /min RETAIL CLERK Kiip Work Phone: [facility] 07-11-2023 08:00-0500 SaO2% (BldA) [Mass fraction] 99 % RETAIL CLERK Maya Saffle Work Phone: [facility] 07-11-2023 08:00-0500 Systolic blood pressure 166 mm[Hg] EVELIA Karimie Work Phone: [facility] 07-11-2023 06:00-0500 Body weight 56.8 kg RETAIL CLERKNick Karimie Work Phone: [facility] 07-09-2023 15:44-0500 Body height 165.1 cm RETAIL CLERKNick Karimie Work Phone: [facility] 04-10-2023 11:00-0400 Diastolic blood pressure 100 mm[Hg] Esau Aceves DO Work Phone: [facility] 04-10-2023 11:00-0400 Systolic blood pressure 200 mm[Hg] Esau Aceves DO Work Phone: [facility] 04-10-2023 10:31-0400 Body height 165.1 cm Esau Aceves Work Phone: [facility] 04-10-2023 10:31-0400 Body mass index (BMI) [Ratio] 20.47 kg/m2 Esau Aceves DO Work Phone: [facility] 04-10-2023 10:31-0400 Body weight 55.79 kg Esau Aceves DO Work Phone: [facility] 04-10-2023 10:31-0400 Heart rate 66 /min Esau Aceves Work Phone: [facility] 12-29-2022 18:41-0400 Heart rate 68 /min DO Kip House Work Phone: [facility] 12-29-2022 18:17-0400 Body height 165.1 cm DO Kip House Work Phone: [facility] 12-29-2022 18:17-0400 Body temperature 97.4 [degF] DO Kip House Work Phone: [facility] 12-29-2022 18:17-0400 Body weight 55.6 kg DO Kip House Work Phone: [facility] 12-29-2022 18:17-0400 Diastolic blood pressure 106 mm[Hg] DO Kip House Work Phone: [facility] 12-29-2022 18:17-0400 Respiratory rate 14 /min DO Kip House Work Phone: [facility] 12-29-2022 18:17-0400 SaO2% (BldA) [Mass fraction] 99 % DO Kip House Work Phone: [facility] 12-29-2022 18:17-0400 Systolic blood pressure 184 mm[Hg] DO Kip House Work Phone: [facility] 06-14-2022 13:15-0500 Body height 162.56 cm Alli Yu Other [facility] [employer] Other 06-14-2022 13:15-0500 Body mass index (BMI) [Ratio] 21.45 kg/m2 Alli Yu Other [employer] Other 06-14-2022 13:15-0500 Body weight 56.7 kg Alli Yu Other [id number] [facility] [employer] Other 05-17-2022 11:12-0500 Diastolic blood pressure 80 mm[Hg] Kip P House Work Phone: [facility] [employer] 600 DO Work Phone: 05-17-2022 11:12-0500 Systolic blood pressure 140 mm[Hg] Kip P House Work Phone: [facility] [employer] 600 DO Work Phone: 05-17-2022 10:57-0500 Body height 162.56 cm Kip P House Work Phone: [facility] 600 DO Work Phone: 05-17-2022 10:57-0500 Body mass index (BMI) [Ratio] 21.28 kg/m2 Kip P House Work Phone: [facility] 600 DO Work Phone: 05-17-2022 10:57-0500 Body surface area Derived from formula 1.6 m2 Kip P House Work Phone: [facility] 600 DO Work Phone: 05-17-2022 10:57-0500 Body weight 56.25 kg Kip P House Work Phone: [facility] 600 DO Work Phone: 05-17-2022 10:57-0500 Diastolic blood pressure 96 mm[Hg] Kip P House Work Phone: [facility] 600 DO Work Phone: 05-17-2022 10:57-0500 Heart rate 75 /min Kip P House Work Phone: [facility] 600 DO Work Phone: 05-17-2022 10:57-0500 Systolic blood pressure 152 mm[Hg] Kip P House Work Phone: [facility] 600 DO Work Phone: 04-13-2022 11:07-0400 Body height 162.56 cm Kip P House Work Phone: [facility] 250 DO Work Phone: 04-13-2022 11:07-0400 Body mass index (BMI) [Ratio] 21.46 kg/m2 Kip P House Work Phone: [facility] 250 DO Work Phone: 04-13-2022 11:07-0400 Body surface area Derived from formula 1.6 m2 Kip P House Work Phone: [facility] 250 DO Work Phone: 04-13-2022 11:07-0400 Body weight 56.7 kg Kip P House Work Phone: [facility] 250 DO Work Phone: 04-13-2022 11:07-0400 Diastolic blood pressure 104 mm[Hg] Kip P House Work Phone: [facility] 250 DO Work Phone: 04-13-2022 11:07-0400 Heart rate 98 /min Kip P House Work Phone: [facility] 250 DO Work Phone: 04-13-2022 11:07-0400 Systolic blood pressure 168 mm[Hg] Kip P House Work Phone: [facility] 250 DO Work Phone: 01-19-2022 20:31-0400 Diastolic blood pressure 96 mm[Hg] DO Kip House Work Phone: [facility] 01-19-2022 20:31-0400 Heart rate 82 /min DO Kip House Work Phone: [facility] 01-19-2022 20:31-0400 Respiratory rate 18 /min DO Kip House Work Phone: [facility] 01-19-2022 20:31-0400 SaO2% (BldA) [Mass fraction] 100 % DO Kip House Work Phone: [facility] 01-19-2022 20:31-0400 Systolic blood pressure 197 mm[Hg] DO Kip House Work Phone: [facility] 01-19-2022 16:43-0400 Body height 162.56 cm DO Kip House Work Phone: [facility] 01-19-2022 16:43-0400 Body temperature 98.6 [degF] DO Kip House Work Phone: [facility] 01-19-2022 16:43-0400 Body weight 54 kg DO Kip House Work Phone: [facility] 12-14-2021 12:00-0400 Body height 162.56 cm Alli Yu Other [employer] Other 12-14-2021 12:00-0400 Body mass index (BMI) [Ratio] 18.88 kg/m2 Alli Yu Other [employer] Other 12-14-2021 12:00-0400 Body weight 49.9 kg Alli Yu Other [employer] Other 09-28-2021 12:00-0400 Body height 162.56 cm Alli Yu Other [employer] Other 09-28-2021 12:00-0400 Body mass index (BMI) [Ratio] 18.88 kg/m2 Alli Yu Other [employer] Other 09-28-2021 12:00-0400 Body weight 49.9 kg Alli Yu Other [employer] Other 07-25-2021 11:00-0500 Body height 162.56 cm Alli Yu Other [employer] Other 07-25-2021 11:00-0500 Body mass index (BMI) [Ratio] 19.39 kg/m2 Alli Yu Other [employer] Other 07-25-2021 11:00-0500 Body weight 51.26 kg Alli Yu Other [employer] Other 06-27-2021 15:45-0500 Body height 162.56 cm Alli Nicholas Other [employer] Other 06-27-2021 15:45-0500 Body mass index (BMI) [Ratio] 20.94 kg/m2 Alli Nicholas Other [employer] Other 06-27-2021 15:45-0500 Body weight 55.34 kg Alli Nicholas Other [employer] Other 05-04-2021 12:30-0400 Body height 162.56 cm Alli Nicholas Other [employer] Other 05-04-2021 12:30-0400 Body mass index (BMI) [Ratio] 21.45 kg/m2 Alli Nicholas Other [employer] Other 05-04-2021 12:30-0400 Body weight 56.7 kg Alli Nicholas Other [employer] Other 04-12-2021 11:38-0400 Body height 165.1 cm Kip Therosteon Work Phone: [facility] [employer] 250 DO Work Phone: 04-12-2021 11:38-0400 Body mass index (BMI) [Ratio] 21.63 kg/m2 Kip P House Work Phone: [facility] [employer] 250 DO Work Phone: 04-12-2021 11:38-0400 Body surface area Derived from formula 1.65 m2 Kip P House Work Phone: [facility] [employer] 250 DO Work Phone: 04-12-2021 11:38-0400 Body weight 58.97 kg Kip P House Work Phone: [facility] 250 DO Work Phone: 04-12-2021 11:38-0400 Diastolic blood pressure 70 mm[Hg] Kip P House Work Phone: [facility] 250 DO Work Phone: 04-12-2021 11:38-0400 Heart rate 56 /min Kip P House Work Phone: [facility] 250 DO Work Phone: 04-12-2021 11:38-0400 Systolic blood pressure 122 mm[Hg] Kip P House Work Phone: [facility] 250 DO Work Phone: 03-21-2021 00:00-0400 65 1 Kip P House Work Phone: [facility] 250 DO Work Phone: Comment on above: [id number] Encounters Encounter Date Encounter Type Care Provider Facility Start: 12-18-2023 End: 12-18-2023 ambulatory KIP ESPINOZA Facility:[facility] Start: 11-28-2023 End: 11-28-2023 ambulatory [facility] Work Phone: Start: 11-28-2023 End: 11-28-2023 Patient encounter procedure [facility] Work Phone: Start: 09-17-2023 End: 09-17-2023 ambulatory KIP P HOUSE Facility:[facility] Start: 08-13-2023 End: 08-13-2023 ambulatory Alli Nicholas Other [facility] [employer] Other Start: 08-13-2023 Telephone encounter Alli Nicholas [facility] Start: 07-23-2023 End: 07-23-2023 ambulatory Alli Nicholas Other [employer] Other Start: 07-23-2023 Telephone encounter [facility] Start: 07-16-2023 End: 07-16-2023 ambulatory KIP ESPINOZA Facility:[facility] Start: 07-09-2023 End: 07-11-2023 ambulatory Litobarbara McdanielKevin Facility:[facility] Start: 07-09-2023 End: 07-11-2023 Evaluation and management of inpatient EVELIA Curtisfle Work Phone: [facility] [place] [facility] Work Phone: Start: 07-09-2023 End: 07-11-2023 observation encounter EVELIA Wynn Work Phone: [facility] Work Phone: Start: 07-03-2023 End: 07-03-2023 ambulatory Alli Nicholas Other [employer] Other Start: 07-03-2023 Telephone encounter [facility] Start: 06-18-2023 End: 06-18-2023 ambulatory Jose Mendez MD Facility:[facility] Start: 06-12-2023 ambulatory Jose Mendez MD Fac ility:[facility] Start: 06-05-2023 End: 06-05-2023 ambulatory [facility] Start: 05-31-2023 End: 05-31-2023 ambulatory Alli Nicholas Other [employer] Other Start: 05-31-2023 Telephone encounter [facility] Start: 05-02-2023 End: 05-02-2023 ambulatory Alli Nicholas Other [employer] Other Start: 05-02-2023 Telephone encounter [facility] Start: 04-10-2023 End: 04-10-2023 ambulatory ESAU Man [facility] Start: 04-10-2023 End: 04-10-2023 Office outpatient visit 25 minutes Esau Aceves DO Work Phone: [facility] Comment on above: Atherosclerosis of n ative coronary artery of [place] heart without angina pectoris; Chronic atrial fibrillation (CMS/HCC); Essential hypertension, benign; GARCIA (dyspnea on exertion); History of PTCA; High risk medication use; Hyperlipidemia, unspecified hyperlipidemia type Start: 03-30-2023 End: 03-30-2023 ambulatory Alli Nicholas Other [employer] Other Start: 03-30-2023 Telephone encounter [facility] Start: 02-05-2023 Rx Renewal Kip P Hous e Work Phone: [facility] 250 DO Work Phone: Start: 01-30-2023 Rx Renewal Kip P Hous e Work Phone: [facility] 250 DO Work Phone: Start: 01-24-2023 End: 01-24-2023 ambulatory Marilin Resendez Other [employer] Other Start: 01-24-2023 Office outpatient vi sit 10 minutes [facility] Start: 01-19-2023 End: 01-19-2023 ambulatory Alli Nicholas Other [facility] [employer] Other Start: 01-19-2023 Telephone encounter [facility] Start: 12-29-2022 End: 12-29-2022 Emergency department patient visit Citlalli Tenorio Facility:[facility] Start: 12-29-2022 End: 12-29-2022 Emergency department patient visit DO Kip House Work Phone: [facility] Work Phone: Start: 12-29-2022 End: 12-29-2022 ambulatory Alli Nicholas Other [facility] Other Start: 12-29-2022 Telephone encounter Alli PEGUERO [facility] Start: 12-29-2022 Rx Renewal Kip P Hous e Work Phone: [facility] 250 DO Work Phone: Start: 12-12-2022 End: 12-12-2022 ambulatory Alli Nicholas Other [facility] Other Start: 12-12-2022 Telephone encounter Alli PEGUERO [facility] Start: 12-01-2022 End: 12-01-2022 ambulatory Marilin Resendez Other [facility] Other Start: 12-01-2022 Office outpatient vi sit 15 minutes Marilindelisa Resendez [facility] Start: 11-10-2022 End: 11-10-2022 ambulatory Alli Nicholas Other [facility] Other Start: 11-10-2022 Telephone encounter Alli PEGUERO [facility] Start: 10-30-2022 End: 10-30-2022 ambulatory Alli Nicholas Other [facility] Other Start: 10-30-2022 Telephone encounter Alli PEGUERO [facility] Start: 10-26-2022 End: 10-26-2022 ambulatory Alli Nicholas Other [facility] Other Start: 10-26-2022 Telephone encounter Alli PEGUERO [facility] Start: 10-17-2022 End: 10-17-2022 ambulatory Alli Nicholas Other [facility] Other Start: 10-17-2022 Telephone encounter Alli PEGUERO [facility] Start: 10-06-2022 End: 10-06-2022 ambulatory Alli Nicholas Other [facility] Other Start: 10-06-2022 Telephone encounter Alli PEGUERO [facility] Start: 09-20-2022 End: 09-20-2022 ambulatory Alli Nicholas Other [facility] Other Start: 09-20-2022 Telephone encounter Allishelbie Nicholas SUDHIR [facility] Start: 09-07-2022 End: 09-07-2022 ambulatory Alli Nicholas Other [facility] Other Start: 09-07-2022 Telephone encounter Allishelbie Nicholas SUDHIR [facility] Start: 08-11-2022 End: 08-11-2022 ambulatory Alli Nicholas Other [facility] Other Start: 08-11-2022 Telephone encounter Allishelbie Nicholas SUDHIR [facility] Start: 07-13-2022 End: 07-13-2022 ambulatory Alli Nicholas Other [facility] Other Start: 07-13-2022 Telephone encounter Alli Yu SUDHIR [facility] Start: 07-06-2022 End: 07-06-2022 ambulatory Alli Nichoals Other [facility] Other Start: 07-06-2022 Telephone encounter Alli Yu PEGUERO [facility] Start: 06-20-2022 End: 06-20-2022 ambulatory Alli Nicholas Other [facility] Other Start: 06-20-2022 Telephone encounter Alli Yu SUDHIR [facility] Start: 06-14-2022 Office outpatient vi sit 15 minutes Alli Nicholas [facility] Start: 06-14-2022 End: 06-14-2022 ambulatory DO Kip Espinoza Work Phone: [facility] Work Phone: Start: 06-14-2022 End: 06-14-2022 Patient encounter procedure DO Kip House Work Phone: [facility] Start: 06-08-2022 End: 06-08-2022 ambulatory Alli Nicholas Other [facility] Other Start: 06-08-2022 Telephone encounter Alli Douglass [facility] Start: 05-24-2022 End: 05-24-2022 ambulatory Alli Nicholas Other [facility] Other Start: 05-24-2022 Telephone encounter Alil Douglass [facility] Start: 05-17-2022 Office outpatient vi sit 25 minutes Kip P House Work Phone: [facility] 600 DO Work Phone: Start: 05-17-[address] Kip Espinoza Facility: Start: 05-16-2022 End: 05-16-2022 ambulatory Alli Nicholas Other [facility] Other Start: 05-16-2022 Telephone encounter Alli Douglass [facility] Start: 05-10-2022 End: 05-10-2022 ambulatory Alli Nicholas Other [facility] Other Start: 05-10-2022 Telephone encounter Alli Douglass [facility] Start: 05-02-2022 End: 05-02-2022 ambulatory Alli Nicholas Other [facility] Other Start: 05-02-2022 Telephone encounter Alli Douglass [facility] Start: 04-25-2022 End: 04-25-2022 ambulatory Alli Nicholas Other [facility] Other Start: 04-25-2022 Telephone encounter Alli Nicholas SUDHIR [facility] Start: 04-17-2022 End: 04-17-2022 ambulatory Alli Nicholas Other [facility] Other Start: 04-17-2022 Telephone encounter Alli Nicholas SUDHIR [facility] Start: 04-13-2022 Office outpatient vi sit 40 minutes Kip P House Work Phone: [facility] 250 DO Work Phone: Start: 04-13-[address] Esau keen Ketan Facility: Start: 03-27-2022 End: 03-27-2022 ambulatory Alli Nicholas Other [facility] Other Start: 03-27-2022 Telephone encounter Alli PEGUERO [facility] Start: 03-16-2022 End: 03-16-2022 ambulatory Alli Nicholas Other [facility] Other Start: 03-16-2022 Telephone encounter Alli Nicholas SUDHIR [facility] Start: 02-28-2022 End: 02-28-2022 ambulatory Alli Nicholas Other [facility] Other Start: 02-28-2022 Telephone encounter Alli Nicholas SUDHIR [facility] Start: 02-13-2022 End: 02-13-2022 ambulatory Alli Nicholas Other [facility] Other Start: 02-13-2022 Telephone encounter Alli Nicholas SUDHIR [facility] Start: 02-08-2022 End: 02-08-2022 ambulatory Alli Nicholas Other [facility] Other Start: 02-08-2022 Telephone encounter Alli PEGUERO [facility] Start: 02-02-2022 Rx Renewal Kip P Hous e Work Phone: [facility] 250 DO Work Phone: Start: 01-30-2022 End: 01-30-2022 ambulatory Alli Nicholas Other [facility] [employer] Other Start: 01-30-2022 Telephone encounter [facility] Start: 01-19-2022 End: 01-19-2022 Emergency department patient visit DO Kip House Work Phone: [facility] Start: 01-19-2022 End: 01-19-2022 ambulatory Alli Nicholas Other [facility] [employer] Other Start: 01-19-2022 Telephone encounter [facility] Start: 01-12-2022 End: 01-12-2022 ambulatory Alli Nicholas Other [facility] [employer] Other Start: 01-12-2022 Telephone encounter Alli PEGUERO [facility] Start: 01-12-2022 End: 01-12-2022 Discharged Recurring DO Kip House Work Phone: [facility] Start: 01-11-2022 End: 01-11-2022 ambulatory Marilin Resendez Other [facility] [employer] Other Start: 01-11-2022 Office outpatient vi sit 15 minutes Marilin Resendez [facility] Start: 01-05-2022 End: 01-05-2022 ambulatory Alli Nicholas Other [facility] Other Start: 01-05-2022 Telephone encounter Alli PEGUERO Evonne [facility] Start: 12-30-2021 End: 12-30-2021 ambulatory Maude Trotter Other [facility] [employer] Other Start: 12-30-2021 Telephone encounter Maude Trotter [facility] Start: 12-28-2021 End: 12-28-2021 ambulatory Maude Trotter Other [facility] [employer] Other Start: 12-28-2021 Telephone encounter Maude Trotter [facility] Start: 12-21-2021 End: 12-21-2021 ambulatory Alli Nicholas Other [facility] [employer] Other Start: 12-21-2021 Telephone encounter Alli PEGUERO G [facility] Start: 12-21-2021 Rx Renewal Kip P Hous e Work Phone: [facility] 250 DO Work Phone: Start: 12-14-2021 End: 12-14-2021 ambulatory Alli Nicholas Other [employer] Other Start: 12-14-2021 Office outpatient vi sit 15 minutes Alli Nicholas [facility] Start: 12-14-2021 End: 12-14-2021 Patient encounter procedure DO Kip House Work Phone: [facility] Start: 12-07-2021 End: 12-07-2021 ambulatory Alli Nicholas Other [facility] Other Start: 12-07-2021 Telephone encounter Alli PEGUERO [facility] Start: 11-29-2021 End: 11-29-2021 ambulatory Alli Nicholas Other [facility] Other Start: 11-29-2021 Telephone encounter Alli PEGUERO [facility] Start: 11-25-2021 End: 11-25-2021 ambulatory Alli Nicholas Other [facility] Other Start: 11-25-2021 Telephone encounter Alli PEGUERO [facility] Start: 11-21-2021 Rx Renewal Kip P Hous e Work Phone: [facility] 250 DO Work Phone: Start: 11-14-2021 End: 11-14-2021 ambulatory Alli Nicholas Other [facility] Other Start: 11-14-2021 Telephone encounter Alli PEGUERO [facility] Start: 10-27-2021 End: 10-27-2021 ambulatory Alli Nicholas Other [facility] Other Start: 10-27-2021 Telephone encounter Alli PEGUERO [facility] Start: 10-20-2021 End: 10-20-2021 ambulatory Alli Nicholas Other [facility] Other Start: 10-20-2021 Telephone encounter Alli PEGUERO [facility] Start: 10-13-2021 End: 10-13-2021 ambulatory Alli Nicholas Other [facility] Other Start: 10-13-2021 Telephone encounter Alli PEGUERO [facility] Start: 09-28-2021 End: 09-28-2021 ambulatory Alli Nicholas Other [facility] Other Start: 09-28-2021 Office outpatient ne w 30 minutes Alli Nicholas [facility] Start: 09-26-2021 End: 09-26-2021 ambulatory Alli Nicholas Other [facility] Other Start: 09-26-2021 Telephone encounter Alli PEGUERO [facility] Start: 08-15-2021 End: 08-15-2021 ambulatory Maude Trotter Other [facility] Other Start: 08-15-2021 Telephone encounter Maude Trotter [facility] Start: 08-01-2021 End: 08-01-2021 ambulatory Alli Nicholas Other [facility] Other Start: 08-01-2021 Telephone encounter Alil PEGUERO [facility] Start: 07-25-2021 End: 07-25-2021 ambulatory Alli Nicholas Other [facility] Other Start: 07-25-2021 Encounter for other preprocedural examination Alli Nicholas [facility] Start: 07-25-2021 Postop follow up vis it related to original px Alli Nicholas [facility] Start: 07-21-2021 End: 07-21-2021 ambulatory Alli Nicholas Other [facility] Other Start: 07-21-2021 Telephone encounter Alli PEGUERO [facility] Start: 07-20-2021 End: 07-20-2021 ambulatory Alli Nicholas Other [facility] Other Start: 07-20-2021 Telephone encounter Alli Nicholas SUDHIR [facility] Start: 07-04-2021 End: 07-04-2021 ambulatory Alli Nicholas Other [facility] Other Start: 07-04-2021 Telephone encounter Alli PEGUERO G [facility] Start: 06-28-2021 End: 06-28-2021 ambulatory Alli Nicholas Other [facility] Other Start: 06-28-2021 Telephone encounter Alli PEGUERO [facility] Start: 06-27-2021 End: 06-27-2021 ambulatory Alli Nicholas Other [facility] Other Start: 06-27-2021 Postop follow up vis it related to original px Alli Nicholas [facility] Start: 06-08-2021 End: 06-08-2021 ambulatory Alli Nicholas Other [facility] Other Start: 06-08-2021 Office outpatient vi sit 25 minutes Alli Nicholas [facility] Start: 05-16-2021 End: 05-16-2021 ambulatory Alli Nicholas Other [facility] Other Start: 05-16-2021 Telephone encounter Alli PEGUERO G [facility] Start: 05-04-2021 End: 05-04-2021 ambulatory Alli Nicholas Other [facility] Other Start: 05-04-2021 Office outpatient ne w 45 minutes Alli Nicholas [facility] Start: 04-12-2021 Office outpatient vi sit 15 minutes Kip Aguilar House Work Phone: [facility] 250 DO Work Phone: Start: 05-04-2019 End: 05-04-2019 Patient encounter procedure KIP [place] Facility:[facility]1 Start: 04-30-2019 End: 04-30-2019 Patient encounter procedure KIP [place] Facility:[facility] Start: 08-18-2018 End: 08-18-2018 Patient encounter procedure KIP ESPINOZA Facility:[facility]1 Start: 07-30-2018 End: 07-30-2018 Patient encounter procedure JOAQUINA BRIONES Facility:[facility]1 Start: 07-09-2018 Patient encounter procedure PROVIDER UNKNOWN Facility:[id number] Start: 01-01-2018 Patient encounter procedure PROVIDER UNKNOWN Facility:[id number] Start: 09-17-2017 Patient encounter procedure PROVIDER UNKNOWN Facility:[id number] Start: 09-10-2017 Patient encounter procedure PROVIDER UNKNOWN Facility:[id number] Procedures Date Procedure Procedure Detail Performing Clinician Start: 07-09-2023 CT of head without contrast RETAIL CLERKNick Wynn Work Phone: Start: 07-09-2023 Plain chest X-ray EVELIA Wynn Work Phone: Start: 06-05-2023 FOLLOW UP IN CARDIOLOGY ESAU ACEVES Start: 03-05-2023 History of percutane ous transluminal coronary angioplasty History of PTCA Esau Aceves DO Work Phone: Start: 06-14-2022 X-ray of left knee DO C [employer]M Work Phone: Start: 01-19-2022 Plain chest X-ray DO Ch emreIntelligentM Work Phone: Start: 12-14-2021 X-ray of left knee DO C [employer] Work Phone: Start: 01-13-2020 Lipid 1996 panel - S amador or Plasma Esau Aceves DO Work Phone: Start: 08-18-2018 End: 08-18-2018 Microscopic examination of blood, culture JOAQUINA BRIONES Comment on above: Performed By: #### B LDCX2 #### [facility] [address] [place] [address] Michael Vega Performed By: #### B LDCX1 #### [facility] [address] [place] [address] Michael Vega Start: 12-21-2015 Total colonoscopy Charl dylan Therosteon Work Phone: Arthroplasty of knee Kip Therosteon Work Phone: History of percutane ous transluminal coronary angioplasty History of PTCA Kip Therosteon Work Phone: History of percutane ous transluminal coronary angioplasty History of PTCA Esau Aceves DO Work Phone: Percutaneous translu nickie coronary angioplasty Kip Therosteon Work Phone: SARS Antigen (LFIA) DO Charl Widbook Work Phone: Surgical procedure o n eye proper Kip P [employer] Work Phone: Comment on above: lower pressure; Plan of Treatment Date Care Activity Detail Author Start: 01-12-2025 Lipid panel Lipid Panel [facility] Start: 07-11-2023 [facility] Start: 07-09-2023 Hospital admission [facility] Start: 07-09-2023 [facility] Start: 06-05-2023 End: 06-05-2023 Clinical Support 06/05/2023 9:30 AM EST Clinical Support [facility] [address] [address] [facility] Start: 04-10-2023 FUV, Provider: Esau Aceves, Status: Pen, Time: 10:10 AM FUV, Provider: Esau Aceves, Status: Pen, Time: 10:10 AM [facility] 250 DO Work Phone: Start: 03-02-2023 Influenza vaccination Influenza Vaccine (#1) [facility] Start: 05-17-2022 FUV, Provider: Joyce Silva, Status: Pen, Time: 11:00 AM FUV, Provider: Joyce Silva, Status: Pen, Time: 11:00 AM [facility] 250 DO Work Phone: Start: 04-13-2022 FUV, Provider: Esau Aceves, Status: Pen, Time: 10:40 AM FUV, Provider: Esau Aceves, Status: Pen, Time: 10:40 AM [facility] 250 DO Work Phone: Start: 01-05-1994 Zoster Vaccines (1 of 2) Zoster Vaccines (1 of 2) [facility] Start: 01-05-1966 DTaP/Tdap/Td Vaccines (1 - Tdap) DTaP/Tdap/Td Vaccines (1 - Tdap) [facility] Start: 01-05-1962 Diabetes mellitus screening Diabetes Screening [facility] Start: 01-05-1962 Hepatitis C screening Hepatitis C Screening [facility] Start: 01-05-1950 Pneumococcal Vaccine: 65+ Years (1 - PCV) Pneumococcal Vaccine: 65+ Years (1 - PCV) [facility] Start: 1945 COVID-19 Vaccine (#1) COVID-19 Vaccine (#1) [facility] Start: 1945 Medicare Annual Wellness Visit Medicare Annual Wellness Visit (AWV) [facility] Start: 1945 Screening for osteoporosis Bone Density Scan [facility] Patient Education [facility] Work Phone: Patient referral [facility] Work Phone: Payers Date Payer Category Payer Self-pay [id number] 2022 Medicare [id number] 2018 Private Health Insurance [id number] 1959 Private Health Insurance [id number] 1944 Unknown [id number] [id number] 1944 Unknown [id number] 2.16.840.1.616602.3.579.2.355 1944 Unknown [id number] 2.16.840.1.760755.3.579.2.355 1944 Unknown [id number] 2.16.840.1.515783.3.579.2.355 1944 Unknown [id number] 2.16.840.1.973088.3.579.2.593 1944 Unknown [id number] 2.16.840.1.130349.3.579.2.593 1944 Unknown [id number] 2.16.840.1.250446.3.579.2.593 1944 Unknown [id number] 2.16.840.1.777403.3.579.2.593 1944 Unknown [id number] 2.16.840.1.363345.3.579.2.356 1944 Unknown [id number] 2.16.840.1.498907.3.579.2.356 1944 Unknown [id number] 2.16.840.1.502691.3.579.2.1244 1944 Unknown [id number] 2.16.840.1.849368.3.579.2.1244 1944 Unknown [id number] 2.16.840.1.965552.3.579.2.718 1944 Unknown [id number] 2.16.840.1.027981.3.579.2.718 1944 Unknown [id number] 2.16.840.1.078132.3.579.2.718 1944 Unknown [id number] 2.16840.1.035654.3.579.2.71 1944 Unknown [id number] 2.16.840.1.822072.3.579.2.718 Medicare [id number] Medicare Medicare [id number] Private Health Insurance [id number] Private Health Insurance [facility] [id number] Unknown Unknown [id number] 2.16840.1.399352.3.579.2.531 Unknown [id number] 2.16.840.1.682706.3.579.2.531 Social History Date Type Detail Facility Start: 04-10-2023 No alcohol use No alcohol use [facility] [place] [address] DO Work Phone: Comment on above: Coffee 2 cups daily Pop every other day; 1-2 cups coffee darshan y, not too much soda; a little in the soda for flavor once in awhile; Maybe once weekly wi th a little soda for flavor; Start: 04-10-2023 Sex Assigned At N [facility] [employer] Other Start: 01-19-2022 End: 07-09-2023 Tobacco smoking status NHIS Never smoked tobacco (finding) [facility] Start: 1945 Sex Assigned At Female F [facility] Start: 04-10-2023 Tobacco use and exposure Smokeless tobacco non-user [facility] Work Phone: Start: 04-10-2023 Alcohol intake Current drinke r of alcohol (finding) [facility] Work Phone: Start: 04-10-2023 Alcohol Comment socially [facility] Work Phone: Start: 1945 Sex Assigned At Not on file [facility] Work Phone: Start: 03-31-2023 End: 04-10-2023 Exposure to SARS-CoV-2 (event) Not sure [facility] Medical Equipment Procedure Code Equipment Code Equipment Origin al Text Equipment Identifier Dates Arthroplasty, knee, total, minimally invasive Orthopaedic cement, non-medicated [id number] FDA Start: 06-14-2021 Arthroplasty, knee, total, minimally invasive Uncoated knee femur prosthesis ()[id number] FDA Start: 06-14-2021 Arthroplasty, knee, total, minimally invasive Tibial insert ()[id number] FDA Start: 06-14-2021 Arthroplasty, knee, total, minimally invasive Uncoated knee tibia prosthesis, metallic ()[id number] FDA Start: 06-14-2021 Arthroplasty, knee, total, minimally invasive Polyethylene patella prosthesis ()[id number] FDA Start: 06-14-2021 Goals Date Patient Goal Desired Activity /State Functional Status Date Assessment Result Facility 07-11-2023 Functional status Patient at Baseline [facility] Work Phone: 07-09-2023 Functional status Disability Sta tus Patient is Progressing Toward Baseline [facility] Work Phone: Mental Status Date Assessment Result Facility 07-11-2023 Cognitive function Cognitive Sta tus Patient at Baseline [facility] Work Phone: Clinical Notes 12-21-2011 to 08-13-2023 Note Date & Type Note Facility 08-13-2023 Evaluation note Encounter Date Diagnosis Assessment Notes Aug, Other specified postprocedural states (ICD-10 - Z98.890) [facility] Other 02-12-2024 Note From: KIP ESPINOZA DO To: [facility] Clinical Pool ([facility]); Sent: 08/13/2023 07:56:51 EST Subject: FW: Medication Management Due Date/Time: 08/13/2023 17:19:00 EST Caller Name: RADHA BUTT; Caller Number: H From: [place] To: KIP ESPINOZA DO Sent: August 12, 2023 4:19:56 PM [employer]ICE [employer]Y PROGRAM COORDINATOR Subject: Medication Management Due: August 13, 2023 12:32:35 AM POLICE ACADEMY PROGRAM COORDINATOR On Hold Pending Signature Dispensed Drug: gabapentin (gabapentin 600 mg oral tablet), TAKE 1 TABLET BY MOUTH THREE TIMES DAILY Quantity: 90 tab(s) Days Supply: 30 Refills: 0 Substitutions Allowed Notes from Pharmacy: From: Kierra Marin To: [facility] Sent: 08/13/2023 11:17:42 EST Subject: FW: Medication Management Not Approved: sent gabapentin (Gabapentin 600 MG Oral Tablet) TAKE 1 TABLET BY MOUTH THREE TIMES DAILY Qty: 90 tab(s) Days Supply: 30 Refills: 0 Substitutions Allowed Route To Pharmacy - [place] [id number] [facility] note* Encounter Date Diagnosis Assessment Notes Treatment Notes Treatment Clinical Notes Jul, Other specified postprocedural states (ICD-10 - Z98.890) [facility] Other 01-15-2024 Note From: KIP ESPINOZA DO To: [facility] Clinical Pool ([facility]); Sent: 07/16/2023 07:46:23 EST Subject: FW: Medication Management Due Date/Time: 07/16/2023 14:17:00 EST Caller Name: RADHA BUTT; Caller Number: H From: [facility] 1627 To: KIP ESPINOZA DO Sent: July 15, 2023 1:17:50 PM [employer]ICE [employer]ADEMY PROGRAM COORDINATOR Subject: Medication Management Due: July 16, 2023 12:23:23 AM POLICE ACADEMY PROGRAM COORDINATOR On Hold Pending Signature Dispensed Drug: gabapentin (gabapentin 600 mg oral tablet), TAKE 1 TABLET BY MOUTH THREE TIMES DAILY Quantity: 90 tab(s) Days Supply: 30 Refills: 0 Substitutions Allowed Notes from Pharmacy: From: JONATHON MONROE To: [facility] 1627 Sent: 07/16/2023 08:17:11 EST Subject: FW: Medication Management Not Approved: duplicate gabapentin (Gabapentin 600 MG Oral Tablet) TAKE 1 TABLET BY MOUTH THREE TIMES DAILY Qty: 90 tab(s) Days Supply: 30 Refills: 0 Substitutions Allowed Route To Pharmacy - [facility] Signed by JONATHON MONROETuscarawas [id number] Progress note Author Lito Kevin [facility] July 11, 2023 5:43pm Note Date/Time July 10, 2023 7: 14pm [facility] [address] [place] [address] Hospitalist Progress Note Signed Patient: Radha Butt MR#: [id number] : 1945 Acct:[id number] Age/Sex: 78 / F Adm Date: 4 Loc: Room: [address] [place] [address] Type: DIS INOo Attending Dr: Lito Kevin [...] <Electronically signed by Lito Kevin DO> 07/11/23 1743 [facility] Work Phone: 1(615) 149-329101-09-2024 History and physical note Author Lito Kevin [facility] July 10, 2023 3:53pm Note Date/Time July 09, 2023 3: 03pm [facility] [address] [place] [address] Hospitalist H&P Signed Patient: Radha Butt MR#: [id number] : 1945 Acct:[id number] Age/Sex: 78 / F Adm Date: 4 Loc: Room: [address] [place] [address] Type: ADM INOo Attending Dr: Lito Kevin DO Copies to: DO Lito Zendejas DO Linda Obika, APRN~ HPI DATE OF EXAMINATION: 07/09/23 CHIEF [...] % (Auto) 23.1 % (.) 07/09/23 11:05 Hendricks % (Auto) 7.5 % (.) 07/09/23 11:05 Eos % (Auto) 2.0 % (.) 07/09/23 11:05 Baso % (Auto) 1.2 % (.) 07/09/23 11:05 Nucleat RBC Rel Count 0.1 /100 WBC (0-0.5) 07/09/23 11:05 Neut # (Auto) 3.0 x10E3/uL (1.8-7.7) 07/09/23 11:05 Lymph # (Auto) 1.0 x10E3/uL (1.00-4.8) 07/09/23 11:05 Hendricks # (Auto) 0.3 x10E3/uL (0.0-0.8) 07/09/23 11:05 [...] pH 7.0 (5.0-9.0) 07/09/23 12:15 Ur Specific [place] 1.007 (1.001-1.030) 07/09/23 12:15 Urine Protein Trace [...] Hospitalist Documented By: Kristyn Morrison APRN 07/09/23 1454 Signed By: <Electronically signed by EVELIA Morrison> 07/09/23 1527 <Electronically signed by Lito Kevin DO> 07/10/23 1553 [facility] Work Phone: 1(315) 221-128801-02-2024 Evaluation note* Encounter Date Diagnosis Assessment Notes Treatment Notes Treatment Clinical Notes Jul, Other specified postprocedural states (ICD-10 - Z98.890) [facility] Other 11-30-2023 Evaluation note* Encounter Date Diagnosis Assessment Notes Treatment Notes Treatment Clinical Notes May, Other specified postprocedural states (ICD-10 - Z98.890) [facility] Other 11-01-2023 Evaluation note* Encounter Date Diagnosis Assessment Notes Treatment Notes Treatment Clinical Notes May, Other specified postprocedural states (ICD-10 - Z98.890) [facility] Other 10-10-2023 History of Present illness Narrative* Esau Aceves DO - 04/10/2023 10:10 AM EDT Subjective [...] Assessment/Plan No diagnosis found. [facility] Phone: 1(293) 764-564010-10-2023 Instructions* Patient Instructions* Berta Martinez LPN - [...] time of your visit. documented in this [facility] Work Phone: 1(614) 653-192909-29-2023 Evaluation note* Encounter Date Diagnosis Assessment Notes Treatment Notes Treatment Clinical Notes Mar, Osteoarthritis of knee (ICD-10 - M17.9) Mar, Primary osteoarthritis of both knees (ICD-10 - M17.0) [facility] Other 07-26-2023 Evaluation note* Encounter Date Diagnosis [...] Dec, Hand pain, right (ICD-10 - M79.641) [facility] Other 07-21-2023 Evaluation note* Encounter Date Diagnosis Assessment Notes Treatment Notes Treatment Clinical Notes Dec, Primary osteoarthritis of both knees (ICD-10 - M17.0) Dec, Osteoarthritis of knee (ICD-10 - M17.9) [facility] Other 06-30-2023 Evaluation note* Encounter Date Diagnosis Assessment Notes Treatment Notes Treatment Clinical Notes Nov, Osteoarthritis of knee (ICD-10 - M17.9) [facility] Other 06-13-2023 Evaluation note* Encounter Date Diagnosis Assessment Notes Treatment Notes Treatment Clinical Notes Nov, Osteoarthritis of knee (ICD-10 - M17.9) Nov, Primary osteoarthritis of both knees (ICD-10 - M17.0) [facility] Other 06-02-2023 Evaluation note* Encounter Date Diagnosis [...] Nov, Hand pain, right (ICD-10 - M79.641) [facility] Other 05-12-2023 Evaluation note* Encounter Date Diagnosis Assessment Notes Treatment Notes Treatment Clinical Notes October, Osteoarthritis of knee (ICD-10 - M17.9) [facility] Other 05-01-2023 Evaluation note* Encounter Date Diagnosis Assessment Notes Treatment Notes Treatment Clinical Notes October, Osteoarthritis of knee (ICD-10 - M17.9) [facility] Other 04-27-2023 Evaluation note* Encounter Date Diagnosis Assessment Notes Treatment Notes Treatment Clinical Notes Sep, Primary osteoarthritis of both knees (ICD-10 - M17.0) [facility] Other 04-18-2023 Evaluation note* Encounter Date Diagnosis Assessment Notes Treatment Notes Treatment Clinical Notes Sep, Osteoarthritis of knee (ICD-10 - M17.9) [facility] Other 04-07-2023 Evaluation note* Encounter Date Diagnosis Assessment Notes Treatment Notes Treatment Clinical Notes Sep, Primary osteoarthritis of both knees (ICD-10 - M17.0) Sep, Osteoarthritis of knee (ICD-10 - M17.9) [facility] Other 03-22-2023 Evaluation note* Encounter Date Diagnosis Assessment Notes Treatment Notes Treatment Clinical Notes Aug, Osteoarthritis of knee (ICD-10 - M17.9) [facility] Other 03-09-2023 Evaluation note* Encounter Date Diagnosis Assessment Notes Treatment Notes Treatment Clinical Notes Aug, Primary osteoarthritis of both knees (ICD-10 - M17.0) [facility] Other 02-10-2023 Evaluation note* Encounter Date Diagnosis Assessment Notes Treatment Notes Treatment Clinical Notes Aug, Osteoarthritis of knee (ICD-10 - M17.9) Aug, Primary osteoarthritis of both knees (ICD-10 - M17.0) [facility] Other 01-12-2023 Evaluation note* Encounter Date Diagnosis Assessment Notes Treatment Notes Treatment Clinical Notes Jul, Primary osteoarthritis of both knees (ICD-10 - M17.0) [facility] Other 01-05-2023 Evaluation note* Encounter Date Diagnosis Assessment Notes Treatment Notes Treatment Clinical Notes Jul, Primary osteoarthritis of both knees (ICD-10 - M17.0) Jul, Osteoarthritis of knee (ICD-10 - M17.9) [facility] Other 12-20-2022 Evaluation note* Encounter Date Diagnosis Assessment Notes Treatment Notes Treatment Clinical Notes Jun, Primary osteoarthritis of both knees (ICD-10 - M17.0) Jun, Osteoarthritis of knee (ICD-10 - M17.9) [facility] Other 12-14-2022 Evaluation note* Encounter Date Diagnosis [...] Stiffness of left knee (ICD-10 - M25.662) [facility] Other 12-08-2022 Evaluation note* Encounter Date Diagnosis Assessment Notes Treatment Notes Treatment Clinical Notes Jun, Primary osteoarthritis of both knees (ICD-10 - M17.0) [facility] Other 11-23-2022 Evaluation note* Encounter Date Diagnosis Assessment Notes Treatment Notes Treatment Clinical Notes May, Osteoarthritis of knee (ICD-10 - M17.9) May, Primary osteoarthritis of both knees (ICD-10 - M17.0) [facility] Other 11-15-2022 Evaluation note* Encounter Date Diagnosis Assessment Notes Treatment Notes Treatment Clinical Notes May, Osteoarthritis of knee (ICD-10 - M17.9) May, Primary osteoarthritis of both knees (ICD-10 - M17.0) [facility] Other 11-09-2022 Evaluation note* Encounter Date Diagnosis Assessment Notes Treatment Notes Treatment Clinical Notes May, Primary osteoarthritis of both knees (ICD-10 - M17.0) [facility] Other 11-01-2022 Evaluation note* Encounter Date Diagnosis Assessment Notes Treatment Notes Treatment Clinical Notes May, Osteoarthritis of knee (ICD-10 - M17.9) [facility] Other 10-25-2022 Evaluation note* Encounter Date Diagnosis Assessment Notes Treatment Notes Treatment Clinical Notes Apr, Osteoarthritis of knee (ICD-10 - M17.9) [facility] Other 10-17-2022 Evaluation note* Encounter Date Diagnosis Assessment Notes Treatment Notes Treatment Clinical Notes Apr, Osteoarthritis of knee (ICD-10 - M17.9) [facility] Other 09-26-2022 Evaluation note* Encounter Date Diagnosis Assessment Notes Treatment Notes Treatment Clinical Notes Mar, Osteoarthritis of knee (ICD-10 - M17.9) [facility] Other 09-15-2022 Evaluation note* Encounter Date Diagnosis Assessment Notes Treatment Notes Treatment Clinical Notes Mar, Osteoarthritis of knee (ICD-10 - M17.9) [facility] Other 08-30-2022 Evaluation note* Encounter Date Diagnosis Assessment Notes Treatment Notes Treatment Clinical Notes Jan, Osteoarthritis of knee (ICD-10 - M17.9) [facility] Other 08-15-2022 Evaluation note* Encounter Date Diagnosis Assessment Notes Treatment Notes Treatment Clinical Notes Jan, Osteoarthritis of knee (ICD-10 - M17.9) [facility] Other 08-10-2022 Evaluation note* Encounter Date Diagnosis Assessment Notes Treatment Notes Treatment Clinical Notes Jan, Osteoarthritis of knee (ICD-10 - M17.9) [facility] Other 08-01-2022 Evaluation note* Encounter Date Diagnosis Assessment Notes Treatment Notes Treatment Clinical Notes Jan, Osteoarthritis of knee (ICD-10 - M17.9) [facility] Other 07-21-2022 Evaluation note* Encounter Date Diagnosis Assessment Notes Treatment Notes Treatment Clinical Notes Dec, Primary osteoarthritis of left knee (ICD-10 - M17.12) [facility] Other 07-14-2022 Evaluation note* Encounter Date Diagnosis Assessment Notes Treatment Notes Treatment Clinical Notes Dec, Primary osteoarthritis of left knee (ICD-10 - M17.12) [facility] Other 07-13-2022 Evaluation note* Encounter Date Diagnosis [...] Dec, Hand pain, right (ICD-10 - M79.641) [facility] Other 07-07-2022 Evaluation note* Encounter Date Diagnosis Assessment Notes Treatment Notes Treatment Clinical Notes Dec, Primary osteoarthritis of left knee (ICD-10 - M17.12) [facility] Other 07-01-2022 Evaluation note* Encounter Date Diagnosis Assessment Notes Treatment Notes Treatment Clinical Notes Dec, Primary osteoarthritis of left knee (ICD-10 - M17.12) [facility] Other 06-29-2022 Evaluation note* Encounter Date Diagnosis Assessment Notes Treatment Notes Treatment Clinical Notes Nov, Primary osteoarthritis of left knee (ICD-10 - M17.12) [facility] Other 06-22-2022 Evaluation note* Encounter Date Diagnosis Assessment Notes Treatment Notes Treatment Clinical Notes Nov, Primary osteoarthritis of left knee (ICD-10 - M17.12) [facility] Other 06-15-2022 Evaluation note* Encounter Date Diagnosis [...] Stiffness of left knee (ICD-10 - M25.662) [facility] Other 06-08-2022 Evaluation note* Encounter Date Diagnosis Assessment Notes Treatment Notes Treatment Clinical Notes Nov, Osteoarthritis of knee (ICD-10 - M17.9) [facility] Other 05-31-2022 Evaluation note* Encounter Date Diagnosis Assessment Notes Treatment Notes Treatment Clinical Notes October, Osteoarthritis of knee (ICD-10 - M17.9) [facility] Other 05-27-2022 Evaluation note* Encounter Date Diagnosis Assessment Notes Treatment Notes Treatment Clinical Notes October, Osteoarthritis of knee (ICD-10 - M17.9) [facility] Other 05-16-2022 Evaluation note* Encounter Date Diagnosis Assessment Notes Treatment Notes Treatment Clinical Notes October, Osteoarthritis of knee (ICD-10 - M17.9) [facility] Other 04-28-2022 Evaluation note* Encounter Date Diagnosis Assessment Notes Treatment Notes Treatment Clinical Notes Sep, Osteoarthritis of knee (ICD-10 - M17.9) [facility] Other 04-21-2022 Evaluation note* Encounter Date Diagnosis Assessment Notes Treatment Notes Treatment Clinical Notes Sep, Status post total left knee replacement (ICD-10 - Z96.652) Sep, Primary osteoarthritis of left knee (ICD-10 - M17.12) [facility] Other 04-14-2022 Evaluation note* Encounter Date Diagnosis Assessment Notes Treatment Notes Treatment Clinical Notes Sep, Status post total left knee replacement (ICD-10 - Z96.652) [facility] Other 03-30-2022 Evaluation note* Encounter Date Diagnosis [...] Stiffness of left knee (ICD-10 - M25.662) [facility] Other 02-14-2022 Evaluation note* Encounter Date Diagnosis Assessment Notes Treatment Notes Treatment Clinical Notes Aug, Primary osteoarthritis of left knee (ICD-10 - M17.12) [facility] Other 01-31-2022 Evaluation note* Encounter Date Diagnosis Assessment Notes Treatment Notes Treatment Clinical Notes Jul, Primary osteoarthritis of left knee (ICD-10 - M17.12) [facility] Other 01-24-2022 Evaluation note* Encounter Date Diagnosis [...] poor healing. I have advised against the assistant terminal manager use of narcotic pain medication. I have [...] agrees Jul, Pre-op examination (ICD-10 - Z01.818) [facility] Other 12-28-2021 Evaluation note* Encounter Date Diagnosis Assessment Notes Treatment Notes Treatment Clinical Notes Jun, Primary osteoarthritis of left knee (ICD-10 - M17.12) [facility] Other 12-27-2021 Evaluation note* Encounter Date Diagnosis [...] No x-rays are needed at that time. [facility] Other 12-08-2021 Evaluation note* Encounter Date Diagnosis [...] was discussed. I have advised against the assistant terminal manager use of narcotic pain medication. I have [...] Total Knee Arthroplasty. Patient would benifit from ARKeX. [facility] Other 11-15-2021 Evaluation note* Encounter Date Diagnosis Assessment Notes Treatment Notes Treatment Clinical Notes May, Primary osteoarthritis of left knee (ICD-10 - M17.12) [facility] Other 11-03-2021 Evaluation note* Encounter Date Diagnosis [...] will proceed with Left Total Knee Arthroplasty [facility] Other 08-30-2021 NoteHNO ID: [id number] Author: Serena Funes MD Service: ? Author [...] its relevant components. Serena Funes MD [place]06[birth year]21[birth year]2012 History general Narrative - Reported* Type Description Date Medical History Bloodwork 12-21-11; u rinalysis, lipid panel, cmp, cbc, Vitamin d 25 hydroxy Medical History L-spine XR [facility] [facility] Medical History Not sure on stress test >23 year s Medical History 05-17-10 Refuses mammogram Medical History 06-21-10 Refused colonoscopy and rectal exam Medical History 06-21-10 Refuses mammogram Medical History MRI left knee 06-22-10 [facility] Medical History XR right shoulder 01-13-11 [facility] [place] [facility] Medical History CT Scan Brain [facility] [place] (no acute intracranial process) Medical History 06-21-11 [...] colon-Dr. Fish 12/03/2015 Surgical History CXR ER [facility] [place] 07/10/17 Surgical History Holter Monitor - Dr Aceves 07/03 08/19 Surgical History bone marrow 09/12/[address] Resendez inj middle rt hand Surgical History Heart Cath 03/2019 Surgical History left TKA 06/14/2021 Surgical History left TKA with manipulation 07/2021 Hospitalization History chilbirth x2 Hospitalization History kidney stones [facility] Other 06-21-2012 History general Narrative - Reported* Type Description Date Medical History Bloodwork 12-21-11; u rinalysis, lipid panel, cmp, cbc, Vitamin d 25 hydroxy Medical History L-spine XR [facility] [place] Medical History Not sure on stress test >23 year s Medical History 05-17-10 Refuses mammogram Medical History 06-21-10 Refused colonoscopy and rectal exam Medical History 06-21-10 Refuses mammogram Medical History MRI left knee 06-22-10 [facility] [place] Medical History XR right shoulder 01-13-11 [facility] [place] Medical History CT Scan Brain [facility] [place] (no acute intracranial process) Medical History 06-21-11 [...] colon-Dr. Fish 12/03/2015 Surgical History CXR ER [facility] 07/10/17 Surgical History Holter Monitor - Dr Aceves 07/03 08/19 Surgical History bone marrow 09/12/[address] Resendez inj middle rt hand Surgical History Heart Cath 03/2019 Hospitalization History chilbirth x2 Hospitalization History kidney stones [facility] Other Evaluation noteNo InformationNort [employer] Other Evaluation noteNomisterbnb Other Evaluation noteNo assessment information available [facility] Work Phone: Evaluation note* Diagnosis Atherosclerosis of [place] coronary artery of [place] heart without angina pectoris Chronic atrial fibrillation (CMS/HCC) Atrial fibrillation Essential hypertension, benign GARCIA (dyspnea on exertion) Other dyspnea and respiratory abnormality History of PTCA Postsurgical percutaneous transluminal coronary angioplasty status High risk medication use Hyperlipidemia, unspecified hyperlipidemia type documented in this encounter [facility] Work Phone: Evaluation note* Diagnosis Onset Date Resolution Status Elevated troponin acute Hypertensive urgency acute Pre-syncope acute [facility] Work Phone: Evaluation note* Diagnosis Onset Date Resolution Status Arthritis of right hand acut e Trigger finger, right index finger acute Trigger finger, right middle finger acute [facility] Work Phone: History general [facility]ative - [facility] Other History of Present illness Narrative* The [...] medication regimen. She denies medication side effects. [facility] 600 DO Work Phone: Reason for referral (narrative)* Consultation (Routine) - Authorized Specialty Diagnoses / Procedures Referred By Adeel hunter Referred To Contact Cardiology Diagnoses Essential hypertension, benign Procedures Follow Up In Cardiology Esau Aceves DO [address] [facility] [address], [address] [address] Referral ID Status Reason Start Date Expiration Date V isits Requested Visits Authorized [id number] Authorized 04/10/2023 10/07/2023 1 1 * Consultation (Routine) - Authorized Specialty Diagnoses / Procedures Referred By Adeel hunter Referred To Contact Cardiology Diagnoses Essential hypertension, benign Procedures Follow Up In Cardiology Esau Aceves DO [address] [facility], [address] [address] Referral ID Status Reason Start Date Expiration Date V isits Requested Visits Authorized [id number] Authorized 04/10/2023 10/07/2023 1 1 T [facility] Work Phone: Summary Purpose Family History No Family History Records FoundUnknown Family Member Name Dates Details Family history [...] of lung Unknown natural son Thalassemia Unknown father Unknown Family history of emphysema Unknown grandparent Unknown Malignant neoplasm Unknown Malignant neoplasm of uterus Unknown Unknown Advance Directives No Advanced Directives Records Found Advance Directive Response Recorded Date/ Time Advance [...] He has a history of remote inferior OH with PCIof the RCA in 2014. She [...] has a known history of previous inferior OH with revascularization of the RCA in 2014. In 2019 she underwent r epeat catheterization for angina [...] believe plans were for cardioversion to attempt alevism of normal sinus rhythm. * On record [...] for Visit Elevated troponin Hypertensive urgency Pre-syncope Chief Complaint op sp rt hand pain Reason for Visit Arthritis of right h and Trigger finger, right index finger Trigger finger, right middle finger Additional Source Comments INFORMATION SOURCE (unrecogn ized section and content) DATE CREATED AUTHOR 07/19/2018 [facility] DATE CREATED AUTHOR AUTHOR'S ORGANIZ ATION 05/19/2019 [facility] DATE CREATED AUTHOR AUTHOR'S ORGANIZ ATION 08/22/2021 [facility] DATE CREATED AUTHOR AUTHOR'S ORGANIZ ATION 05/19/2022 [facility] DATE CREATED AUTHOR AUTHOR'S ORGANIZ ATION 06/22/2022 [facility] DATE CREATED AUTHOR AUTHOR'S ORGANIZ ATION 06/07/2023 [facility] DATE CREATED AUTHOR AUTHOR'S ORGANIZ ATION 07/12/2023 [facility] DATE CREATED AUTHOR AUTHOR'S ORGANIZ ATION 12/20/2023 [facility] REASON FOR VISIT (unrecogniz ed section and content) Reason Comments Follow-up 1 year Care Teams [...] DO Admit Provider, Attending Provid er Active Team Status: Inactive Member Role Status Dates Kip Espinoza , Primary Care Provider Active Start: November 28, 2023 End: November 28, 2023 Marilin Resendez MD Attending Provider Active Start: November 28, 2023 End: November 28, 2023 Goals (unrecognized section and content) Goals may [...] BE BASED ON THE PRIMARY CLINICAL RECORDS. [facility]. provides no warranty or guarantee of the accuracy or completeness of information in this document.
[2024-03-24 20:15] VITALS: BP 185/97; TEMP 37
--- NOTE | 2024-03-24 20:21 | ED.GENADUL1 ---
HPI HPI - General Adult General Chief complaint: Skin/Abscess/Foreign Body Stated complaint: Abscess on Breast Time Seen by Provider: 03/24/24 20:21 Source: patient Mode of arrival: walk-in Limitations: no limitations History of Present Illness HPI narrative: 79 year old female presents to the ED for lump to her right breast. States she noticed the lump today. Denies fever, chills, injury. Denies CP, SB. Denies nipple inversion, discharge. States she has not had a mammogram in 40 years. Related Data Home Medications ?Medication ?Instructions ?Recorded ?Confirmed apixaban 5 mg tablet (Eliquis) 5 mg PO Q12H 07/06/23 08/20/23 atorvastatin 40 mg tablet 40 mg PO .every night 07/06/23 08/20/23 cyclobenzaprine 10 mg tablet 10 mg PO Q12H 07/06/23 08/20/23 gabapentin 600 mg tablet 600 mg PO Q12H 07/06/23 08/20/23 hydrochlorothiazide 25 mg tablet 25 mg PO .every night 07/06/23 08/20/23 metoprolol tartrate 25 mg tablet 25 mg PO Q12H 07/06/23 08/20/23 tramadol 50 mg tablet 50 mg PO Q12H 07/06/23 07/06/23 valsartan 160 mg tablet 160 mg PO DAILY 07/06/23 08/20/23 brimonidine 0.2 %-timolol 0.5 % 1 drp ophthalmic (eye) Q12H 08/20/23 08/20/23 eye drops (Combigan) latanoprost 0.005 % eye drops 1 drp ophthalmic (eye) DAILY 08/20/23 08/20/23 Previous Rx's ?Medication ?Instructions ?Recorded tramadol 50 mg tablet 50 mg PO Q8H PRN pain #14 tabs 07/06/23 azithromycin 250 mg tablet See Rx Instructions PO .COMPLEX #6 08/20/23 tabs ondansetron 4 mg disintegrating 4 mg PO Q6H PRN nausea and 08/20/23 tablet vomiting #14 tabs Allergies Allergy/AdvReac Type Severity Reaction Status Date / Time No Known Drug Allergies Allergy Verified 03/24/24 20:11 Opioid HPI Opioid Management Most Recent Opioid Data: Last Pain Scale 9 07/06/23 17:26 Review of Systems ROS Constitutional Denies: fever or chills Ears, nose, mouth, and throat Denies: neck pain Cardiovascular Denies: chest pain Respiratory Denies: shortness of breath Integumentary/Breast Reports: breast mass; Denies: nipple discharge or breast skin changes PFSH [facility] Social History Smoking status: Never smoker Little interest or pleasure in doing things: not at all Feeling down, depressed, or hopeless: not at all Exam Narrative Exam Narrative: Mirta RN at bedside for logistics assistant for breast exam. Constitutional Vital Signs, click to edit/add: Last Vital Signs Temp 98.6 F 03/24/24 20:15 Pulse 83 03/24/24 20:11 Resp 18 03/24/24 20:11 BP 185/97 H 03/24/24 20:15 Pulse Ox 98 03/24/24 20:11 O2 Del Method Room Air 03/24/24 20:11 Common normals: no apparent distress and oriented x3 General appearance: cooperative Eye Common normals: conjunctivae normal and no scleral icterus Chest Breast/axilla palpation: abnormal palpation of the breast Nipple/areola: nipples/areola normal; no nipple discharge Other: Palpable lump to right breast between 11 and 1 o'clock. No erythema or wound to area. Respiratory Effort & inspection: able to speak in complete sentences and symmetric chest movement Cardio Common normals: regular rate Neuro Common normals: oriented x3 Sensorium/orientation: awake and alert Speech: speech normal Course Vital Signs Vital signs: Vital Signs Pulse Rate 83 03/24/24 20:11 Respiratory Rate 18 03/24/24 20:11 Pulse Oximetry 98 03/24/24 20:11 Oxygen Delivery Method Room Air 03/24/24 20:11 Temperature 98.6 F 03/24/24 20:15 Pulse Rate 83 03/24/24 20:11 Respiratory Rate 18 03/24/24 20:11 Blood Pressure 185/97 H 03/24/24 20:15 Pulse Oximetry 98 03/24/24 20:11 Oxygen Delivery Method Room Air 03/24/24 20:11 Medical Decision Making MDM Narrative Medical decision making narrative: The patient was strongly encouraged to call her family physician in the morning for follow up for the breast lump/mass. She was advised a mammogram and possible an ultrasound will need to be completed as they cannot be completed here in the ER. Medical Records Medical records reviewed: Yes I reviewed the patient's medical records Discharge Plan Discharge Chief Complaint: Skin/Abscess/Foreign Body Clinical Impression: Breast lump Patient Disposition: Home, Self-Care Time of Disposition Decision: 20:23 Condition: Good Mode of Transportation: Private Vehicle Prescriptions / Home Meds: No Action Eliquis 5 mg tablet 5 mg PO Q12H atorvastatin 40 mg tablet 40 mg PO .every night cyclobenzaprine 10 mg tablet 10 mg PO Q12H gabapentin 600 mg tablet 600 mg PO Q12H hydrochlorothiazide 25 mg tablet 25 mg PO .every night metoprolol tartrate 25 mg tablet 25 mg PO Q12H tramadol 50 mg tablet 50 mg PO Q12H valsartan 160 mg tablet 160 mg PO DAILY tramadol 50 mg tablet 50 mg PO Q8H PRN (Reason: pain) Qty: 14 0RF brimonidine-timolol [Combigan] 0.2-0.5 % drops 1 drp OPHTHALMIC (EYE) Q12H Rx Instructions: Both eyes latanoprost 0.005 % drops 1 drp OPHTHALMIC (EYE) DAILY Rx Instructions: PM azithromycin 250 mg tablet See Rx Instructions .ROUTE .COMPLEX Qty: 6 0RF Rx Instructions: For 250 mg dose pack: take 500 mg today (day 1), then 250 mg for 4 days (days 2-5) ondansetron 4 mg tablet,disintegrating 4 mg PO Q6H PRN (Reason: nausea and vomiting) Qty: 14 0RF Print Language: [place] Instructions: Breast Mass (ED) Additional Instructions: Please call your family physician first thing tomorrow morning for follow up for the breast lump. You will need to receive an order for a mammogram. You will need a mammogram and possible a breast ultrasound for this lump. These tests are unable to be completed in the emergency department. Referrals: ANNA ESPINOZA [Primary Care Provider] - 1 week
== END 2024-03-24 20:33 | disposition home or self-care (01) ==
PROVIDERS: Emergency Provider Emergency Medicine; PCP Family Medicine
DX: N63.10 Unspecified lump in the right breast, unspecified quadrant (principal)
CPT/HCPCS: 99284